=== PATIENT | male | born 1940 | race Caucasian/White ===

== ENCOUNTER → 2019-06-08 14:00 | Outpatient (BNVA) | payer MEDICARE, OTHER, SELFPAY | PROVIDERS: Family Provider Internal Medicine; PCP Internal Medicine; Visit Provider Family Medicine | DX: E78.2 Mixed hyperlipidemia (principal); E11.9 Type 2 diabetes mellitus without complications; Z79.4 Long term (current) use of insulin; N40.0 Benign prostatic hyperplasia without lower urinary tract symptoms; L60.2 Onychogryphosis; I10 Essential (primary) hypertension; D50.9 Iron deficiency anemia, unspecified | CPT/HCPCS: 80053; 80061; 83036; 85025; G0103 ==

== ENCOUNTER → 2019-06-16 14:17 | Outpatient (BNVA) | payer MEDICARE, OTHER, SELFPAY | PROVIDERS: Family Provider Internal Medicine; PCP Internal Medicine; Visit Provider Nurse Practitioner Family | DX: R82.90 Unspecified abnormal findings in urine (principal); E78.2 Mixed hyperlipidemia; N40.0 Benign prostatic hyperplasia without lower urinary tract symptoms | CPT/HCPCS: 81001; 87077; 87086; 87186 ==

== ENCOUNTER → 2019-12-30 10:52 | Outpatient (BNVA) | payer MEDICARE, OTHER, SELFPAY | PROVIDERS: Family Provider Internal Medicine; PCP Family Medicine; Visit Provider Family Medicine | DX: E11.65 Type 2 diabetes mellitus with hyperglycemia (principal); E78.5 Hyperlipidemia, unspecified; I10 Essential (primary) hypertension; Z79.4 Long term (current) use of insulin; I50.9 Heart failure, unspecified; T63.301A Toxic effect of unspecified spider venom, accidental (unintentional), initial encounter | CPT/HCPCS: 80053; 80061; 83036; 84443; 85025 ==

== ENCOUNTER → 2020-05-30 16:38 | Outpatient (BNVA) | payer MEDICARE, OTHER, SELFPAY | PROVIDERS: Family Provider Internal Medicine; PCP Family Medicine; Visit Provider Nurse Practitioner Family | DX: E11.65 Type 2 diabetes mellitus with hyperglycemia (principal); Z79.4 Long term (current) use of insulin; I50.9 Heart failure, unspecified | CPT/HCPCS: 80053; 80061; 83036; 84443; 85025 ==

== ENCOUNTER → 2020-07-06 09:00 | Outpatient (BNVA) | payer MEDICARE, OTHER, SELFPAY | PROVIDERS: Family Provider Internal Medicine; PCP Family Medicine; Visit Provider Nurse Practitioner Family | DX: R35.0 Frequency of micturition (principal); E11.65 Type 2 diabetes mellitus with hyperglycemia; Z79.4 Long term (current) use of insulin | CPT/HCPCS: 81003; 87077; 87086; 87184 ==

== ENCOUNTER → 2020-10-02 14:52 | Outpatient (BNVA) | payer MEDICARE, OTHER, SELFPAY | PROVIDERS: Family Provider Internal Medicine; PCP Family Medicine; Visit Provider Family Medicine | DX: E11.65 Type 2 diabetes mellitus with hyperglycemia (principal); E78.5 Hyperlipidemia, unspecified; I10 Essential (primary) hypertension; M62.81 Muscle weakness (generalized); R26.81 Unsteadiness on feet; R23.8 Other skin changes; Z79.4 Long term (current) use of insulin; R32 Unspecified urinary incontinence | CPT/HCPCS: 80053; 80061; 83036; 84443 ==

== ENCOUNTER 2020-10-03 12:57 | Inpatient (IN) | payer OTHER, MEDICARE, SELFPAY ==
[2020-10-03] VITALS (25 sets, daily range): BP systolic 122–164; BP diastolic 50–74; PULSE 61–98; RESP 13–20; TEMP 36.8–37.2; O2SAT 86–98; BMI 27.5
--- NOTE | 2020-10-03 13:00 | ED_ITS ---
HPI - Abdominal Pain General: Chief Complaint: Nausea/Vomiting/Diarrhea Stated Complaint: N/V, FEVER Time Seen by Provider: 10/03/20 12:58 History of Present Illness: HPI narrative: This patient is a 80-year-old male who presents to the emergency department for nausea vomiting and weakness. Patient also had a fever upon EMS arrival with his home in [facility]. Patient does have a history of blood clots he does take Eliquis for the same. Patient denies any recent illness was that he started vomiting this morning. Patient does have diabetes. Patient's nausea did improve with Zofran via EMS they have not given the patient any IV fluids. Will do medical evaluation treat as needed patient denies any specific abdominal pain. Onset (ago): hour(s) Pain Consistency: now resolved Location: None Associated Symptoms: Reports fever(s), nausea and vomiting; Denies chills and dysuria Review of Systems General: Reports: 10 or more systems reviewed and unremarkable except in HPI and below Const: Reports: fever(s); Denies: chills, body aches or fatigue Eyes: Denies: change in vision or blurry vision ENMT: Denies: throat pain, hoarseness or mouth pain Card: Denies: chest pain, palpitations, irregular heart rhythm, edema, swelling of feet/ankles or lightheadedness Resp: Denies: dyspnea, productive cough, non-productive cough, wheezing or pain on inspiration GI: Reports: nausea and vomiting; Denies: abdominal pain : Denies: flank pain, dysuria, urinary frequency, urinary urgency or urinary hesitancy Musc: Denies: neck pain, back pain, extremity pain, extremity swelling, joint pain, joint swelling, joint redness, joint warmth or limited range of motion Skin/Breast: Denies: rash, pruritus, erythema or skin tenderness Neuro: Reports: weakness in extremities; Denies: headache(s) or numbness in extremities Psych: Denies: anxiety or depression PFSH ED PFSH: Medical History Anemia ASHD (arteriosclerotic heart disease) CHF (congestive heart failure) Chronic osteoarthritis CKD (chronic kidney disease) stage 3, GFR 30-59 ml/min Dementia Diabetes Dyslipidemia Generalized muscle weakness GERD (gastroesophageal reflux disease) Hearing loss History of DVT (deep vein thrombosis) History of fracture of left hip Hypertension Neuropathy RASHAD (obstructive sleep apnea) Surgical History History of laminectomy (~1992) History of orchiectomy Family History Other CAD (coronary artery disease) Diabetes Hypertension Social History Smoking and tobacco status: former smoker Quit status (tobacco): has quit using tobacco Year quit tobacco: 1991 Second hand smoke exposure: Yes Smoking risk assessment/counseling performed?: No Alcohol intake: never Household members: spouse Marital status: service: Yes Current occupational status: retired Current gender identity: Male Physical Exam Const: COMMON NORMALS: no acute distress, average body habitus, patient oriented x3, no limitations, healthy appearing, alert and well nourished GENE RAL APPEARANCE: cooperative NUTRITIONAL APPEARANCE: obese ORIENTATION/CONSCIOUSNESS: Yes awake, Yes oriented to person and Yes oriented to place OTHER: Patient appears to have generalized weakness to the lower extremities. EMS reports the patient does use a wheelchair at home. HENMT: COMMON NORMALS: normocephalic, atraumatic, hearing grossly normal bilaterally, external ears normal, EAC's normal, TM's normal bilaterally, Normal external nose present, Normal nasal mucous membranes and turbinates present, moist oral mucous membranes, oropharynx normal, dentition normal and gingiva normal HEAD & SCALP: normocephalic and atraumatic NOSE: Normal external nose present and Normal nasal mucous membranes and turbinates present EXTERNAL EAR: Yes external ears normal EXTERNAL AUDITORY CANAL: EAC's normal TYMPANIC MEMBRANE: TM's normal bilaterally Neck/C-Spine: COMMON NORMALS: full ROM, no lymphadenopathy, supple, no meningeal signs, no JVD, Thyroid normal and No carotid bruits THYROID: Thyroid normal Chest: COMMONS NORMALS: normal inspection of the chest, normal palpation of entire chest wall, normal inspection of the breasts and normal palpation of the breasts Breast/axilla inspection: Yes normal inspection of the breasts BREAST/AXILLA PALPATION: Yes normal palpation of the breasts Resp: COMMON NORMALS: normal respiratory effort, No retractions, No use of accessory muscles, clear to auscultation bilaterally and percussion normal AUSCULTATION: clear to auscultation bilaterally PERCUSSION: percussion normal Cardio: COMMON NORMALS: no JVD, regular rate, regular rhythm, S1 normal heart sound present, S2 normal heart sound present, No gallops present (Cardio), No clicks present (Cardio), No murmurs present (Cardio), No rub (Cardio) and Peripheral pulses 2+ throughout RATE: regular rate RHYTHM: regular rhythm HEART SOUNDS: S1 normal heart sound present and S2 normal heart sound present PERIPHERAL PULSES: Peripheral pulses 2+ throughout GI: COMMON NORMALS: Normal to inspection, nondistended, normoactive bowel sounds present, Soft to palpation, non-tender, No hepatosplenomegaly present, no masses and no bruits PALPATION: Yes Soft to palpation and Yes No hepatosplenomegaly present : COMMON NORMALS: Yes no CVA tenderness BLADDER/KIDNEY EXAM: Yes no CVA tenderness Back/Pelvis: COMMON NORMALS: no CVA tenderness, thoracic and lumbar spine normal to inspection, no thoracic nor lumbar tenderness, thoraco-lumbar ROM normal and straight leg raise negative bilaterally Extremity: COMMON NORMALS: normal to inspection, full ROM, capillary refill normal, no joint enlargement, no clubbing, cyanosis or edema, no calf tenderness and no pedal edema Neuro: COMMON NORMALS: patient oriented x3 SENSORIUM/ORIENTATION: Yes alert, Yes oriented to person and Yes oriented to place MENINGEAL SIGNS: Yes no meningeal signs Course Reevaluation(s): Reevaluation #1: I did discuss at length with patient and family. Patient does have a long history of risk susceptible to recurrent urinary tract infections. Patient has a white blood cell count of 1.0 and platelets of 86. Lactic acid is 2.6. Patient will be given a dose of Rocephin and another liter bolus of fluid. Concern for possible sepsis or urosepsis. Patient had no complaints of abdominal pain but had nausea and vomiting started this morning. I did discuss at length with patient and family. Patient will be admitted to the hospital for probable sepsis. Still awaiting lab return. Time: 14:05 Consultations: Consultation #1: I did discuss at length with Dr. Salcido. He is accepted this patient for admission to the ICU. He request that we give Zosyn and Vanco and hold Rocephin. Also request a CT scan of the abdomen. He agrees with Ayala cath placement and current treatment thus far. Time: 14:14 Consultation #2: Dr. Peterson has been notified of CT results 1. Moderate LEFT hydroureteronephrosis secondary to a 6 mm calcification at the UV junction. 2. Mild LEFT renal enlargement and perinephric stranding due to the ureteral obstruction. 3. Cholelithiasis without acute cholecystitis. 4. 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 May be related to prior granulomatous disease or hemorrhage. Long-term stability is documented. 5. Moderate cardiomegaly. 6. Moderate hiatal hernia. 7. Sigmoid diverticulosis without acute diverticulitis. He is also aware that we have consulted Dr. Ponce urology. Time: 14:59 Consultation #3: I have discussed with Dr. Ponce urology. He states he will see patient upon arrival to the ICU. He is aware unable to place Ayala catheter in the emergency department. He will place a Ayala cath in the ICU. And evaluate for possible UPJ obstruction due to kidney stone Time: 15:16 Vital Signs: Vital signs: Vital Signs Temperature 98.3 F 10/03/20 13:02 Pulse Rate 98 10/03/20 13:02 Respiratory Rate 16 10/03/20 13:02 Blood Pressure 128/74 10/03/20 13:02 Pulse Oximetry 98 10/03/20 13:02 MDM - Abdominal Pain MDM Narrative: Medical decision making narrative: This patient is a 80-year-old male who presents to the emergency department for nausea vomiting and weakness. Patient also had a fever upon EMS arrival with his home in [facility]. Patient does have a history of blood clots he does take Eliquis for the same. Patient denies any recent illness was that he started vomiting this morning. Patient does have diabetes. Patient's nausea did improve with Zofran via EMS they have not given the patient any IV fluids. Will do medical evaluation treat as needed patient denies any specific abdominal pain. I did discuss at length with patient and family. Patient does have a long history of risk susceptible to recurrent urinary tract infections. Patient has a white blood cell count of 1.0 and platelets of 86. Lactic acid is 2.6. Patient will be given a dose of Rocephin and another liter bolus of fluid. Concern for possible sepsis or urosepsis. Patient had no complaints of abdominal pain but had nausea and vomiting started this morning. I did discuss at length with patient and family. Patient will be admitted to the hospital for probable sepsis. Still awaiting lab return. I did discuss at length with Dr. Salcido. He is accepted this patient for admission to the ICU. He request that we give Zosyn and Vanco and hold Rocephin. Also request a CT scan of the abdomen. He agrees with Ayala cath placement and current treatment thus far. Dr. Peterson has been notified of CT results 1. Moderate LEFT hydroureteronephrosis secondary to a 6 mm calcification at the UV junction. 2. Mild LEFT renal enlargement and perinephric stranding due to the ureteral obstruction. 3. Cholelithiasis without acute cholecystitis. 4. 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 May be related to prior granulomatous disease or hemorrhage. Long-term stability is documented. 5. Moderate cardiomegaly. 6. Moderate hiatal hernia. 7. Sigmoid diverticulosis without acute diverticulitis. He is also aware that we have consulted Dr. Ponce urology. I have discussed with Dr. Ponce urology. He states he will see patient upon arrival to the ICU. He is aware unable to place Ayala catheter in the emergency department. He will place a Ayala cath in the ICU. And evaluate for possible UPJ obstruction due to kidney stone Lab Data: Labs: Lab Results 10/03/20 10/03/20 10/03/20 Range/Units 12:00 12:00 12:00 WBC 1.0 L (4.0-10.0) 10^3/ uL RBC 4.00 L (4.1-5.3) 10^6/u L Hgb 11.7 (11.7-16.6) g/dL Hct 34.8 L (42.0-52.0) % MCV 87.0 (80-94) fL MCH 29.3 (28.0-34.0) pg MCHC 33.6 (30.0-36.0) g/dL RDW 13.8 (12.1-15.1) % Plt Count 86 L (130-400) 10^3/c mm MPV 12.0 H (7.4-10.4) fL Neut % (Auto) 82.5 % Lymph % (Auto) 15.5 % Warren % (Auto) 1.0 % Eos % (Auto) 1.0 % Baso % (Auto) 0.0 % Neut # (Auto) 0.80 L* (1.8-7.7) 10^3/u L Lymph # (Auto) 0.2 L (0.8-4.8) 10^3/u L Warren # (Auto) 0.0 L (0.2-0.9) 10^3/u L Eos # (Auto) 0.0 (0.0-0.8) 10^3/u L Baso # (Auto) 0.0 (0.0-0.1) 10^3/u L Nucleated RBC % (a uto) 0 % Nucleated RBCs # 0.0 /100WBC PT 16.00 H (12.1-14.9) SECO NDS INR 1.24 H (0.8-1.2) APTT 30.2 (23.9-36.7) SECO NDS Sodium 143 (136-145) mmol/L Potassium 3.2 L (3.5-5.1) mmol/L Chloride 107 (98-107) mmol/L Carbon Dioxide 21 L (22-29) mmol/L Anion Gap 18.2 (5-19) BUN 32 H (8-23) mg/dL Creatinine 1.4 H (0.7-1.2) mg/dL GFR Calculation Not Reportable Glucose 142 H (65-115) mg/dL Calculated Osmolal ity 305 H (285-295) mOsm/k g Lactic Acid (0.5-2.2) mmol/L Calcium 8.5 (8.5-10.5) mg/dL Total Bilirubin 1.0 (0.15-1.2) mg/dL AST 30 (0-40) U/L ALT 20 (0-41) U/L Alkaline Phosphata se 59 (40-130) IU/L Troponin T Baselin e (0-15) ng/L Total Protein 6.5 L (6.6-8.7) g/dL Albumin 3.6 (3.5-5.2) g/dL Globulin 2.9 (1.3-4.6) g/dL 10/03/20 10/03/20 Range/Units 12:00 13:15 WBC (4.0-10.0) 10^3/ uL RBC (4.1-5.3) 10^6/u L Hgb (11.7-16.6) g/dL Hct (42.0-52.0) % MCV (80-94) fL MCH (28.0-34.0) pg MCHC (30.0-36.0) g/dL RDW (12.1-15.1) % Plt Count (130-400) 10^3/c mm MPV (7.4-10.4) fL Neut % (Auto) % Lymph % (Auto) % Warren % (Auto) % Eos % (Auto) % Baso % (Auto) % Neut # (Auto) (1.8-7.7) 10^3/u L Lymph # (Auto) (0.8-4.8) 10^3/u L Warren # (Auto) (0.2-0.9) 10^3/u L Eos # (Auto) (0.0-0.8) 10^3/u L Baso # (Auto) (0.0-0.1) 10^3/u L Nucleated RBC % (a uto) % Nucleated RBCs # /100WBC PT (12.1-14.9) SECO NDS INR (0.8-1.2) APTT (23.9-36.7) SECO NDS Sodium (136-145) mmol/L Potassium (3.5-5.1) mmol/L Chloride (98-107) mmol/L Carbon Dioxide (22-29) mmol/L Anion Gap (5-19) BUN (8-23) mg/dL Creatinine (0.7-1.2) mg/dL GFR Calculation Glucose (65-115) mg/dL Calculated Osmolal ity (285-295) mOsm/k g Lactic Acid 2.6 H (0.5-2.2) mmol/L Calcium (8.5-10.5) mg/dL Total Bilirubin (0.15-1.2) mg/dL AST (0-40) U/L ALT (0-41) U/L Alkaline Phosphata se (40-130) IU/L Troponin T Baselin e 68 H (0-15) ng/L Total Protein (6.6-8.7) g/dL Albumin (3.5-5.2) g/dL Globulin (1.3-4.6) g/dL Imaging Data ^: KUB: Attestation: I personally reviewed and interpreted this imaging study as follows: Radiologist's impression: Impression: 1. Cardiomegaly. 2. Moderate generalized ileus. CT Abd/Pel: Attestation: I personally reviewed and interpreted this imaging study as follows: Radiologist's impression: 1. Moderate LEFT hydroureteronephrosis secondary to a 6 mm calcification at the UV junction. 2. Mild LEFT renal enlargement and perinephric stranding due to the ureteral obstruction. 3. Cholelithiasis without acute cholecystitis. 4. 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 May be related to prior granulomatous disease or hemorrhage. Long-term stability is documented. 5. Moderate cardiomegaly. 6. Moderate hiatal hernia. 7. Sigmoid diverticulosis without acute diverticulitis. EKG Data ^: EKG 1: Attestation: I personally reviewed and interpreted this EKG as follows: EKG interpretation date: 10/03/20 EKG interpretation time: 13:29 Prior EKG tracings: not available for review Interpretation: Sinus rhythm with minimal left axis deviation heart rate [address] changes. Discharge Plan Discharge Patient Disposition: Admitted As Inpatient Admit Provider: Cornelius Salcido Clinical Impression: Sepsis, Generalized muscle weakness, Nausea & vomiting, Leukocytopenia, unspe cified, Thrombocytopenia, Kidney stone, Pyelonephritis Condition: Stable Coding Level of Care Code ED Software Systems Architect for Chg Fwd Exam Comprehensive
--- NOTE | 2020-10-03 13:00 | ECG_ITS ---
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 Measurements Intervals [place] Rate: 94 P: 54 NH: 140 QRS: -55 QRSD: 100 T: 51 QT: 355 QTc: 444 Interpretive Statements SINUS RHYTHM MARKED LEFT AXIS DEVIATION [QRS AXIS < -30] MODERATE ST DEPRESSION [0.05+ mV ST DEPRESSION] Compared to ECG 11/29/2018 11:42:55 ST (T wave) deviation now present Electronically Signed On 10-03-2020 16:26:19 CDT by Misty Sousa M.D. [id number]
--- NOTE | 2020-10-03 13:03 | XR_ITS ---
WS: [id number] Acute abdomen series, 10/03/2020 Clinical Data: Abd pain Comparison: None. Findings: In the chest there are no nodules, masses or effusions. The heart is enlarged. The pulmonar y vascularity is not increased. The aortic arch and descending aorta show calcification and tortuosit y. No free air is seen beneath the diaphragms. No abnormal intra-abdominal masses are seen. There is ai r in the small bowel and colon but no evidence of obstruction. There is calcification in the abdomina l aorta but no aneurysm. There is a left hip arthroplasty. XR/XR acute abdomen series [id number] Impression: 1. Cardiomegaly. 2. Moderate generalized ileus.
[2020-10-03 13:19] LABS: Hematocrit 34.8 % (42.0-52.0); Hemoglobin 11.7 g/dL (11.7-16.6); Lymphocytes # 0.2 10^3/uL (0.8-4.8); Lymphocytes % 15.5 %; Mean Corpuscular HGB Conc 33.6 g/dL (30.0-36.0); Mean Corpuscular Hemoglobin 29.3 pg (28.0-34.0); Neutrophils % 82.5 %; Nucleated Red Blood Cells % 0 %; Platelet Count 86 10^3/cmm (130-400); Positive M 1; Red Cell Distribution Width 13.8 % (12.1-15.1)
[2020-10-03 13:31] LABS: Slide Review Slide Review Perform
[2020-10-03 13:39] LABS: Lactic Sepsis W/Reflex 2.6 mmol/L (0.5-2.2)
[2020-10-03 13:39] LABS: INR 1.24 (0.8-1.2)
[2020-10-03 13:40] LABS: Partial Thromboplastin Time 30.2 SECONDS (23.9-36.7)
[2020-10-03 13:44] LABS: Troponin(5th) Baseline 68 ng/L (0-15)
[2020-10-03] MEDS: ondansetron 2 mg/ML SDV 2 mL 4 MG IVP (13:44)
[2020-10-03] MEDS: acetaminophen 325 mg Tablet 650 MG PO (13:44)
[2020-10-03 13:45] LABS: Blood Urea Nitrogen 32 mg/dL (8-23); Carbon Dioxide 21 mmol/L (22-29); Chloride 107 mmol/L (98-107); Sodium 143 mmol/L (136-145)
[2020-10-03 13:46] LABS: Alanine Aminotransferase 20 U/L (0-41); Albumin Level 3.6 g/dL (3.5-5.2); Alkaline Phosphatase 59 IU/L (40-130); Aspartate Amino Transferase 30 U/L (0-40); Calcium 8.5 mg/dL (8.5-10.5); Globulin 2.9 g/dL (1.3-4.6); Glucose 142 mg/dL (65-115); Osmolality Calculated 305 mOsm/kg (285-295); Total Protein 6.5 g/dL (6.6-8.7)
[2020-10-03] MEDS: sodium chloride 0.9% 1,000 ML 999 ML IV ×2 (13:46→14:26)
[2020-10-03 13:47] LABS: Anion Gap 18.2 (5-19); Potassium 3.2 mmol/L (3.5-5.1)
--- NOTE | 2020-10-03 14:12 | CT_ITS ---
WS: [id number] CT ABDOMEN AND PELVIS NONCONTRAST HISTORY: Flank Pain TECHNIQUE: Imaging performed through the abdomen and pelvis. Coronal and sagittal reformats are submi tted. All CT scans at [facility] use at least one of these dose optimization techniques: automated exposure control; mA and/or kV adjustment per patient size (includes targeted exams where d ose is matched to clinical indication); or iterative reconstruction. DLP: 2111.49 mGy.cm COMPARISON: 11/29/2018 Lower thorax: Mild dependent changes emphysema the lung bases. Moderate enlargement the heart. Modera te size hiatal hernia. Liver: Artifact through the liver secondary to arm placement. No definite mass or biliary dilatation. Gallbladder: Normally distended gallbladder with stones. There is a calcification at the gertrude hepati s but I believe this is related to the vascular system and not the common bile duct. No intrahepatic duct dilatation. Pancreas: Moderate atrophy of the pancreas. Spleen: Mildly enlarged spleen at 14.1 cm in length. Adrenal glands: Normal RIGHT adrenal gland. Solid mass with calcifications involving the LEFT adrenal gland. Mass measures 3.4 x 2.5 cm. Partially calcified adrenal mass was also present on 11/29/2018 wit hout interval change. Right kidney: Perinephric stranding with no obstruction. Nonobstructing calcification in the mid kidn ey measures 3 mm. Left kidney: Mildly enlarged LEFT kidney with moderate perinephric stranding. Moderate hydroureterone phrosis secondary to a 6 mm calcification at the UV junction. Exophytic mass from the posterior infer ior LEFT kidney measures 2.7 cm. Most consistent with a cyst. Also noted on the study of 11/29/2018 wit hout significant increase in size. Aorta: Moderate to severe atherosclerosis abdominal aorta. No aneurysm. Atherosclerosis continues int o the common iliac arteries. Small retrocrural and retroperitoneal lymph nodes. Very small, subcentimeter lymph nodes along the il iac chains. GI tract: No GI tract obstruction. The appendix is normal. Numerous diverticula in the sigmoid colon without acute inflammation. There is mild wall thickening in the sigmoid which is probably related to chronic episodes of diverticulitis. No obstructive pattern. Abdominal wall: Fat-containing umbilical hernia. Pelvis: Beam hardening artifact through the pelvis from the LEFT hip arthroplasty. Urinary bladder is well distended. LEFT lateral bladder diverticulum. Prostate gland calcifications. Osseous structures: Osteopenia. No fractures. CT/CT abdomen pelvis wo con [id number] IMPRESSION: 1. Moderate LEFT hydroureteronephrosis secondary to a 6 mm calcification at th e UV junction. 2. Mild LEFT renal enlargement and perinephric stranding due to the ureteral o bstruction. 3. Cholelithiasis without acute cholecystitis. 4. 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 May be r elated to prior granulomatous disease or hemorrhage. Long-term stability is doc umented. 5. Moderate cardiomegaly. 6. Moderate hiatal hernia. 7. Sigmoid diverticulosis without acute diverticulitis.
[2020-10-03] MEDS: cefTRIAXone 1,000 MG in sodium chloride 0.9% (plus) 50 ML 100 MG IV (14:26)
[2020-10-03 15:07] LABS: Reflex Lactate Order REFLEX LACTIC ORDERD
--- NOTE | 2020-10-03 15:19 | PC.NURSE ---
Rocephin not given per
[2020-10-03] MEDS: vancomycin 1,000 MG in sodium chloride 0.9% 250 ML 250 MG IV (15:28)
[2020-10-03 16:43] LABS: Lactic Acid level (Lactate) 3.2 mmol/L (0.5-2.2)
--- NOTE | 2020-10-03 18:35 | PM.HP ---
Providers/Chief Complaint Admitting Physician: Cornelius Salcido Primary Care Provider: Faye Zamora MD Chief Complaint: N/V, FEVER History of Present Illness 80-year-old gentleman wheelchair-bound after hip fracture, with history of dementia, history of DVT on chronic anticoagulation, living at home with his being partial taking care of by her, with history of urinary infections, following with urology, was otherwise in baseline state of health, had his insulin increased by his PCP day earlier, today woke up with nausea, episodes of vomiting, on arrival of EMS noted to have fever. In ER noted to be leukopenic with neutropenia, ANC 800, thrombocytopenia, platelet level 86,000 which appears to be chronic, and his notes he has been followed by his primary provider but not hematology monitoring his blood counts, however, leukopenia appears to be new with WBC count 5.3 just on 10/02. In ER also with noted acute kidney injury, creatinine 1.4. They had difficulty obtaining a urine sample. Due to suspected sepsis, history of UTI he received empiric antibiotic coverage. Blood cultures obtained. Lactic acid initially 2.6, subsequently 3.2 despite 2000 mL fluid boluses. Blood pressure stable, however, with systolic pressures remaining in the 130s-140s. Troponin baseline 68, 2-hour 84.3. EKG with sinus rhythm, possibly ST depression 1, 2, V5, 6. He has not had any chest pain. CT abdomen pelvis obtained with finding of moderate left hydroureteronephrosis secondary to 6 mm calcification at the UV junction. Mild left renal enlargement and perinephric stranding due to ureteral obstruction. Cholelithiasis without acute cholecystitis. 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 Long-term stability documented. Moderate cardiomegaly. Moderate hiatal hernia. Sigmoid diverticulosis without acute diverticulitis. After receiving Zosyn, vancomycin in ER he is admitted to ICU with urology consultation. Review of Systems Const: Reports: fever(s), chills and malaise; Denies: body aches Eyes: Denies: change in vision or eye redness ENMT: Denies: throat pain, oral sores or ear or mastoid pain Card: Denies: chest pain, edema, pre-syncope or dyspnea on exertion Resp: Denies: dyspnea, productive cough, change in phlegm color or hemoptysis GI: Reports: nausea and vomiting; Denies: abdominal pain, diarrhea, constipation, hematochezia or melena : Reports: flank pain; Denies: difficulty urinating, urinary frequency or hematuria Musc: Denies: back pain, joint swelling or joint redness Skin/Breast: Denies: rash, sores or new lesions Neuro: Denies: headache(s), numbness in extremities, weakness in extremities, dizziness, confusion or seizure-like activity Endo: Denies: polyuria or polydipsia Humberto/Lymph: Denies: easy bleeding or purpura All/Imm: Denies: urticaria, throat swelling or tongue swelling Medications/Allergies Home Medications Medication Instructions Recorded Confirmed Last Taken Type insulin aspart U-100 100 unit/mL See Rx Instructions SUBCUT TID #15 11/09/19 10/03/20 Unknown Rx (3 mL) subcutaneous pen ml nitroglycerin 0.4 mg sublingual 0.4 mg SUBLINGUAL Q5M PRN #100 tab 11/09/19 10/03/20 Unknown Rx tablet metoprolol tartrate 25 mg tablet 25 mg PO BID #180 tab 05/10/20 10/03/20 10/03/20 Rx mupirocin 2 % topical ointment 1 applic TOPICAL BID #30 gm 05/10/20 10/03/20 Unknown Rx amlodipine 5 mg tablet 5 mg PO DAILY #30 tab 10/02/20 10/03/20 10/03/20 Rx apixaban 5 mg tablet 5 mg PO BID #180 tab 10/02/20 10/03/20 10/03/20 Rx atorvastatin 40 mg tablet 40 mg PO DAILY #90 tab 10/02/20 10/03/20 10/02/20 Rx finasteride 5 mg tablet 5 mg PO DAILY #90 tab 10/02/20 10/03/20 10/02/20 Rx fluticasone propionate 50 2 spray INTRANASAL DAILY #16 gm 10/02/20 10/03/20 Unknown Rx mcg/actuation nasal spray,suspension insulin glargine 100 unit/mL 25 unit SUBCUT BID #20 ml 10/02/20 10/03/20 10/03/20 Rx subcutaneous solution isosorbide mononitrate 30 mg 30 mg PO DAILY #90 tab 10/02/20 10/03/20 10/03/20 Rx tablet,extended release 24 hr ergocalciferol (vitamin D2) See Rx Instructions .ROUTE .COMPLEX 10/03/20 10/03/20 Unknown History gabapentin 300 mg PO BEDTIME 10/03/20 10/03/20 10/02/20 History pantoprazole 40 mg PO DAILY 10/03/20 10/03/20 10/03/20 History sertraline 100 mg PO BEDTIME 10/03/20 10/03/20 10/02/20 History Allergies Allergy/AdvReac Type Severity Reaction Status Date / Time solifenacin [From Vesicare] AdvReac Severe weakness Verified 10/03/20 13:07 metoclopramide [From Reglan] AdvReac Intermediate anxiety Verified 10/03/20 13:07 PFSH Acute PFSH: Medical History Anemia ASHD (arteriosclerotic heart disease) CHF (congestive heart failure) Chronic osteoarthritis CKD (chronic kidney disease) stage 3, GFR 30-59 ml/min Dementia Diabetes Dyslipidemia Generalized muscle weakness GERD (gastroesophageal reflux disease) Hearing loss History of DVT (deep vein thrombosis) History of fracture of left hip Hypertension Neuropathy RASHAD (obstructive sleep apnea) Surgical History History of laminectomy (~1992) History of orchiectomy Family History Other CAD (coronary artery disease) Diabetes Hypertension Social History Smoking and tobacco status: former smoker Quit status (tobacco): has quit using tobacco Year quit tobacco: 1991 Second hand smoke exposure: Yes Smoking risk assessment/counseling performed?: No Alcohol intake: never Household members: spouse Marital status: service: Yes Current occupational status: retired Current gender identity: Male Vitals/I&O/Wt Last Vital Signs Temp 98.7 F 10/03/20 18:00 Pulse 79 10/03/20 18:00 Resp 19 H 10/03/20 18:00 BP 145/61 10/03/20 18:00 Pulse Ox 92 10/03/20 18:00 10/03/20 10/03/20 10/03/20 06:59 14:59 22:59 Intake Total 2300 / 2300 Output Total 200 / 200 Balance 2100 / 2100 Weight last 48 hrs Weight 99.79 kg Physical Exam Narrative: EXAM NARRATIVE: Spoke also with daughter at bedside, although she has difficulty communicating with hearing impairment, as well as his in the waiting room. Const: COMMON NORMALS: no acute distress and alert; negative for patient oriented x3 (Baseline dementia, but perhaps worse currently) ORIENTATION/CONSCIOUSNESS: Yes awake OTHER: Pleasant, conversant, hard of hearing. Not a good historian. HENMT: COMMON NORMALS: oropharynx normal Neck/C-Spine: COMMON NORMALS: no JVD Resp: COMMON NORMALS: normal respiratory effort and clear to auscultation bilaterally AUSCULTATION: clear to auscultation bilaterally Cardio: COMMON NORMALS: no JVD, regular rhythm, S1 normal heart sound present, S2 normal heart sound present and No murmurs present (Cardio) RHYTHM: regular rhythm HEART SOUNDS: S1 normal heart sound present and S2 normal heart sound present GI: COMMON NORMALS: Normal to inspection, nondistended, normoactive bowel sounds present, Soft to palpation and non-tender PALPATION: Yes Soft to palpation : BLADDER/KIDNEY EXAM: Yes CVA tenderness on the left Extremity: COMMON NORMALS: no joint enlargement GENERAL: Yes edema (Trace) Neuro: COMMON NORMALS: patient oriented x3 and moves all extremities Skin: OTHER: Chronic venous stasis hemosiderosis/dermatitis bilaterally. Urinary Catheter Management^: Ayala: Cath Placed During This Visit: yes Urinary Catheter Date of Insertion: 10/03/20 Urinary Catheter Time of Insertion: 18:06 Data : 10/03/20 12:00 10/03/20 12:00 Micro: Microbiology 10/03/20 15:07 Blood Culture - Preliminary Blood SPECIMEN COLLECTED 10/03/20 15:03 Blood Culture - Preliminary Blood SPECIMEN COLLECTED A&P Assessment and plan (1) Sepsis: With fever on EMS arrival, although here no longer febrile, with new leukopenia, neutropenia, WBC count at 1000, ANC 800. Severe sepsis with lactic acidosis rise up to 3.2. Acute kidney injury. Elevation of troponin. Nausea, vomiting, flank pain. UA just obtained and pending. Ayala catheter placed. Seems perhaps some difficulty due to phimosis in ER. Continue Zosyn, previously Proteus, E. coli UTI sensitive to Zosyn. Follow-up blood cultures. Lactic acid with increased to 3.2. Received 2 L IV hydration. Continue IV fluid. Requested check NICOM. Recheck lactic acid. Due to sepsis with worsening lactic acidosis, neutropenia, pyelonephritis with obstructive uropathy, at this time admitted to ICU. High risk for deterioration. Status: Acute (2) Leukocytopenia, unspecified: WBC 1000, ANC 800. This appears to be new since just yesterday, despite chronic thrombocytopenia. states that his blood counts have been followed by primary provider. Suspect this is secondary to sepsis, however, with history of other cytopenias would benefit from consideration of follow-up with hematology. Reverse isolation due to neutropenia. Monitor blood counts. Antibiotics as above. Check B12, folic acid. Status: Acute (3) Nausea & vomiting: Secondary to pyelonephritis, left hydroureteronephrosis, UVJ stone/calcification. Status: Acute (4) Pyelonephritis: Acute complicated urinary tract infection with pyelonephritis with obstructive uropathy, left UVJ stone. Status: Acute (5) Obstructive uropathy: As above. Pending urology evaluation. We will keep n.p.o. in case requires a procedure. In case requires decompression would proceed as is due to severe sepsis, subsequently may benefit from additional work-up for possible progression of CAD with elevation troponin, risk factors. Status: Acute (6) Neutropenia: Treat sepsis, reassess counts. Reverse isolation. Follow-up levels. Consider follow-up with hematology. Status: Acute (7) Thrombocytopenia: Appears chronic. Monitor counts. Status: Acute (8) Elevated troponin: Troponin baseline 68, 2-hour 84.3. EKG with sinus rhythm, possibly ST depression 1, 2, V5, 6. He has not had any chest pain. Complete troponin, EKG series. Assess TTE. Suspect may be having demand ischemia secondary to sepsis. Not on aspirin, will have to confirm with urology whether going forward could initiate ends up with decompression procedure with regards to bleeding risk in the setting of thrombocytopenia, anticoagulation. Anticoagulation transition to heparin drip. Continue beta-mary, statin. Status: Acute (9) DENNYS (acute kidney injury): Creatinine 1.4. Baseline appears to be 1.1-1.2. Not a clear reason for creatinine elevation. Suspect secondary to sepsis. For now we will dose Zosyn renally with possibility of unstable renal function. Check urine studies. Does appear to have obstructive uropathy on the left pending additional evaluation, although not sure that should be affecting renal function by itself. Received fluid challenge. Recheck renal function. Monitor I&O. Status: Acute Additional A&P Information Hx DVT: Eliquis switched to heparin drip to allow discontinuation in case requires procedure, and in the setting of potentially unstable renal function with acute kidney injury, and with thrombocytopenia. Dementia Diabetes: Continue insulin GERD: PPI HLD, statin HTN: Monitor blood pressures, continue low-dose metoprolol for now CKD Among additional other medical problems Attestations Medical Necessity Statement*: Admission of over 2 midnights is going to be needed for assessment management of sepsis, complicated urinary tract infection, acute kidney injury, troponin elevation. Critical Care Time: In addition to noncritical issues 35 minutes critical care time spent on assessment of severe sepsis hemodynamic status, possible stability with worsening lactic acid, complicated urinary tract infection, pyelonephritis, with obstructive uropathy, sepsis, acute kidney injury, troponin elevation. Discussed with nursing staff, family. Coding Level of Care Code Acute Electrical Manufacturing Engineer for g Fwd Exam Comprehensive Diagnoses Sepsis A41.9 Leukocytopenia, unspecified D72.819 Nausea & vomiting R11.2 Pyelonephritis N12 Obstructive uropathy N13.9 Neutropenia D70.9 Thrombocytopenia D69.6 Elevated troponin R77.8 DENNYS (acute kidney injury) N17.9
[2020-10-03 18:54] LABS: Add Urine Microscopic? YES; Bilirubin Urine Neg (Negative); Blood Urine 3+ (Negative); Glucose Urine UA Norm (Normal); Ketones Urine Negative (Negative); Leukocyte Esterase Urine 2+ (Negative); Nitrate Urine Negative (Negative); Protein Urine 2+ (Negative); Sulfosalicylic Acid Urine Positive (Negative); Urine Appearance SL Hazy (CLEAR); Urine Color Yellow (Yellow); Urobilinogen Urine Norm (Negative); pH Urine 8 (5-7)
[2020-10-03 19:11] LABS: RBC Urine 25-40 /hpf (0-2)
[2020-10-03 19:12] LABS: WBC Urine 25-40 /hpf (0-5)
[2020-10-03 19:13] LABS: Add Urine Culture? Yes; Bacteria Urine 3+ /hpf
[2020-10-03] MEDS: heparin drip 25,000 UNIT/500 ML PREMIX 28 UNIT IV (19:17)
[2020-10-03] MEDS: heparin 5,000 unit/mL INJ 1 mL IV (19:17)
[2020-10-03] MEDS: pantoprazole DR 40 mg Tablet PO (19:18)
[2020-10-03] MEDS: lactated ringers 1,000 ML 100 ML IV (19:18)
--- NOTE | 2020-10-03 19:49 | PM.CONSULT ---
Providers/Reason For Consult Consulting Physician/Specialty*: Urology/Ponce Reason for Consult*: Left distal ureteral stone/UTI Attending Physician: Cornelius Salcido Primary Care Provider: Faye Zamora MD History of Present Illness History of Present Illness Yoav Kyle is a 80 year old male who was admitted through the emergency department today. He presented with complaints of nausea vomiting left lower quadrant pain. There was report of a temperature of 103 via the ambulance service but his reports that he was afebrile at home shortly before that. Temperatures recorded since his admission through the emergency department have been normal. Work-up in the ER: White count was 1.0, creatinine 1.4, lactic acid was 2.[address] scan showed a 6 mm left UVJ stone with hydronephrosis. UA: Initially was unobtainable and attempts at passing a catheter were unsuccessful in the emergency department. In fact I was consulted to put a catheter in but by the time I saw him in the ICU the nursing staff were able to get a catheter in without any difficulty. Urinalysis showed bacteriuria, nitrite negative, 25-40 red cells 25-40 white cells. Since admission to the ICU his vital signs have been stable. Is requiring no pressure support. His oxygenation is good. He has had no significant nausea or vomiting or pain per his report. I spoke to his who confirmed the above. She did say I saw him many years ago for incontinence. She could not really remember any other details about that. He has had no history of kidney stones. He is chronically on finasteride. Antibiotics have been started. Plan: 1. Observe overnight with likely stenting and if stable for stone retrieval tomorrow. 2. If clinically deteriorates tonight can proceed with intervention. 3. Clinically and hemodynamically stable now. Benefit of antibiotics versus emergent intervention weighed. Review of Systems Const: Reports: fever(s) Eyes: Denies: change in vision ENMT: Denies: odynophagia Card: Denies: chest pain or palpitations Resp: Denies: dyspnea, productive cough or wheezing GI: Reports: abdominal pain (Left lower quadrant abdominal pain earlier today) and nausea : Denies: difficulty urinating or dysuria Musc: Denies: joint swelling or joint redness Skin/Breast: Denies: rash or changing lesions Neuro: Reports: Slurred speech present (Chronic); Denies: headache(s) Psych: Denies: anxiety Endo: Denies: flushing Humberto/Lymph: Denies: easy bruising or easy bleeding All/Imm: Denies: urticaria or acute wheezing Meds/Allergies Home Medications and Allergies Home Medications Medication Instructions Recorded Confirmed Last Taken Type insulin aspart U-100 100 unit/mL See Rx Instructions SUBCUT TID #15 11/09/19 10/03/20 Unknown Rx (3 mL) subcutaneous pen ml nitroglycerin 0.4 mg sublingual 0.4 mg SUBLINGUAL Q5M PRN #100 tab 11/09/19 10/03/20 Unknown Rx tablet metoprolol tartrate 25 mg tablet 25 mg PO BID #180 tab 05/10/20 10/03/20 10/03/20 Rx mupirocin 2 % topical ointment 1 applic TOPICAL BID #30 gm 05/10/20 10/03/20 Unknown Rx amlodipine 5 mg tablet 5 mg PO DAILY #30 tab 10/02/20 10/03/20 10/03/20 Rx apixaban 5 mg tablet 5 mg PO BID #180 tab 10/02/20 10/03/20 10/03/20 Rx atorvastatin 40 mg tablet 40 mg PO DAILY #90 tab 10/02/20 10/03/20 10/02/20 Rx finasteride 5 mg tablet 5 mg PO DAILY #90 tab 10/02/20 10/03/20 10/02/20 Rx fluticasone propionate 50 2 spray INTRANASAL DAILY #16 gm 10/02/20 10/03/20 Unknown Rx mcg/actuation nasal spray,suspension insulin glargine 100 unit/mL 25 unit SUBCUT BID #20 ml 10/02/20 10/03/20 10/03/20 Rx subcutaneous solution isosorbide mononitrate 30 mg 30 mg PO DAILY #90 tab 10/02/20 10/03/20 10/03/20 Rx tablet,extended release 24 hr ergocalciferol (vitamin D2) See Rx Instructions .ROUTE .COMPLEX 10/03/20 10/03/20 Unknown History gabapentin 300 mg PO BEDTIME 10/03/20 10/03/20 10/02/20 History pantoprazole 40 mg PO DAILY 10/03/20 10/03/20 10/03/20 History sertraline 100 mg PO BEDTIME 10/03/20 10/03/20 10/02/20 History Allergies Allergy/AdvReac Type Severity Reaction Status Date / Time solifenacin [From Vesicare] AdvReac Severe weakness Verified 10/03/20 13:07 metoclopramide [From Reglan] AdvReac Intermediate anxiety Verified 10/03/20 13:07 Current Medications Current Medications Generic Name Dose Route Start Last Admin Trade Name Freq PRN Reason Stop Dose Admin Heparin Sodium (Beef Lung) 0 unit 10/03/20 18:21 10/03/20 19:17 Heparin 5,000 Unit/Ml Inj 1 Ml IV 5,000 unit PRN PRN Administration Heparin weight-base protocol Protocol Heparin Sodium/Sodium Chloride 25,000 unit in 500 mls @ 0 mls/hr 10/03/20 18:30 10/03/20 19:17 Heparin Drip IV 14.03 unit/kg/hr .Q0M MARTHA 28 mls/hr Administration Protocol Per Protocol Lactated Ringer's 1,000 mls @ 100 mls/hr 10/03/20 18:30 10/03/20 19:18 Lactated Ringers IV 100 mls/hr .Q10H MARTHA Administration Pantoprazole Sodium 40 mg 10/03/20 18:25 10/03/20 19:[address] 40 Mg Tablet PO 40 mg DAILY MARTHA Administration PFSH Acute PFSH: Medical History (Updated 10/03/20 @ 20:12 by Ian Ponce MD) Anemia ASHD (arteriosclerotic heart disease) CHF (congestive heart failure) Chronic osteoarthritis CKD (chronic kidney disease) stage 3, GFR 30-59 ml/min Dementia Diabetes Dyslipidemia Generalized muscle weakness GERD (gastroesophageal reflux disease) Hearing loss History of DVT (deep vein thrombosis) History of fracture of left hip Hypertension Left ureteral calculus Neuropathy RASHAD (obstructive sleep apnea) Surgical History History of laminectomy (~1992) History of orchiectomy Family History Other CAD (coronary artery disease) Diabetes Hypertension Social History Smoking and tobacco status: former smoker Quit status (tobacco): has quit using tobacco Year quit tobacco: 1991 Second hand smoke exposure: Yes Smoking risk assessment/counseling performed?: No Alcohol intake: never Household members: spouse Marital status: service: Yes Current occupational status: retired Current gender identity: Male Vitals/I&O/Wt Last Vital Signs Temp 98.7 F 10/03/20 18:00 Pulse 79 10/03/20 18:00 Resp 19 H 10/03/20 18:00 BP 145/61 10/03/20 18:00 Pulse Ox 92 10/03/20 18:00 10/03/20 10/03/20 10/03/20 06:59 14:59 22:59 Intake Total 2300 / 2300 Output Total 200 / 200 Balance 2100 / 2100 Weight last 48 hrs Weight 220 lb Physical Exam Const: COMMON NORMALS: no acute distress, alert and well nourished GENERAL APPEARANCE: well kempt and well developed ORIENTATION/CONSCIOUSNESS: not confused HENMT: COMMON NORMALS: normocephalic and atraumatic HEAD & SCALP: normocephalic and atraumatic Eye: COMMON NORMALS: conjunctivae normal and no scleral icterus CONJUNCTIVA: Yes conjunctivae normal Neck/C-Spine: COMMON NORMALS: full ROM Resp: COMMON NORMALS: normal respiratory effort EFFORT & INSPECTION: No labored and No Actively coughing GI: COMMON NORMALS: Soft to palpation PALPATION: Yes Soft to palpation and No Tenderness to palpation present (GI) RECTAL EXAM: Yes visual inspection normal, Yes normal sphincter tone, Yes prostate normal and No mass : BLADDER/KIDNEY EXAM: Yes catheter in place and Yes bladder normal to palpation MALE GROIN/PERINEUM EXAM: No ecchymosis PENIS: normal penis MEATUS: meatus normal, no meatla discharge and No Blood at meatus present SCROTUM: No edematous, No scrotal swelling and Yes other TESTES: Yes absent testicle Testes absent laterality: right, No testicular tenderness, No testicular mass, Yes epididymides normal and No epididymal tenderness Back/Pelvis: OTHER: He denied any tenderness on the left CVA area but apparently he did have some earlier. Extremity: COMMON NORMALS: no clubbing, cyanosis or edema Neuro: COMMON NORMALS: no focal motor deficits SENSORIUM/ORIENTATION: Yes alert Psych: COMMON NORMALS: mental status grossly normal APPEARANCE: Yes grossly normal and Yes well kempt ATTITUDE: Yes calm and Yes engaged Skin: COMMON NORMALS: no rashes or lesions noted and no jaundice GENERAL SKIN EXAM: no rashes or lesions noted Urinary Catheter Management^: Ayala: Cath Placed During This Visit: yes Urinary Catheter Date of Insertion: 10/03/20 Urinary Catheter Time of Insertion: 18:06 Data Micro: Micro: Microbiology 10/03/20 15:07 Blood Culture - Pr eliminary Blood SPECIMEN YUKI PETERS 10/03/20 15:03 Blood Culture - Pr eliminary Blood SPECIMEN [facility] A&P Assessment and plan (1) Left ureteral calculus: Complicated by UTI. Clinically stable currently. Reevaluate in morning unless he deteriorates tonight for possible stenting stone extraction. Reviewed with nursing staff. Also reviewed with his . Status: Acute (2) Sepsis: Status: Acute Consult Attestations Medical Necessity Statement: See attending Coding Level of Care Code Acute Volunteer Patient Representative [facility] Ex[facility] Comprehensive Diagnoses Left ureteral calculus N20.1 Sepsis A41.9
[2020-10-03] MEDS: gabapentin 300 mg Capsule PO (20:08)
[2020-10-03] MEDS: sertraline 100 mg Tablet 50 MG PO (20:08)
[2020-10-03 20:15] LABS: Vitamin B12 388 pg/mL (232-1245)
[2020-10-03 20:59] LABS: Urine Creatinine 83 mg/dL (39-259); Urine Random Sodium 56 mmol/L
[2020-10-03 23:12] LABS: Folate Level 15.5 ng/mL (4.5-32.2)
[2020-10-04] VITALS (13 sets, daily range): BP systolic 118–159; BP diastolic 58–70; PULSE 59–97; RESP 12–24; TEMP 36.9–38.5; O2SAT 91–97
--- NOTE | 2020-10-04 | SCC_ITS ---
Procedure Done: 1. Cystoscopy removal of stone 2. Left ureteroscopy, ureteral stent placement. 3. LEFT retrograde ureteropyelogram 38.0 seconds of fluoroscopic guidance, for a cumulative dose of 12.31 mGy, was provided to Dr. Ponce by the radiology department. C-arm images of the abdomen were saved for the patient's permanent record. [facility]
[2020-10-04 02:02] LABS: Hematocrit 29.2 % (42.0-52.0); Hemoglobin 9.4 g/dL (11.7-16.6); Mean Corpuscular HGB Conc 32.2 g/dL (30.0-36.0); Mean Corpuscular Hemoglobin 28.8 pg (28.0-34.0); Mean Corpuscular Volume 89.6 fL (80-94); Mean Platelet Volume 11.1 fL (7.4-10.4); Platelet Count 66 10^3/cmm (130-400); Red Blood Count 3.26 10^6/uL (4.1-5.3); Red Cell Distribution Width 14.1 % (12.1-15.1); White Blood Count 4.9 10^3/uL (4.0-10.0)
[2020-10-04 02:19] LABS: Anion Gap 13.1 (5-19); Blood Urea Nitrogen 32 mg/dL (8-23); Calcium 7.5 mg/dL (8.5-10.5); Carbon Dioxide 23 mmol/L (22-29); Chloride 111 mmol/L (98-107); Glucose 136 mg/dL (65-115); Osmolality Calculated 307 mOsm/kg (285-295); Potassium 3.1 mmol/L (3.5-5.1); Sodium 144 mmol/L (136-145)
[2020-10-04 02:20] LABS: Lactate (Lactic Acid level) 1.1 mmol/L (0.5-2.2)
[2020-10-04 02:29] LABS: Absolute Segmented Neutrophil 2.8 10/cmm (1.6-7.1); Band Neutrophils Absolute 1.3 10^3/cmm (0.0-1.2); Eosinophils 0 %; Lymphocytes 8 %; Lymphocytes Absolute 0.4 10^3/cmm (1.2-3.4); Monocytes Absolute 0.3 10^3/cmm (0.1-0.6); Segmented Neutrophils 58 %; Slide Review Slide Review Perform; Total Cells Counted 100 (0-100)
[2020-10-04 02:30] LABS: Absolute Neutrophil 4.2 10^3/cmm (1.4-6.5); Platelet Estimate Decreased (Normal)
[2020-10-04 02:53] LABS: Partial Thromboplastin Time > 250.0 SECONDS (23.9-36.7)
[2020-10-04] MEDS: piperacillin-tazobactam 3.375 GM in sodium chloride 0.9% (plus) 50 ML IV ×3 (03:09→17:53)
--- NOTE | 2020-10-04 03:41 | PC.NURSE ---
NICOM Assessment Baseline readings established SVI 33 CI 2.3 TPRI 2651 Assessment after PLR Change in SVI of 28.9% CI 3.2 CO 6.8 SVI 46
[2020-10-04 03:54] LABS: Partial Thromboplastin Time > 250.0 SECONDS (23.9-36.7)
[2020-10-04] MEDS: lactated ringers 1,000 ML 100 ML IV (04:58)
--- NOTE | 2020-10-04 06:00 | USCV_ITS ---
Yoav Kyle Age: 80 Gender: M : 1940 Exam Date: 10/04/2020 06:36 Ordering Phys: Cornelius Salcido MD Technologist: Nora Caldwell [place] [facility] [place]: Elevated troponin BP: 141 / 63 HR: 69 Rhythm: Sinus Technical Quality: Suboptimal MEASUREMENTS (Male / Female) Normal Values 2D ECHO LV Diastolic Diameter PLAX 4.4 cm 4.2 - 5.9 / 3.9 - 5.3 cm LV Systolic Diameter PLAX 3.4 cm LV Chamber Size 4.0 cm IVS Diastolic Thickness 1.5 cm 0.6 - 1.0 / 0.6 - 0.9 cm IVS Systolic Thickness 1.6 cm LVPW Diastolic Thickness 1.3 cm 0.6 - 1.0 / 0.6 - 0.9 cm LVPW Systolic Thickness 1.5 cm RV Chamber Size 3.5 cm LVOT Diameter 2.1 cm LV Ejection Fraction 2D Teich 46.6 % LV Ejection Fraction MOD 2C 54.2 % LV Ejection Fraction 2C AL 54.5 % LA Diameter 4.8 cm LA Width 4.1 cm LA Height 6.0 cm RA Width 3.6 cm RA Height 4.8 cm Aorta at Sinotubular Diameter 2.6 cm M-MODE LV Diastolic Diameter MM 6.4 cm 4.2 - 5.9 / 3.9 - 5.3 cm LV Systolic Diameter MM 4.2 cm LV Ejection Fraction MM Teich 62.4 % IVS Diastolic Thickness MM 1.6 cm 0.6 - 1.0 / 0.6 - 0.9 cm IVS Systolic Thickness MM 1.6 cm LVPW Diastolic Thickness MM 1.5 cm 0.6 - 1.0 / 0.6 - 0.9 cm LVPW Systolic Thickness MM 2.1 cm RV Diastolic Diameter MM 2.3 cm Aortic Annulus Diameter 3.4 cm LA Ao Ratio MM 1.5 MV E Point Septal Separation 0.7 cm DOPPLER AV Peak Velocity 170.0 cm/s LVOT Peak Velocity 119.0 cm/s AV Area Cont Eq vti 2.5 cm squared AV Area Cont Eq pk 2.4 cm squared MV Area PHT 3.0 cm squared Mitral E to A Ratio 0.9 MV E' Velocity 42.0 cm/s Mitral E to MV E' Ratio 9.7 Mitral E to LV E' Lateral Ratio 7.3 Mitral E to LV E' Septal Ratio 14.7 TR Peak Velocity 249.0 cm/s TR Peak Gradient 24.8 mmHg TV Peak E Velocity 52.0 cm/s Right Atrial Pressure 3.0 mmHg Pulmonary Artery Systolic Pressu 27.8 mmHg FINDINGS Left Ventricle Normal left ventricular size and systolic function, EF 57 %. No regional wall motion abnormalities. Grade I/IV diastolic dysfunction (abnormal relaxation filling pattern), normal to mildly elevated filling pressures. Right Ventricle The right ventricle is normal in size and function. Right Atrium The right atrium is normal in size. Left Atrium Mildly increased left atrial size. Mitral Valve Trace mitral valve regurgitation. Aortic Valve Thickened aortic valve. Trace aortic valve regurgitation. Tricuspid Valve No gross abnormalities noted. Pulmonic Valve No gross abnormalities noted Pericardium Normal pericardium without effusion. Aorta Normal ascending aorta dimension. CONCLUSIONS Normal left ventricular size and systolic function, EF 57 %. No regional wall motion abnormalities. Grade I/IV diastolic dysfunction (abnormal relaxation filling pattern), normal to mildly elevated filling pressures. Mildly increased left atrial size. Thickened aortic valve. Trace aortic valve regurgitation. Trace mitral valve regurgitation. There is no pericardial effusion. There are no intracardiac masses. No previous study is available for comparison. Dr Mine Douglas MD [facility] (Electronically Signed) Final Date: 04 October 2020 08:40 S
--- NOTE | 2020-10-04 07:00 | PM.PN ---
Subjective Subjective: Interval history: Urology follow-up: Stable overnight hemodynamically. No temperature spikes. Denies significant pain. We will plan for endoscopic treatment today either with stenting alone or if hemodynamically stable during the procedure ureteroscopy stone extraction possible laser/stent etc. Will review again with the this morning for consent purposes. I discussed the procedure in detail with the . Informed consent was obtained. She expressed good understanding regarding been urgency of the situation. Nursing staff witnessed her consent signing. Vitals/I&O/Wt Last Vital Signs Temp 98.4 F 10/04/20 04:00 Pulse 74 10/04/20 06:00 Resp 15 10/04/20 04:00 BP 141/63 10/04/20 04:00 Pulse Ox 95 10/04/20 04:00 10/03/20 10/04/20 10/04/20 22:59 06:59 14:59 Intake Total 2300 / 2300 1214.467 / 3514.467 Output Total 380 / 380 400 / 780 Balance 1920 / 1920 814.467 / 2734.467 Weight last 48 hrs Weight 219 lb Weight 220 lb Physical Exam Const: COMMON NORMALS: no acute distress and alert; negative for patient oriented x3 Neck/C-Spine: COMMON NORMALS: supple Resp: EFFORT & INSPECTION: Yes able to speak in complete sentences, Yes symmetric chest movement, No tachypneic and No respiratory distress Cardio: COMMON NORMALS: regular rate RATE: regular rate : OTHER: Urine clear Neuro: COMMON NORMALS: negative for patient oriented x3 SENSORIUM/ORIENTATION: Yes alert Urinary Catheter Management^: Ayala: Cath Placed During This Visit: yes Reason for Continuing Indwelling Catheter: Acute Urinary Retention or Obstruction Urinary Catheter Date of Insertion: 10/03/20 Urinary Catheter Time of Insertion: 18:06 Data : 10/04/20 01:57 10/04/20 01:57 Micro: Microbiology 10/03/20 15:07 Blood Culture - Preliminary Blood SPECIMEN COLLECTED 10/03/20 15:03 Blood Culture - Preliminary Blood SPECIMEN COLLECTED A&P Assessment and plan (1) Left ureteral calculus: Complicated by UTI. Clinically stable currently and overnight We will plan for endoscopic intervention today early afternoon. Will review again with his . Last night she was comfortable with proceeding. Status: Acute (2) Sepsis: Status: Acute (3) DENNYS (acute kidney injury): Creatinine bumped up today slightly. 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
--- NOTE | 2020-10-04 08:26 | PC.CHAP ---
Pastoral Care Encounter/Spiritual Assessment Type of Contact [] Declined hematology nurse visit [] Patient/Family/Request visit [] Outpatient visit [] Follow-up visit [] Physician referral [] Code/Alert [x] Routine visit [] Staff referral [] Actively dying [] Patient sleeping [] Family support [] [] Out of room [] Palliative care [] [] Receiving care in room [] Pre-surgical visit [] Trauma [] Long length of stay [x] ICU visit [x] Other: ventilator Relational/Emotional Strength [] Patient feels connected with others/family/visitors/staff [] Distress [] Loneliness/isolation [] Abandonment Spirituality of Patient [] Person of Julia [] Attends Tenriism of their Julia [] Believes in Prayer [] Reads Bible or Church materials [] There are Spiritual issues 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 [x] Prayer [] Active listening [] Non-anxious presence [] Spiritual/emotional support [] Crisis/trauma care [] Spiritual counseling [] Bereavement support [] Provided bereavement packet [] Provided Bible/devotional materials [] Provided toy/stuffed animal, coloring book to patient or family member [] Provided Communion [] Anointing/[place] [] Salvation [x] Completed spiritual assessment [] Other: Impact on Illness or Injury [] Angry [] Fearful [] Anxious [] Often cries [] Exhaustion [] Unable to work [] Unable to attend taoist [] Unable to walk/stand [] Unable to read [] Unable to drive [] Unable to eat/drink [] Unable to sleep [] Unable to be with family [] Patient intubated [] Other: Summary Time spent with patient
[2020-10-04] MEDS: pantoprazole DR 40 mg Tablet PO (08:29)
[2020-10-04] MEDS: finasteride 5 mg Tablet PO (08:29)
[2020-10-04] MEDS: atorvastatin 40 mg Tablet PO (08:29)
[2020-10-04] MEDS: metoprolol tartrate 25 mg Tablet 12.5 MG PO ×2 (08:32→17:53)
[2020-10-04] MEDS: insulin glargine 100 units/1 mL 25 UNIT SUBCUT ×2 (08:33→17:53)
[2020-10-04] MEDS: fluticasone nasal spray 16gm Btl 2 SPRAY INTRANASAL (08:57)
--- NOTE | 2020-10-04 10:59 | ANES.PREANE2 ---
Pre-Anesthetic Assessment Pre-Anesthetic Assessment: Height/Weight: Height 1.91 m Weight 99.337 kg Temp Pulse Resp BP Pulse Ox 99.0 F 68 16 145/63 94 10/04/20 08:00 10/04/20 08:00 10/04/20 08:00 10/04/20 08:00 10/04/20 08:00 Preop Diagnosis: Urinary Obstruction Proposed Procedure: Operation Date: 10/04/20 13:05 Proposed Procedures p Cystoscopy(Not Applicable) - Ian Ponce MD s Retrograde Pyelogram(Left) - Ian Ponce MD s Ureteroscopy(Left) - Ian Ponce MD s Laser Lithotripsy(Left) - Ian Ponce MD s Ureteral Stent Placement(Left) - Ian Ponce MD Familial anesthetic complications: slow to wak eup Was Beta Mariano taken within 24 hours: Yes Was Clonidine taken within 24 hours: N/A Last intake: > 8 hrs Social: Social History: No alcohol and No tobacco Exam: Pre-Anes Outpt Exam: alert, oriented x 3, clear to auscultation bilaterally and regular rate & rhythm Airway: Cervical ROM: WNL MP: 3 Dentition: Other (no teeth) Pulmonary: Pulmonary: Sleep apnea CV/HEM: CV/HEM: Anemia, CHF, DVT and HTN Comments: pancytopenia : : Chronic renal Insufficiency GI: GI: GERD Metabolic: Metabolic: DM and Hyperlipidemia Neuropsych: Neuropsych: Dementia and Neuropathy Anesthetic Plan: ASA status: 4 Anesthesia: General Risk of > 500 ml blood loss (7ml/kg in children): No Meds/Allergies Current Medications: Current Medications Generic Name Dose Route Start Last Admin Trade Name Daveq PRN Reason Stop Dose Admin Atorvastatin Calci um 40 mg 10/04/20 09:00 10/04/20 08:29 Atorvastatin 40 Mg Tablet PO 40 mg DAILY MARTHA Administration Finasteride 5 mg 10/04/20 09:00 10/04/20 08:29 Finasteride 5 Mg Tablet PO 5 mg DAILY MARTHA Administration Fluticasone Propio amparo 2 spray 10/04/20 09:00 10/04/20 08:57 Fluticasone Nasa l Pansey 16gm Btl INTRANASAL 2 spray DAILY MARTHA Administration Gabapentin 300 mg 10/03/20 21:00 10/03/20 20:08 Gabapentin 300 M g Capsule PO 300 mg BEDTIME MARTHA Administration Heparin Sodium (Be ef Lung) 0 unit 10/03/20 18:21 10/03/20 19:17 Heparin 5,000 Un it/Ml Inj 1 Ml IV 5,000 unit PRN PRN Administration Heparin weight-ba se protocol Protocol Heparin Sodium/Sod ium Chloride 25,000 unit in 50 0 mls @ 0 mls/hr 10/03/20 18:30 10/04/20 04:08 Heparin Drip IV 0 unit/kg/hr .Q0M MARTHA 0 mls/hr Titration Protocol Per Protocol Lactated Ringer's 1,000 mls @ 100 m ls/hr 10/03/20 18:30 10/04/20 04:58 Lactated Ringers IV 100 mls/hr .Q10H MARTHA Administration Piperacillin Sod/T azobactam 50 mls @ 12.5 mls /hr 10/04/20 10:00 10/04/20 09:00 Sod 3.375 gm/ So dium Chloride IV 12.5 mls/hr Q8H MARTHA Administration Protocol Insulin Glargine 25 unit 10/04/20 09:00 10/04/20 08:33 Insulin Glargine 100 Units/1 Ml SUBCUT 25 unit BID MARTHA Administration Metoprolol Tartrat e 12.5 mg 10/04/20 09:00 10/04/20 08:32 Metoprolol Tartr ate 25 Mg Tablet PO 12.5 mg BID MARTHA Administration Pantoprazole Sodiu m 40 mg 10/03/20 18:25 10/04/20 08:[address] 40 Mg Tablet PO 40 mg DAILY MARTHA Administration Sertraline HCl 50 mg 10/03/20 21:00 10/03/20 20:08 Sertraline 100 M g Tablet PO 50 mg BEDTIME MARTHA Administration PFSH Anesthesia PFSH: Medical History (Updated 10/03/20 @ 20:12 by Ian Ponce MD) Anemia ASHD (arteriosclerotic heart disease) CHF (congestive heart failure) Chronic osteoarthritis CKD (chronic kidney disease) stage 3, GFR 30-59 ml/min Dementia Diabetes Dyslipidemia Generalized muscle weakness GERD (gastroesophageal reflux disease) Hearing loss History of DVT (deep vein thrombosis) History of fracture of left hip Hypertension Left ureteral calculus Neuropathy RASHAD (obstructive sleep apnea) Surgical History History of laminectomy (~1992) History of orchiectomy Family History Other CAD (coronary artery disease) Diabetes Hypertension Social History Smoking and tobacco status: former smoker Quit status (tobacco): has quit using tobacco Year quit tobacco: 1991 Second hand smoke exposure: Yes Smoking risk assessment/counseling performed?: No Alcohol intake: never Household members: spouse Marital status: service: Yes Current occupational status: retired Current gender identity: Male Data Anesthesia CBC & Chem 7: 10/04/20 01:57 10/04/20 01:57 Other Labs: Laboratory Results - last 48 hr 10/03/20 10/03/20 10/03/20 12:00 12:00 12:00 WBC 1.0 L RBC 4.00 L Hgb 11.7 Hct 34.8 L MCV 87.0 MCH 29.3 MCHC 33.6 RDW 13.8 Plt Count 86 L MPV 12.0 H Neut % (Auto) 82.5 Lymph % (Auto) 15.5 Bailey % (Auto) 1.0 Eos % (Auto) 1.0 Baso % (Auto) 0.0 Neut # (Auto) 0.80 L* Lymph # (Auto) 0.2 L Bailey # (Auto) 0.0 L Eos # (Auto) 0.0 Baso # (Auto) 0.0 Nucleated RBC % (auto) 0 Total Counted Atypical Lymphs % Absolute Neutrophils Segmented Neutrophils Abs Segm Neuts (Man) Band Neutrophils Abs Band Neuts (Man) Absolute Lymphocytes Lymphocytes (Manual) Monocytes (Manual) Absolute Monocytes Eosinophils (Manual) Absolute Eosinophils Basophils (Manual) Absolute Basophils Metamyelocytes Nucleated RBCs # 0.0 Platelet Estimate PT 16.00 H INR 1.24 H APTT 30.2 Sodium 143 Potassium 3.2 L Chloride 107 Carbon Dioxide 21 L Anion Gap 18.2 BUN 32 H Creatinine 1.4 H GFR Calculation Not Reportable Glucose 142 H Calculated Osmolality 305 H Lactic Acid Lactic Acid (Sepsis) Lactate Calcium 8.5 Total Bilirubin 1.0 AST 30 ALT 20 Alkaline Phosphatase 59 Troponin T Baseline Troponin T 120 Minute Delta Troponin T Total Protein 6.5 L Albumin 3.6 Globulin 2.9 Vitamin B12 Folate Urine Color Urine Appearance Urine pH Ur Specific [place] Urine Protein Urine Glucose (UA) Urine Ketones Urine Blood Urine Nitrate Urine Bilirubin Prot Sulfosalicylic Acd Urine Urobilinogen Ur Leukocyte Esterase Urine RBC Urine WBC Ur Squamous Epith Cells Amorphous Sediment Urine Bacteria Ur Random Sodium Urine Creatinine 10/03/20 10/03/20 10/03/20 12:00 13:15 15:03 WBC RBC Hgb Hct MCV MCH MCHC RDW Plt Count MPV Neut % (Auto) Lymph % (Auto) Bailey % (Auto) Eos % (Auto) Baso % (Auto) Neut # (Auto) Lymph # (Auto) Bailey # (Auto) Eos # (Auto) Baso # (Auto) Nucleated RBC % (auto) Total Counted Atypical Lymphs % Absolute Neutrophils Segmented Neutrophils Abs Segm Neuts (Man) Band Neutrophils Abs Band Neuts (Man) Absolute Lymphocytes Lymphocytes (Manual) Monocytes (Manual) Absolute Monocytes Eosinophils (Manual) Absolute Eosinophils Basophils (Manual) Absolute Basophils Metamyelocytes Nucleated RBCs # Platelet Estimate PT INR APTT Sodium Potassium Chloride Carbon Dioxide Anion Gap BUN Creatinine GFR Calculation Glucose Calculated Osmolality Lactic Acid 2.6 H Lactic Acid (Sepsis) Lactate Calcium Total Bilirubin AST ALT Alkaline Phosphatase Troponin T Baseline 68 H Troponin T 120 Minute 84.30 H Delta Troponin T 16.30 H* Total Protein Albumin Globulin Vitamin B12 Folate Urine Color Urine Appearance Urine pH Ur Specific [place] Urine Protein Urine Glucose (UA) Urine Ketones Urine Blood Urine Nitrate Urine Bilirubin Prot Sulfosalicylic Acd Urine Urobilinogen Ur Leukocyte Esterase Urine RBC Urine WBC Ur Squamous Epith Cells Amorphous Sediment Urine Bacteria Ur Random Sodium Urine Creatinine 10/03/20 10/03/20 10/03/20 15:03 16:15 17:35 WBC RBC Hgb Hct MCV MCH MCHC RDW Plt Count MPV Neut % (Auto) Lymph % (Auto) Bailey % (Auto) Eos % (Auto) Baso % (Auto) Neut # (Auto) Lymph # (Auto) Bailey # (Auto) Eos # (Auto) Baso # (Auto) Nucleated RBC % (auto) Total Counted Atypical Lymphs % Absolute Neutrophils Segmented Neutrophils Abs Segm Neuts (Man) Band Neutrophils Abs Band Neuts (Man) Absolute Lymphocytes Lymphocytes (Manual) Monocytes (Manual) Absolute Monocytes Eosinophils (Manual) Absolute Eosinophils Basophils (Manual) Absolute Basophils Metamyelocytes Nucleated RBCs # Platelet Estimate PT INR APTT Sodium Potassium Chloride Carbon Dioxide Anion Gap BUN Creatinine GFR Calculation Glucose Calculated Osmolality Lactic Acid Lactic Acid (Sepsis) 3.2 H Lactate Calcium Total Bilirubin AST ALT Alkaline Phosphatase Troponin T Baseline Troponin T 120 Minute Delta Troponin T Total Protein Albumin Globulin Vitamin B12 388 Folate Urine Color Yellow Urine Appearance Sl hazy Urine pH 8 H Ur Specific [place] 1.010 Urine Protein 2+ H Urine Glucose (UA) Norm Urine Ketones Negative Urine Blood 3+ H Urine Nitrate Negative Urine Bilirubin Neg Prot Sulfosalicylic Acd Positive Urine Urobilinogen Norm Ur Leukocyte Esterase 2+ H Urine RBC 25-40 H Urine WBC 25-40 H Ur Squamous Epith Cells 5-10 H Amorphous Sediment Not Reportable Urine Bacteria 3+ H Ur Random Sodium Urine Creatinine 10/03/20 10/03/20 10/04/20 17:35 20:07 01:57 WBC RBC Hgb Hct MCV MCH MCHC RDW Plt Count MPV Neut % (Auto) Lymph % (Auto) Bailey % (Auto) Eos % (Auto) Baso % (Auto) Neut # (Auto) Lymph # (Auto) Bailey # (Auto) Eos # (Auto) Baso # (Auto) Nucleated RBC % (auto) Total Counted Atypical Lymphs % Absolute Neutrophils Segmented Neutrophils Abs Segm Neuts (Man) Band Neutrophils Abs Band Neuts (Man) Absolute Lymphocytes Lymphocytes (Manual) Monocytes (Manual) Absolute Monocytes Eosinophils (Manual) Absolute Eosinophils Basophils (Manual) Absolute Basophils Metamyelocytes Nucleated RBCs # Platelet Estimate PT INR APTT Sodium Potassium Chloride Carbon Dioxide Anion Gap BUN Creatinine GFR Calculation Glucose Calculated Osmolality Lactic Acid Lactic Acid (Sepsis) Lactate 1.1 Calcium Total Bilirubin AST ALT Alkaline Phosphatase Troponin T Baseline Troponin T 120 Minute Delta Troponin T Total Protein Albumin Globulin Vitamin B12 Folate 15.5 Urine Color Urine Appearance Urine pH Ur Specific [place] Urine Protein Urine Glucose (UA) Urine Ketones Urine Blood Urine Nitrate Urine Bilirubin Prot Sulfosalicylic Acd Urine Urobilinogen Ur Leukocyte Esterase Urine RBC Urine WBC Ur Squamous Epith Cells Amorphous Sediment Urine Bacteria Ur Random Sodium 56 Urine Creatinine 83 10/04/20 10/04/20 10/04/20 01:57 01:57 01:57 WBC 4.9 RBC 3.26 L Hgb 9.4 L Hct 29.2 L MCV 89.6 MCH 28.8 MCHC 32.2 RDW 14.1 Plt Count 66 L MPV 11.1 H Neut % (Auto) Lymph % (Auto) Not Reportable Bailey % (Auto) Not Reportable Eos % (Auto) Baso % (Auto) Neut # (Auto) Lymph # (Auto) Not Reportable Bailey # (Auto) Not Reportable Eos # (Auto) Baso # (Auto) Nucleated RBC % (auto) Total Counted 100 Atypical Lymphs % 0.0 Absolute Neutrophils 4.2 Segmented Neutrophils 58 Abs Segm Neuts (Man) 2.8 Band Neutrophils 27.0 Abs Band Neuts (Man) 1.3 H Absolute Lymphocytes 0.4 L Lymphocytes (Manual) 8 Monocytes (Manual) 6.0 Absolute Monocytes 0.3 Eosinophils (Manual) 0 Absolute Eosinophils 0.0 Basophils (Manual) 0.0 Absolute Basophils 0.0 Metamyelocytes 1.0 Nucleated RBCs # Platelet Estimate Decreased PT INR APTT > 250.0 H* D Sodium 144 Potassium 3.1 L Chloride 111 H Carbon Dioxide 23 Anion Gap 13.1 BUN 32 H Creatinine 1.6 H GFR Calculation Not Reportable Glucose 136 H Calculated Osmolality 307 H Lactic Acid Lactic Acid (Sepsis) Lactate Calcium 7.5 L Total Bilirubin AST ALT Alkaline Phosphatase Troponin T Baseline Troponin T 120 Minute Delta Troponin T Total Protein Albumin Globulin Vitamin B12 Folate Urine Color Urine Appearance Urine pH Ur Specific [place] Urine Protein Urine Glucose (UA) Urine Ketones Urine Blood Urine Nitrate Urine Bilirubin Prot Sulfosalicylic Acd Urine Urobilinogen Ur Leukocyte Esterase Urine RBC Urine WBC Ur Squamous Epith Cells Amorphous Sediment Urine Bacteria Ur Random Sodium Urine Creatinine 10/04/20 03:21 WBC RBC Hgb Hct MCV MCH MCHC RDW Plt Count MPV Neut % (Auto) Lymph % (Auto) Bailey % (Auto) Eos % (Auto) Baso % (Auto) Neut # (Auto) Lymph # (Auto) Bailey # (Auto) Eos # (Auto) Baso # (Auto) Nucleated RBC % (auto) Total Counted Atypical Lymphs % Absolute Neutrophils Segmented Neutrophils Abs Segm Neuts (Man) Band Neutrophils Abs Band Neuts (Man) Absolute Lymphocytes Lymphocytes (Manual) Monocytes (Manual) Absolute Monocytes Eosinophils (Manual) Absolute Eosinophils Basophils (Manual) Absolute Basophils Metamyelocytes Nucleated RBCs # Platelet Estimate PT INR APTT > 250.0 H* Sodium Potassium Chloride Carbon Dioxide Anion Gap BUN Creatinine GFR Calculation Glucose Calculated Osmolality Lactic Acid Lactic Acid (Sepsis) Lactate Calcium Total Bilirubin AST ALT Alkaline Phosphatase Troponin T Baseline Troponin T 120 Minute Delta Troponin T Total Protein Albumin Globulin Vitamin B12 Folate Urine Color Urine Appearance Urine pH Ur Specific [place] Urine Protein Urine Glucose (UA) Urine Ketones Urine Blood Urine Nitrate Urine Bilirubin Prot Sulfosalicylic Acd Urine Urobilinogen Ur Leukocyte Esterase Urine RBC Urine WBC Ur Squamous Epith Cells Amorphous Sediment Urine Bacteria Ur Random Sodium Urine Creatinine Micro: Microbiology 10/03/20 15:07 Blood Culture - Preliminary Blood SPECIMEN COLLECTED 10/03/20 15:03 Blood Culture - Preliminary Blood SPECIMEN COLLECTED Cardiac Studies: No Data to Display
[2020-10-04 13:15] LABS: Partial Thromboplastin Time 48.4 SECONDS (23.9-36.7)
--- NOTE | 2020-10-04 14:33 | PM.PN ---
Subjective Subjective: Interval history: Today he reports he is feeling better. Denies any nausea vomiting. No chills. No pain currently. Mouth feels dry. Denies chest pain or pressure. Denies trouble breathing. Discussed with him worsening acute kidney injury. Vitals/I&O/Wt Last Vital Signs Temp 98.7 F 10/04/20 12:00 Pulse 67 10/04/20 12:00 Resp 16 10/04/20 12:00 BP 147/60 10/04/20 12:00 Pulse Ox 95 10/04/20 12:00 10/03/20 10/04/20 10/04/20 22:59 06:59 14:59 Intake Total 2300 / 2300 1214.467 / 3514.467 100 / 100 Output Total 380 / 380 400 / 780 350 / 350 Balance 1920 / 1920 814.467 / 2734.467 -250 / -250 Weight last 48 hrs Weight 99.337 kg Weight 99.79 kg Physical Exam Const: COMMON NORMALS: no acute distress, patient oriented x3 and alert GENERAL APPEARANCE: cooperative and comfortable ORIENTATION/CONSCIOUSNESS: Yes awake OTHER: Pleasant, conversant, hard of hearing. Not a good historian. HENMT: COMMON NORMALS: oropharynx normal Neck/C-Spine: COMMON NORMALS: no JVD Resp: COMMON NORMALS: normal respiratory effort and clear to auscultation bilaterally AUSCULTATION: clear to auscultation bilaterally Cardio: COMMON NORMALS: no JVD, regular rhythm, S1 normal heart sound present, S2 normal heart sound present and No murmurs present (Cardio) RHYTHM: regular rhythm HEART SOUNDS: S1 normal heart sound present and S2 normal heart sound present GI: COMMON NORMALS: Normal to inspection, nondistended, normoactive bowel sounds present, Soft to palpation and non-tender PALPATION: Yes Soft to palpation : BLADDER/KIDNEY EXAM: Yes CVA tenderness on the left Back/Pelvis: GENERAL BACK: Yes CVA tenderness Extremity: COMMON NORMALS: no joint enlargement GENERAL: Yes edema (Trace) Neuro: COMMON NORMALS: patient oriented x3 and moves all extremities SENSORIUM/ORIENTATION: Yes alert Skin: COMMON NORMALS: no rashes or lesions noted GENERAL SKIN EXAM: no rashes or lesions noted OTHER: Chronic venous stasis hemosiderosis/dermatitis bilaterally. Urinary Catheter Management^: Ayala: Cath Placed During This Visit: yes Reason for Continuing Indwelling Catheter: Acute Urinary Retention or Obstruction Urinary Catheter Date of Insertion: 10/03/20 Urinary Catheter Time of Insertion: 18:06 Data : 10/04/20 01:57 10/04/20 01:57 Micro: Microbiology 10/03/20 15:07 Blood Culture - Preliminary Blood SPECIMEN COLLECTED 10/03/20 15:03 Blood Culture - Preliminary Blood SPECIMEN COLLECTED A&P Assessment and plan (1) Sepsis: Improved with resolution of fever, leukopenia. Complicated UTI, obstructive pyelonephritis. Cystoscopy, ureteroscopy today with stent placement, stone retrieval. Heparin drip held early this morning. Continue Zosyn, previously Proteus, E. coli UTI sensitive to Zosyn. Follow-up cultures. Lactic acidosis resolved. Stopped IV fluid as is in positive balance. Status: Acute (2) Thrombocytopenia: Worsened. Suspect sepsis related acute on chronic thrombocytopenia. Hold additional anticoagulation for now due to decreasing platelets. Recheck platelet level. Status: Acute (3) Leukocytopenia, unspecified: Improved. Acute leukopenia, neutropenia appears so far to have resolved. Thrombocytopenia worsened. states that his blood counts have been followed by primary provider. Suspect this is secondary to sepsis, however, with history of other cytopenias would benefit from consideration of follow-up with hematology. DC neutropenic precautions. Normal B12, folic acid. Status: Acute (4) Nausea & vomiting: Resolved. Secondary to pyelonephritis, left hydroureteronephrosis, UVJ stone/calcification. Status: Acute (5) Pyelonephritis: Acute complicated urinary tract infection with pyelonephritis with obstructive uropathy, left UVJ stone. Status post cystoscopy, ureteroscopy, stent placement, stone retrieval. Status: Acute (6) Obstructive uropathy: Status post cystoscopy, ureteroscopy, stent placement, stone retrieval. As above. Stent retrieval on follow-up with urology in office. Status: Acute (7) Neutropenia: Resolved. Status: Acute (8) Elevated troponin: Denies chest pain. If no bleeding and no further decline of platelets due to risk factors of coronary disease we will add aspirin, and may benefit from additional risk stratification by stress testing. Continue beta-mary, statin. Status: Acute (9) DENNYS (acute kidney injury): Worsening acute kidney injury, creatinine up to 1.6. Baseline appears to be 1.1-1.2. Appears possibly prerenal. Received fluid challenge. In positive balance with infusions. Monitor I&O. Suspect secondary to sepsis. For now we will dose Zosyn renally with possibility of unstable renal function. Status: Acute Additional A&P Information Hx DVT: Eliquis switched to heparin drip to allow discontinuation in case requires procedure, and in the setting of potentially unstable renal function with acute kidney injury, and with thrombocytopenia. Dementia Diabetes: Continue insulin GERD: PPI HLD, statin HTN: Monitor blood pressures, continue low-dose metoprolol for now CKD Among additional other medical problems Attestations Medical Necessity Statement*: Continue admission for assessment management of improving sepsis, complicated UTI, obstructive uropathy, worsening thrombocytopenia, on anticoagulation previously, with risk of bleeding, worsening acute kidney injury. Coding Level of Care Code Acute Sprinkler Fitter Apprentice for Chg Fwd Exam Comprehensive Diagnoses Sepsis A41.9 Thrombocytopenia D69.6 Leukocytopenia, unspecified D72.819 Nausea & vomiting R11.2 Pyelonephritis N12 Obstructive uropathy N13.9 Neutropenia D70.9 Elevated troponin R77.8 DENNYS (acute kidney injury) N17.9
--- NOTE | 2020-10-04 14:37 | SC_ITS ---
WS: [id number] C-arm fluoroscopy for left ureteral stent placement, 10/04/2020 Clinical Data: SURGERY Comparison: Acute abdomen series, 10/03/2020. Findings: Left ureteral stent in left renal pelvis. SC/C-arm FL for Urology Impression: Left ureteral stent placement.
[2020-10-04] MEDS: iohexol 300 mg/mL 50 mL Btl (OR ONLY) XX (14:51)
--- NOTE | 2020-10-04 15:08 | P.OP_ITS ---
Operative Report Date of procedure: October 04, 2020 Pre-op Diagnosis: Left obstructive pyelonephritis, left distal ureteral stone Post-op diagnosis: same Post-op Findings: Stone had passed into the bladder. Removed without difficulty Required ureteroscopy to pass stent. Procedure Done: 1. Cystoscopy removal of stone 2. Left ureteroscopy, ureteral stent placement. 3. LEFT retrograde ureteropyelogram Pathology: Stone Surgeon: Kris Anesthesia: General Estimated blood loss: Minimal Urine output: Not measured Complications: None; did well throughout the procedure. Findings: There is a small calcification in the bladder at time of cystoscopy. It appeared to be about the same size of the stone seen on CT scan. A left retrograde ureteropyelogram showed a significant narrowing approximately 1 to 1.5 cm inside the left ureteral orifice. The ureter proximal to that point was dilated. It was decided to leave a stent but the guidewire would not easily go. He required a ureteroscopy with direct visualization of the lumen in order to pass a wire. There was some tortuosity of the distal ureter accounting for this difficulty. No other abnormality was identified. No residual stones were seen. Left ureteral stent left indwelling (7 [place] by 30 cm double-pigtail without string) Condition: stable Disposition: PACU Brief History: Mr. Kyle is an 80-year-old white male who I consulted on yesterday for inability to pass the catheter. He was also identified to have a left distal ureteral stone on CT scan and concern was for infection. By the time I did consult on him though the nursing staff in the ICU had achieved catheterization without difficulty. CT scans showed a left distal ureteral stone with obstructive changes. The urine that was obtained via Ayala catheter placement looked infected. There was evidence of sepsis but he was clinically and hemodynamically stable. It was decided at that point to provide a few more doses of antibiotics given his clinical status of stability rather than rushing him emergently to the operating room. This morning he actually looks better and it was decided to proceed with surgical intervention with cystoscopy, retrograde, ureteroscopy, possible laser and stent. Procedure: After urgent evaluation examination and obtaining of informed consent he was taken to the operating suite on 10/04/2020 where general anesthesia was administered without difficulty after appropriate timeout was performed, SCDs confirmed to be functioning, preoperative antibiotics administered, beta-mary protocol confirmed. Prepped and draped in usual sterile fashion in dorsolithotomy position paying careful attention to avoiding pressure points. 21 [place] cystoscope with 30 degree lens was introduced into the urethra meatus and advanced into the bladder under videoscopy. The bladder was systematically examined. He was found to have a small pale stone in the bladder that was consistent with a stone seen on CT scan. The orifice did not appear to be significantly edematous. An 8 [place] cone-tip catheter was intubated to the left ureteral orifice for a left retrograde ureteropyelogram which showed some dilation of the very distal ureter for about 1.5 cm at which point the ureter was distinctly narrowed and this extended for about 0.5 cm and then the ureter proximal to that was dilated. Because of that picture it was decided to perform ureteroscopy. A flexible tip guidewire was advanced through the cystoscope but could not be easily advanced up the ureter. It seemed to be curling in the area of pain. A zip wire was then utilized but it was also unsuccessful. It was an angled tip and with angled trying different projections wire still would not pass. A mini 6 ureteroscope was then passed into the ureter and the true lumen was identified in an odd angle. A wire then was easily advanced through the scope up the ureter with its position confirmed via fluoroscopy. The ureteroscope was then advanced over the guidewire. There was no additional stones seen. There was indeed a narrowed area but it look like it was more related to where the stone had been as opposed to a distinct pathologic finding. The scope was passed to about mid ureter and then removed. The cystoscope was then backloaded over the guidewire and a 7 [place] by 30 cm double-pigtail stent was advanced over the guidewire through the cystoscope into appropriate position as confirmed via fluoroscopy and cystoscopy. The bladder was drained with a 16 [place] Ayala catheter. He was awakened in the operating room and returned back to the ICU in stable condition. PLANS: 1. Maintain ureteral stent for least a couple weeks and remove on outpatient basis in my office 2. Remainder of care per hospitalist service
[2020-10-04 16:27] LABS: Platelet Count 59 10^3/cmm (130-400)
[2020-10-04] MEDS: gabapentin 300 mg Capsule PO (21:35)
[2020-10-04] MEDS: sertraline 100 mg Tablet 50 MG PO (21:36)
[2020-10-05] VITALS (9 sets, daily range): BP systolic 147–168; BP diastolic 65–81; PULSE 54–63; RESP 18–22; TEMP 36.5–37.2; O2SAT 93–97
[2020-10-05] MEDS: piperacillin-tazobactam 3.375 GM in sodium chloride 0.9% (plus) 50 ML IV ×3 (01:25→17:23)
[2020-10-05 02:20] LABS: Basophils % 0.5 %; Hematocrit 30.4 % (42.0-52.0); Hemoglobin 9.7 g/dL (11.7-16.6); Lymphocytes # 0.4 10^3/uL (0.8-4.8); Lymphocytes % 9.9 %; Mean Corpuscular HGB Conc 31.9 g/dL (30.0-36.0); Mean Corpuscular Volume 90.7 fL (80-94); Mean Platelet Volume 10.9 fL (7.4-10.4); Monocytes # 0.3 10^3/uL (0.2-0.9); Monocytes % 7.3 %; Neutrophils # 3.13 10^3/uL (1.8-7.7); Neutrophils % 81.8 %; Nucleated Red Blood Cells % 0 %; Platelet Count 67 10^3/cmm (130-400); Red Blood Count 3.35 10^6/uL (4.1-5.3); Red Cell Distribution Width 14.2 % (12.1-15.1); White Blood Count 3.8 10^3/uL (4.0-10.0)
[2020-10-05 02:45] LABS: Anion Gap 10.3 (5-19); Blood Urea Nitrogen 34 mg/dL (8-23); Calcium 7.7 mg/dL (8.5-10.5); Carbon Dioxide 24 mmol/L (22-29); Chloride 113 mmol/L (98-107); Glucose 137 mg/dL (65-115); Osmolality Calculated 308 mOsm/kg (285-295); Potassium 3.3 mmol/L (3.5-5.1); Sodium 144 mmol/L (136-145)
[2020-10-05 03:01] LABS: Slide Review Slide Review Perform
[2020-10-05] MEDS: atorvastatin 40 mg Tablet PO (08:36)
[2020-10-05] MEDS: metoprolol tartrate 25 mg Tablet 12.5 MG PO ×2 (08:36→17:22)
[2020-10-05] MEDS: isosorbide mononitrate ER 30 mg Tablet PO (08:36)
[2020-10-05] MEDS: finasteride 5 mg Tablet PO (08:36)
[2020-10-05] MEDS: pantoprazole DR 40 mg Tablet PO (08:36)
[2020-10-05] MEDS: fluticasone nasal spray 16gm Btl 2 SPRAY INTRANASAL (08:37)
[2020-10-05] MEDS: insulin glargine 100 units/1 mL 25 UNIT SUBCUT ×2 (08:37→17:22)
--- NOTE | 2020-10-05 13:10 | PM.PN ---
Subjective Subjective: Interval history: He reports he is doing okay. Denies any complaints. Denies any pain. Vitals/I&O/Wt Last Vital Signs Temp 97.8 F 10/05/20 11:24 Pulse 55 L 10/05/20 11:24 Resp 18 10/05/20 11:24 BP 148/65 10/05/20 11:24 Pulse Ox 97 10/05/20 11:24 10/04/20 10/05/20 10/05/20 22:59 06:59 14:59 Intake Total 1050 / 1150 50 / 1200 60 / 60 Output Total 750 / 1100 Balance 1050 / 800 -700 / 100 60 / 60 Weight last 48 hrs Weight 100.011 kg Weight 99.337 kg Physical Exam Narrative: EXAM NARRATIVE: and daughter are at bedside. Const: COMMON NORMALS: no acute distress, patient oriented x3 and alert GENERAL APPEARANCE: cooperative and comfortable ORIENTATION/CONSCIOUSNESS: Yes awake OTHER: Pleasant, conversant, hard of hearing. Not a good historian. HENMT: COMMON NORMALS: oropharynx normal Neck/C-Spine: COMMON NORMALS: no JVD Resp: COMMON NORMALS: normal respiratory effort and clear to auscultation bilaterally AUSCULTATION: clear to auscultation bilaterally Cardio: COMMON NORMALS: no JVD, regular rhythm, S1 normal heart sound present, S2 normal heart sound present and No murmurs present (Cardio) RHYTHM: regular rhythm HEART SOUNDS: S1 normal heart sound present and S2 normal heart sound present GI: COMMON NORMALS: Normal to inspection, nondistended, normoactive bowel sounds present, Soft to palpation and non-tender PALPATION: Yes Soft to palpation : OTHER: Tea colored/mildly pinkish urine in the bag. Extremity: COMMON NORMALS: no joint enlargement GENERAL: Yes edema (Trace) Neuro: COMMON NORMALS: patient oriented x3 and moves all extremities SENSORIUM/ORIENTATION: Yes alert Skin: COMMON NORMALS: no rashes or lesions noted GENERAL SKIN EXAM: no rashes or lesions noted OTHER: Chronic venous stasis hemosiderosis/dermatitis bilaterally. Urinary Catheter Management^: Ayala: Cath Placed During This Visit: yes, but has since been removed by the nurse Reason for Continuing Indwelling Catheter: Acute Urinary Retention or Obstruction Urinary Catheter Date of Insertion: 10/04/20 Urinary Catheter Time of Insertion: 15:01 Date Urinary Catheter Removed: 10/04/20 Time Urinary Catheter Discontinued: 14:45 Data : 10/05/20 02:12 10/05/20 02:12 Micro: Microbiology 10/03/20 17:35 Urine Culture - Preliminary Urine,Clean Catch 10/03/20 15:07 Blood Culture - Preliminary Blood NEGATIVE TO DATE 10/03/20 15:03 Blood Culture - Preliminary Blood NEGATIVE TO DATE A&P Assessment and plan (1) DENNYS (acute kidney injury): Worsening acute kidney injury, creatinine up to Appears to be prerenal, but sepsis so far has resolved, he is not hypotensive. Appears to be euvolemic to me. Appears to have tea colored urine. Will give IVF for now. We will go ahead and check UA, LFT, CK. Will discuss with urology. With thrombocytopenia, acuteon chronic, and anemia will request peripheral smear. Check bili fraction. Check LDH, haptoglobin. Appreciate nephrology consultation with regards to worsening kidney injury. Baseline appears to be 1.1-1.2. Appears possibly prerenal. Received fluid challenge. For now we will dose Zosyn renally dosed. Status: Acute (2) Sepsis: Resolved with resolution of fever, leukopenia. Complicated UTI, obstructive pyelonephritis. Cystoscopy, ureteroscopy today with stent placement, stone retrieval. Urine culture with less than 5000 colonies per mL of gram-negative rods. Will request that the culture and be continued. Continue Zosyn, previously Proteus, E. coli UTI sensitive to Zosyn. Status: Acute (3) Thrombocytopenia: Improved today. Suspect sepsis related acute on chronic thrombocytopenia. Check peripheral smear. Given improvement, but still low platelet level, discussed with family for now we will hold full dose anticoagulation, but may give trial of prophylactic dose subcutaneous heparin. They are in agreement. Status: Acute (4) Leukocytopenia, unspecified: Improved. Although today WBC count is still on the low side, 3.8. He is not neutropenic. Acute leukopenia, neutropenia appears so far to have resolved. Thrombocytopenia worsened. states that his blood counts have been followed by primary provider. Suspect this is secondary to sepsis, however, with history of other cytopenias would benefit from consideration of follow-up with hematology. Normal B12, folic acid. Status: Acute (5) Nausea & vomiting: Resolved. Secondary to pyelonephritis, left hydroureteronephrosis, UVJ stone/calcification. Status: Acute (6) Pyelonephritis: Acute complicated urinary tract infection with pyelonephritis with obstructive uropathy, left UVJ stone. Status post cystoscopy, ureteroscopy, stent placement, stone retrieval. Status: Acute (7) Obstructive uropathy: Status post cystoscopy, ureteroscopy, stent placement, stone retrieval. As above. Stent retrieval on follow-up with urology in office. Status: Acute (8) Neutropenia: Resolved. Status: Acute (9) Elevated troponin: Has not had any chest pain throughout the hospitalization. If hematuria resolves, blood counts, platelets remained stable, trial of low-dose aspirin. Discussed additionally risk stratification with stress testing, currently not available in hospital, however, if continues to do well, may have it done as outpatient. Continue beta-mary, statin. Status: Acute Additional A&P Information Hx DVT: Anticoagulation for now on hold due to hematuria, thrombocytopenia. SCD. Dementia Diabetes: Continue insulin GERD: PPI HLD, statin HTN: Monitor blood pressures, continue low-dose metoprolol for now CKD Among additional other medical problems Attestations Medical Necessity Statement*: Continue admission for assessment management of worsening acute kidney injury, following sepsis, complicated urinary tract infection, hydroureteronephrosis status post stone retrieval, ureteral stenting. Coding Level of Care Code Acute Supervisor Telephone Information for Chg Fwd Exam Comprehensive Diagnoses DENNYS (acute kidney injury) N17.9 Sepsis A41.9 Thrombocytopenia D69.6 Leukocytopenia, unspecified D72.819 Nausea & vomiting R11.2 Pyelonephritis N12 Obstructive uropathy N13.9 Neutropenia D70.9 Elevated troponin R77.8
[2020-10-05 13:32] LABS: LAB Peripheral Smear Sent for Review
[2020-10-05 13:41] LABS: Alanine Aminotransferase 25 U/L (0-41); Albumin Level 2.6 g/dL (3.5-5.2); Alkaline Phosphatase 38 IU/L (40-130); Aspartate Amino Transferase 39 U/L (0-40); Creatine Phosphokinase 291 U/L (39-308); Globulin 2.9 g/dL (1.3-4.6); Total Bilirubin 0.4 mg/dL (0.15-1.2); Total Protein 5.5 g/dL (6.6-8.7)
[2020-10-05 13:54] LABS: Lactate Dehydrogenase 202 U/L (135-225)
--- NOTE | 2020-10-05 14:40 | P.CONIM_ITS ---
Providers/Reason For Consult Consulting Physician/Specialty*: Nephrology Reason for Consult*: DENNYS Attending Physician: Cornelius Salcido Primary Care Provider: Faye Zamora MD History of Present Illness History of Present Illness Thank you for consultation, today had the pleasure of reviewing this 80-year-old gentleman. He does have some dementia, somewhat perseverating about needing his teeth and a sandwich, but obviously in no acute distress. He presented to our facility on 10/03 with nausea, vomiting, found to have neutropenia, thrombocytopenia, left lower quadrant pain. Initial CT scan showed a 6 mm left UVJ stone with hydronephrosis. He was subsequently taken to the OR yesterday, where the stone had traversed into the bladder, a left retrograde ureteropyelogram showed narrowing approximately 1 to 1.5 cm inside the left ureteral orifice, and subsequently required ureteroscopy and left ureteral stent placement. Today seen postop day 1. His urine is tea colored, the Ayala catheter is flushing well. He is currently n.p.o., asking for food. No known history of acute or chronic kidney disease, baseline serum creatinine appears to be roughly 1.1 mg/dL is seen in May of this year. On admission serum creatinine 1.4 increasing to 1.9 today. Urine sodium level noted to be 56 on admission. No extremity edema, shortness of breath or other hypervolemic symptoms. No uremic symptoms. Hemodynamics appear to be stable following hospitalization. No exposure to potentially nephrotoxic substances. Review of Systems Narrative: 12 point review of systems completed per HPI and subjective assessment, this includes....Constitutional: No weakness, fatigue. Respiratory: No SOB on exertion, comfortable at rest. CardioVasc: No chest pain, palpitations. Gastrointestinal: No nausea, no vomiting. Neurological: No seizures, no AMS. Derm: No new rashes, lesions or wounds. Immunological: No seasonal and no food allergies Meds/Allergies Home Medications and Allergies Home Medications Medication Instructions Recorded Confirmed Last Taken Type insulin aspart U-100 100 unit/mL See Rx Instructions SUBCUT TID #15 11/09/19 10/03/20 Unknown Rx (3 mL) subcutaneous pen ml nitroglycerin 0.4 mg sublingual 0.4 mg SUBLINGUAL Q5M PRN #100 tab 11/09/19 10/03/20 Unknown Rx tablet metoprolol tartrate 25 mg tablet 25 mg PO BID #180 tab 05/10/20 10/03/20 10/03/20 Rx mupirocin 2 % topical ointment 1 applic TOPICAL BID #30 gm 05/10/20 10/03/20 Unknown Rx amlodipine 5 mg tablet 5 mg PO DAILY #30 tab 10/02/20 10/03/20 10/03/20 Rx apixaban 5 mg tablet 5 mg PO BID #180 tab 10/02/20 10/03/20 10/03/20 Rx atorvastatin 40 mg tablet 40 mg PO DAILY #90 tab 10/02/20 10/03/20 10/02/20 Rx finasteride 5 mg tablet 5 mg PO DAILY #90 tab 10/02/20 10/03/20 10/02/20 Rx fluticasone propionate 50 2 spray INTRANASAL DAILY #16 gm 10/02/20 10/03/20 Unknown Rx mcg/actuation nasal spray,suspension insulin glargine 100 unit/mL 25 unit SUBCUT BID #20 ml 10/02/20 10/03/20 10/03/20 Rx subcutaneous solution isosorbide mononitrate 30 mg 30 mg PO DAILY #90 tab 10/02/20 10/03/20 10/03/20 Rx tablet,extended release 24 hr ergocalciferol (vitamin D2) See Rx Instructions .ROUTE .COMPLEX 10/03/20 10/03/20 Unknown History gabapentin 300 mg PO BEDTIME 10/03/20 10/03/20 10/02/20 History pantoprazole 40 mg PO DAILY 10/03/20 10/03/20 10/03/20 History sertraline 100 mg PO BEDTIME 10/03/20 10/03/20 10/02/20 History Allergies Allergy/AdvReac Type Severity Reaction Status Date / Time solifenacin [From Vesicare] AdvReac Severe weakness Verified 10/03/20 13:07 metoclopramide [From Reglan] AdvReac Intermediate anxiety Verified 10/03/20 13:07 Current Medications Current Medications Generic Name Dose Route Start Last Admin Trade Name Freq PRN Reason Stop Dose Admin Atorvastatin Calcium 40 mg 10/04/20 09:00 10/05/20 08:36 Atorvastatin 40 Mg Tablet PO 40 mg DAILY MARTHA Administration Finasteride 5 mg 10/04/20 09:00 10/05/20 08:36 Finasteride 5 Mg Tablet PO 5 mg DAILY MARTHA Administration Fluticasone Propionate 2 spray 10/04/20 09:00 10/05/20 08:37 Fluticasone Nasal [place] 16gm Btl INTRANASAL 2 spray DAILY MARTHA Administration Gabapentin 300 mg 10/03/20 21:00 10/04/20 21:35 Gabapentin 300 Mg Capsule PO 300 mg BEDTIME MARTHA Administration Piperacillin Sod/Tazobactam 50 mls @ 12.5 mls/hr 10/04/20 10:00 10/05/20 13:26 Sod 3.375 gm/ Sodium Chloride IV Infused Q8H MARTHA Infusion Protocol Insulin Glargine 25 unit 10/04/20 09:00 10/05/20 08:37 Insulin Glargine 100 Units/1 Ml SUBCUT 25 unit BID MARTHA Administration Isosorbide Mononitrate 30 mg 10/05/20 09:00 10/05/20 08:36 Isosorbide Mononitrate Er 30 Mg Tablet PO 30 mg DAILY MARTHA Administration Metoprolol Tartrate 12.5 mg 10/04/20 09:00 10/05/20 08:36 Metoprolol Tartrate 25 Mg Tablet PO 12.5 mg BID MARTHA Administration Pantoprazole Sodium 40 mg 10/03/20 18:25 10/05/20 08:[address] 40 Mg Tablet PO 40 mg DAILY MARTHA Administration Sertraline HCl 50 mg 10/03/20 21:00 10/04/20 21:36 Sertraline 100 Mg Tablet PO 50 mg BEDTIME MARTHA Administration PFSH Acute PFSH: Medical History (Updated 10/03/20 @ 20:12 by Ian Ponce MD) Anemia ASHD (arteriosclerotic heart disease) CHF (congestive heart failure) Chronic osteoarthritis CKD (chronic kidney disease) stage 3, GFR 30-59 ml/min Dementia Diabetes Dyslipidemia Generalized muscle weakness GERD (gastroesophageal reflux disease) Hearing loss History of DVT (deep vein thrombosis) History of fracture of left hip Hypertension Left ureteral calculus Neuropathy RASHAD (obstructive sleep apnea) Surgical History History of laminectomy (~1992) History of orchiectomy Family History Other CAD (coronary artery disease) Diabetes Hypertension Social History Smoking and tobacco status: former smoker Quit status (tobacco): has quit using tobacco Year quit tobacco: 1991 Second hand smoke exposure: Yes Smoking risk assessment/counseling performed?: No Alcohol intake: never Household members: spouse Marital status: service: Yes Current occupational status: retired Current gender identity: Male Vitals/I&O/Wt Last Vital Signs Temp 97.8 F 10/05/20 11:24 Pulse 55 L 10/05/20 11:24 Resp 18 10/05/20 11:24 BP 148/65 10/05/20 11:24 Pulse Ox 97 10/05/20 11:24 10/04/20 10/05/20 10/05/20 22:59 06:59 14:59 Intake Total 1050 / 1150 50 / 1200 110 / 110 Output Total 750 / 1100 Balance 1050 / 800 -700 / 100 110 / 110 Weight last 48 hrs Weight 100.011 kg Weight 99.337 kg Physical Exam Narrative: EXAM NARRATIVE: Constitutional: Awake, comfortable HEENT: Wet mucosa, no jvp, non icteric Lungs: Bilaterally clear without discernible wheeze, rales in all lung zones CVS: S1 S2, no murmurs Abdo: Soft, BS ok Ext 4: Minimal edema, peripheral perfusion with no cyanosis Neurological: Grossly non-focal Urinary Catheter Management^: Ayala: Cath Placed During This Visit: yes, but has since been removed by the nurse Reason for Continuing Indwelling Catheter: Acute Urinary Retention or Obstruction Urinary Catheter Date of Insertion: 10/04/20 Urinary Catheter Time of Insertion: 15:01 Date Urinary Catheter Removed: 10/04/20 Time Urinary Catheter Discontinued: 14:45 Data Micro: Micro: Microbiology 10/03/20 17:35 Urine Culture - Pr eliminary Urine,Clean Catch Gram Negative R ods 10/03/20 15:07 Blood Culture - Pr eliminary Blood NEGATIVE TO DEBO E 10/03/20 15:03 Blood Culture - Pr eliminary Blood NEGATIVE TO DEBO E A&P Additional A&P Information 1. Acute kidney injury Differential diagnosis here includes prerenal azotemia from being kept n.p.o., nausea and vomiting seen prior to hospitalization, possibly secondary to ongoing obstruction of the left drainage system, possibly secondary to urosepsis. Currently on empirical antibiotics, will bolus 500 mL of IV fluid and continue l actated Ringer's at 75 mL/h. If renal function does not recover, would consider repeat imaging. We will send off uric acid. Fractional secretion of sodium. Strict ins and outs Avoid usual nephrotoxic agents Dose medications for GFR less than 30. 2. Nephrolithiasis Status post left ureteric stent placed by Dr. Ponce. Empirical antibiotic coverage with Zosyn. Will check parathyroid hormone levels. 3. Chemistry noncritical aberration, slightly low potassium will need to be replaced, corrected calcium at goal. Guanako Wells MD Nephrology [phone] Patient seen and examined via telemedicine, with the assistance of the bedside RN > 25 min spent in evaluation and mgmt of patient Consult Attestations Medical Necessity Statement: Eval for DENNYS Coding Level of Care Code Acute Information Security Engineer for Marylou Mercado
[2020-10-05] MEDS: lactated ringers 1,000 ML 75 ML IV ×2 (14:52→22:24)
[2020-10-05 16:01] LABS: INR 1.15 (0.8-1.2)
[2020-10-05 16:50] LABS: Glucose Point of Care 165 mg/dL (70-110)
[2020-10-05] MEDS: lactated ringers 500 ML 999 ML IV (17:28)
[2020-10-05 19:34] LABS: Add Urine Microscopic? YES; Bilirubin Urine Neg (Negative); Blood Urine 3+ (Negative); Glucose Urine UA Norm (Normal); Ketones Urine Negative (Negative); Leukocyte Esterase Urine 2+ (Negative); Nitrate Urine Negative (Negative); Protein Urine 3+ (Negative); Specific Gravity, Urine 1.015 (1.005-1.030); Urine Color Amber (Yellow); Urobilinogen Urine 1 mg/dL (Negative); pH Urine 5 (5-7)
[2020-10-05 19:35] LABS: Add Urine Culture? Yes; Bacteria Urine 4+ /hpf; Mucus Urine 2+ /hpf; RBC Urine TOO NUMEROUS TO CNT /hpf (0-2); Squamous Epithelial Cell Urine 0-4 /hpf (0-5); WBC Urine >100 /hpf (0-5)
[2020-10-05 19:38] LABS: Urine Creatinine 139 mg/dL (39-259)
[2020-10-05 19:58] LABS: Urine Random Sodium 27 mmol/L
[2020-10-05] MEDS: gabapentin 300 mg Capsule PO (21:26)
[2020-10-05] MEDS: sertraline 100 mg Tablet 50 MG PO (21:26)
[2020-10-05 22:12] LABS: Glucose Point of Care 182 mg/dL (70-110)
[2020-10-06] VITALS (7 sets, daily range): BP systolic 154–161; BP diastolic 66–78; PULSE 60–90; RESP 15–18; TEMP 36.6–37.6; O2SAT 91–93
[2020-10-06] MEDS: piperacillin-tazobactam 3.375 GM in sodium chloride 0.9% (plus) 50 ML IV ×2 (02:23→10:42)
--- NOTE | 2020-10-06 06:31 | PM.PN ---
Subjective Subjective: Interval history: Urology follow-up postop day #2 He feels that he is doing well. No significant complaints related to the stent. Urine is clearing fine. No evidence of progressive infectious concerns. Creatinine 1.9, white count is 3.8 We will plan on leaving the stent in place for least a week Catheter can come out at any point that the hospitalist service is comfortable with. Continue treatment for BPH Reviewed the above with the patient. Vitals/I&O/Wt Last Vital Signs Temp 98.9 F 10/06/20 04:00 Pulse 60 10/06/20 04:00 Resp 18 10/06/20 04:00 BP 160/74 10/06/20 04:00 Pulse Ox 93 10/06/20 04:00 10/05/20 10/05/20 10/06/20 14:59 22:59 06:59 Intake Total 110 / 110 1518.750 / 1628.750 Output Total 550 / 550 600 / 1150 Balance 110 / 110 968.750 / 1078.750 -600 / 478.750 Weight last 48 hrs Weight 223 lb Weight 220 lb 7.774 oz Physical Exam Const: COMMON NORMALS: no acute distress, alert and well nourished GENERAL APPEARANCE: well kempt and well developed HENMT: COMMON NORMALS: normocephalic and atraumatic HEAD & SCALP: normocephalic and atraumatic Eye: COMMON NORMALS: conjunctivae normal and no scleral icterus CONJUNCTIVA: Yes conjunctivae normal Neck/C-Spine: COMMON NORMALS: full ROM Resp: COMMON NORMALS: normal respiratory effort EFFORT & INSPECTION: No labored and No Actively coughing GI: COMMON NORMALS: Soft to palpation, non-tender and no masses PALPATION: Yes Soft to palpation : COMMON NORMALS: Yes no CVA tenderness BLADDER/KIDNEY EXAM: Yes no CVA tenderness PENIS: normal penis OTHER: Urine clear Back/Pelvis: COMMON NORMALS: no CVA tenderness Extremity: COMMON NORMALS: no clubbing, cyanosis or edema Neuro: SENSORIUM/ORIENTATION: Yes alert Psych: APPEARANCE: Yes grossly normal and Yes well kempt ATTITUDE: Yes calm and Yes engaged Skin: COMMON NORMALS: no rashes or lesions noted and no jaundice GENERAL SKIN EXAM: no rashes or lesions noted Urinary Catheter Management^: Ayala: Cath Placed During This Visit: yes, but has since been removed by the nurse Reason for Continuing Indwelling Catheter: Acute Urinary Retention or Obstruction Urinary Catheter Date of Insertion: 10/04/20 Urinary Catheter Time of Insertion: 15:01 Date Urinary Catheter Removed: 10/04/20 Time Urinary Catheter Discontinued: 14:45 Data : 10/05/20 02:12 10/05/20 02:12 Micro: Microbiology 10/03/20 17:35 Urine Culture - Preliminary Urine,Clean Catch Gram Negative Rods A&P Assessment and plan (1) Left ureteral calculus: Stone extracted. Stent placed to ensure adequate postop drainage We will plan on removing the stent sometime in the next week Status: Acute (2) Sepsis: Status: Acute (3) DENNYS (acute kidney injury): Creatinine bumped up today slightly. Status: Acute Attestations Medical Necessity Statement*: See attending Coding Level of Care Code Acute Lead Blender for g Fwd Diagnoses Left ureteral calculus N20.1 Sepsis A41.9 DENNYS (acute kidney injury) N17.9
[2020-10-06 06:57] LABS: Glucose Point of Care 93 mg/dL (70-110)
[2020-10-06 07:24] LABS: Basophils % 0.5 %; Eosinophils # 0.1 10^3/uL (0.0-0.8); Eosinophils % 2.2 %; Hematocrit 29.5 % (42.0-52.0); Hemoglobin 9.6 g/dL (11.7-16.6); Lymphocytes # 0.7 10^3/uL (0.8-4.8); Mean Corpuscular HGB Conc 32.5 g/dL (30.0-36.0); Mean Corpuscular Hemoglobin 29.2 pg (28.0-34.0); Mean Corpuscular Volume 89.7 fL (80-94); Mean Platelet Volume 11.9 fL (7.4-10.4); Monocytes # 0.3 10^3/uL (0.2-0.9); Monocytes % 8.4 %; Neutrophils # 2.56 10^3/uL (1.8-7.7); Neutrophils % 69.6 %; Nucleated Red Blood Cells % 0 %; Platelet Count 80 10^3/cmm (130-400); Red Blood Count 3.29 10^6/uL (4.1-5.3); Red Cell Distribution Width 13.9 % (12.1-15.1); White Blood Count 3.7 10^3/uL (4.0-10.0)
[2020-10-06 07:53] LABS: Anion Gap 10.9 (5-19); Blood Urea Nitrogen 35 mg/dL (8-23); Calcium 7.5 mg/dL (8.5-10.5); Carbon Dioxide 26 mmol/L (22-29); Chloride 109 mmol/L (98-107); Glucose 86 mg/dL (65-115); Osmolality Calculated 303 mOsm/kg (285-295); Slide Review Slide Review Perform; Sodium 143 mmol/L (136-145)
[2020-10-06 08:04] LABS: Potassium 2.9 mmol/L (3.5-5.1)
[2020-10-06 09:11] LABS: Magnesium 1.9 mg/dL (1.7-2.3)
--- NOTE | 2020-10-06 09:35 | DCPLANNER ---
Pg 2 of IM updated and reviewed with pt., no questions. Copy provided.
--- NOTE | 2020-10-06 09:46 | P.PN_ITS ---
Subjective Subjective: Interval history: He feels essentially well. His urine is now clearing up. He has received intravenous fluid overnight with no extremity edema, shortness of breath or other hypervolemic symptoms. He denies any abdominal pain this morning. Eating and drinking normally. Vitals/I&O/Wt Last Vital Signs Temp 98.3 F 10/06/20 07:41 Pulse 63 10/06/20 07:41 Resp 18 10/06/20 07:41 BP 156/75 10/06/20 07:41 Pulse Ox 91 10/06/20 07:41 10/05/20 10/06/20 10/06/20 22:59 06:59 14:59 Intake Total 1518.750 / 1628.750 50 / 1678.750 240 / 240 Output Total 550 / 550 600 / 1150 Balance 968.750 / 1078.750 -550 / 528.750 240 / 240 Weight last 48 hrs Weight 101.151 kg Weight 100.011 kg Physical Exam Narrative: EXAM NARRATIVE: Constitutional: Awake, comfortable HEENT: Wet mucosa, no jvp, non icteric Lungs: Bilaterally clear without discernible wheeze, rales in all lung zones CVS: S1 S2, no murmurs Abdo: Soft, BS ok Ext 4: Minimal edema, peripheral perfusion with no cyanosis Neurological: Grossly non-focal Urinary Catheter Management^: Ayala: Cath Placed During This Visit: yes, but has since been removed by the nurse Reason for Continuing Indwelling Catheter: Acute Urinary Retention or Obstruction Urinary Catheter Date of Insertion: 10/04/20 Urinary Catheter Time of Insertion: 15:01 Date Urinary Catheter Removed: 10/04/20 Time Urinary Catheter Discontinued: 14:45 Data : 10/06/20 06:59 10/06/20 06:59 Micro: Microbiology 10/03/20 17:35 Urine Culture - Final Urine,Clean Catch Proteus mirabilis A&P Additional A&P Information 1. Acute kidney injury Renal function now improving with IV hydration overnight consistent with prerenal picture (low urinary sodium) Continue IV hydration for the time being. Strict ins and outs Avoid usual nephrotoxic agents Dose medications for GFR less than 30. 2. Nephrolithiasis Status post left ureteric stent placed by Dr. Ponce. Empirical antibiotic coverage with Zosyn Ok for Ayala out from Urology and my perspective 3. Chemistry Potassium replacement requested OK for DC from my perspective Guanako Wells MD Nephrology [phone] Patient seen and examined via telemedicine, with the assistance of the bedside RN > 25 min spent in evaluation and mgmt of patient Attestations Medical Necessity Statement*: Eval for DENNYS Coding Level of Care Code Acute Tufting Machine Operator Single Needle for Marylou Mercado
[2020-10-06] MEDS: finasteride 5 mg Tablet PO (10:20)
[2020-10-06] MEDS: pantoprazole DR 40 mg Tablet PO (10:21)
[2020-10-06] MEDS: isosorbide mononitrate ER 30 mg Tablet PO (10:21)
[2020-10-06] MEDS: metoprolol tartrate 25 mg Tablet 12.5 MG PO (10:21)
[2020-10-06] MEDS: fluticasone nasal spray 16gm Btl 2 SPRAY INTRANASAL (10:22)
[2020-10-06] MEDS: atorvastatin 40 mg Tablet PO (10:24)
[2020-10-06] MEDS: potassium chloride ER 20 mEq Tablet 40 MEQ PO (10:42)
[2020-10-06] MEDS: insulin glargine 100 units/1 mL 25 UNIT SUBCUT (10:42)
[2020-10-06 11:30] LABS: Glucose Point of Care 394 mg/dL (70-110)
[2020-10-06] MEDS: lactated ringers 1,000 ML 75 ML IV (12:08)
--- NOTE | 2020-10-06 14:51 | P.DS_ITS ---
Discharge Providers Date of Admission: 10/03/20 14:16 Date of Discharge: October 06, 2020 Attending Provider at Admission: Cornelius Salcido Attending Provider at Discharge: Cornelius Salcido Primary Care Provider: Faye Zamora MD Diagnoses at Discharge Discharge Diagnosis (1) Left ureteral calculus: Status: Acute (2) Sepsis: Status: Acute (3) DENNYS (acute kidney injury): Status: Acute Reason for Visit Reason for Visit: N/V, FEVER Hospital Course Hospital Course Pleasant 80-year-old gentleman with mild dementia, wheelchair-bound after an fracture, history of DVT on chronic anticoagulation, living at home with his by home he is partially taken care of, with history of urinary tract infections was admitted for assessment management due to sepsis, complicated uri nary tract infection with obstructive uropathy, left side hydroureteronephrosis, after presenting with nausea vomiting starting the morning of admission. With noted severe sepsis, with acute kidney injury, troponin elevation on presentation. Also noted neutropenia initially which is new. He does have chronic number cytopenia for which he follows with primary care provider. He was treated with IV antibiotics with Zosyn, with urine cultures eventually growing Proteus mirabilis resistant to Cipro, nitrofurantoin and tetracycline. He was assessed and treated by urology with cystoscopy, stone retrieval noted in the urinary bladder, analysis pending, as well as left ureteral stent placement. Anticoagulation was held during the hospitalization. After stent mild hematuria, and brown-colored urine was noted related to the stent. His sepsis resolved. Neutropenia resolved, although mild leukopenia remains, WBC count 3.8. Thrombocytopenia transiently worse, suspected also due to sepsis, improved. No hemolysis noted. Vitamin B12, folic acid were checked and were normal. He did have acute kidney injury with progressive worsening creatinine up to 1.9 yesterday, he was assessed by nephrology, suspected prerenal kidney injury, possibly initiated by sepsis, after IV hydration is showing improvement, creatinine down to 1.7. He has been feeling much better, eager to return home. He has not had any symptoms of chest pain. Due to troponin elevation noted at presentation, with noted ST depression, he is continued on cardiac medications with addition of low-dose aspirin, referred for stress testing due to risk factors of coronary artery disease for additional risk stratification. Please follow-up results, and depending on the findings, condition and recovery of acute kidney injury referred to cardiology as may be appropriate. Due to fluctuating renal status recently, for now Eliquis dose is decreased to 2.5 mg daily. Please reassess renal function, consider resuming her regular dose once it is stable. He is asked to follow-up with urology next week for consideration of timing of stent retrieval. Ayala is removed with voiding trial prior to discharge. Discussed w his over the phone. Physical Exam Const: COMMON NORMALS: no acute distress, patient oriented x3 and alert GENERAL APPEARANCE: cooperative and comfortable ORIENTATION/CONSCIOUSNESS: Yes awake OTHER: Pleasant, conversant, hard of hearing. Not a good historian. HENMT: COMMON NORMALS: oropharynx normal Neck/C-Spine: COMMON NORMALS: no JVD Resp: COMMON NORMALS: normal respiratory effort and clear to auscultation bilaterally AUSCULTATION: clear to auscultation bilaterally Cardio: COMMON NORMALS: no JVD, regular rhythm, S1 normal heart sound present, S2 normal heart sound present and No murmurs present (Cardio) RHYTHM: regular rhythm HEART SOUNDS: S1 normal heart sound present and S2 normal heart sound present GI: COMMON NORMALS: Normal to inspection, nondistended, normoactive bowel sounds present, Soft to palpation and non-tender PALPATION: Yes Soft to palpation : BLADDER/KIDNEY EXAM: Yes CVA tenderness on the left OTHER: Dark yellow urine in bag. Back/Pelvis: GENERAL BACK: Yes CVA tenderness Extremity: COMMON NORMALS: no joint enlargement GENERAL: Yes edema (Trace) Neuro: COMMON NORMALS: patient oriented x3 and moves all extremities SENSORIUM/ORIENTATION: Yes alert Skin: COMMON NORMALS: no rashes or lesions noted GENERAL SKIN EXAM: no rashes or lesions noted OTHER: Chronic venous stasis hemosiderosis/dermatitis bilaterally. Urinary Catheter Management^: Ayala: Cath Placed During This Visit: yes, but has since been removed by the nurse Reason for Continuing Indwelling Catheter: Decision to DC Catheter Urinary Catheter Date of Insertion: 10/04/20 Urinary Catheter Time of Insertion: 15:01 Date Urinary Catheter Removed: 10/06/20 Time Urinary Catheter Discontinued: 14:32 Discharge Data Data Completed and Pending: Completed Studies During Hospitalization Category Date Time Status CT abdomen pelvis wo con [id number] Stat Cat Scan 10/03/20 14:12 Completed XR acute abdomen series [id number] Stat Exams 10/03/20 13:03 Completed CV echo complete* [id number] Routine Ultrasound 10/04/20 06:00 Completed Pending at discharge Category Date Time Status Blood Culture Sta t Lab 10/03/20 15:07 Results PTH Related Pepti de (Protein) Routi ne Lab 10/05/20 15:14 Received Platelet Count Q2 D Lab 10/07/20 04:00 Ordered Stone Analysis Ro utine Lab 10/04/20 15:00 Received Urine Culture Rou alexsandra Lab 10/05/20 18:40 Received Pathology: Surgic al [PTH] Routine Pth 10/04/20 15:24 Received Labs from last 24 hours 10/06/20 10/06/20 10/06/20 11:07 06:59 06:59 WBC RBC Hgb Hct MCV MCH MCHC RDW Plt Count MPV Neut % (Auto) Lymph % (Auto) Kendall % (Auto) Eos % (Auto) Baso % (Auto) Neut # (Auto) Lymph # (Auto) Kendall # (Auto) Eos # (Auto) Baso # (Auto) Nucleated RBC % (a uto) Nucleated RBCs # PT INR Sodium 143 Potassium 2.9 L Chloride 109 H Carbon Dioxide 26 Anion Gap 10.9 BUN 35 H Creatinine 1.7 H GFR Calculation Not Reportable Glucose 86 POC Glucose 394 H Calculated Osmolal ity 303 H Calcium 7.5 L Magnesium 1.9 PTH Related Protei n Urine Color Urine Appearance Urine pH Ur Specific Gravit y Urine Protein Urine Glucose (UA) Urine Ketones Urine Blood Urine Nitrate Urine Bilirubin Urine Urobilinogen Ur Leukocyte Soila ase Urine RBC Urine WBC Ur Squamous Epith Cells Amorphous Sediment Urine Bacteria Urine Mucus Ur Random Sodium Urine Creatinine 10/06/20 10/06/20 10/05/20 06:59 06:41 21:59 WBC 3.7 L RBC 3.29 L Hgb 9.6 L Hct 29.5 L MCV 89.7 MCH 29.2 MCHC 32.5 RDW 13.9 Plt Count 80 L MPV 11.9 H Neut % (Auto) 69.6 Lymph % (Auto) 19.0 Kendall % (Auto) 8.4 Eos % (Auto) 2.2 Baso % (Auto) 0.5 Neut # (Auto) 2.56 Lymph # (Auto) 0.7 L Kendall # (Auto) 0.3 Eos # (Auto) 0.1 Baso # (Auto) 0.0 Nucleated RBC % (a uto) 0 Nucleated RBCs # 0.0 PT INR Sodium Potassium Chloride Carbon Dioxide Anion Gap BUN Creatinine GFR Calculation Glucose POC Glucose 93 182 H Calculated Osmolal ity Calcium Magnesium PTH Related Protei n Urine Color Urine Appearance Urine pH Ur Specific Gravit y Urine Protein Urine Glucose (UA) Urine Ketones Urine Blood Urine Nitrate Urine Bilirubin Urine Urobilinogen Ur Leukocyte Soila ase Urine RBC Urine WBC Ur Squamous Epith Cells Amorphous Sediment Urine Bacteria Urine Mucus Ur Random Sodium Urine Creatinine 10/05/20 10/05/20 10/05/20 18:40 18:40 16:41 WBC RBC Hgb Hct MCV MCH MCHC RDW Plt Count MPV Neut % (Auto) Lymph % (Auto) Kendall % (Auto) Eos % (Auto) Baso % (Auto) Neut # (Auto) Lymph # (Auto) Kendall # (Auto) Eos # (Auto) Baso # (Auto) Nucleated RBC % (a uto) Nucleated RBCs # PT INR Sodium Potassium Chloride Carbon Dioxide Anion Gap BUN Creatinine GFR Calculation Glucose POC Glucose 165 H Calculated Osmolal ity Calcium Magnesium PTH Related Protei n Urine Color Jessika Urine Appearance Sl cloudy A Urine pH 5 Ur Specific Gravit y 1.015 Urine Protein 3+ H Urine Glucose (UA) Norm Urine Ketones Negative Urine Blood 3+ H Urine Nitrate Negative Urine Bilirubin Neg Urine Urobilinogen 1 H Ur Leukocyte Soila ase 2+ H Urine RBC Too numerous to c nt H Urine WBC >100 H Ur Squamous Epith Cells 0-4 H Amorphous Sediment Not Reportable Urine Bacteria 4+ H Urine Mucus 2+ Ur Random Sodium 27 Urine Creatinine 139 10/05/20 10/05/20 15:14 14:59 WBC RBC Hgb Hct MCV MCH MCHC RDW Plt Count MPV Neut % (Auto) Lymph % (Auto) Kendall % (Auto) Eos % (Auto) Baso % (Auto) Neut # (Auto) Lymph # (Auto) Kendall # (Auto) Eos # (Auto) Baso # (Auto) Nucleated RBC % (a uto) Nucleated RBCs # PT 15.10 H INR 1.15 Sodium Potassium Chloride Carbon Dioxide Anion Gap BUN Creatinine GFR Calculation Glucose POC Glucose Calculated Osmolal ity Calcium Magnesium PTH Related Protei n Pending Urine Color Urine Appearance Urine pH Ur Specific Gravit y Urine Protein Urine Glucose (UA) Urine Ketones Urine Blood Urine Nitrate Urine Bilirubin Urine Urobilinogen Ur Leukocyte Soila ase Urine RBC Urine WBC Ur Squamous Epith Cells Amorphous Sediment Urine Bacteria Urine Mucus Ur Random Sodium Urine Creatinine Vitals: Last Vital Signs Temp 98.9 F 10/06/20 11:51 Pulse 90 10/06/20 11:51 Resp 18 10/06/20 11:51 BP 157/78 10/06/20 11:51 Pulse Ox 92 10/06/20 11:51 Discharge Plan Discharge Patient Disposition: Home Health Service Condition: Stable Prescriptions: New cefdinir 300 mg capsule 300 mg PO BID 2 Days Qty: 4 RF: 0 aspirin 81 mg tablet,delayed release (DR/EC) 81 mg PO DAILY Qty: 30 RF: 0 Continued mupirocin 2 % ointment 1 applic TOPICAL BID Qty: 30 RF: 0 Lantus U-100 Insulin 100 unit/mL solution 25 unit SUBCUT BID Qty: 20 RF: 4 amlodipine 5 mg tablet 5 mg PO DAILY Qty: 30 RF: 3 atorvastatin 40 mg tablet 40 mg PO DAILY Qty: 90 RF: 1 finasteride 5 mg tablet 5 mg PO DAILY Qty: 90 RF: 1 fluticasone propionate [Flonase Allergy Relief] 50 mcg/actuation spray,suspension 2 spray INTRANASAL DAILY Qty: 16 RF: 3 isosorbide mononitrate 30 mg tablet extended release 24 hr 30 mg PO DAILY Qty: 90 RF: 1 insulin aspart U-100 [Novolog Flexpen U-100 Insulin] 100 unit/mL (3 mL) insulin pen See Rx Instructions SUBCUT TID Qty: 15 RF: 1 nitroglycerin 0.4 mg tablet, sublingual 0.4 mg SUBLINGUAL Q5M PRN (Reason: chest pain) Qty: 100 RF: 0 pantoprazole 40 mg tablet,delayed release (DR/EC) 40 mg PO DAILY RF: 0 gabapentin 300 mg capsule 300 mg PO BEDTIME RF: 0 ergocalciferol (vitamin D2) 1,250 mcg (50,000 unit) capsule See Rx Instructions .ROUTE .COMPLEX RF: 0 Changed sertraline 100 mg tablet 50 mg PO BEDTIME Qty: 0 RF: 0 metoprolol tartrate 25 mg tablet 12.5 mg PO BID Qty: 180 RF: 1 apixaban 5 mg tablet 2.5 mg PO BID Qty: 180 RF: 1 Discharge Orders: Discharge Order (Routine); Ordered 10/06/20 Ordered By: Cornelius Salcido Other Ambulatory Orders: Sestamibi Stress Test Request (Routine) Timeframe: 4 Days Facility: [facility] - Location: Cardiac Diagnostic Laboratory Ordered By: Cornelius Salcido Referrals: [facility] [Other] ([facility] [place]. They will call you at home to do a phone consult. This will have to be done every 2years. They can help setup services. ) Ian Ponce MD [Physician] - 4-7 days (Please call Dr. Ponce's office Thursday to schedule a follow-up appointment. ) Faye Zamora MD [Primary Care Provider] - 4-7 days (Please contact your primary care provider Thursday to schedule a follow-up appointment. ) Discharge Diet: Diabetic and Soft Mechanical Discharge Activity: Increase activity as tolerated Patient Instructions: Cefdinir (By mouth), Acute Pyelonephritis (GEN) Activity Restrictions/Additional Instructions: Please follow-up with your primary care provider and urologist next week. Please have your primary provider recheck your kidney function, blood count level and platelet levels. Please note due to acute kidney injury for now your Eliquis dose was decreased to 2.5 mg twice daily. Please follow-up with your primary doctor and when kidney function improves and if results back to normal, previous dose of 5 mg twice a day could be resumed. Please seek medical attention in case you notice any bleeding in your urine, any difficulties with urination, any high fever, abdominal or back pain, any confusion or any other complaints. Please complete the stress test and follow-up with your primary care doctor regarding results. Stress test is obtained due to noted abnormality of troponin when you had just came to the hospital, although this may be due to sepsis, but he also have risk factors of coronary artery disease and this would benefit from being investigated. Please follow-up with your urologist next week for consideration of removal of left ureter stent. Please complete antibiotic course for urinary tract infection, discussed with your primary doctor. Please discuss with your primary doctor low white blood cell and platelet counts, and discussed consideration for referral to lactation specialist. Discharge Attestations Time Spent in Discharge Care*: greater than 30 min Quality Metrics Clinical Quality Measures During this hospital stay, did patient experience: None Coding Level of Care Code Acute Chg FW DC note Diagnoses Left ureteral calculus N20.1 Sepsis A41.9 DENNYS (acute kidney injury) N17.9
[2020-10-10 22:32] LABS: Stone Source LEFT URETER
[2020-10-12 19:20] LABS: PTH Related Peptide (Protein) 10 pg/mL (14-27)
== END 2020-10-06 16:55 | disposition home health service (06) | DRG 854 ==
LOC: ER 14:17 → ICU 15:00 → MEDSURG 10-04 18:18
PROVIDERS: Hospitalist; Internal Medicine Nephrology; Urology; Admitting Provider Internal Medicine; Emergency Provider Emergency Medicine; PCP Family Medicine; Visit Provider Internal Medicine
PROC: 0TJB8ZZ Inspection of Bladder, Via Natural or Artificial Opening Endoscopic (ICD-10-PCS; CPT 52000; principal; 2020-10-04 13:05)
PROC: 0TC78ZZ Extirpation of Matter from Left Ureter, Via Natural or Artificial Opening Endoscopic (ICD-10-PCS; CPT 74420; 2020-10-04 13:05)
PROC: 0TJ98ZZ Inspection of Ureter, Via Natural or Artificial Opening Endoscopic (ICD-10-PCS; CPT 52351; 2020-10-04 13:05)
PROC: 0TC78ZZ Extirpation of Matter from Left Ureter, Via Natural or Artificial Opening Endoscopic (ICD-10-PCS; CPT 50605; 2020-10-04 13:05)
DX: A41.9 Sepsis, unspecified organism (principal); N17.9 Acute kidney failure, unspecified; N13.2 Hydronephrosis with renal and ureteral calculous obstruction; I13.0 Hypertensive heart and chronic kidney disease with heart failure and stage 1 through stage 4 chronic kidney disease, or unspecified chronic kidney disease; Z16.29 Resistance to other single specified antibiotic; Z16.23 Resistance to quinolones and fluoroquinolones; N39.0 Urinary tract infection, site not specified; N10 Acute pyelonephritis; E87.2 Acidosis; R65.20 Severe sepsis without septic shock; Z99.3 Dependence on wheelchair; F03.90 Unspecified dementia, unspecified severity, without behavioral disturbance, psychotic disturbance, mood disturbance, and anxiety; Z86.718 Personal history of other venous thrombosis and embolism; Z79.01 Long term (current) use of anticoagulants; Z87.440 Personal history of urinary (tract) infections; D70.9 Neutropenia, unspecified; D69.6 Thrombocytopenia, unspecified; K80.20 Calculus of gallbladder without cholecystitis without obstruction; E27.9 Disorder of adrenal gland, unspecified; K44.9 Diaphragmatic hernia without obstruction or gangrene; K57.30 Diverticulosis of large intestine without perforation or abscess without bleeding; D64.9 Anemia, unspecified; I25.10 Atherosclerotic heart disease of native coronary artery without angina pectoris; I50.9 Heart failure, unspecified; N18.30 Chronic kidney disease, stage 3 unspecified; E11.22 Type 2 diabetes mellitus with diabetic chronic kidney disease; B96.4 Proteus (mirabilis) (morganii) as the cause of diseases classified elsewhere; Z79.4 Long term (current) use of insulin; N47.1 Phimosis; Z87.891 Personal history of nicotine dependence; S72.002S Fracture of unspecified part of neck of left femur, sequela; X58.XXXS Exposure to other specified factors, sequela; G47.33 Obstructive sleep apnea (adult) (pediatric); K21.9 Gastro-esophageal reflux disease without esophagitis; E78.5 Hyperlipidemia, unspecified; E11.42 Type 2 diabetes mellitus with diabetic polyneuropathy; N40.0 Benign prostatic hyperplasia without lower urinary tract symptoms
CPT/HCPCS: 36415; 36416; 74022; 74176; 76000; 80048; 80053; 80076; 80500; 81001; 82365; 82542; 82550; 82570; 82607; 82746; 82962; 83010; 83605; 83615; 83735; 84300; 84484; 85007; 85025; 85049; 85610; 85730; 87040; 87077; 87086; 87186; 88300; 93005; 93306; 94660; 96365; 96367; 96372; 96375; 99285; C2625; J0696; J1100; J1644; J1815; J2370; J2405; J2543; J2704; J2710; J3010; J3370; J3475; J3490; J7030; J7050; Q3014

== ENCOUNTER → 2020-10-09 15:10 | Outpatient (BNVA) | payer OTHER, MEDICARE, SELFPAY | PROVIDERS: PCP Family Medicine; Visit Provider Family Medicine | DX: N17.9 Acute kidney failure, unspecified (principal); Z09 Encounter for follow-up examination after completed treatment for conditions other than malignant neoplasm | CPT/HCPCS: 80053; 85025 ==

== ENCOUNTER 2020-10-10 14:03 | Emergency (ER) | payer OTHER, MEDICARE, SELFPAY ==
[2020-10-10] VITALS (8 sets, daily range): BP systolic 123–182; BP diastolic 63–93; PULSE 52–78; RESP 16–30; TEMP 36.6–36.7; O2SAT 93–96; BMI 24.7
--- NOTE | 2020-10-10 16:39 | CTR_ITS ---
PROCEDURE INFORMATION: Exam: CT Abdomen And Pelvis Without Contrast Exam date and time: 10/10/2020 4:39 PM Age: 80 years old Clinical indication: Abdominal pain; Flank; Prior surgery; Surgery type: Lithotripsy on Thursday. Gb, left hip; Additional info: Left flank pain TECHNIQUE: Imaging protocol: Computed tomography of the abdomen and pelvis without contrast. Radiation optimization: All CT scans at this facility use at least one of these dose optimization techniques: automated exposure control; mA and/or kV adjustment per patient size (includes targeted exams where dose is matched to clinical indication); or iterative reconstruction. COMPARISON: 1. CT abdomen pelvis wo con [id number] 10/03/2020 2:[address] abdomen pelvis w con* [id number] 11/29/2018 6:21:12 AM RADIATION DOSE METRICS: Total DLP (mGy-cm): 1730.42 FINDINGS: Pleural spaces: Trace bilateral pleural effusions. Heart: Small volume pericardial effusion. Mild severity multi chamber cardiac dilation changes. Mediastinal space: Large hiatal hernia. Liver: Normal. No mass. Gallbladder and bile ducts: Cholelithiasis. Negative for inflammatory gallbladder wall thickening. Nonobstructed biliary system. Pancreas: Normal. No ductal dilation. Spleen: Normal. No splenomegaly. Adrenal glands: Normal right adrenal gland. 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 Mass measures about 3.8 cm x 2.7 cm. No significant changes from comparison. Kidneys and ureters: Small nonobstructing right renal upper pole stone. Negative for hydronephrosis. Left internal ureteral stent with unremarkable position. No calcified stones in the left collecting system along the course of the stent identified. Stomach and bowel: Duodenal diverticulum without acute inflammatory change. No change in size from prior. No inflammatory bowel wall thickening. Negative for bowel obstruction or perforation. Appendix: Normal appendix. Intraperitoneal space: Unremarkable. No free air. No significant fluid collection. Vasculature: Scattered atherosclerosis of the abdominal aorta. Small saccular bulge in the mid abdominal aortic segment measuring 2.8 cm transverse diameter stable from comparison. Lymph nodes: Unremarkable. No enlarged lymph nodes. Urinary bladder: Unremarkable as visualized. Reproductive: Unremarkable as visualized. Bones/joints: Left hip arthroplasty with alignment. No acute fractures. No suspicious bone lesion. Soft tissues: Unremarkable. CT/CT kidney stone [id number] IMPRESSION: 1. Negative for obstructive uropathy. Satisfactory position left internal ureteral stent without left-sided collecting system stones. 2. Punctate nonobstructing right kidney stone. 3. No changes in the left adrenal gland mass. 4. Large hiatal hernia. 5. Small volume bilateral pleural effusions. Radiation Dose CTDIVOL = (mGy): DLP = 1730.42 (mGy-cm)
--- NOTE | 2020-10-10 16:48 | PC.NURSE ---
Pt states left abdominal pain upon inhalation or to touch.
[2020-10-10 17:19] LABS: Basophils % 0.7 %; Eosinophils # 0.1 10^3/uL (0.0-0.8); Eosinophils % 2.2 %; Hematocrit 29.7 % (42.0-52.0); Hemoglobin 9.7 g/dL (11.7-16.6); Lymphocytes % 22.2 %; Mean Corpuscular HGB Conc 32.7 g/dL (30.0-36.0); Mean Corpuscular Hemoglobin 28.9 pg (28.0-34.0); Mean Corpuscular Volume 88.4 fL (80-94); Mean Platelet Volume 11.9 fL (7.4-10.4); Monocytes # 0.4 10^3/uL (0.2-0.9); Monocytes % 9.3 %; Neutrophils # 2.95 10^3/uL (1.8-7.7); Neutrophils % 64.9 %; Nucleated Red Blood Cells % 0 %; Platelet Count 115 10^3/cmm (130-400); Red Blood Count 3.36 10^6/uL (4.1-5.3); Red Cell Distribution Width 13.4 % (12.1-15.1); White Blood Count 4.5 10^3/uL (4.0-10.0)
[2020-10-10 18:00] LABS: Alanine Aminotransferase 29 U/L (0-41); Albumin Level 3.2 g/dL (3.5-5.2); Alkaline Phosphatase 59 IU/L (40-130); Anion Gap 12.1 (5-19); Aspartate Amino Transferase 27 U/L (0-40); Blood Urea Nitrogen 24 mg/dL (8-23); Carbon Dioxide 28 mmol/L (22-29); Chloride 106 mmol/L (98-107); Glucose 142 mg/dL (65-115); Osmolality Calculated 302 mOsm/kg (285-295); Potassium 3.1 mmol/L (3.5-5.1); Sodium 143 mmol/L (136-145); Total Bilirubin 0.7 mg/dL (0.15-1.2); Total Protein 6.2 g/dL (6.6-8.7)
--- NOTE | 2020-10-10 18:18 | ED_ITS ---
HPI - Abdominal Pain General: Chief Complaint: Abdominal Pain Stated Complaint: L UPPER ABD PAIN Time Seen by Provider: 10/10/20 16:03 Source: patient and family Mode of arrival: EMS Limitations: no limitations History of Present Illness: HPI narrative: Patient is an 81-year-old male with a history of left urolithiasis status post lithotripsy and stent placement, heart failure, hypertension, diabetes. Who presents to the emergency department with left flank/left upper quadrant pain. Pain is said to be severe and nonradiating. MD elicited complaint: flank pain Pertinent past history: kidney stones Onset (ago): day(s) (1) Pain Consistency: constant Location: L flank Severity: severe Quality: cramping Radiation: LUQ Exacerbating factors: nothing Relieving factors: nothing Associated Symptoms: Denies anorexia, belching, bloating, change in bowel habits, change in stool character, chills, coffee ground emesis, constipation, GI cramping, diarrhea, dyspepsia, dysuria, excessive flatus, fever(s), heartburn, hematochezia, hematuria, hematemesis, fecal incontinence, loose stools, melena, nausea, poor appetite, syncope and vomiting Review of Systems General: Reports: 10 or more systems reviewed and unremarkable except in HPI and below Const: Denies: fever(s) or chills Card: Denies: syncope GI: Denies: nausea, vomiting, hematemesis, coffee ground emesis, heartburn, diarrhea, constipation, bloating, GI cramping, belching, excessive flatus, fecal incontinence, change in bowel habits, change in stool character, hematochezia or melena : Denies: dysuria or hematuria PFS ED PFSH: Medical History Anemia ASHD (arteriosclerotic heart disease) CHF (congestive heart failure) Chronic osteoarthritis CKD (chronic kidney disease) stage 3, GFR 30-59 ml/min Dementia Diabetes Dyslipidemia Elevated troponin Generalized muscle weakness GERD (gastroesophageal reflux disease) Hearing loss History of DVT (deep vein thrombosis) History of fracture of left hip Hypertension Kidney stone Left ureteral calculus Neuropathy Neutropenia Obstructive uropathy RASHAD (obstructive sleep apnea) Pyelonephritis Sepsis Thrombocytopenia Surgical History History of laminectomy (~1992) History of orchiectomy Family History Other CAD (coronary artery disease) Diabetes Hypertension Social History Smoking and tobacco status: former smoker Quit status (tobacco): has quit using tobacco Year quit tobacco: 1991 Second hand smoke exposure: Yes Smoking risk assessment/counseling performed?: No Alcohol intake: never Household members: spouse Marital status: service: Yes Current occupational status: retired Current gender identity: Male Physical Exam Const: COMMON NORMALS: no acute distress, average body habitus, patient oriented x3, no limitations, healthy appearing, alert and well nourished HENMT: COMMON NORMALS: normocephalic, atraumatic and moist oral mucous membranes HEAD & SCALP: normocephalic and atraumatic Neck/C-Spine: COMMON NORMALS: no meningeal signs and no JVD Resp: COMMON NORMALS: normal respiratory effort, No retractions, No use of accessory muscles, clear to auscultation bilaterally and percussion normal AUSCULTATION: clear to auscultation bilaterally PERCUSSION: percussion normal Cardio: COMMON NORMALS: no JVD, regular rate, regular rhythm, S1 normal heart sound present, S2 normal heart sound present, No gallops present (Cardio), No clicks present (Cardio), No murmurs present (Cardio), No rub (Cardio) and Peripheral pulses 2+ throughout RATE: regular rate RHYTHM: regular rhythm HEART SOUNDS: S1 normal heart sound present and S2 normal heart sound present PERIPHERAL PULSES: Peripheral pulses 2+ throughout GI: COMMON NORMALS: Normal to inspection, nondistended, normoactive bowel sounds present, Soft to palpation, non-tender, No hepatosplenomegaly present, no masses and no bruits PALPATION: Yes Soft to palpation and Yes No hepatosplenomegaly present : BLADDER/KIDNEY EXAM: Yes CVA tenderness on the left Back/Pelvis: GENERAL BACK: Yes CVA tenderness Neuro: COMMON NORMALS: patient oriented x3 SENSORIUM/ORIENTATION: Yes alert MENINGEAL SIGNS: Yes no meningeal signs Course Reevaluation(s): Reevaluation #1: Discussed his lab and imaging findings with him. Negative for acute findings. Discussed that he has no new episodes of urolithiasis and the stent appears to be working well. Discussed that he has a left adrenal mass. Patient states that his pain has resolved spontaneously and he is ready to be discharged home. He wants to be discharged. We will discharge him and he will follow-up with his primary care provider. Time: 18:19 Vital Signs: Vital signs: Vital Signs Temperature 97.9 F 10/10/20 17:00 Pulse Rate 68 10/10/20 18:30 Respiratory Rate 20 H 10/10/20 18:30 Blood Pressure 168/72 10/10/20 18:30 Pulse Oximetry 93 10/10/20 18:30 MDM - Abdominal Pain MDM Narrative: Medical decision making narrative: 80-year-old male with a history of urolithiasis and recent stent placement and lithotripsy presents to the emergency department with left flank pain. Evaluation in the emergency department including CT kidney stone protocol was negative for acute findings. Pain spontaneously resolved and patient requested to be discharged home. He is discharged home with no new orders. Medical Records: Attestation: I reviewed the patient's medical records. Lab Data: Attestation: I reviewed the patient's lab results. Labs: Lab Results 10/10/20 10/10/20 Range/Units 16:59 16:59 WBC 4.5 (4.0-10.0) 10^3/ uL RBC 3.36 L (4.1-5.3) 10^6/u L Hgb 9.7 L (11.7-16.6) g/dL Hct 29.7 L (42.0-52.0) % MCV 88.4 (80-94) fL MCH 28.9 (28.0-34.0) pg MCHC 32.7 (30.0-36.0) g/dL RDW 13.4 (12.1-15.1) % Plt Count 115 L (130-400) 10^3/c mm MPV 11.9 H (7.4-10.4) fL Neut % (Auto) 64.9 % Lymph % (Auto) 22.2 % Morrow % (Auto) 9.3 % Eos % (Auto) 2.2 % Baso % (Auto) 0.7 % Neut # (Auto) 2.95 (1.8-7.7) 10^3/u L Lymph # (Auto) 1.0 (0.8-4.8) 10^3/u L Morrow # (Auto) 0.4 (0.2-0.9) 10^3/u L Eos # (Auto) 0.1 (0.0-0.8) 10^3/u L Baso # (Auto) 0.0 (0.0-0.1) 10^3/u L Nucleated RBC % (a uto) 0 % Nucleated RBCs # 0.0 /100WBC Sodium 143 (136-145) mmol/L Potassium 3.1 L (3.5-5.1) mmol/L Chloride 106 (98-107) mmol/L Carbon Dioxide 28 (22-29) mmol/L Anion Gap 12.1 (5-19) BUN 24 H (8-23) mg/dL Creatinine 1.2 (0.7-1.2) mg/dL GFR Calculation Not Reportable Glucose 142 H (65-115) mg/dL Calculated Osmolal ity 302 H (285-295) mOsm/k g Calcium 8.0 L (8.5-10.5) mg/dL Total Bilirubin 0.7 (0.15-1.2) mg/dL AST 27 (0-40) U/L ALT 29 (0-41) U/L Alkaline Phosphata se 59 (40-130) IU/L Total Protein 6.2 L (6.6-8.7) g/dL Albumin 3.2 L (3.5-5.2) g/dL Globulin 3.0 (1.3-4.6) g/dL Imaging Data ^: CT Abd/Pel: Attestation: I personally reviewed and interpreted this imaging study as follows: Radiologist's impression: [address] [id number] Scan ReportSigned Patient: Yoav Kyle #: [id number]: 8Acct#:[id number]/Sex: 80 / MADM Date: 10/10/20Loc: ERRoom/Bed:Attending Dr: Ordering Provider/Ordering MD: Chloe Kaur MD, [facility] [place] Date of Service: 10/10/20 Procedure(s): CT kidney stone [id number] Accession Number(s): [id number] Report Number: [id number] PROCEDURE INFORMATION: Exam: CT Abdomen And Pelvis Without Contrast Exam date and time: 10/10/2020 4:39 PM Age: 80 years old Clinical indication: Abdominal pain; Flank; Prior surgery; Surgery type: Lithotripsy on Thursday. Gb, left hip; Additional info: Left flank pain TECHNIQUE: Imaging protocol: Computed tomography of the abdomen and pelvis without contrast. Radiation optimization: All CT scans at this facility use at least one of these dose optimization techniques: automated exposure control; mA and/or kV adjustment per patient size (includes targeted exams where dose is matched to clinical indication); or iterative reconstruction. COMPARISON: 1. CT abdomen pelvis wo con [id number] 10/03/2020 2:[address] abdomen pelvis w con* [id number] 11/29/2018 6:21:12 AM RADIATION DOSE METRICS: Total DLP (mGy-cm): 1730.42 FINDINGS: Pleural spaces: Trace bilateral pleural effusions. Heart: Small volume pericardial effusion. Mild severity multi chamber cardiac dilation changes. Mediastinal space: Large hiatal hernia. Liver: Normal. No mass. Gallbladder and bile ducts: Cholelithiasis. Negative for inflammatory gallbladder wall thickening. Nonobstructed biliary system. Pancreas: Normal. No ductal dilation. Spleen: Normal. No splenomegaly. Adrenal glands: Normal right adrenal gland. 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 Mass measures about 3.8 cm x 2.7 cm. No significant changes from comparison. Kidneys and ureters: Small nonobstructing right renal upper pole stone. Negative for hydronephrosis. Left internal ureteral stent with unremarkable position. No calcified stones in the left collecting system along the course of the stent identified. Stomach and bowel: Duodenal diverticulum without acute inflammatory change. No change in size from prior. No inflammatory bowel wall thickening. Negative for bowel obstruction or perforation. Appendix: Normal appendix. Intraperitoneal space: Unremarkable. No free air. No significant fluid collection. Vasculature: Scattered atherosclerosis of the abdominal aorta. Small saccular bulge in the mid abdominal aortic segment measuring 2.8 cm transverse diameter stable from comparison. Lymph nodes: Unremarkable. No enlarged lymph nodes. Urinary bladder: Unremarkable as visualized. Reproductive: Unremarkable as visualized. Bones/joints: Left hip arthroplasty with alignment. No acute fractures. No suspicious bone lesion. Soft tissues: Unremarkable. CT/CT kidney stone [id number] IMPRESSION: 1. Negative for obstructive uropathy. Satisfactory position left internal ureteral stent without left-sided collecting system stones. 2. Punctate nonobstructing right kidney stone. 3. No changes in the left adrenal gland mass. 4. Large hiatal hernia. 5. Small volume bilateral pleural effusions. 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 Condition: Stable Prescriptions: Continued mupirocin 2 % ointment 1 applic TOPICAL BID Qty: 30 RF: 0 Lantus U-100 Insulin 100 unit/mL solution 25 unit SUBCUT BID Qty: 20 RF: 4 atorvastatin 40 mg tablet 40 mg PO DAILY Qty: 90 RF: 1 finasteride 5 mg tablet 5 mg PO DAILY Qty: 90 RF: 1 fluticasone propionate [Flonase Allergy Relief] 50 mcg/actuation spray,suspension 2 spray INTRANASAL DAILY Qty: 16 RF: 3 isosorbide mononitrate 30 mg tablet extended release 24 hr 30 mg PO DAILY Qty: 90 RF: 1 amlodipine 5 mg tablet 5 mg PO DAILY Qty: 30 RF: 3 insulin aspart U-100 [Novolog Flexpen U-100 Insulin] 100 unit/mL (3 mL) insulin pen See Rx Instructions SUBCUT TID Qty: 15 RF: 1 nitroglycerin 0.4 mg tablet, sublingual 0.4 mg SUBLINGUAL Q5M PRN (Reason: chest pain) Qty: 100 RF: 0 (DME) lancets 30 gauge misc See Rx Instructions .Route Qty: 100 RF: 5 pantoprazole 40 mg tablet,delayed release (DR/EC) 40 mg PO DAILY RF: 0 gabapentin 300 mg capsule 300 mg PO BEDTIME RF: 0 ergocalciferol (vitamin D2) 1,250 mcg (50,000 unit) capsule See Rx Instructions .ROUTE .COMPLEX RF: 0 sertraline 100 mg tablet 50 mg PO BEDTIME Qty: 0 RF: 0 metoprolol tartrate 25 mg tablet 12.5 mg PO BID Qty: 180 RF: 1 apixaban 5 mg tablet 2.5 mg PO BID Qty: 180 RF: 1 aspirin 81 mg tablet,delayed release (DR/EC) 81 mg PO DAILY Qty: 30 RF: 0 Discharge Orders: Discharge ED (Routine); Ordered 10/10/20 Ordered By: Chloe Kaur Referrals: Faye Zamora MD [Primary Care Provider] - 1-3 days Discharge Diet: Usual diet Discharge Activity: Increase activity as tolerated Patient Instructions: Abdominal Pain (ED) Activity Restrictions/Additional Instructions: Return for any new or worsening symptoms. Follow-up with your primary care provider within 3 days. Continue home medications. Coding Level of Care Code ED Field Advisor for Marylou Mercado
--- NOTE | 2020-10-10 18:27 | PC.NURSE ---
Doctor in room discussing discharge.
== END 2020-10-10 18:52 | disposition home or self-care (01) ==
PROVIDERS: Emergency Provider Family Medicine; PCP Family Medicine
DX: R10.9 Unspecified abdominal pain (principal); E27.9 Disorder of adrenal gland, unspecified; Z79.4 Long term (current) use of insulin; Z79.82 Long term (current) use of aspirin; I13.0 Hypertensive heart and chronic kidney disease with heart failure and stage 1 through stage 4 chronic kidney disease, or unspecified chronic kidney disease; E11.22 Type 2 diabetes mellitus with diabetic chronic kidney disease; N18.30 Chronic kidney disease, stage 3 unspecified; I50.9 Heart failure, unspecified; F03.90 Unspecified dementia, unspecified severity, without behavioral disturbance, psychotic disturbance, mood disturbance, and anxiety; E78.5 Hyperlipidemia, unspecified; Z87.442 Personal history of urinary calculi; E11.40 Type 2 diabetes mellitus with diabetic neuropathy, unspecified; Z87.891 Personal history of nicotine dependence
CPT/HCPCS: 74176; 80053; 85025; 99283

== ENCOUNTER → 2020-10-12 08:08 | Outpatient (BNVA) | payer OTHER, SELFPAY | PROVIDERS: PCP Family Medicine; Visit Provider Urology | DX: N17.9 Acute kidney failure, unspecified (principal); E27.8 Other specified disorders of adrenal gland; Z96.0 Presence of urogenital implants | CPT/HCPCS: 81003 ==

== ENCOUNTER 2020-11-29 06:00 | Outpatient (RCR) | payer OTHER, MEDICARE, SELFPAY | END 2020-12-25 23:59 | disposition home or self-care (01) | LOC: TPT 06:00 | PROVIDERS: PCP Family Medicine; Referring Provider Family Medicine; Visit Provider Family Medicine | DX: R53.1 Weakness (principal) | CPT/HCPCS: 97110; 97116; 97162 ==

== ENCOUNTER 2020-12-26 06:00 | Outpatient (RCR) | payer OTHER, MEDICARE, SELFPAY | END 2021-01-24 23:59 | disposition home or self-care (01) | LOC: TPT 06:00 | PROVIDERS: PCP Family Medicine; Referring Provider Family Medicine; Visit Provider Family Medicine | DX: R54 Age-related physical debility (principal) | CPT/HCPCS: 97110 ==

== ENCOUNTER 2021-01-16 11:08 | Outpatient (CLI) | payer OTHER, MEDICARE, SELFPAY ==
--- NOTE | 2021-01-16 11:00 | CT_ITS ---
WS: [id number] CT ABDOMEN TECHNIQUE: Noncontrast CT of the abdomen with coronal and sagittal reformatted images. CLINICAL INFORMATION: DISORDERS OF ADRENAL GLAND COMPARISON: CT October 10, 2020 DLP: 1181.[address] scans at [facility] use at least one of these dose optimization techniques: automated e xposure control; mA and/or kV adjustment per patient size (includes targeted exams where dose is matc hed to clinical indication); or iterative reconstruction. FINDINGS: Previously described calcified left adrenal lesion is unchanged over multiple prior studies. This is likely due to prior granulomatous disease or previous hemorrhage. Adrenal nodule measures 3.2 x 2.4 C M. This is stable since 2019. Cardiomegaly. Small pericardial effusion. Tiny left pleural effusion. Noncontrast liver is normal. Ch olelithiasis. Mild splenomegaly measuring 13.2 cm. Moderate esophageal hiatal hernia. Tiny fat-contai cleopatra umbilical hernia partially visualized. Right adrenal gland is normal. Fatty atrophy of the pancr eas. Aortic calcification. 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 No hydronephrosis in either kidney. Bilateral renal cortical scarring. Stable left renal cyst me asuring 2.[address]/CT abdomen wo con [id number] IMPRESSION: 1. Stable calcified left adrenal nodule measuring 3.2 x 2.4 cm unchanged since 2019. 2. Moderate esophageal hiatal hernia unchanged. 3. Tiny left pleural effusion. 4. Cardiomegaly with small pericardial effusion. 5. Cholelithiasis. 6. Mild splenomegaly.
== END 2021-01-16 11:09 | disposition home or self-care (01) ==
PROVIDERS: PCP Family Medicine; Visit Provider Urology
DX: E27.8 Other specified disorders of adrenal gland (principal); K44.9 Diaphragmatic hernia without obstruction or gangrene; J90 Pleural effusion, not elsewhere classified; I31.3 Pericardial effusion (noninflammatory); I51.7 Cardiomegaly; K80.20 Calculus of gallbladder without cholecystitis without obstruction; R16.1 Splenomegaly, not elsewhere classified; R32 Unspecified urinary incontinence
CPT/HCPCS: 74150; 81003; 87077; 87086; 87184

== ENCOUNTER 2021-01-25 06:00 | Outpatient (RCR) | payer OTHER, SELFPAY | END 2021-02-24 23:59 | disposition home or self-care (01) | LOC: TPT 06:00 | PROVIDERS: PCP Family Medicine; Referring Provider Family Medicine; Visit Provider Family Medicine | DX: R54 Age-related physical debility (principal) | CPT/HCPCS: 97110; 97116; 97164 ==

== ENCOUNTER → 2021-01-28 11:54 | Outpatient (BNVA) | payer OTHER, MEDICARE, SELFPAY | PROVIDERS: PCP Family Medicine; Visit Provider Nurse Practitioner Family | DX: M25.511 Pain in right shoulder (principal) | CPT/HCPCS: 73030 ==

== ENCOUNTER 2021-02-25 06:00 | Outpatient (RCR) | payer OTHER, SELFPAY | END 2021-03-26 23:59 | disposition home or self-care (01) | LOC: TPT 06:00 | PROVIDERS: PCP Family Medicine; Visit Provider Family Medicine | DX: R54 Age-related physical debility (principal) | CPT/HCPCS: 97110; 97116 ==

== ENCOUNTER → 2021-03-19 13:31 | Outpatient (BNVA) | payer OTHER, SELFPAY | PROVIDERS: PCP Family Medicine; Visit Provider Nurse Practitioner Family | DX: E78.5 Hyperlipidemia, unspecified (principal); E11.65 Type 2 diabetes mellitus with hyperglycemia; Z79.4 Long term (current) use of insulin; I10 Essential (primary) hypertension | CPT/HCPCS: 80053; 80061; 83036 ==

== ENCOUNTER → 2021-04-09 11:25 | Outpatient (BNVA) | payer OTHER, SELFPAY | PROVIDERS: PCP Family Medicine; Visit Provider Urology | DX: R82.71 Bacteriuria (principal); N20.0 Calculus of kidney; E27.8 Other specified disorders of adrenal gland | CPT/HCPCS: 81003; 87077; 87086; 87184 ==

== ENCOUNTER 2021-04-23 02:39 | Outpatient (RCR) | payer MEDICARE, OTHER, SELFPAY | END 2021-04-26 23:59 | disposition home or self-care (01) | LOC: TPT 02:39 | PROVIDERS: PCP Family Medicine; Visit Provider Family Medicine | DX: R26.81 Unsteadiness on feet (principal); Z91.81 History of falling; Z87.81 Personal history of (healed) traumatic fracture | CPT/HCPCS: 97110; 97163 ==

== ENCOUNTER 2021-04-27 06:00 | Outpatient (RCR) | payer MEDICARE, OTHER, SELFPAY | END 2021-05-27 23:59 | disposition home or self-care (01) | LOC: TPT 06:00 | PROVIDERS: PCP Family Medicine; Visit Provider Family Medicine | DX: R26.81 Unsteadiness on feet (principal); Z91.81 History of falling; Z87.81 Personal history of (healed) traumatic fracture | CPT/HCPCS: 97110; 97116 ==

== ENCOUNTER 2021-05-28 06:00 | Outpatient (RCR) | payer MEDICARE, OTHER, SELFPAY | END 2021-06-24 23:59 | disposition home or self-care (01) | LOC: TPT 06:00 | PROVIDERS: PCP Family Medicine; Visit Provider Family Medicine | DX: R26.81 Unsteadiness on feet (principal); Z91.81 History of falling; Z87.81 Personal history of (healed) traumatic fracture | CPT/HCPCS: 97110; 97116; 97530 ==

== ENCOUNTER 2021-06-25 06:00 | Outpatient (RCR) | payer MEDICARE, OTHER, SELFPAY | END 2021-07-25 23:59 | disposition home or self-care (01) | LOC: TPT 06:00 | PROVIDERS: PCP Family Medicine; Visit Provider Family Medicine | DX: R26.81 Unsteadiness on feet (principal); Z91.81 History of falling; Z87.81 Personal history of (healed) traumatic fracture | CPT/HCPCS: 97110; 97116 ==

== ENCOUNTER 2021-07-26 06:00 | Outpatient (RCR) | payer MEDICARE, OTHER, SELFPAY | END 2021-08-21 17:48 | disposition home or self-care (01) | LOC: TPT 06:00 | PROVIDERS: PCP Family Medicine; Visit Provider Family Medicine | DX: R26.81 Unsteadiness on feet (principal); Z91.81 History of falling; Z87.81 Personal history of (healed) traumatic fracture | CPT/HCPCS: 97110; 97116 ==

== ENCOUNTER → 2021-08-19 14:07 | Outpatient (BNVA) | payer MEDICARE, OTHER, SELFPAY | PROVIDERS: PCP Family Medicine; Visit Provider Nurse Practitioner Family | DX: M79.672 Pain in left foot (principal) | CPT/HCPCS: 73630 ==

== ENCOUNTER 2021-08-28 06:00 | Outpatient (RCR) | payer OTHER, SELFPAY | END 2021-09-24 23:59 | disposition home or self-care (01) | LOC: TPT 06:00 | PROVIDERS: PCP Family Medicine; Referring Provider Nurse Practitioner Family; Visit Provider Nurse Practitioner Family | DX: R53.1 Weakness (principal) | CPT/HCPCS: 97110; 97116; 97163 ==

== ENCOUNTER 2021-09-25 06:00 | Outpatient (RCR) | payer OTHER, SELFPAY | END 2021-10-24 23:59 | disposition home or self-care (01) | LOC: TPT 06:00 | PROVIDERS: PCP Family Medicine; Referring Provider Nurse Practitioner Family; Visit Provider Nurse Practitioner Family | DX: R53.1 Weakness (principal) | CPT/HCPCS: 97110; 97116 ==

== ENCOUNTER → 2021-10-03 10:24 | Outpatient (BNVA) | payer OTHER, SELFPAY | PROVIDERS: PCP Family Medicine; Visit Provider Nurse Practitioner Family | DX: I10 Essential (primary) hypertension (principal); G62.9 Polyneuropathy, unspecified; D64.9 Anemia, unspecified; E11.9 Type 2 diabetes mellitus without complications; E78.5 Hyperlipidemia, unspecified; E55.9 Vitamin D deficiency, unspecified; N39.0 Urinary tract infection, site not specified; Z12.5 Encounter for screening for malignant neoplasm of prostate; R53.1 Weakness; R53.83 Other fatigue; I95.9 Hypotension, unspecified | CPT/HCPCS: 80053; 82306; 83036; G0103 ==

== ENCOUNTER → 2021-10-07 13:30 | Outpatient (BNVA) | payer OTHER, SELFPAY | PROVIDERS: PCP Family Medicine; Visit Provider Nurse Practitioner Family | DX: N39.0 Urinary tract infection, site not specified (principal); R53.1 Weakness; R53.83 Other fatigue; T14.8XXA Other injury of unspecified body region, initial encounter | CPT/HCPCS: 87077; 87086; 87184 ==

== ENCOUNTER 2021-10-25 06:00 | Outpatient (RCR) | payer OTHER, SELFPAY | END 2021-11-24 23:59 | disposition home or self-care (01) | LOC: TPT 06:00 | PROVIDERS: PCP Family Medicine; Referring Provider Nurse Practitioner Family; Visit Provider Nurse Practitioner Family | DX: R53.1 Weakness (principal) | CPT/HCPCS: 97110; 97116 ==

== ENCOUNTER → 2021-11-14 14:53 | Outpatient (BNVA) | payer OTHER, SELFPAY | PROVIDERS: PCP Family Medicine; Visit Provider Internal Medicine Cardiovascular Disease | DX: I13.0 Hypertensive heart and chronic kidney disease with heart failure and stage 1 through stage 4 chronic kidney disease, or unspecified chronic kidney disease (principal); E11.22 Type 2 diabetes mellitus with diabetic chronic kidney disease; N18.30 Chronic kidney disease, stage 3 unspecified; I50.9 Heart failure, unspecified; Z87.891 Personal history of nicotine dependence; Z79.4 Long term (current) use of insulin; I25.10 Atherosclerotic heart disease of native coronary artery without angina pectoris; E78.5 Hyperlipidemia, unspecified; G47.33 Obstructive sleep apnea (adult) (pediatric); R60.0 Localized edema | CPT/HCPCS: 80048; 83880; 99214 ==

== ENCOUNTER → 2021-11-20 13:16 | Outpatient (BNVA) | payer OTHER, SELFPAY | PROVIDERS: PCP Family Medicine; Visit Provider Internal Medicine Cardiovascular Disease | DX: K92.2 Gastrointestinal hemorrhage, unspecified (principal) | CPT/HCPCS: 85025 ==

== ENCOUNTER 2021-11-25 06:00 | Outpatient (RCR) | payer OTHER, SELFPAY | END 2021-12-25 23:59 | disposition home or self-care (01) | LOC: TPT 06:00 | PROVIDERS: PCP Family Medicine; Visit Provider Nurse Practitioner Family | DX: R53.1 Weakness (principal) | CPT/HCPCS: 97110; 97116 ==

== ENCOUNTER 2022-01-16 21:54 | Inpatient (IN) | payer OTHER, SELFPAY ==
[2022-01-16 21:56] VITALS: BP 155/61; PULSE 80; RESP 18; TEMP 37.6; O2SAT 98; BMI 30.9
--- NOTE | 2022-01-16 22:23 | XRR_ITS ---
PROCEDURE INFORMATION: Exam: XR Chest Exam date and time: 01/16/2022 10:35 PM Age: 82 years old Clinical indication: Cough and fever; Prior surgery; Surgery type: Coronary stent; Patient HX: Cough with fever; Additional info: Cough, fever TECHNIQUE: Imaging protocol: Radiologic exam of the chest. Views: 1 view. COMPARISON: CR XR chest 1V [id number] 11/29/2018 5:10 AM FINDINGS: Lungs: See Heart/Mediastinum finding. Pleural spaces: Unremarkable. No pleural effusion. No pneumothorax. Heart/Mediastinum: Cardiomegaly, negative for infiltrate. Bones/joints: Unremarkable. XR/XR chest 1V portable [id number] IMPRESSION: Cardiomegaly, negative for infiltrate.
[2022-01-16 22:41] LABS: Basophils % 0.3 %; Eosinophils # 0.1 10^3/uL (0.0-0.8); Eosinophils % 0.9 %; Hematocrit 34.1 % (42.0-52.0); Hemoglobin 11.1 g/dL (11.7-16.6); Lymphocytes % 15.9 %; Mean Corpuscular HGB Conc 32.6 g/dL (30.0-36.0); Mean Corpuscular Hemoglobin 28.8 pg (28.0-34.0); Mean Corpuscular Volume 88.3 fl (80-94); Mean Platelet Volume 11.6 fL (7.4-10.4); Monocytes # 0.6 10^3/uL (0.2-0.9); Monocytes % 9.2 %; Neutrophils % 73.4 %; Nucleated Red Blood Cells % 0 %; Platelet Count 124 10^3/cmm (130-400); Red Blood Count 3.86 10^6/uL (4.1-5.3); Red Cell Distribution Width 13.4 % (12.1-15.1); White Blood Count 6.5 10^3/uL (4.0-10.0)
[2022-01-16 23:01] LABS: Lactate (Lactic Acid level) 2.1 mmol/L (0.5-2.2)
[2022-01-16 23:02] LABS: Alanine Aminotransferase 19 U/L (0-41); Albumin Level 3.2 g/dL (3.5-5.2); Alkaline Phosphatase 70 U/L (40-130); Anion Gap 18.6 (5-19); Aspartate Amino Transferase 17 U/L (0-40); Blood Urea Nitrogen 31 mg/dL (8-23); Calcium 8.8 mg/dL (8.5-10.5); Carbon Dioxide 20 mmol/L (22-29); Chloride 106 mmol/L (98-107); Globulin 3.4 g/dL (1.3-4.6); Glucose 213 mg/dL (65-115); Osmolality Calculated 305 mOsm/kg (285-295); Potassium 3.6 mmol/L (3.5-5.1); Sodium 141 mmol/L (136-145); Total Bilirubin 0.4 mg/dL (0.15-1.2); Total Protein 6.6 g/dL (6.6-8.7)
--- NOTE | 2022-01-16 23:06 | W.ED.WEAKNES ---
HPI - Weakness General: Chief complaint: Weakness Stated complaint: FEVER/WEAKNESS Time Seen by Provider: 01/16/22 22:15 History of Present Illness: 82-year-old male presenting today with weakness. Patient noted to have worsening weakness over the last 24 hours. Patient is usually able to transfer without difficulty. But was weaker today. Patient denies any significant complaints. However family members notes he is unable to move very well. He also has a fever. He denies a complete review of systems. However family notes he had a fever today. And appears to be more shaky. Does have a history of significant dementia. Review of Systems General: Reports: 10 or more systems reviewed and unremarkable except in HPI and below PFSH ED PFSH: Medical History Anemia ASHD (arteriosclerotic heart disease) CHF (congestive heart failure) Chronic osteoarthritis CKD (chronic kidney disease) stage 3, GFR 30-59 ml/min Dementia Diabetes Dyslipidemia Dysthymic disorder Elevated troponin Generalized muscle weakness GERD (gastroesophageal reflux disease) Hearing loss History of DVT (deep vein thrombosis) History of fracture of left hip Hypertension Kidney stone Left ureteral calculus Myocardial infarction Neuropathy Neutropenia Obstructive uropathy RASHAD (obstructive sleep apnea) PTSD (post-traumatic stress disorder) Pyelonephritis Renal stones Sepsis Thrombocytopenia Surgical History History of laminectomy (~1992) History of orchiectomy History of PTCA Family History Mother , at age 59 Cancer Diabetes Father , at age 87 Tuberculosis Other Hypertension Denies family history of CAD (coronary artery disease) Clotting disorder Dementia Chronic kidney disease (CKD) Suicide Anesthesia complication Bleeding disorder Lung disease Stroke Social History Smoking and tobacco status: former smoker Second hand smoke exposure: Yes Smoking risk assessment/counseling performed?: No Alcohol intake: never Marital status: service: Yes Current occupational status: retired History of recent travel: No Physical Exam Const: COMMON NORMALS: no acute distress, patient oriented x3 and alert GENERAL APPEARANCE: cooperative ORIENTATION/CONSCIOUSNESS: Yes awake, Yes oriented to person, Yes oriented to place and Yes oriented to time HENMT: COMMON NORMALS: normocephalic, atraumatic, external ears normal, Normal external nose present and moist oral mucous membranes HEAD & SCALP: normal to inspection, normocephalic and atraumatic NOSE: Normal external nose present GENERAL EAR: hearing grossly impaired EXTERNAL EAR: Yes external ears normal Eye: COMMON NORMALS: Equal, round and reactive pupils present, EOMs intact bilaterally, conjunctivae normal and no scleral icterus GENERAL EYE: appearance normal, both eyes and all related structures EYELID: eyelids normal CONJUNCTIVA: Yes conjunctivae normal SCLERA: sclerae normal PUPIL: Yes Equal, round and reactive pupils present Neck/C-Spine: COMMON NORMALS: full ROM, supple and no JVD GENERAL: Yes normal visual inspection Lymph: LYMPHATIC: no lymphadenopathy noted and no lymphedema noted Chest: COMMONS NORMALS: normal inspection of the chest Resp: COMMON NORMALS: normal respiratory effort, No retractions and No use of accessory muscles Cardio: COMMON NORMALS: no JVD, regular rate and regular rhythm RATE: regular rate RHYTHM: regular rhythm GI: COMMON NORMALS: Normal to inspection, nondistended, normoactive bowel sounds present : COMMON NORMALS: Yes no CVA tenderness BLADDER/KIDNEY EXAM: Yes no CVA tenderness Back/Pelvis: COMMON NORMALS: no CVA tenderness and thoracic and lumbar spine normal to inspection Extremity: COMMON NORMALS: normal to inspection, full ROM and capillary refill normal GENERAL: Yes normal exam except as noted Neuro: COMMON NORMALS: patient oriented x3, CN's II-XII intact bilaterally, moves all extremities, no focal motor deficits, no sensory deficits noted and gait normal SENSORIUM/ORIENTATION: Yes alert, Yes oriented to person, Yes oriented to place and Yes oriented to time Psych: COMMON NORMALS: mental status grossly normal, Normal thought process present, cooperative and normal affect THOUGHT PROCESS: Normal thought process present Skin: COMMON NORMALS: no rashes or lesions noted and no wounds GENERAL SKIN EXAM: no rashes or lesions noted Course Vital Signs: Vital signs: Vital Signs Temperature 99.6 F 01/16/22 21:56 Pulse Rate 74 01/16/22 23:58 Respiratory Rate 18 01/16/22 23:58 Blood Pressure 138/66 01/16/22 23:58 Pulse Oximetry 98 01/16/22 23:58 Oxygen Delivery Sd thod 01/16/22 21:56 MDM - Weakness Medical Decision Making 82-year-old male presenting today with increasing weakness. Urinalysis suggestive of significant UTI. Patient given a bolus of fluid as well as started on ceftriaxone. Patient with significant inability to walk. Secondary to weakness. Also with increased altered mental status. Will admit to the hospital for IV antibiotics and further evaluation management. Patient admitted in stable condition Lab Data : 01/16/22 22:08 01/16/22 22:08 Radiology Impressions Chest X-Ray 01/16/22 22:23 IMPRESSION: Cardiomegaly, negative for infiltrate. Laboratory Results WBC 6.5 10^3/uL (4.0-10.0) 01/16/22 22:08 RBC 3.86 10^6/uL (4.1-5.3) L 01/16/22 22:08 Hgb 11.1 g/dL (11.7-16.6) L 01/16/22 22:08 Hct 34.1 % (42.0-52.0) L 01/16/22 22:08 MCV 88.3 fl (80-94) 01/16/22 22:08 MCH 28.8 pg (28.0-34.0) 01/16/22 22:08 MCHC 32.6 g/dL (30.0-36.0) 01/16/22 22:08 RDW 13.4 % (12.1-15.1) 01/16/22 22:08 Plt Count 124 10^3/cmm (130-400) L 01/16/22 22:08 MPV 11.6 fL (7.4-10.4) H 01/16/22 22:08 Neut % (Auto) 73.4 % 01/16/22 22:08 Lymph % (Auto) 15.9 % 01/16/22 22:08 [place] % (Auto) 9.2 % 01/16/22 22:08 Eos % (Auto) 0.9 % 01/16/22 22:08 Baso % (Auto) 0.3 % 01/16/22 22:08 Neut # (Auto) 4.80 10^3/uL (1.8-7.7) 01/16/22 22:08 Lymph # (Auto) 1.0 10^3/uL (0.8-4.8) 01/16/22 22:08 [place] # (Auto) 0.6 10^3/uL (0.2-0.9) 01/16/22 22:08 Eos # (Auto) 0.1 10^3/uL (0.0-0.8) 01/16/22 22:08 Baso # (Auto) 0.0 10^3/uL (0.0-0.1) 01/16/22 22:08 Nucleated RBC % (auto) 0 % 01/16/22 22:08 Nucleated RBCs # 0.0 /100WBC 01/16/22 22:08 Sodium 141 mmol/L (136-145) 01/16/22 22:08 Potassium 3.6 mmol/L (3.5-5.1) 01/16/22 22:08 Chloride 106 mmol/L (98-107) 01/16/22 22:08 Carbon Dioxide 20 mmol/L (22-29) L 01/16/22 22:08 Anion Gap 18.6 (5-19) 01/16/22 22:08 BUN 31 mg/dL (8-23) H 01/16/22 22:08 Creatinine 1.7 mg/dL (0.7-1.2) H 01/16/22 22:08 GFR Calculation Not Reportable 01/16/22 22:08 Glucose 213 mg/dL (65-115) H 01/16/22 22:08 Calculated Osmolality 305 mOsm/kg (285-295) H 01/16/22 22:08 Lactate 2.1 mmol/L (0.5-2.2) 01/16/22 22:08 Calcium 8.8 mg/dL (8.5-10.5) 01/16/22 22:08 Total Bilirubin 0.4 mg/dL (0.15-1.2) 01/16/22 22:08 AST 17 U/L (0-40) 01/16/22 22:08 ALT 19 U/L (0-41) 01/16/22 22:08 Alkaline Phosphatase 70 U/L (40-130) 01/16/22 22:08 Total Protein 6.6 g/dL (6.6-8.7) 01/16/22 22:08 Albumin 3.2 g/dL (3.5-5.2) L 01/16/22 22:08 Globulin 3.4 g/dL (1.3-4.6) 01/16/22 22:08 Urine Color Yellow (Yellow) 01/16/22 23:55 Urine Appearance Sl hazy (CLEAR) 01/16/22 23:55 Urine pH 6 (5-7) 01/16/22 23:55 Ur Specific [place] 1.015 (1.005-1.030) 01/16/22 23:55 Urine Protein 3+ (Negative) H 01/16/22 23:55 Urine Glucose (UA) Norm (Normal) 01/16/22 23:55 Urine Ketones Negative (Negative) 01/16/22 23:55 Urine Blood 3+ (Negative) H 01/16/22 23:55 Urine Nitrate Positive (Negative) H 01/16/22 23:55 Urine Bilirubin Neg (Negative) 01/16/22 23:55 Urine Urobilinogen Norm mg/dL (Negative) 01/16/22 23:55 Ur Leukocyte Esterase 2+ (Negative) H 01/16/22 23:55 Urine RBC Too numerous to cnt /hpf (0-2) H 01/16/22 23:55 Urine WBC Too numerous to cnt /hpf (0-5) H 01/16/22 23:55 Ur Squamous Epith Cells 0-4 /hpf (0-5) H 01/16/22 23:55 Amorphous Sediment Not Reportable 01/16/22 23:55 Urine Bacteria 4+ /hpf (NONE) H 01/16/22 23:55 Discharge Plan Discharge Patient Disposition: Admitted As Inpatient Clinical Impression: Acute UTI, Weakness Condition: Stable Prescriptions: No Action ascorbate calcium (vitamin C) 500 mg tablet 500 mg PO DAILY ferrous sulfate 142 mg (45 mg iron) tablet extended release 142 mg PO DAILY metoprolol tartrate 25 mg tablet 25 mg PO BID sertraline 100 mg tablet 100 mg PO BEDTIME apixaban 5 mg tablet 2.5 mg PO BID triamcinolone acetonide 0.1 % cream 1 applic topical BID 14 Days Qty: 80 0RF mupirocin 2 % ointment 1 applic TOPICAL BID Qty: 30 0RF atorvastatin 40 mg tablet 40 mg PO DAILY Qty: 90 1RF finasteride 5 mg tablet 5 mg PO DAILY Qty: 90 1RF fluticasone propionate [Flonase Allergy Relief] 50 mcg/actuation spray,suspension 2 spray INTRANASAL DAILY Qty: 16 3RF Rx Instructions: administer into each nostril isosorbide mononitrate 30 mg tablet extended release 24 hr 30 mg PO DAILY Qty: 90 1RF methenamine hippurate 1 gram tablet 1 g PO BID Rx Instructions: Take 1000 mg of vitamin C with each dose of methenamine Lantus U-100 Insulin 100 unit/mL solution 14 unit SUBCUT BID Rx Instructions: 90 DAY SUPPLY amlodipine 10 mg tablet 10 mg PO DAILY Qty: 90 0RF furosemide [Lasix] 40 mg tablet 40 mg PO DAILY PRN (Reason: edema) 30 Days Qty: 30 3RF potassium chloride 20 mEq tablet extended release 20 meq PO DAILY PRN (Reason: LASIX) 30 Days Qty: 30 5RF insulin aspart U-100 [Novolog Flexpen U-100 Insulin] 100 unit/mL (3 mL) insulin pen See Rx Instructions SUBCUT TID Qty: 15 1RF Rx Instructions: DIRECTED PER SLIDING SCALE SUBCUT three times daily; nitroglycerin 0.4 mg tablet, sublingual 0.4 mg SUBLINGUAL Q5M PRN (Reason: chest pain) Qty: 100 0RF (DME) lancets 30 gauge misc See Rx Instructions .Route Qty: 100 5RF Rx Instructions: use tid losartan 25 mg tablet 25 mg PO DAILY Qty: 90 3RF methenamine hippurate 1 gram tablet 1 g PO BID Qty: 28 0RF (DME) True Metrix Glucose Test Strip Strip See Rx Instructions .Route Qty: 100 6RF Rx Instructions: USE THREE TIMES DAILY TO CHECK BLOOD SUGAR doxycycline hyclate 100 mg capsule 100 mg PO BID 10 Days Qty: 20 0RF doxycycline hyclate 100 mg capsule 100 mg PO DAILY Qty: 90 0RF pantoprazole 40 mg tablet,delayed release (DR/EC) 40 mg PO DAILY gabapentin 300 mg capsule 300 mg PO BEDTIME ergocalciferol (vitamin D2) 1,250 mcg (50,000 unit) capsule See Rx Instructions .ROUTE .COMPLEX Rx Instructions: 1,250 mcg orally every 2 weeks Referrals: Faye Zamora MD [Primary Care Provider] - Coding Level of Care Code ED Clinical Athletic Instructor for Chg Fwd Exam Comprehensive
[2022-01-16 23:58] VITALS: BP 138/66; PULSE 74; RESP 18; O2SAT 98
[2022-01-17] VITALS (13 sets, daily range): BP systolic 113–149; BP diastolic 52–77; PULSE 64–79; RESP 16–20; TEMP 36.7–37.8; O2SAT 93–96
[2022-01-17 00:16] LABS: Glucose Urine UA Norm (Normal); Ketones Urine Negative (Negative); Protein Urine 3+ (Negative); Specific Gravity, Urine 1.015 (1.005-1.030); Urine Appearance SL Hazy (CLEAR); Urine Color Yellow (Yellow); pH Urine 6 (5-7)
[2022-01-17 00:17] LABS: Add Urine Microscopic? YES; Bilirubin Urine Neg (Negative); Blood Urine 3+ (Negative); Leukocyte Esterase Urine 2+ (Negative); Nitrate Urine Positive (Negative); Urobilinogen Urine Norm (Negative)
[2022-01-17 00:18] LABS: Add Urine Culture? Yes; Bacteria Urine 4+ /hpf; RBC Urine TOO NUMEROUS TO CNT /hpf (0-2); Squamous Epithelial Cell Urine 0-4 /hpf (0-5); WBC Urine TOO NUMEROUS TO CNT /hpf (0-5)
[2022-01-17] MEDS: cefTRIAXone 2,000 MG in sodium chloride 0.9% (plus) 50 ML 100 MG IV (01:04)
--- NOTE | 2022-01-17 01:25 | CTR_ITS ---
PROCEDURE INFORMATION: Exam: CT Abdomen And Pelvis Without Contrast Exam date and time: 01/17/2022 1:36 AM Age: 82 years old Clinical indication: Prior surgery; Surgery type: Laminectomy. Orchiectomy. Coronary stent; Patient HX: Bacteruria. History of nephrolithiasis; Additional info: Abdominal pain, eval for stone TECHNIQUE: Imaging protocol: Computed tomography of the abdomen and pelvis without contrast. Radiation optimization: All CT scans at this facility use at least one of these dose optimization techniques: automated exposure control; mA and/or kV adjustment per patient size (includes targeted exams where dose is matched to clinical indication); or iterative reconstruction. COMPARISON: CT abdomen wo con [id number] 01/16/2021 11:45 AM RADIATION DOSE METRICS: Total DLP (mGy-cm): 913.13 FINDINGS: Lungs: No significant acute finding in the lower lungs. Minimal pleural thickening versus pleural fluid, unchanged. Heart: Moderate cardiomegaly. Small amount of pericardial fluid, maximum thickness 4-5 mm anteriorly. Diaphragm: Hiatal hernia, 5-6 cm in diameter, similar to prior exam. Liver: Unremarkable. Gallbladder and bile ducts: Several calcified gallstones visible within the gallbladder, similar to prior exam. No other definite gallbladder abnormality by CT. No biliary tree dilation. Pancreas: Unremarkable. Spleen: The spleen appears borderline/mildly enlarged, with a length of about 13 cm, similar to the prior exam. No definite/significant focal splenic abnormality or perisplenic fluid. Adrenal glands: There is a partially calcified left adrenal mass, measuring about 33 x 24 x 27 mm. This has not significantly changed since 01/16/2021, or from an older available exam from 11/29/2018. The appearance is nonspecific, but lack of significant growth in a greater than 3 year interval would argue for a benign etiology. The right adrenal gland appears unremarkable. Kidneys and ureters: Small 4-5 mm left intrarenal calculus. 18 x 5 mm right upper pole intrarenal calculus. No hydronephrosis of either kidney. No visible ureteral calculus. Mild perinephric stranding bilaterally, similar to the prior exam. This is a nonspecific appearance and could be chronic. Possibility of pyelonephritis should still be considered. Please correlate with clinical and laboratory evaluation. 32 mm simple appearing cyst extends posteriorly from the mid to lower left kidney, similar to the prior exam. Stomach and bowel: No significant bowel distention. 35 mm duodenal diverticulum, similar to the prior exam. There are no CT findings to strongly suggest diverticulitis. Appendix: The appendix is visualized and appears normal. Intraperitoneal space: No free intraperitoneal air, or ascites. Vasculature: Prominent aortic and other vascular calcifications. No evidence for significant abdominal aortic aneurysm. Lymph nodes: No retroperitoneal adenopathy. Urinary bladder: Possibly some mild diffuse urinary bladder wall thickening. While nonspecific, this could indicate evidence for cystitis. Please correlate clinically. Two left-sided urinary bladder diverticula, measuring up to about 20-25 mm in diameter. No visible calculus in the bladder. Reproductive: Essentially unremarkable for age. Bones/joints: Moderate degenerative/arthritic changes mid and lower lumbar spine, similar to the prior exam. Left hip prosthesis causes some artifact in the pelvis. Soft tissues: Very small umbilical hernia, containing only fat. CT/CT abdomen pelvis wo con [id number] IMPRESSION: 1. Bilateral intrarenal calculi. 2. No hydronephrosis of either kidney. No visible ureteral calculus. 3. Mild perinephric stranding bilaterally, see above discussion. 4. Possible mild urinary bladder wall thickening, see above. Two left-sided urinary bladder diverticula. 5. Cholelithiasis, see additional details above. 6. No free air or bowel distention. 7. Essentially stable left adrenal mass, see above discussion. 8. Normal appendix, no evidence to strongly suggest diverticulitis. 9. Hiatal hernia, details above. 10. Moderate cardiomegaly. Small pericardial effusion. 11. Other findings discussed above. COMMENTS: Consistent with the [employer]'s Incidental Findings Committee white paper (J Am Brayden Radiol 2017): For any incidental adrenal lesion greater than or equal to 1 cm but less than or equal to 4 cm classified in this report as benign, likely benign, or containing fat (including classification as an adenoma or myelolipoma), no follow-up imaging is recommended per consensus recommendations based on imaging criteria. Further lab evaluation could be pursued if warranted based on clinical findings.
--- NOTE | 2022-01-17 02:54 | ED_ITS ---
HPI - Weakness General: Chief complaint: Weakness Stated complaint: FEVER/WEAKNESS Time Seen by Provider: 01/16/22 22:15 History of Present Illness: Note in error PFSH ED PFSH: Medical History Anemia ASHD (arteriosclerotic heart disease) CHF (congestive heart failure) Chronic osteoarthritis CKD (chronic kidney disease) stage 3, GFR 30-59 ml/min Dementia Diabetes Dyslipidemia Dysthymic disorder Elevated troponin Generalized muscle weakness GERD (gastroesophageal reflux disease) Hearing loss History of DVT (deep vein thrombosis) History of fracture of left hip Hypertension Kidney stone Left ureteral calculus Myocardial infarction Neuropathy Neutropenia Obstructive uropathy RASHAD (obstructive sleep apnea) PTSD (post-traumatic stress disorder) Pyelonephritis Renal stones Sepsis Thrombocytopenia Surgical History History of laminectomy (~1992) History of orchiectomy History of PTCA Family History Mother , at age 59 Cancer Diabetes Father , at age 87 Tuberculosis Other Hypertension Denies family history of CAD (coronary artery disease) Clotting disorder Dementia Chronic kidney disease (CKD) Suicide Anesthesia complication Bleeding disorder Lung disease Stroke Social History Smoking and tobacco status: former smoker Quit status (tobacco): has quit using tobacco Year quit tobacco: 1989 Former quit date comment: smoked cigars about 5 yrs Second hand smoke exposure: Yes Smoking risk assessment/counseling performed?: No Alcohol intake: never Caregiver/support person: Yes (spouse and daughter) Lives independently: Yes Marital status: service: Yes Current occupational status: retired History of recent travel: No Current gender identity: Male Special eitan needs: No Agree to transfusion: Yes Course Vital Signs: Vital signs: Vital Signs Temperature 98.1 F 01/20/22 15:33 Pulse Rate 83 01/20/22 15:33 Respiratory Rate 15 01/20/22 15:33 Blood Pressure 142/75 01/20/22 15:33 Pulse Oximetry 91 01/20/22 11:39 Oxygen Delivery Me thod 01/20/22 11:39 MDM - Weakness Medical Decision Making Note in error, see note dated same day. Lab Data : 01/20/22 04:29 01/20/22 04:29 Radiology Impressions Chest X-Ray 01/16/22 22:23 IMPRESSION: Cardiomegaly, negative for infiltrate. Abdomen/Pelvis CT 01/17/22 01:25 IMPRESSION: 1. Bilateral intrarenal calculi. 2. No hydronephrosis of either kidney. No visible ureteral calculus. 3. Mild perinephric stranding bilaterally, see above discussion. 4. Possible mild urinary bladder wall thickening, see above. Two left-sided urinary bladder diverticula. 5. Cholelithiasis, see additional details above. 6. No free air or bowel distention. 7. Essentially stable left adrenal mass, see above discussion. 8. Normal appendix, no evidence to strongly suggest diverticulitis. 9. Hiatal hernia, details above. 10. Moderate cardiomegaly. Small pericardial effusion. 11. Other findings discussed above. COMMENTS: Consistent with the [employer]'s Incidental Findings Committee white paper (J Am Brayden Radiol 2017): For any incidental adrenal lesion greater than or equal to 1 cm but less than or equal to 4 cm classified in this report as benign, likely benign, or containing fat (including classification as an adenoma or myelolipoma), no follow-up imaging is recommended per consensus recommendations based on imaging criteria. Further lab evaluation could be pursued if warranted based on clinical findings. Laboratory Results WBC 6.5 10^3/uL (4.0-10.0) 01/16/22 22:08 RBC 3.86 10^6/uL (4.1-5.3) L 01/16/22 22:08 Hgb 11.1 g/dL (11.7-16.6) L 01/16/22 22:08 Hct 34.1 % (42.0-52.0) L 01/16/22 22:08 MCV 88.3 fl (80-94) 01/16/22 22:08 MCH 28.8 pg (28.0-34.0) 01/16/22 22:08 MCHC 32.6 g/dL (30.0-36.0) 01/16/22 22:08 RDW 13.4 % (12.1-15.1) 01/16/22 22:08 Plt Count 124 10^3/cmm (130-400) L 01/16/22 22:08 MPV 11.6 fL (7.4-10.4) H 01/16/22 22:08 Neut % (Auto) 73.4 % 01/16/22 22:08 Lymph % (Auto) 15.9 % 01/16/22 22:08 [place] % (Auto) 9.2 % 01/16/22 22:08 Eos % (Auto) 0.9 % 01/16/22 22:08 Baso % (Auto) 0.3 % 01/16/22 22:08 Neut # (Auto) 4.80 10^3/uL (1.8-7.7) 01/16/22 22:08 Lymph # (Auto) 1.0 10^3/uL (0.8-4.8) 01/16/22 22:08 [place] # (Auto) 0.6 10^3/uL (0.2-0.9) 01/16/22 22:08 Eos # (Auto) 0.1 10^3/uL (0.0-0.8) 01/16/22 22:08 Baso # (Auto) 0.0 10^3/uL (0.0-0.1) 01/16/22 22:08 Nucleated RBC % (auto) 0 % 01/16/22 22:08 Nucleated RBCs # 0.0 /100WBC 01/16/22 22:08 Sodium 141 mmol/L (136-145) 01/16/22 22:08 Potassium 3.6 mmol/L (3.5-5.1) 01/16/22 22:08 Chloride 106 mmol/L (98-107) 01/16/22 22:08 Carbon Dioxide 20 mmol/L (22-29) L 01/16/22 22:08 Anion Gap 18.6 (5-19) 01/16/22 22:08 BUN 31 mg/dL (8-23) H 01/16/22 22:08 Creatinine 1.7 mg/dL (0.7-1.2) H 01/16/22 22:08 GFR Calculation Not Reportable 01/16/22 22:08 Glucose 213 mg/dL (65-115) H 01/16/22 22:08 Calculated Osmolality 305 mOsm/kg (285-295) H 01/16/22 22:08 Lactate 2.1 mmol/L (0.5-2.2) 01/16/22 22:08 Calcium 8.8 mg/dL (8.5-10.5) 01/16/22 22:08 Total Bilirubin 0.4 mg/dL (0.15-1.2) 01/16/22 22:08 AST 17 U/L (0-40) 01/16/22 22:08 ALT 19 U/L (0-41) 01/16/22 22:08 Alkaline Phosphatase 70 U/L (40-130) 01/16/22 22:08 NT-Pro-B Natriuret Pep 4567 pg/mL (0-450) H 01/16/22 22:08 Total Protein 6.6 g/dL (6.6-8.7) 01/16/22 22:08 Albumin 3.2 g/dL (3.5-5.2) L 01/16/22 22:08 Globulin 3.4 g/dL (1.3-4.6) 01/16/22 22:08 Procalcitonin 0.08 ng/mL (0-0.5) 01/16/22 22:08 TSH 2.97 uIU/mL (0.27-4.20) 01/16/22 22:08 Urine Color Yellow (Yellow) 01/16/22 23:55 Urine Appearance Sl hazy (CLEAR) 01/16/22 23:55 Urine pH 6 (5-7) 01/16/22 23:55 Ur Specific [place] 1.015 (1.005-1.030) 01/16/22 23:55 Urine Protein 3+ (Negative) H 01/16/22 23:55 Urine Glucose (UA) Norm (Normal) 01/16/22 23:55 Urine Ketones Negative (Negative) 01/16/22 23:55 Urine Blood 3+ (Negative) H 01/16/22 23:55 Urine Nitrate Positive (Negative) H 01/16/22 23:55 Urine Bilirubin Neg (Negative) 01/16/22 23:55 Urine Urobilinogen Norm mg/dL (Negative) 01/16/22 23:55 Ur Leukocyte Esterase 2+ (Negative) H 01/16/22 23:55 Urine RBC Too numerous to cnt /hpf (0-2) H 01/16/22 23:55 Urine WBC Too numerous to cnt /hpf (0-5) H 01/16/22 23:55 Ur Squamous Epith Cells 0-4 /hpf (0-5) H 01/16/22 23:55 Amorphous Sediment Not Reportable 01/16/22 23:55 Urine Bacteria 4+ /hpf (NONE) H 01/16/22 23:55 Coronavirus 229E (PCR) Not detected (NOT DETECT) 01/16/22 22:33 SARS-CoV-2 (PCR) Not detected (NOT DETECT) 01/16/22 22:33 Discharge Plan Discharge Patient Disposition: Admitted As Inpatient Admit Provider: Lyndon Lane Clinical Impression: Acute UTI, Weakness Condition: Stable Discharge Diet: Cardiac Discharge Activity: Increase activity as tolerated and As per PT/OT instructions Coding Level of Care Code ED [employer] for Marylou Mercado
--- NOTE | 2022-01-17 03:27 | P.HP_ITS ---
Providers/Chief Complaint Admitting Physician: Lyndon Lane MD Primary Care Provider: Faye Zamora MD Chief Complaint: FEVER/WEAKNESS History of Present Illness Yoav Kyle is a 82 year old male with a past medical history of CAD, dyslipidemia, hypertension, CHF, RASHAD, insulin-dependent type 2 diabetes mellitus, history of recurrent UTIs, history of DVT on chronic anticoagulation, who presents to [facility] due to increased weakness, confusion, poor appetite. Patient's tells me that she knows when her gets UTIs, he becomes more confused. She tells baseline, he is not able to ambulate, but today he has been more weak, he is also had a fever, of 101, increasingly confused, in the emergency room he was found to have a UTI, normotensive, afe brile, temp 99, 94% room air, follows all commands, alert oriented x3, family at bedside. I requested a CT scan abdomen pelvis to evaluate for obstructive uropathy as he has a history of recurrent nephrolithiasis requiring intervention, followed up with Dr. Ponce Review of Systems Const: Reports: fever(s), fatigue and malaise Card: Denies: chest pain : Denies: flank pain Medications/Allergies Home Medications Medication Instructions Recorded Confirmed Last Taken Type insulin aspart U-100 100 unit/mL See Rx Instructions SUBCUT TID #15 11/09/19 11/14/21 Unknown Rx (3 mL) subcutaneous pen (Novolog mL Flexpen U-100 Insulin aspart) nitroglycerin 0.4 mg sublingual 0.4 mg sublingual Q5M PRN chest 11/09/19 11/14/21 Unknown Rx tablet pain #100 tabs mupirocin 2 % topical ointment 1 applic topical BID #30 grams 05/10/20 11/14/21 Unknown Rx atorvastatin 40 mg tablet 40 mg PO DAILY #90 tabs 10/02/20 11/14/21 10/02/20 Rx finasteride 5 mg tablet 5 mg PO DAILY #90 tabs 10/02/20 11/14/21 10/02/20 Rx fluticasone propionate 50 2 spray intranasal DAILY #16 grams 10/02/20 11/14/21 Unknown Rx mcg/actuation nasal spray,suspension (Flonase Allergy Relief) isosorbide mononitrate 30 mg 30 mg PO DAILY #90 tabs 10/02/20 11/14/21 10/03/20 Rx tablet,extended release 24 hr ergocalciferol (vitamin D2) 1,250 See Rx Instructions .Route .COMPLEX 10/03/20 11/14/21 Unknown History mcg (50,000 unit) capsule gabapentin 300 mg capsule 300 mg PO BEDTIME 10/03/20 11/14/21 10/02/20 History pantoprazole 40 mg tablet,delayed 40 mg PO DAILY 10/03/20 11/14/21 10/03/20 History release lancets 30 gauge #100 ea 10/10/20 11/14/21 Unknown Rx ascorbate calcium (vitamin C) 500 500 mg PO DAILY 10/12/20 11/14/21 Unknown History mg tablet ferrous sulfate 142 mg (45 mg 142 mg PO DAILY 10/12/20 11/14/21 Unknown History iron) tablet,extended release metoprolol tartrate 25 mg tablet 25 mg PO BID 11/06/20 11/14/21 Unknown History sertraline 100 mg tablet 100 mg PO BEDTIME 11/06/20 11/14/21 Unknown History apixaban 5 mg tablet 2.5 mg PO BID 03/12/21 11/14/21 Unknown History methenamine hippurate 1 gram tablet 1 g PO BID 03/12/21 11/14/21 Unknown History amlodipine 10 mg tablet 10 mg PO DAILY #90 tabs 04/02/21 11/14/21 Unknown Rx losartan 25 mg tablet 25 mg PO DAILY #90 tabs 04/09/21 11/14/21 Unknown Rx methenamine hippurate 1 gram tablet 1 g PO BID #28 tabs 04/11/21 11/14/21 Unknown Rx blood sugar diagnostic (True #100 ea 05/24/21 11/14/21 Unknown Rx Metrix Glucose Test Strip) triamcinolone acetonide 0.1 % 1 applic topical BID 14 days #80 06/12/21 11/14/21 Unknown Rx topical cream grams furosemide 40 mg tablet (Lasix) 40 mg PO DAILY PRN edema 30 days 11/14/21 11/14/21 Unknown Rx #30 tabs insulin glargine 100 unit/mL 14 unit SUBCUT BID 11/14/21 11/14/21 Unknown History subcutaneous solution (Lantus U-100 Insulin) potassium chloride 20 mEq 20 meq PO DAILY PRN LASIX 30 days 11/14/21 11/14/21 Unknown Rx tablet,extended release #30 tabs doxycycline hyclate 100 mg capsule 100 mg PO BID 10 days #20 caps 12/10/21 Unknown Rx doxycycline hyclate 100 mg capsule 100 mg PO DAILY #90 caps 12/10/21 Unknown Rx Allergies Allergy/AdvReac Type Severity Reaction Status Date / Time Iodinated Contrast Media Allergy unknown Verified 11/14/21 09:24 solifenacin [From Vesicare] AdvReac Severe weakness Verified 11/14/21 09:24 metoclopramide [From Reglan] AdvReac Intermediate anxiety Verified 11/14/21 09:24 PFSH Acute PFSH: Medical History Anemia ASHD (arteriosclerotic heart disease) CHF (congestive heart failure) Chronic osteoarthritis CKD (chronic kidney disease) stage 3, GFR 30-59 ml/min Dementia Diabetes Dyslipidemia Dysthymic disorder Elevated troponin Generalized muscle weakness GERD (gastroesophageal reflux disease) Hearing loss History of DVT (deep vein thrombosis) History of fracture of left hip Hypertension Kidney stone Left ureteral calculus Myocardial infarction Neuropathy Neutropenia Obstructive uropathy RASHAD (obstructive sleep apnea) PTSD (post-traumatic stress disorder) Pyelonephritis Renal stones Sepsis Thrombocytopenia Surgical History History of laminectomy (~1992) History of orchiectomy History of PTCA Family History Mother , at age 59 Cancer Diabetes Father , at age 87 Tuberculosis Other Hypertension Denies family history of CAD (coronary artery disease) Clotting disorder Dementia Chronic kidney disease (CKD) Suicide Anesthesia complication Bleeding disorder Lung disease Stroke Social History Smoking and tobacco status: former smoker Second hand smoke exposure: Yes Smoking risk assessment/counseling performed?: No Alcohol intake: never Marital status: service: Yes Current occupational status: retired History of recent travel: No Vitals/I&O/Wt Last Vital Signs Temp 99.0 F 01/17/22 02:20 Pulse 79 01/17/22 03:07 Resp 16 01/17/22 03:07 BP 142/58 01/17/22 03:07 Pulse Ox 94 01/17/22 03:07 O2 Del Method 01/16/22 21:56 01/16/22 01/16/22 01/17/22 14:59 22:59 06:59 Intake Total 50 / 50 Balance 50 / 50 Weight last 48 hrs Weight 112.491 kg Physical Exam Const: COMMON NORMALS: no acute distress and patient oriented x3 HENMT: COMMON NORMALS: normocephalic HEAD & SCALP: normocephalic Eye: COMMON NORMALS: Equal, round and reactive pupils present and EOMs intact bilaterally Neck/C-Spine: COMMON NORMALS: no JVD Resp: COMMON NORMALS: normal respiratory effort, No retractions, No use of accessory muscles and clear to auscultation bilaterally AUSCULTATION: clear to auscultation bilaterally Cardio: COMMON NORMALS: no JVD, regular rate, regular rhythm, S1 normal heart sound present and S2 normal heart sound present RATE: regular rate RHYTHM: regular rhythm HEART SOUNDS: S1 normal heart sound present and S2 normal heart sound present GI: COMMON NORMALS: Normal to inspection, nondistended, normoactive bowel sounds present, Soft to palpation, non-tender, No hepatosplenomegaly present, no masses and no bruits PALPATION: Yes Soft to palpation and Yes No hepatosplenomegaly present Extremity: NARRATIVE EXTREMITY EXAM: 1+ pitting edema bilateral lower extremity Neuro: COMMON NORMALS: patient oriented x3 Psych: COMMON NORMALS: mental status grossly normal Data : 01/16/22 22:08 01/16/22 22:08 A&P Assessment and plan (1) Acute encephalopathy: Status: Acute (2) Acute UTI: Status: Acute (3) Weakness: Status: Acute Plan Yoav Kyle is a 82 year old male with a past medical history of CAD, dyslipidemia, hypertension, CHF, RASHAD, insulin-dependent type 2 diabetes mellitus, history of recurrent UTIs, history of DVT on chronic anticoagulation, who presents to [facility] due to increased weakness, confusion, poor appetite. Acute encephalopathy -Secondary to UTI -History of obstructive uropathy, nephrolithiasis, ESBL E. coli, Proteus -Start Zosyn -Monitor mentation, treat fevers, monitor blood pressure -CT scan abdomen pelvis pending Bilateral extremity edema -We will hold off on Lasix as creatinine is 1.7 Generalized weakness, likely secondary UTI, monitor, will consider PT OT History of DVT continue Eliquis Type 2 diabetes mellitus, Lantus 7 units twice daily Low-dose sliding scale Hypertension continue home medications CAD status post stenting, continue Eliquis, statin Monitor urine output, continue finasteride DENNYS on CKD, will avoid fluid as he is has lower extremity edema Attestations Medical Necessity Statement*: Patient requires hospitalization, inpatient, greater than 2 minutes, for acute encephalopathy secondary UTI, generalized weakness, lower extreme edema Coding Level of Care Code Acute File Machine Operator for g Fwd Diagnoses Acute encephalopathy G93.40 Acute UTI N39.0 Weakness R53.1
[2022-01-17 04:13] LABS: Adenovirus Not Detected (NOT DETECT); Chlamydia Pneumoniae Not Detected (NOT DETECT); Coronavirus 229E,HKU1,NL63,OC4 Not Detected (NOT DETECT); Human Metapneumovirus Not Detected (NOT DETECT); Human Rhinovirus/Enterovirus Not Detected (NOT DETECT); Influenza A Not Detected (NOT DETECT); Influenza A H1 Not Detected (NOT DETECT); Influenza A H1-2009 Not Detected (NOT DETECT); Influenza A H3 Not Detected (NOT DETECT); Influenza B Not Detected (NOT DETECT); Mycoplasma Pneumoniae Not Detected (NOT DETECT); Parainfluenza Virus Type 1 Not Detected (NOT DETECT); Parainfluenza Virus Type 2 Not Detected (NOT DETECT); Parainfluenza Virus Type 3 Not Detected (NOT DETECT); Parainfluenza Virus Type 4 Not Detected (NOT DETECT); Respiratory Syncytial Virus A Not Detected (NOT DETECT); Respiratory Syncytial Virus B Not Detected (NOT DETECT); SARS-COV-2 Not Detected (NOT DETECT)
[2022-01-17] MEDS: piperacillin-tazobactam 3.375 GM in sodium chloride 0.9% (plus) 50 ML IV ×3 (04:49→20:28)
[2022-01-17 05:55] LABS: NT Pro B Type Natriuretic Pept 4567 pg/mL (0-450); Procalcitonin 0.08 ng/mL (0-0.5); Thyroid Stimulating Hormone 2.97 uIU/mL (0.27-4.20)
[2022-01-17 06:55] LABS: Glucose Point of Care 174 mg/dL (70-110)
[2022-01-17] MEDS: atorvastatin 40 mg Tablet PO (08:18)
[2022-01-17] MEDS: isosorbide mononitrate ER 30 mg Tablet PO (08:18)
[2022-01-17] MEDS: apixaban 5 mg Tablet 2.5 MG PO ×2 (08:18→18:05)
[2022-01-17] MEDS: amlodipine 10 mg Tablet PO (08:18)
[2022-01-17] MEDS: pantoprazole DR 40 mg Tablet PO (08:18)
[2022-01-17] MEDS: metoprolol tartrate 25 mg Tablet PO ×2 (08:19→18:30)
[2022-01-17] MEDS: ascorbic acid 500 mg Tablet PO (08:19)
[2022-01-17] MEDS: finasteride 5 mg Tablet PO (08:19)
[2022-01-17] MEDS: insulin lispro 100 unit/1 mL SUBCUT ×3 (08:20→18:04)
[2022-01-17] MEDS: insulin glargine 100 units/1 mL 7 UNIT SUBCUT ×2 (08:28→18:04)
--- NOTE | 2022-01-17 10:44 | PC.CHAP ---
Pastoral Care Encounter/Spiritual Assessment Type of Contact [] Declined per diem physical therapist assistant visit [] Patient/Family/Request visit [] Outpatient visit [] Follow-up visit [] Physician referral [] Code/Alert [x] Routine visit [] Staff referral [] Actively dying [] Patient sleeping [] Family support [] [] Out of room [] Palliative care [] [] Receiving care in room [] Pre-surgical visit [] Trauma [] Long length of stay [] ICU visit [] Other: Relational/Emotional Strength [] Patient feels connected with others/family/visitors/staff [] Distress [] Loneliness/isolation [] Abandonment Spirituality of Patient [] Person of Julia [] Attends Jewish of their Julia [] Believes in Prayer [] Reads Bible or Voodoo materials [] There are Spiritual issues to be addressed Stitch Bonding Machine Drawer In Interventions [x] Prayer [] Active listening [] Non-anxious presence [] Spiritual/emotional support [] Crisis/trauma care [] Spiritual counseling [] Bereavement support [] Provided bereavement packet [] Provided Bible/devotional materials [] Provided toy/stuffed animal, coloring book to patient or family member [] Provided Communion [] Anointing/[place] [] Salvation [x] Completed spiritual assessment [] Other: Impact on Illness or Injury [] Angry [] Fearful [] Anxious [] Often cries [] Exhaustion [] Unable to work [] Unable to attend judaism [] Unable to walk/stand [] Unable to read [] Unable to drive [] Unable to eat/drink [] Unable to sleep [] Unable to be with family [] Patient intubated [] Other: Summary not very alert Time spent with patient 10 min
[2022-01-17 11:36] LABS: Glucose Point of Care 223 mg/dL (70-110)
--- NOTE | 2022-01-17 14:24 | PM.MISC ---
Miscellaneous Note Note: Overnight labs and H&P reviewed. No acute interim events. Pending urine culture. Continue piperacillin tazobactam. 2+ pitting lower extremity edema. Per review of outpatient cardiology notes, patient has longstanding leg edema for which he is on as needed furosemide. 20 mg IV Lasix today.
[2022-01-17] MEDS: FUROsemide 10 mg/mL SDV 2mL 20 MG IVP (15:03)
[2022-01-17] MEDS: acetaminophen 325 mg Tablet 650 MG PO (16:37)
[2022-01-17 17:10] LABS: Glucose Point of Care 207 mg/dL (70-110)
[2022-01-17] MEDS: gabapentin 300 mg Capsule PO (20:28)
[2022-01-17] MEDS: sertraline 100 mg Tablet PO (20:28)
[2022-01-17 21:50] LABS: Glucose Point of Care 248 mg/dL (70-110)
[2022-01-18] VITALS (9 sets, daily range): BP systolic 114–160; BP diastolic 57–77; PULSE 63–86; RESP 16–18; TEMP 36.6–37.4; O2SAT 92–95
[2022-01-18 04:02] LABS: Basophils % 0.5 %; Eosinophils # 0.1 10^3/uL (0.0-0.8); Eosinophils % 2.2 %; Hematocrit 32.6 % (42.0-52.0); Hemoglobin 10.3 g/dL (11.7-16.6); Lymphocytes # 0.8 10^3/uL (0.8-4.8); Lymphocytes % 19.9 %; Mean Corpuscular HGB Conc 31.6 g/dL (30.0-36.0); Mean Corpuscular Hemoglobin 28.1 pg (28.0-34.0); Mean Corpuscular Volume 88.8 fl (80-94); Mean Platelet Volume 11.9 fL (7.4-10.4); Monocytes # 0.5 10^3/uL (0.2-0.9); Neutrophils # 2.75 10^3/uL (1.8-7.7); Neutrophils % 65.9 %; Nucleated Red Blood Cells % 0 %; Platelet Count 97 10^3/cmm (130-400); Red Blood Count 3.67 10^6/uL (4.1-5.3); Red Cell Distribution Width 13.3 % (12.1-15.1); White Blood Count 4.2 10^3/uL (4.0-10.0)
[2022-01-18 04:31] LABS: Alanine Aminotransferase 14 U/L (0-41); Albumin Level 2.8 g/dL (3.5-5.2); Alkaline Phosphatase 52 U/L (40-130); Anion Gap 12.1 (5-19); Aspartate Amino Transferase 12 U/L (0-40); Blood Urea Nitrogen 31 mg/dL (8-23); Calcium 8.3 mg/dL (8.5-10.5); Carbon Dioxide 24 mmol/L (22-29); Chloride 108 mmol/L (98-107); Globulin 3.2 g/dL (1.3-4.6); Glucose 146 mg/dL (65-115); Osmolality Calculated 301 mOsm/kg (285-295); Potassium 3.1 mmol/L (3.5-5.1); Sodium 141 mmol/L (136-145); Total Bilirubin 0.5 mg/dL (0.15-1.2)
[2022-01-18 06:51] LABS: Glucose Point of Care 163 mg/dL (70-110)
[2022-01-18] MEDS: finasteride 5 mg Tablet PO (08:56)
[2022-01-18] MEDS: pantoprazole DR 40 mg Tablet PO (08:56)
[2022-01-18] MEDS: metoprolol tartrate 25 mg Tablet PO (08:56)
[2022-01-18] MEDS: atorvastatin 40 mg Tablet PO (08:56)
[2022-01-18] MEDS: isosorbide mononitrate ER 30 mg Tablet PO (08:57)
[2022-01-18] MEDS: ascorbic acid 500 mg Tablet PO (08:57)
[2022-01-18] MEDS: apixaban 5 mg Tablet 2.5 MG PO ×2 (08:57→18:08)
[2022-01-18] MEDS: amlodipine 10 mg Tablet PO (08:57)
[2022-01-18] MEDS: insulin lispro 100 unit/1 mL SUBCUT ×3 (08:57→18:07)
[2022-01-18] MEDS: insulin glargine 100 units/1 mL 7 UNIT SUBCUT ×2 (08:58→18:07)
[2022-01-18] MEDS: potassium chloride ER 20 mEq Tablet 40 MEQ PO (08:59)
[2022-01-18 12:25] LABS: Glucose Point of Care 183 mg/dL (70-110)
--- NOTE | 2022-01-18 13:45 | PM.PN ---
Subjective Subjective: Patient is much more alert and awake today. He is able to answer all my questions appropriately. Sitting up in bed eating his breakfast. Denies any new complaints. He was febrile last night with T-max of 100.1 Fahrenheit at which point antibiotics were changed from Zosyn to Primaxin given that patient has a history of ESBL E. coli. Lower extremity edema is appearing slightly better today. Kidney function is stable. Medications: Reviewed: Yes Vitals/I&O/Wt Last Vital Signs Temp 98.3 F 01/18/22 12:00 Pulse 82 01/18/22 12:00 Resp 16 01/18/22 12:00 BP 132/57 01/18/22 12:00 Pulse Ox 94 01/18/22 12:00 O2 Del Method 01/18/22 12:00 01/17/22 01/18/22 01/18/22 22:59 06:59 14:59 Intake Total 290 / 940 480 / 480 Balance 290 / 940 480 / 480 Weight last 48 hrs Weight 112.491 kg Physical Exam Narrative: General: No acute distress, AO x3 HEENT: PERRLA, pupils bilaterally equal and reactive, pallors not present Chest: Normal vesicular breath sounds, no added sounds, equal good air entry bilaterally CVS: S1-S2 regular, no murmurs, no tachycardia, no gallops, no rubs Abdomen: Soft, nontender, no organomegaly, bowel sounds present Neuro: Known bilateral lower extremity weakness. Unable to move lower extremities against gravity. Per patient this is his baseline. Data : 01/18/22 03:38 01/18/22 03:38 Micro: Microbiology 01/16/22 23:55 Urine Culture - Preliminary Urine,Clean Catch Gram Negative Rods 01/17/22 05:20 Blood Culture - Preliminary Blood NEGATIVE TO DATE 01/17/22 05:17 Blood Culture - Preliminary Blood NEGATIVE TO DATE A&P Assessment and plan (1) Acute encephalopathy: (2) Acute UTI: (3) Weakness: Plan Yoav Kyle is a 82 year old male with a past medical history of CAD, dyslipidemia, hypertension, CHF, RASHAD, insulin-dependent type 2 diabetes mellitus, history of recurrent UTIs, history of DVT on chronic anticoagulation, who presents to [facility] due to increased weakness, confusion, poor appetite. Acute encephalopathy -Secondary to UTI -Urine culture today shows gram-negative rods, pending further identification. His mental status is much improving today. -History of obstructive uropathy, nephrolithiasis, ESBL E. coli, Proteus, however no obstruction noted on most recent abdominal imaging. -Start Zosyn, changed to Primaxin overnight due to persisting fever and history of ESBL. Bilateral extremity edema -Trial of Lasix 20 mg IV today. His edema is improving today after receiving 1 dose of 20 mg IV. Additionally added compression stockings. Generalized weakness, likely secondary UTI, patient states he has not walked in the past several months. Noted generalized atony of bilateral lower extremities. He is wheelchair-bound at baseline. History of DVT continue Eliquis Type 2 diabetes mellitus, Lantus 7 units twice daily Low-dose sliding scale Hypertension continue home medications CAD status post stenting, continue Eliquis, statin Monitor urine output, continue finasteride Attestations Medical Necessity Statement*: Needs ongoing admission for fever, IV Primaxin. Coding Level of Care Code Acute Continuing Education Dean for [facility] Jess Diagnoses Acute encephalopathy G93.40 Acute UTI N39.0 Weakness R53.1
--- NOTE | 2022-01-18 14:43 | ECG_ITS ---
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 Measurements Intervals [place] Rate: 61 P: NC: QRS: -41 QRSD: 101 T: 15 QT: 434 QTc: 438 Interpretive Statements ATRIAL FIBRILLATION with aberrantly conducted beats LEFT AXIS DEVIATION [QRS AXIS < -30] MINIMAL VOLTAGE CRITERIA FOR LVH, CONSIDER NORMAL VARIANT [MEETS CRITERIA IN ONE OF: R(aVL), S(V1), R(V5), R(V5/V6)+S(V1)] Compared to ECG 10/03/2020 13:29:56 Sinus rhythm no longer present ST (T wave) deviation no longer present Electronically Signed On 01-18-2022 18:19:43 CDT by Mine Douglas M.D. [email or web address].[email or web address]/[id number]
[2022-01-18] MEDS: FUROsemide 10 mg/mL SDV 2mL 20 MG IVP (14:51)
--- NOTE | 2022-01-18 15:36 | PC.NURSE ---
Notified Dr. Grajeda of a 1.6 sec pause on tele. EKG was completed with patient in AFIB with HR at 70. Dr. Grajeda stated to hold Metoprolol
[2022-01-18 17:17] LABS: Glucose Point of Care 245 mg/dL (70-110)
[2022-01-18] MEDS: sertraline 100 mg Tablet PO (21:27)
[2022-01-18] MEDS: gabapentin 300 mg Capsule PO (21:27)
[2022-01-18 21:30] LABS: Glucose Point of Care 223 mg/dL (70-110)
[2022-01-19] VITALS (9 sets, daily range): BP systolic 122–152; BP diastolic 62–77; PULSE 69–91; RESP 16–18; TEMP 36.6–37.4; O2SAT 90–98
[2022-01-19 04:53] LABS: Basophils % 0.2 %; Eosinophils # 0.2 10^3/uL (0.0-0.8); Eosinophils % 3.7 %; Hematocrit 33.9 % (42.0-52.0); Hemoglobin 10.8 g/dL (11.7-16.6); Lymphocytes # 1.2 10^3/uL (0.8-4.8); Lymphocytes % 27.9 %; Mean Corpuscular HGB Conc 31.9 g/dL (30.0-36.0); Mean Corpuscular Hemoglobin 28.3 pg (28.0-34.0); Mean Corpuscular Volume 88.7 fl (80-94); Mean Platelet Volume 11.5 fL (7.4-10.4); Monocytes # 0.6 10^3/uL (0.2-0.9); Monocytes % 13.3 %; Neutrophils # 2.35 10^3/uL (1.8-7.7); Neutrophils % 54.7 %; Nucleated Red Blood Cells % 0 %; Platelet Count 103 10^3/cmm (130-400); Red Blood Count 3.82 10^6/uL (4.1-5.3); Red Cell Distribution Width 13.5 % (12.1-15.1); White Blood Count 4.3 10^3/uL (4.0-10.0)
[2022-01-19 05:09] LABS: Alanine Aminotransferase 14 U/L (0-41); Albumin Level 2.9 g/dL (3.5-5.2); Alkaline Phosphatase 53 U/L (40-130); Anion Gap 13.3 (5-19); Aspartate Amino Transferase 14 U/L (0-40); Blood Urea Nitrogen 32 mg/dL (8-23); Calcium 8.5 mg/dL (8.5-10.5); Carbon Dioxide 25 mmol/L (22-29); Chloride 112 mmol/L (98-107); Glucose 156 mg/dL (65-115); Osmolality Calculated 314 mOsm/kg (285-295); Potassium 3.3 mmol/L (3.5-5.1); Sodium 147 mmol/L (136-145); Total Bilirubin 0.4 mg/dL (0.15-1.2); Total Protein 5.9 g/dL (6.6-8.7)
[2022-01-19 06:39] LABS: Glucose Point of Care 159 mg/dL (70-110)
[2022-01-19] MEDS: finasteride 5 mg Tablet PO (08:37)
[2022-01-19] MEDS: apixaban 5 mg Tablet 2.5 MG PO ×2 (08:37→17:21)
[2022-01-19] MEDS: insulin lispro 100 unit/1 mL SUBCUT ×3 (08:38→17:22)
[2022-01-19] MEDS: pantoprazole DR 40 mg Tablet PO (08:38)
[2022-01-19] MEDS: isosorbide mononitrate ER 30 mg Tablet PO (08:38)
[2022-01-19] MEDS: amlodipine 10 mg Tablet PO (08:38)
[2022-01-19] MEDS: atorvastatin 40 mg Tablet PO (08:38)
[2022-01-19] MEDS: insulin glargine 100 units/1 mL 7 UNIT SUBCUT ×2 (08:39→17:22)
[2022-01-19 11:08] LABS: Glucose Point of Care 214 mg/dL (70-110)
--- NOTE | 2022-01-19 11:49 | PM.PN ---
Subjective Subjective: Afebrile over the last 24 hours. Hemodynamically stable. Patient is alert awake oriented x3. He has some short-term memory gaps, however correctly tells me his name, date of , 's name, his own address and his daughters address. Correctly tells me that he has home health nurse coming in and that he was previously at [facility]. We are still pending identification of gram-negative rods in his urine. Per nursing report patient had a 1 second pause yesterday, however I am unable to find any telemetry correlate for the same. Patient is noted to have multiple VPCs and intermittent bigeminy. He is asymptomatic with these. Blood pressure is maintained. Medications: Reviewed: Yes Vitals/I&O/Wt Last Vital Signs Temp 98.2 F 01/19/22 11:32 Pulse 70 01/19/22 11:32 Resp 18 01/19/22 11:32 BP 123/74 01/19/22 11:32 Pulse Ox 97 01/19/22 11:32 O2 Del Method 01/19/22 11:32 01/18/22 01/19/22 01/19/22 22:59 06:59 14:59 Intake Total 540 / 1020 100 / 1120 Output Total Balance 540 / 1020 99 / 1119 Physical Exam Narrative: General: No acute distress, AO x3, elderly frail male lying in bed. HEENT: PERRLA, pupils bilaterally equal and reactive, pallors not present Chest: Normal vesicular breath sounds, no added sounds, equal good air entry bilaterally CVS: S1-S2 regular, no murmurs, no tachycardia, no gallops, no rubs Abdomen: Soft, nontender, no organomegaly, bowel sounds present Neuro: Known bilateral lower extremity weakness. Unable to move lower extremities against gravity. Significant improvement in bilateral lower extremity pitting edema. Data : 01/19/22 04:38 01/19/22 04:38 Micro: Microbiology 01/16/22 23:55 Urine Culture - Preliminary Urine,Clean Catch Gram Negative Rods A&P Assessment and plan (1) Acute encephalopathy: (2) Acute UTI: (3) Weakness: Plan Yoav Kyle is a 82 year old male with a past medical history of CAD, dyslipidemia, hypertension, CHF, RASHAD, insulin-dependent type 2 diabetes mellitus, history of recurrent UTIs, history of DVT on chronic anticoagulation, who presents to [facility] due to increased weakness, confusion, poor appetite. Overall evaluation is consistent with metabolic encephalopathy as a result of urinary tract infection. Acute encephalopathy -Secondary to UTI -Urine culture today shows gram-negative rods, pending further identification. His mental status is back at baseline now. -History of obstructive uropathy, nephrolithiasis, ESBL E. coli, Proteus, however no obstruction noted on most recent abdominal imaging. -Continue Primaxin empirically while awaiting identification of gram-negative rods. Renal function is stable. Bilateral extremity edema -T has been previously evaluated by cardiology. Thought to be dependent edema. Significantly improved after Lasix 20 mg IV given over 2 days. Also on compression socks now. Generalized weakness, likely secondary UTI, patient states he has not walked in the past several months. He is wheelchair-bound at least over the last 5 to 6 months. Noted generalized atony of bilateral lower extremities. Declined SNF. Wishes to return home with home health. History of DVT continue Eliquis Type 2 diabetes mellitus, Lantus 7 units twice daily Low-dose sliding scale. Blood sugars are currently well controlled Hypertension continue home medications CAD status post stenting, continue Eliquis, statin Monitor urine output, continue finasteride Attestations Medical Necessity Statement*: Pending identification of gram-negative rods in urine to decide outpatient treatment course. Coding Level of Care Code Acute News Library Director for g Fwd Diagnoses Acute encephalopathy G93.40 Acute UTI N39.0 Weakness R53.1
[2022-01-19] MEDS: FUROsemide 10 mg/mL SDV 2mL 20 MG IVP (15:21)
[2022-01-19] MEDS: potassium chloride ER 20 mEq Tablet 40 MEQ PO (15:22)
[2022-01-19 16:57] LABS: Glucose Point of Care 207 mg/dL (70-110)
[2022-01-19] MEDS: sertraline 100 mg Tablet PO (20:23)
[2022-01-19] MEDS: gabapentin 300 mg Capsule PO (20:23)
[2022-01-19 21:33] LABS: Glucose Point of Care 215 mg/dL (70-110)
[2022-01-20] VITALS (7 sets, daily range): BP systolic 142–158; BP diastolic 65–75; PULSE 71–83; RESP 15–16; TEMP 36.6–36.8; O2SAT 91–95
[2022-01-20 04:56] LABS: Basophils % 0.6 %; Eosinophils # 0.1 10^3/uL (0.0-0.8); Eosinophils % 3.7 %; Hematocrit 34.8 % (42.0-52.0); Hemoglobin 10.7 g/dL (11.7-16.6); Lymphocytes % 30.4 %; Mean Corpuscular HGB Conc 30.7 g/dL (30.0-36.0); Mean Corpuscular Hemoglobin 27.5 pg (28.0-34.0); Mean Corpuscular Volume 89.5 fl (80-94); Mean Platelet Volume 11.7 fL (7.4-10.4); Monocytes # 0.4 10^3/uL (0.2-0.9); Monocytes % 13.5 %; Neutrophils # 1.69 10^3/uL (1.8-7.7); Neutrophils % 51.8 %; Nucleated Red Blood Cells % 0 %; Platelet Count 113 10^3/cmm (130-400); Red Blood Count 3.89 10^6/uL (4.1-5.3); Red Cell Distribution Width 13.3 % (12.1-15.1); White Blood Count 3.3 10^3/uL (4.0-10.0)
[2022-01-20 05:27] LABS: Alanine Aminotransferase 13 U/L (0-41); Albumin Level 2.9 g/dL (3.5-5.2); Alkaline Phosphatase 57 U/L (40-130); Anion Gap 12.8 (5-19); Aspartate Amino Transferase 15 U/L (0-40); Blood Urea Nitrogen 31 mg/dL (8-23); Calcium 8.9 mg/dL (8.5-10.5); Carbon Dioxide 27 mmol/L (22-29); Chloride 111 mmol/L (98-107); Glucose 148 mg/dL (65-115); Osmolality Calculated 313 mOsm/kg (285-295); Potassium 3.8 mmol/L (3.5-5.1); Sodium 147 mmol/L (136-145); Total Bilirubin 0.4 mg/dL (0.15-1.2); Total Protein 5.9 g/dL (6.6-8.7)
[2022-01-20 06:49] LABS: Glucose Point of Care 178 mg/dL (70-110)
[2022-01-20] MEDS: insulin lispro 100 unit/1 mL SUBCUT ×2 (08:54→13:33)
[2022-01-20] MEDS: amlodipine 10 mg Tablet PO (08:55)
[2022-01-20] MEDS: apixaban 5 mg Tablet 2.5 MG PO (08:55)
[2022-01-20] MEDS: atorvastatin 40 mg Tablet PO (08:55)
[2022-01-20] MEDS: isosorbide mononitrate ER 30 mg Tablet PO (10:25)
[2022-01-20] MEDS: finasteride 5 mg Tablet PO (10:25)
[2022-01-20] MEDS: pantoprazole DR 40 mg Tablet PO (10:26)
[2022-01-20] MEDS: insulin glargine 100 units/1 mL 7 UNIT SUBCUT (10:26)
[2022-01-20 11:07] LABS: Glucose Point of Care 259 mg/dL (70-110)
[2022-01-20] MEDS: FUROsemide 10 mg/mL SDV 2mL 20 MG IVP (13:33)
--- NOTE | 2022-01-20 13:38 | P.DS_ITS ---
Discharge Providers Date of Admission: 01/17/22 02:55 Date of Discharge: January 20, 2022 Attending Provider at Admission: Lyndon Lane MD Attending Provider at Discharge: Cornelius Salcido Primary Care Provider: Faye Zamora MD Diagnoses at Discharge Discharge Diagnosis (1) Acute encephalopathy: Status: Acute (2) Acute UTI: Status: Acute (3) Weakness: Status: Acute Reason for Visit Reason for Visit: FEVER/WEAKNESS Hospital Course Hospital Course Pleasant 82-year-old gentleman with history of recurrent urinary tract infections, nephrolithiasis, was admitted due to alteration of mental status, acute encephalopathy secondary to urinary tract infection, with history of ESBL infection was treated with Primaxin in the hospital. With urine culture growing ESBL E. coli he will complete course with ertapenem at discharge. It appears possibly for chronic suppression he was started on doxycycline, this is discontinued due to lack of susceptibility. He is asked to revisit again with urology regarding recurrent urinary tract infections and nephrolithiasis. During hospitalization he also received Lasix due to lower extremity edema, edema significant improved with lower extremity elevation, diuretics, compression stockings, currently resolved. His mental status is improved. He still generally weak, deconditioned, however, declined SNF. There was some report of possible 1 second pause during hospitalization which was not located on telemetry, possibly spurious, no further pauses identified while on metoprolol with noted VPCs. Physical Exam Narrative: Family accompanying him bedside. Const: COMMON NORMALS: patient oriented x3 and alert GENERAL APPEARANCE: cooperative ORIENTATION/CONSCIOUSNESS: Yes awake OTHER: He is awake, alert, pleasant, interactive, denies any complaints. States he is ready to go home. HENMT: COMMON NORMALS: oropharynx normal Neck/C-Spine: COMMON NORMALS: no JVD Resp: COMMON NORMALS: normal respiratory effort and clear to auscultation bilaterally AUSCULTATION: clear to auscultation bilaterally Cardio: COMMON NORMALS: no JVD, regular rhythm, S1 normal heart sound present, S2 normal heart sound present and No murmurs present (Cardio) RHYTHM: regular rhythm HEART SOUNDS: S1 normal heart sound present and S2 normal heart sound present GI: COMMON NORMALS: Normal to inspection, nondistended, normoactive bowel s ounds present, Soft to palpation and non-tender PALPATION: Yes Soft to palpation Extremity: COMMON NORMALS: no joint enlargement and no pedal edema Neuro: COMMON NORMALS: patient oriented x3 and moves all extremities SENSORIUM/ORIENTATION: Yes alert Skin: COMMON NORMALS: no rashes or lesions noted GENERAL SKIN EXAM: no rashes or lesions noted Discharge Data Studies Completed and Pending Completed Studies During Hospitalization Category Date Time Status CT abdomen pelvis wo con [id number] Stat Cat Scan 01/17/22 01:25 Completed XR chest 1V portable [id number] Stat Exams 01/16/22 22:23 Completed Pending at discharge Category Date Time Status Blood Culture Routine Lab 01/17/22 05:20 Results Radiology Impressions Chest X-Ray 01/16/22 22:23 IMPRESSION: Cardiomegaly, negative for infiltrate. Abdomen/Pelvis CT 01/17/22 01:25 IMPRESSION: 1. Bilateral intrarenal calculi. 2. No hydronephrosis of either kidney. No visible ureteral calculus. 3. Mild perinephric stranding bilaterally, see above discussion. 4. Possible mild urinary bladder wall thickening, see above. Two left-sided urinary bladder diverticula. 5. Cholelithiasis, see additional details above. 6. No free air or bowel distention. 7. Essentially stable left adrenal mass, see above discussion. 8. Normal appendix, no evidence to strongly suggest diverticulitis. 9. Hiatal hernia, details above. 10. Moderate cardiomegaly. Small pericardial effusion. 11. Other findings discussed above. COMMENTS: Consistent with the [employer]'s Incidental Findings Committee white paper (J Am Brayden Radiol 2017): For any incidental adrenal lesion greater than or equal to 1 cm but less than or equal to 4 cm classified in this report as benign, likely benign, or containing fat (including classification as an adenoma or myelolipoma), no follow-up imaging is recommended per consensus recommendations based on imaging criteria. Further lab evaluation could be pursued if warranted based on clinical findings. Laboratory Results WBC 3.3 10^3/uL (4.0-10.0) L 01/20/22 04:29 RBC 3.89 10^6/uL (4.1-5.3) L 01/20/22 04:29 Hgb 10.7 g/dL (11.7-16.6) L 01/20/22 04:29 Hct 34.8 % (42.0-52.0) L 01/20/22 04:29 MCV 89.5 fl (80-94) 01/20/22 04:29 MCH 27.5 pg (28.0-34.0) L 01/20/22 04: MCHC 30.7 g/dL (30.0-36.0) 01/20/22 04:29 RDW 13.3 % (12.1-15.1) 01/20/22 04:29 Plt Count 113 10^3/cmm (130-400) L 01/20/22 04:29 MPV 11.7 fL (7.4-10.4) H 01/20/22 04:29 Neut % (Auto) 51.8 % 01/20/22 04: Lymph % (Auto) 30.4 % 01/20/22 04: [place] % (Auto) 13.5 % 01/20/22 04:29 Eos % (Auto) 3.7 % 01/20/22 04:29 Baso % (Auto) 0.6 % 01/20/22 04: Neut # (Auto) 1.69 10^3/uL (1.8-7.7) L 01/20/22 04:29 Lymph # (Auto) 1.0 10^3/uL (0.8-4.8) 01/20/22 04:29 [place] # (Auto) 0.4 10^3/uL (0.2-0.9) 01/20/22 04:29 Eos # (Auto) 0.1 10^3/uL (0.0-0.8) 01/20/22 04: Baso # (Auto) 0.0 10^3/uL (0.0-0.1) 01/20/22 04:29 Nucleated RBC % (auto) 0 % 01/20/22 04: Nucleated RBCs # 0.0 /100WBC 01/20/22 04:29 Sodium 147 mmol/L (136-145) H 01/20/22 04:29 Potassium 3.8 mmol/L (3.5-5.1) 01/20/22 04:29 Chloride 111 mmol/L (98-107) H 01/20/22 04:29 Carbon Dioxide 27 mmol/L (22-29) 01/20/22 04:29 Anion Gap 12.8 (5-19) 01/20/22 04:29 BUN 31 mg/dL (8-23) H 01/20/22 04:29 Creatinine 1.6 mg/dL (0.7-1.2) H 01/20/22 04:29 GFR Calculation Not Reportable 01/20/22 04:29 Glucose 148 mg/dL (65-115) H 01/20/22 04:29 POC Glucose 259 mg/dL (70-110) H 01/20/22 11:02 Calculated Osmolality 313 mOsm/kg (285-295) H 01/20/22 04:29 Lactate 2.1 mmol/L (0.5-2.2) 01/16/22 22:08 Calcium 8.9 mg/dL (8.5-10.5) 01/20/22 04:29 Total Bilirubin 0.4 mg/dL (0.15-1.2) 01/20/22 04:29 AST 15 U/L (0-40) 01/20/22 04:29 ALT 13 U/L (0-41) 01/20/22 04:29 Alkaline Phosphatase 57 U/L (40-130) 01/20/22 04:29 NT-Pro-B Natriuret Pep 4567 pg/mL (0-450) H 01/16/22 22:08 Total Protein 5.9 g/dL (6.6-8.7) L 01/20/22 04:29 Albumin 2.9 g/dL (3.5-5.2) L 01/20/22 04:29 Globulin 3.0 g/dL (1.3-4.6) 01/20/22 04:29 Procalcitonin 0.08 ng/mL (0-0.5) 01/16/22 22:08 TSH 2.97 uIU/mL (0.27-4.20) 01/16/22 22:08 Urine Color Yellow (Yellow) 01/16/22 23:55 Urine Appearance Sl hazy (CLEAR) 01/16/22 23:55 Urine pH 6 (5-7) 01/16/22 23:55 Ur Specific [place] 1.015 (1.005-1.030) 01/16/22 23:55 Urine Protein 3+ (Negative) H 01/16/22 23:55 Urine Glucose (UA) Norm (Normal) 01/16/22 23:55 Urine Ketones Negative (Negative) 01/16/22 23:55 Urine Blood 3+ (Negative) H 01/16/22 23:55 Urine Nitrate Positive (Negative) H 01/16/22 23:55 Urine Bilirubin Neg (Negative) 01/16/22 23:55 Urine Urobilinogen Norm mg/dL (Negative) 01/16/22 23:55 Ur Leukocyte Esterase 2+ (Negative) H 01/16/22 23:55 Urine RBC Too numerous to cnt /hpf (0-2) H 01/16/22 23:55 Urine WBC Too numerous to cnt /hpf (0-5) H 01/16/22 23:55 Ur Squamous Epith Cells 0-4 /hpf (0-5) H 01/16/22 23:55 Amorphous Sediment Not Reportable 01/16/22 23:55 Urine Bacteria 4+ /hpf (NONE) H 01/16/22 23:55 Coronavirus 229E (PCR) Not detected (NOT DETECT) 01/16/22 22:33 SARS-CoV-2 (PCR) Not detected (NOT DETECT) 01/16/22 22:33 Vitals Last Vital Signs Temp 98.1 F 01/20/22 11:39 Pulse 83 01/20/22 11:39 Resp 15 01/20/22 11:39 BP 142/75 01/20/22 11:39 Pulse Ox 91 01/20/22 11:39 O2 Del Method 01/20/22 11:39 Discharge Plan Discharge Patient Disposition: Home Health Service Condition: Stable Prescriptions: New ertapenem 1 gram recon soln 1 g IM DAILY 8 Days Qty: 8 0RF Continued ascorbate calcium (vitamin C) 500 mg tablet 500 mg PO DAILY ferrous sulfate 142 mg (45 mg iron) tablet extended release 142 mg PO DAILY metoprolol tartrate 25 mg tablet 25 mg PO BID sertraline 100 mg tablet 100 mg PO BEDTIME apixaban 5 mg tablet 2.5 mg PO BID triamcinolone acetonide 0.1 % cream 1 applic topical BID 14 Days Qty: 80 0RF mupirocin 2 % ointment 1 applic TOPICAL BID Qty: 30 0RF finasteride 5 mg tablet 5 mg PO DAILY Qty: 90 1RF fluticasone propionate [Flonase Allergy Relief] 50 mcg/actuation spray,suspension 2 spray INTRANASAL DAILY Qty: 16 3RF Rx Instructions: administer into each nostril isosorbide mononitrate 30 mg tablet extended release 24 hr 30 mg PO DAILY Qty: 90 1RF Lantus U-100 Insulin 100 unit/mL solution 14 unit SUBCUT BID Rx Instructions: 90 DAY SUPPLY amlodipine 10 mg tablet 10 mg PO DAILY Qty: 90 0RF furosemide [Lasix] 40 mg tablet 40 mg PO DAILY PRN (Reason: edema) 30 Days Qty: 30 3RF potassium chloride 20 mEq tablet extended release 20 meq PO DAILY PRN (Reason: LASIX) 30 Days Qty: 30 5RF insulin aspart U-100 [Novolog Flexpen U-100 Insulin] 100 unit/mL (3 mL) insulin pen See Rx Instructions SUBCUT TID Qty: 15 1RF Rx Instructions: DIRECTED PER SLIDING SCALE SUBCUT three times daily; nitroglycerin 0.4 mg tablet, sublingual 0.4 mg SUBLINGUAL Q5M PRN (Reason: chest pain) Qty: 100 0RF (DME) lancets 30 gauge misc See Rx Instructions .Route Qty: 100 5RF Rx Instructions: use tid losartan 25 mg tablet 25 mg PO DAILY Qty: 90 3RF methenamine hippurate 1 gram tablet 1 g PO BID Qty: 28 0RF (DME) True Metrix Glucose Test Strip Strip See Rx Instructions .Route Qty: 100 6RF Rx Instructions: USE THREE TIMES DAILY TO CHECK BLOOD SUGAR pantoprazole 40 mg tablet,delayed release (DR/EC) 40 mg PO DAILY gabapentin 300 mg capsule 300 mg PO BEDTIME ergocalciferol (vitamin D2) 1,250 mcg (50,000 unit) capsule See Rx Instructions .ROUTE .COMPLEX Rx Instructions: 1,250 mcg orally every 2 weeks atorvastatin 80 mg Tablet 40 mg PO BEDTIME PreserVision AREDS-2 250-90-40-1 mg Capsule 1 tab PO DAILY Diclo Gel 1 % Kit 2 g TOPICAL QID Rx Instructions: apply to single elbow, wrist or hand; for hand includes palm/fingers/back of hand Discontinued doxycycline hyclate 100 mg capsule 100 mg PO BID 10 Days Qty: 20 0RF Discharge Orders: Discharge Order (Routine); Ordered 01/20/22 Ordered By: Cornelius Salcido Referrals: Ian Ponce MD [Physician] - 7-10 days (Recurrent UTI, poss chronic cystitis, nephrolithiasis - infected stone? DR PONCE OFFICE WILL CALL WITH APPOINTMENT) Faye Zamora MD [Primary Care Provider] - 01/29/22 2:00 pm Discharge Diet: Cardiac Discharge Activity: Increase activity as tolerated and As per PT/OT instructions Patient Instructions: Ertapenem (By injection), Kidney Stones (GEN), How to Give an Intramuscular Injection (GEN), Extended Spectrum Beta-Lactamase (GEN), Fall Prevention (GEN), Urinary Tract Infection in Older Adults (GEN), Opioid Safety Activity Restrictions/Additional Instructions: Complete antibiotic course for UTI. Resume methenamine after completing antibiotic course. Continue to elevate lower extremities. Lasix as needed in case of return of significant edema. Continue compression stockings. Follow-up for reassessment with your primary doctor. Please follow up with neurology for reassessment of recurrent urinary tract infections, also in the presence of kidney stones. Question of possible chronic cystitis. Please have your primary doctor follow up your kidney function as well as blood counts with pancytopenia. Discharge Attestations Time Spent in Discharge Care*: greater than 30 min Quality Metrics Clinical Quality Measures [ No reported AMI, CVA or VTE this stay] Coding Level of Care Code Acute Chg FW DC note Diagnoses Acute encephalopathy G93.40 Acute UTI N39.0 Weakness R53.1
--- NOTE | 2022-01-20 14:00 | PC.SOCIAL ---
IMM Update pg 2 of IMM updated and reviewed w/ patient. Copy provided and Copy dated and initialed and placed in chart.
[2022-01-20] MEDS: ertapenem 1,000 mg SDV 1000 MG IM (15:11)
[2022-01-20] MEDS: lidocaine 1% INJ 20 mL MDV (mL) 3.2 ML IM (15:11)
== END 2022-01-20 15:34 | disposition home health service (06) | DRG 689 ==
LOC: ER 01-17 01:35 → MEDSURG 01-17 02:59
PROVIDERS: Student in an Organized Health Care Education/Training Program; Admitting Provider Family Medicine; Emergency Provider Emergency Medicine; PCP Family Medicine; Visit Provider Internal Medicine
DX: N39.0 Urinary tract infection, site not specified (principal); G93.41 Metabolic encephalopathy; I13.0 Hypertensive heart and chronic kidney disease with heart failure and stage 1 through stage 4 chronic kidney disease, or unspecified chronic kidney disease; N17.9 Acute kidney failure, unspecified; I25.10 Atherosclerotic heart disease of native coronary artery without angina pectoris; E78.5 Hyperlipidemia, unspecified; E11.22 Type 2 diabetes mellitus with diabetic chronic kidney disease; N18.30 Chronic kidney disease, stage 3 unspecified; I50.9 Heart failure, unspecified; G47.33 Obstructive sleep apnea (adult) (pediatric); E11.42 Type 2 diabetes mellitus with diabetic polyneuropathy; Z87.440 Personal history of urinary (tract) infections; Z86.718 Personal history of other venous thrombosis and embolism; Z87.442 Personal history of urinary calculi; F03.90 Unspecified dementia, unspecified severity, without behavioral disturbance, psychotic disturbance, mood disturbance, and anxiety; K21.9 Gastro-esophageal reflux disease without esophagitis; I25.2 Old myocardial infarction; F43.10 Post-traumatic stress disorder, unspecified; Z90.79 Acquired absence of other genital organ(s); Z87.891 Personal history of nicotine dependence; Z79.4 Long term (current) use of insulin; B96.20 Unspecified Escherichia coli [E. coli] as the cause of diseases classified elsewhere
CPT/HCPCS: 36415; 36416; 71045; 74176; 80053; 81001; 82962; 83605; 83880; 84145; 84443; 85025; 87040; 87077; 87086; 87186; 87635; 93005; 94664; 96365; 96372; 97110; 97161; 97530; 99285; J0696; J0743; J1335; J1815; J1940; J2543

== ENCOUNTER → 2022-01-30 12:05 | Outpatient (BNVA) | payer MEDICARE, SELFPAY | PROVIDERS: PCP Family Medicine; Visit Provider Family Medicine | DX: N39.0 Urinary tract infection, site not specified (principal) | CPT/HCPCS: 81000 ==

== ENCOUNTER 2022-02-05 09:55 | Outpatient (CLI) | payer OTHER, MEDICARE, SELFPAY ==
--- NOTE | 2022-02-05 10:06 | XR_ITS ---
WS: [id number] KUB, AP view, 02/05/2022 Clinical Data: STONES Comparison: Acute abdomen series, 10/02/2020 Findings: No abnormal intraabdominal masses are seen. There is no dilatated small bowel or evidence of obstruct ion. There are gallstones in the right upper quadrant. There is a calcification over the midportion of the right kidney which could be in the right kidney. There are are aortic calcifications but no aneurysm is seen. There is a left femoral head prosthesis. There is a levoscoliosis. There is a moderate amou nt of fecal material throughout the colon. XR/XR KUB [id number] Impression: 1. Questionable right renal calcification. 2. Gallstones. 3. Atherosclerotic aorta.
== END 2022-02-05 09:56 | disposition home or self-care (01) ==
LOC: RAD 10:02
PROVIDERS: PCP Family Medicine; Visit Provider Nurse Practitioner Family
DX: N20.0 Calculus of kidney (principal); R32 Unspecified urinary incontinence; K80.80 Other cholelithiasis without obstruction; I70.0 Atherosclerosis of aorta
CPT/HCPCS: 74018; 81003; 87077; 87086; 87186; 99213

== ENCOUNTER → 2022-03-07 10:46 | Outpatient (BNVA) | payer OTHER, SELFPAY | PROVIDERS: PCP Family Medicine; Visit Provider Urology | DX: N39.0 Urinary tract infection, site not specified (principal); R32 Unspecified urinary incontinence | CPT/HCPCS: 81003; 99213 ==

== ENCOUNTER → 2022-03-26 13:42 | Outpatient (BNVA) | payer OTHER, SELFPAY | PROVIDERS: PCP Family Medicine; Visit Provider Urology | DX: R32 Unspecified urinary incontinence (principal) | CPT/HCPCS: 87077; 87086; 87184 ==

== ENCOUNTER → 2022-06-09 13:30 | Outpatient (BNVA) | payer MEDICARE, OTHER, SELFPAY | PROVIDERS: PCP Family Medicine; Visit Provider Nurse Practitioner Family | DX: I25.10 Atherosclerotic heart disease of native coronary artery without angina pectoris (principal); I49.8 Other specified cardiac arrhythmias; Z87.891 Personal history of nicotine dependence; I13.0 Hypertensive heart and chronic kidney disease with heart failure and stage 1 through stage 4 chronic kidney disease, or unspecified chronic kidney disease; E11.22 Type 2 diabetes mellitus with diabetic chronic kidney disease; N18.30 Chronic kidney disease, stage 3 unspecified; I50.9 Heart failure, unspecified; Z79.4 Long term (current) use of insulin | CPT/HCPCS: 93005; 99214 ==

== ENCOUNTER → 2022-08-21 16:17 | Outpatient (BNVA) | payer MEDICARE, OTHER, SELFPAY | PROVIDERS: Visit Provider Family Medicine | DX: N39.0 Urinary tract infection, site not specified (principal) | CPT/HCPCS: 81003; 87077; 87086; 87184 ==

== ENCOUNTER 2022-08-25 06:00 | Outpatient (RCR) | payer MEDICARE, OTHER, SELFPAY | END 2022-09-24 23:59 | disposition home or self-care (01) | LOC: TPT 06:00 | PROVIDERS: Visit Provider Nurse Practitioner Family | DX: M25.559 Pain in unspecified hip (principal) | CPT/HCPCS: 97110; 97140; 97163 ==

== ENCOUNTER → 2022-09-04 10:41 | Outpatient (BNVA) | payer MEDICARE, OTHER, SELFPAY | PROVIDERS: Visit Provider Urology | DX: N39.0 Urinary tract infection, site not specified (principal); R82.71 Bacteriuria | CPT/HCPCS: 81003; 99213 ==

== ENCOUNTER 2022-09-25 06:00 | Outpatient (RCR) | payer MEDICARE, OTHER, SELFPAY | END 2022-10-24 23:59 | disposition home or self-care (01) | LOC: TPT 06:00 | PROVIDERS: Visit Provider Nurse Practitioner Family | DX: M25.559 Pain in unspecified hip (principal) | CPT/HCPCS: 97110; 97116; 97140 ==

== ENCOUNTER 2022-10-25 06:00 | Outpatient (RCR) | payer MEDICARE, OTHER, SELFPAY | END 2022-11-24 23:59 | disposition home or self-care (01) | LOC: TPT 06:00 | PROVIDERS: Visit Provider Nurse Practitioner Family | DX: M25.559 Pain in unspecified hip (principal) | CPT/HCPCS: 97110; 97116 ==

== ENCOUNTER 2022-11-25 06:00 | Outpatient (RCR) | payer MEDICARE, OTHER, SELFPAY | END 2022-12-10 23:59 | disposition home or self-care (01) | LOC: TPT 06:00 | PROVIDERS: Visit Provider Nurse Practitioner Family | DX: M25.552 Pain in left hip (principal) | CPT/HCPCS: 97110; 97140 ==

== ENCOUNTER 2023-01-13 10:58 | Emergency (ER) | payer OTHER, SELFPAY ==
[2023-01-13 10:59] VITALS: BP 127/80; PULSE 72; RESP 20; TEMP 36.5; O2SAT 98
--- NOTE | 2023-01-13 10:59 | XR_ITS ---
WS: [id number] PORTABLE CHEST HISTORY: fever COMPARISON: 01/16/2022 Lungs are clear and well expanded. No pleural effusion or pneumothorax. Cardiac size: Normal. Mediastinum/Aorta: Mild atherosclerosis aorta. No osseous abnormality seen. IMPRESSION: No acute cardiopulmonary disease.
--- NOTE | 2023-01-13 11:00 | ECG_ITS ---
[facility] Test Date: 2023-01-13 Pat Name: Yoav Kyle Department: Room: Gender: Male Sample Finisher: : 1940 Requested By: Garrett Diaz Order Number: [id number] Alberto MD: Shravan Knowles M.D. Measurements Intervals [place] Rate: 78 P: 38 MS: 170 QRS: -36 QRSD: 101 T: 28 QT: 406 QTc: 464 Interpretive Statements SINUS RHYTHM WITH OCCASIONAL SUPRAVENTRICULAR PREMATURE COMPLEXES LEFT AXIS DEVIATION [QRS AXIS < -30] PATTERN CONSISTENT WITH PULMONARY DISEASE MINIMAL ST DEPRESSION [0.025+ mV ST DEPRESSION] Compared to ECG 01/18/2022 15:25:25 ST (T wave) deviation now present Atrial fibrillation no longer present Electronically Signed On 01-13-2023 16:35:39 CDT by Shravan Knowles M.D. [id number]
--- NOTE | 2023-01-13 11:14 | CT_ITS ---
WS: [id number] CT HEAD TECHNIQUE: Noncontrast CT of the head obtained from the skullbase to the vertex. CLINICAL INFORMATION: weakness COMPARISON: 2019 DLP: 1119.[address] scans at [facility] use at least one of these dose optimization techniques: automated e xposure control; mA and/or kV adjustment per patient size (includes targeted exams where dose is matc hed to clinical indication); or iterative reconstruction. FINDINGS: No evidence of intracranial hemorrhage or mass effect. Ventricular system and basal cisterns are ramirez nt. Mild small vessel changes with moderate parenchymal volume loss. Vascular calcification. No extra -axial fluid collections. No evidence of mass or mass effect. Normal posterior nasopharynx. Paranasal sinuses and mastoid air cells are well aerated. .Normal visualized soft tissues. IMPRESSION: 1. No evidence of intracranial hemorrhage or mass effect. 2. Mild small vessel changes. Moderate parenchymal volume loss. 3. Intracranial vascular calcification. 4. No acute intracranial findings.
[2023-01-13 11:25] LABS: Basophils % 0.6 %; Eosinophils # 0.1 10^3/uL (0.0-0.8); Eosinophils % 2.4 %; Hematocrit 35.6 % (37-53); Lymphocytes # 1.6 10^3/uL (0.8-4.8); Lymphocytes % 29.9 %; Mean Corpuscular HGB Conc 31.7 g/dL (30-55); Mean Corpuscular Hemoglobin 28.7 pg (27-33); Mean Corpuscular Volume 90.4 fl (82-101); Mean Platelet Volume 11.5 fL (7.4-10.4); Monocytes # 0.6 10^3/uL (0.2-0.9); Monocytes % 10.3 %; Neutrophils # 3.03 10^3/uL (1.8-7.7); Neutrophils % 56.6 %; Nucleated Red Blood Cells % 0 %; Platelet Count 149 10^3/cmm (157-399); Red Blood Count 3.94 10^6/uL (3.85-5.65); White Blood Count 5.35 10^3/uL (3.29-11.43)
--- NOTE | 2023-01-13 11:29 | ED_ITS ---
HPI - Weakness General: Chief complaint: Weakness Stated complaint: Weakness Time Seen by Provider: 01/13/23 10:58 Source: patient, family and EMS Mode of arrival: EMS Limitations: no limitations History of Present Illness: 83-year-old male daughter states that she had some increasing weakness over the last 2 days states she is try to get him to wound care appointment today and was not able to ambulate and was very weak he has had low-grade fevers patient also Review of Systems General: Reports: ROS unobtainable due to mental status PFSH ED PFSH: Medical History Anemia ASHD (arteriosclerotic heart disease) CHF (congestive heart failure) Chronic osteoarthritis CKD (chronic kidney disease) stage 3, GFR 30-59 ml/min Dementia Diabetes Dyslipidemia Dysthymic disorder Elevated troponin Generalized muscle weakness GERD (gastroesophageal reflux disease) Hearing loss History of DVT (deep vein thrombosis) History of fracture of left hip Hypertension Kidney stone Left ureteral calculus Myocardial infarction Neuropathy Neutropenia Obstructive uropathy RASHAD (obstructive sleep apnea) PTSD (post-traumatic stress disorder) Pyelonephritis Recurrent UTI Renal stones Sepsis Thrombocytopenia Surgical History History of laminectomy (~1992) History of orchiectomy History of PTCA Family History Mother , at age 59 Cancer Diabetes Father , at age 87 Tuberculosis Other Hypertension Denies family history of CAD (coronary artery disease) Clotting disorder Dementia Chronic kidney disease (CKD) Suicide Anesthesia complication Bleeding disorder Lung disease Stroke Social History Smoking and tobacco status: former smoker Quit status (tobacco): has quit using tobacco Year quit tobacco: 1989 Former quit date comment: smoked cigars about 5 yrs Second hand smoke exposure: Yes Smoking risk assessment/counseling performed?: No Alcohol intake: never Substance/Drug Use: never Caregiver/support person: Yes (spouse and daughter) Lives independently: Yes Marital status: / service: Yes Current occupational status: retired Current gender identity: Male Special eitan needs: No Agree to transfusion: Yes Course Vital Signs: Vital signs: Vital Signs Temperature 97.7 F 01/13/23 10:59 Pulse Rate 70 01/13/23 15:12 Respiratory Rate 18 01/13/23 15:12 Blood Pressure 127/80 01/13/23 10:59 Pulse Oximetry 95 01/13/23 15:12 Oxygen Delivery Me thod Room Air 01/13/23 11:30 Oxygen Flow Rate 2 01/13/23 10:59 MDM - Weakness Medical Decision Making Patient presents here with weakness likely from a UTI he does have a UTI here. No signs of sepsis I did offer admission for IV antibiotics but family wants to take him home and try oral antibiotics first he is return if worsening. Medical Records I reviewed the patient's medical records. Lab Data I reviewed the patient's lab results. 01/13/23 11:00 01/13/23 11:00 Laboratory Results WBC 5.35 10^3/uL (3.29-11.43) 01/13/23 11:00 RBC 3.94 10^6/uL (3.85-5.65) 01/13/23 11:00 Hgb 11.30 g/dL (11.27-16.99) 01/13/23 11:00 Hct 35.6 % (37-53) L 01/13/23 11:00 MCV 90.4 fl (82-101) 01/13/23 11:00 MCH 28.7 pg (27-33) 01/13/23 11:00 MCHC 31.7 g/dL (30-55) 01/13/23 11:00 RDW 13.0 % (12.1-15.1) 01/13/23 11:00 Plt Count 149 10^3/cmm (157-399) L 01/13/23 11:00 MPV 11.5 fL (7.4-10.4) H 01/13/23 11:00 Neut % (Auto) 56.6 % 01/13/23 11:00 Lymph % (Auto) 29.9 % 01/13/23 11:00 [place] % (Auto) 10.3 % 01/13/23 11:00 Eos % (Auto) 2.4 % 01/13/23 11:00 Baso % (Auto) 0.6 % 01/13/23 11:00 Neut # (Auto) 3.03 10^3/uL (1.8-7.7) 01/13/23 11:00 Lymph # (Auto) 1.6 10^3/uL (0.8-4.8) 01/13/23 11:00 [place] # (Auto) 0.6 10^3/uL (0.2-0.9) 01/13/23 11:00 Eos # (Auto) 0.1 10^3/uL (0.0-0.8) 01/13/23 11:00 Baso # (Auto) 0.0 10^3/uL (0.0-0.1) 01/13/23 11:00 Nucleated RBC % (auto) 0 % 01/13/23 11:00 Nucleated RBCs # 0.0 /100WBC 01/13/23 11:00 Sodium 140 mmol/L (136-145) 01/13/23 11:00 Potassium 3.8 mmol/L (3.5-5.1) 01/13/23 11:00 Chloride 103 mmol/L (98-107) 01/13/23 11:00 Carbon Dioxide 22 mmol/L (22-29) 01/13/23 11:00 Anion Gap 18.8 (5-19) 01/13/23 11:00 BUN 53 mg/dL (8-23) H 01/13/23 11:00 Creatinine 1.9 mg/dL (0.7-1.2) H 01/13/23 11:00 GFR Calculation Not Reportable 01/13/23 11:00 Glucose 165 mg/dL (65-115) H 01/13/23 11:00 POC Glucose 128 mg/dL (70-110) H 01/13/23 11:35 Calculated Osmolality 308 mOsm/kg (285-295) H 01/13/23 11:00 Lactic Acid 1.9 mmol/L (0.5-2.2) 01/13/23 11:22 Calcium 9.1 mg/dL (8.5-10.5) 01/13/23 11:00 Magnesium 1.9 mg/dL (1.7-2.3) 01/13/23 11:00 Total Bilirubin 0.5 mg/dL (0.15-1.2) 01/13/23 11:00 AST 19 U/L (0-40) 01/13/23 11:00 ALT 23 U/L (0-41) 01/13/23 11:00 Alkaline Phosphatase 75 U/L (40-130) 01/13/23 11:00 Troponin T Baseline 57 ng/L (0-15) H 01/13/23 11:00 Troponin T 120 Minute 52.24 ng/L (0-15) H 01/13/23 13:15 Delta Troponin T -4.76 ABS# (0-10) L 01/13/23 13:15 Total Protein 7.5 g/dL (6.6-8.7) 01/13/23 11:00 Albumin 3.8 g/dL (3.5-5.2) 01/13/23 11:00 Globulin 3.7 g/dL (1.3-4.6) 01/13/23 11:00 Urine Color Yellow (Yellow) 01/13/23 13:45 Urine Appearance Hazy (CLEAR) A 01/13/23 13:45 Urine pH 5 (5-7) 01/13/23 13:45 Ur Specific [place] 1.015 (1.005-1.030) 01/13/23 13:45 Urine Protein 1+ (Negative) H 01/13/23 13:45 Urine Glucose (UA) Norm (Normal) 01/13/23 13:45 Urine Ketones 1+ (Negative) H 01/13/23 13:45 Urine Blood 3+ (Negative) H 01/13/23 13:45 Urine Nitrate Positive (Negative) H 01/13/23 13:45 Urine Bilirubin Neg (Negative) 01/13/23 13:45 Urine Urobilinogen Norm mg/dL (Negative) 01/13/23 13:45 Ur Leukocyte Esterase 2+ (Negative) H 01/13/23 13:45 Urine RBC 5-10 /hpf (0-2) H 01/13/23 13:45 Urine WBC Too numerous to cnt /hpf (0-5) H 01/13/23 13:45 Ur Squamous Epith Cells 0-4 /hpf (0-5) H 01/13/23 13:45 Amorphous Sediment Not Reportable 01/13/23 13:45 Urine Bacteria 2+ /hpf (NONE) H 01/13/23 13:45 SARS-CoV-2 Ag (Rapid) negative (Negative) 01/13/23 12:08 All radiology interpretation(s) finalized by discharge Discharge Plan Discharge Patient Disposition: Home Clinical Impression: Acute cystitis Condition: Stable Prescriptions: New cephalexin 500 mg capsule 500 mg PO TID 7 Days Qty: 21 0RF No Action ascorbate calcium (vitamin C) 500 mg tablet 500 mg PO DAILY ferrous sulfate 142 mg (45 mg iron) tablet extended release 142 mg PO DAILY metoprolol tartrate 25 mg tablet 25 mg PO BID sertraline 100 mg tablet 100 mg PO BEDTIME apixaban 5 mg tablet 2.5 mg PO BID triamcinolone acetonide 0.1 % cream 1 applic topical BID 14 Days Qty: 80 0RF mupirocin 2 % ointment 1 applic TOPICAL BID Qty: 30 0RF fluticasone propionate [Flonase Allergy Relief] 50 mcg/actuation spray,suspension 2 spray INTRANASAL DAILY Qty: 16 3RF Rx Instructions: administer into each nostril isosorbide mononitrate 30 mg tablet extended release 24 hr 30 mg PO DAILY Qty: 90 1RF Lantus U-100 Insulin 100 unit/mL solution 10 unit SUBCUT BID Rx Instructions: 90 DAY SUPPLY amlodipine 10 mg tablet 10 mg PO DAILY Qty: 90 0RF furosemide [Lasix] 40 mg tablet 40 mg PO DAILY potassium chloride 20 mEq tablet extended release 20 meq PO DAILY methenamine hippurate 1 gram tablet 1 g PO BID Qty: 60 12RF nystatin 100,000 unit/gram cream 1 applic topical BID Qty: 30 1RF insulin aspart U-100 [Novolog FlexPen U-100 Insulin] 100 unit/mL (3 mL) insulin pen See Rx Instructions SUBCUT TID Qty: 15 1RF Rx Instructions: DIRECTED PER SLIDING SCALE SUBCUT three times daily; nitroglycerin 0.4 mg tablet, sublingual 0.4 mg SUBLINGUAL Q5M PRN (Reason: chest pain) Qty: 100 0RF (DME) lancets 30 gauge misc See Rx Instructions .Route Qty: 100 5RF Rx Instructions: use tid losartan 25 mg tablet 25 mg PO DAILY Qty: 90 3RF (DME) True Metrix Glucose Test Strip Strip See Rx Instructions .Route Qty: 100 6RF Rx Instructions: USE THREE TIMES DAILY TO CHECK BLOOD SUGAR pantoprazole 40 mg tablet,delayed release (DR/EC) 40 mg PO DAILY gabapentin 300 mg capsule 300 mg PO BEDTIME ergocalciferol (vitamin D2) 1,250 mcg (50,000 unit) capsule See Rx Instructions .ROUTE .COMPLEX Rx Instructions: 1,250 mcg orally every 2 weeks atorvastatin 80 mg Tablet 40 mg PO BEDTIME PreserVision AREDS-2 250-90-40-1 mg Capsule 1 tab PO DAILY diclofenac sodium 1 % Kit 2 g TOPICAL QID Rx Instructions: apply to single elbow, wrist or hand; for hand includes palm/fingers/back of hand Discharge Orders: Discharge ED (Routine); Ordered 01/13/23 Ordered By: Garrett Diaz Discharge Diet: Advance as tolerated Discharge Activity: Resume usual activity Patient Instructions: Urinary Tract Infection in Men (ED) Coding Level of Care Code ED Director [employer] for Marylou Mercado
[2023-01-13 11:30] VITALS: PULSE 77; O2SAT 100
[2023-01-13 11:37] LABS: Alanine Aminotransferase 23 U/L (0-41); Albumin Level 3.8 g/dL (3.5-5.2); Alkaline Phosphatase 75 U/L (40-130); Anion Gap 18.8 (5-19); Aspartate Amino Transferase 19 U/L (0-40); Blood Urea Nitrogen 53 mg/dL (8-23); Calcium 9.1 mg/dL (8.5-10.5); Carbon Dioxide 22 mmol/L (22-29); Chloride 103 mmol/L (98-107); Globulin 3.7 g/dL (1.3-4.6); Glucose 165 mg/dL (65-115); Magnesium 1.9 mg/dL (1.7-2.3); Osmolality Calculated 308 mOsm/kg (285-295); Potassium 3.8 mmol/L (3.5-5.1); Sodium 140 mmol/L (136-145); Total Bilirubin 0.5 mg/dL (0.15-1.2); Total Protein 7.5 g/dL (6.6-8.7)
[2023-01-13 11:39] LABS: Glucose Point of Care 128 mg/dL (70-110)
[2023-01-13 11:47] LABS: Lactic Sepsis W/Reflex 1.9 mmol/L (0.5-2.2)
[2023-01-13 11:53] LABS: Troponin(5th) Baseline 57 ng/L (0-15)
[2023-01-13 12:37] LABS: SARS Covid-2 Antigen negative (Negative)
--- NOTE | 2023-01-13 12:57 | ECG_ITS ---
[facility] Test Date: 2023-01-13 Pat Name: Yoav Kyle Department: Room: Gender: Male Tamale Machine Feeder: : 1940 Requested By: Garrett Diaz Order Number: [id number] Alberto MD: Shravan Knowles M.D. Measurements Intervals [place] Rate: 73 P: 20 AL: 177 QRS: -31 QRSD: 102 T: 30 QT: 403 QTc: 446 Interpretive Statements SINUS RHYTHM LEFT AXIS DEVIATION [QRS AXIS < -30] MINIMAL VOLTAGE CRITERIA FOR LVH, CONSIDER NORMAL VARIANT [MEETS CRITERIA IN ONE OF: R(aVL), S(V1), R(V5), R(V5/V6)+S(V1)] Compared to ECG 01/13/2023 11:23:12 ST (T wave) deviation no longer present Electronically Signed On 01-13-2023 16:43:59 CDT by Shravan Knowles M.D. [id number]
[2023-01-13 13:48] LABS: Troponin 5 2HR 52.24 ng/L (0-15)
[2023-01-13 13:50] LABS: Troponin 5 2HR Delta -4.76 ABS# (0-10)
[2023-01-13 14:15] LABS: Add Urine Microscopic? YES; Bilirubin Urine Neg (Negative); Blood Urine 3+ (Negative); Glucose Urine UA Norm (Normal); Ketones Urine 1+ (Negative); Leukocyte Esterase Urine 2+ (Negative); Nitrate Urine Positive (Negative); Protein Urine 1+ (Negative); Specific Gravity, Urine 1.015 (1.005-1.030); Urine Appearance Hazy (CLEAR); Urine Color Yellow (Yellow); Urobilinogen Urine Norm (Negative); pH Urine 5 (5-7)
[2023-01-13 14:16] LABS: Add Urine Culture? Yes; Bacteria Urine 2+ /hpf; Squamous Epithelial Cell Urine 0-4 /hpf (0-5); WBC Urine TOO NUMEROUS TO CNT /hpf (0-5)
[2023-01-13] MEDS: cefTRIAXone 1,000 MG in sodium chloride 0.9% (plus) 50 ML 100 MG IV (14:34)
[2023-01-13 15:12] VITALS: PULSE 70; RESP 18; O2SAT 95
== END 2023-01-13 15:14 | disposition home or self-care (01) ==
PROVIDERS: Emergency Provider Emergency Medicine
DX: N30.00 Acute cystitis without hematuria (principal); Z79.4 Long term (current) use of insulin; Z20.822 Contact with and (suspected) exposure to COVID-19; Z87.891 Personal history of nicotine dependence; I13.0 Hypertensive heart and chronic kidney disease with heart failure and stage 1 through stage 4 chronic kidney disease, or unspecified chronic kidney disease; E11.22 Type 2 diabetes mellitus with diabetic chronic kidney disease; N18.30 Chronic kidney disease, stage 3 unspecified; I50.9 Heart failure, unspecified; F03.90 Unspecified dementia, unspecified severity, without behavioral disturbance, psychotic disturbance, mood disturbance, and anxiety; E78.5 Hyperlipidemia, unspecified; I25.2 Old myocardial infarction; Z87.440 Personal history of urinary (tract) infections
CPT/HCPCS: 36415; 36416; 70450; 71045; 80053; 81001; 82962; 83605; 83735; 84484; 85025; 87040; 87077; 87086; 87186; 87426; 93005; 96365; 99285; J0696

== ENCOUNTER 2023-02-14 00:21 | Inpatient (IN) | payer OTHER, SELFPAY ==
[2023-02-14] VITALS (12 sets, daily range): BP systolic 111–140; BP diastolic 50–74; PULSE 63–109; RESP 13–28; TEMP 36.4–37.1; O2SAT 92–100; BMI 17.4
--- NOTE | 2023-02-14 00:54 | XRR_ITS ---
PROCEDURE INFORMATION: Exam: XR Chest Exam date and time: 02/14/2023 12:59 AM Age: 83 years old Clinical indication: Patient HX: General weakness. History of chf. TECHNIQUE: Imaging protocol: Radiologic exam of the chest. Views: 1 view. COMPARISON: CR XR chest 1V portable [id number] 01/13/2023 11:27 AM FINDINGS: Tubes, catheters and devices: Right PICC in place. Lungs: Unremarkable. No consolidation. Pleural spaces: Unremarkable. No pleural effusion. No pneumothorax. Heart/Mediastinum: The heart is large. No overt CHF. Vasculature: Advanced diffuse vascular calcification noted. Bones/joints: Unremarkable. XR/XR chest 1V portable [id number] IMPRESSION: Right PICC in place, no pneumothorax or other change.
[2023-02-14 01:21] LABS: Basophils % 0.3 %; Eosinophils # 0.2 10^3/uL (0.0-0.8); Eosinophils % 2.8 %; Hematocrit 30.1 % (37-53); Lymphocytes # 1.3 10^3/uL (0.8-4.8); Mean Corpuscular HGB Conc 31.6 g/dL (30-55); Mean Corpuscular Hemoglobin 28.3 pg (27-33); Mean Corpuscular Volume 89.6 fl (82-101); Mean Platelet Volume 10.3 fL (7.4-10.4); Monocytes # 0.5 10^3/uL (0.2-0.9); Monocytes % 7.5 %; Neutrophils # 4.19 10^3/uL (1.8-7.7); Neutrophils % 68.1 %; Nucleated Red Blood Cells % 0 %; Platelet Count 81 10^3/cmm (157-399); Red Blood Count 3.36 10^6/uL (3.85-5.65); Red Cell Distribution Width 13.2 % (12.1-15.1); White Blood Count 6.15 10^3/uL (3.29-11.43)
[2023-02-14] MEDS: sodium chloride 0.9% 1,000 ML 999 ML IV (01:24)
--- NOTE | 2023-02-14 01:25 | PC.NURSE ---
okayed use of pt PICC line for use.
[2023-02-14 01:40] LABS: Alanine Aminotransferase 30 U/L (0-41); Albumin Level 3.2 g/dL (3.5-5.2); Alkaline Phosphatase 61 U/L (40-130); Anion Gap 19.5 (5-19); Aspartate Amino Transferase 24 U/L (0-40); Blood Urea Nitrogen 67 mg/dL (8-23); Calcium 9.1 mg/dL (8.5-10.5); Carbon Dioxide 19 mmol/L (22-29); Chloride 102 mmol/L (98-107); Creatine Phosphokinase 207 U/L (39-308); Globulin 3.7 g/dL (1.3-4.6); Glucose 137 mg/dL (65-115); Osmolality Calculated 304 mOsm/kg (285-295); Potassium 4.5 mmol/L (3.5-5.1); Sodium 136 mmol/L (136-145); Total Bilirubin 0.4 mg/dL (0.15-1.2); Total Protein 6.9 g/dL (6.6-8.7)
[2023-02-14 01:42] LABS: Lactic Sepsis W/Reflex 4.1 mmol/L (0.5-2.2)
[2023-02-14 01:47] LABS: Procalcitonin 0.21 ng/mL (0-0.5)
--- NOTE | 2023-02-14 02:16 | ECG_ITS ---
[facility] Test Date: 2023-02-14 Pat Name: Yoav Kyle Department: Room: Gender: Male Caser In: : 1940 Requested By: Lopez Mujica Order Number: [id number] Alberto MD: Misty Sousa M.D. Measurements Intervals [place] Rate: 74 P: 139 RI: 189 QRS: 219 QRSD: 94 T: 177 QT: 394 QTc: 438 Interpretive Statements SINUS RHYTHM WITH FREQUENT VENTRICULAR PREMATURE COMPLEXES ARM LEADS REVERSED [INVERTED P AND QRS IN I] ABNORMAL RHYTHM ECG Compared to ECG 01/13/2023 12:57:31 Ventricular premature complex(es) now present Left-axis deviation no longer present Electronically Signed On 02-16-2023 10:34:25 CDT by Misty Sousa M.D. [id number]
--- NOTE | 2023-02-14 02:29 | XRR_ITS ---
PROCEDURE INFORMATION: Exam: XR Left Foot Exam date and time: 02/14/2023 2:35 AM Age: 83 years old Clinical indication: Patient HX: Patient discharged from outside facility yesterday with osteomyelitis to left foot. ; Additional info: HX of osteomyelitis TECHNIQUE: Imaging protocol: Radiologic exam of the left foot. Views: 3 or more views. COMPARISON: No relevant prior studies available. FINDINGS: Bones/joints: No fracture or focal bone destruction noted. Based on history, MRI may be helpful. There is diffuse osteopenia. Mild diffuse age-appropriate DJD. Soft tissues: Advanced diffuse vascular calcification noted. XR/XR foot LT min 3V* [id number] IMPRESSION: No fracture or focal bone destruction noted. Based on history, MRI may be helpful
[2023-02-14 02:53] LABS: Protein Urine Trace (Negative); Urine Appearance Hazy (CLEAR); Urine Color Yellow (Yellow); pH Urine 5 (5-7)
[2023-02-14 02:54] LABS: Add Urine Culture? Yes; Add Urine Microscopic? YES; Bacteria Urine TRACE /hpf; Bilirubin Urine Neg (Negative); Blood Urine 3+ (Negative); Glucose Urine UA Norm (Normal); Ketones Urine Negative (Negative); Leukocyte Esterase Urine 2+ (Negative); Nitrate Urine Negative (Negative); Squamous Epithelial Cell Urine 0-4 /hpf (0-5); Urobilinogen Urine Neg (Negative); WBC Urine >100 /hpf (0-5)
--- NOTE | 2023-02-14 03:01 | W.ED.FALL ---
HPI - Fall General: Chief Complaint: Fall Stated Complaint: FALL Time Seen by Provider: 02/14/23 00:25 History of Present Illness: 83-year-old gentleman presenting with a fall at home. He had a recent hospitalization, and was in fact just discharged from an outside facility earlier today. He presents with generalized weakness. He was undergoing treatment there for osteomyelitis of the left foot. PICC line was placed, and the patient had been getting IV Zosyn. He presents here with generalized weakness, confusion, and not doing well at home. Evidently instead of bringing the patient back to the facility he was just discharged from, paramedics brought him to this facility instead for some reason. They are concerned, because he is the only person at home other than his mentally handicapped daughter, who cannot take care of him. Associated symptoms-after fall: Denies abdominal pain or chest pain Review of Systems General: Reports: ROS unobtainable due to mental status Const: Denies: fever(s) Card: Denies: chest pain Resp: Reports: dyspnea and non-productive cough GI: Denies: abdominal pain, vomiting or diarrhea PFSH ED PFSH: Medical History Anemia ASHD (arteriosclerotic heart disease) CHF (congestive heart failure) Chronic osteoarthritis CKD (chronic kidney disease) stage 3, GFR 30-59 ml/min Dementia Diabetes Dyslipidemia Dysthymic disorder Elevated troponin Generalized muscle weakness GERD (gastroesophageal reflux disease) Hearing loss History of DVT (deep vein thrombosis) History of fracture of left hip Hypertension Kidney stone Left ureteral calculus Myocardial infarction Neuropathy Neutropenia Obstructive uropathy RASHAD (obstructive sleep apnea) PTSD (post-traumatic stress disorder) Pyelonephritis Recurrent UTI Renal stones Sepsis Thrombocytopenia Surgical History History of laminectomy (~1992) History of orchiectomy History of PTCA Family History Mother , at age 59 Cancer Diabetes Father , at age 87 Tuberculosis Other Hypertension Denies family history of CAD (coronary artery disease) Clotting disorder Dementia Chronic kidney disease (CKD) Suicide Anesthesia complication Bleeding disorder Lung disease Stroke Social History Smoking and tobacco/nicotine status: former use of tobacco/nicotine Quit status (tobacco/nicotine): has quit using Year quit tobacco: 1989 Former quit date comment: smoked cigars about 5 yrs Second hand smoke exposure: Yes Alcohol intake: never Substance/Drug Use: never Caregiver/support person: Yes (spouse and daughter) Lives independently: Yes Marital status: / service: Yes Current occupational status: retired Current gender identity: Male Special eitan needs: No Agree to transfusion: Yes Physical Exam Const: GENERAL APPEARANCE: cooperative, ill appearing and frail appearing HENMT: COMMON NORMALS: normocephalic, atraumatic and Normal external nose present HEAD & SCALP: normocephalic and atraumatic; no Acrocyanosis present FACE & SINUS: normal facial exam and face symmetric; no Acrocyanosis present NOSE: Normal external nose present Eye: COMMON NORMALS: Equal, round and reactive pupils present and EOMs intact bilaterally PUPIL: Yes Equal, round and reactive pupils present Neck/C-Spine: GENERAL: Yes trachea midline Chest: CHEST: Yes Symmetrical chest wall rise Resp: COMMON NORMALS: normal respiratory effort, No use of accessory muscles and clear to auscultation bilaterally AUSCULTATION: clear to auscultation bilaterally Cardio: COMMON NORMALS: regular rhythm RHYTHM: regular rhythm GI: COMMON NORMALS: Normal to inspection, nondistended, normoactive bowel sounds present Extremity: NARRATIVE EXTREMITY EXAM: Exam reveals a left lateral foot skin ulcer, that appears clean with granulating tissue present. No significant surrounding cellulitis. Plantar pressure ulcer on the right, near the first MTP. It is not open. Neuro: FRANCESCO COMA SCALE: document GCS findings Francesco coma scale eye opening: Spontaneous [place] coma scale verbal response: Confused Francesco coma scale motor response: Obey commands Francesco coma scale total score: 14 Course Vital Signs: Vital signs: Vital Signs Temperature 97.8 F 02/14/23 15:34 Pulse Rate 72 02/14/23 15:34 Respiratory Rate 16 02/14/23 15:34 Blood Pressure 112/50 02/14/23 15:34 Pulse Oximetry 94 02/14/23 15:34 Oxygen Delivery Me thod Room Air 02/14/23 15:34 Oxygen Flow Rate 2 02/14/23 08:52 MDM - Fall Medical Decision Making This patient has a normal white blood cell count. Hemoglobin is stable at 9.5. His creatinine is 2 which is near his baseline. Bicarbonate level is low. Lactic acid is elevated at 4.1. The patient is given some fluid. Head CT shows no acute changes. Chest x-ray was negative, save for PICC line being in place. Patient has a significant urinary tract infection with greater than 100 whites and 2+ leukocyte Estrace. This could be from prior catheterization at outside facility. Records are not available at the time of admission. He will require admission due to generalized weakness, urinary tract infection with mental status changes, and ongoing treatment for likely osteomyelitis. Hospitalist will see the patient. Lab Data 02/14/23 01:15 02/14/23 01:15 Radiology Impressions Chest X-Ray 02/14/23 00:54 IMPRESSION: Right PICC in place, no pneumothorax or other change. Foot X-Ray 02/14/23 02:29 IMPRESSION: No fracture or focal bone destruction noted. Based on history, MRI may be helpful Head CT 02/14/23 03:03 IMPRESSION: 1. No acute intracranial hemorrhage. 2. Moderate age-related changes. A few scattered old lacunes are likely. 3. If there is concern for acute CVA, MRI may be helpful. Venous Duplex 02/14/23 12:16 IMPRESSION: No evidence of deep vein thrombosis. Laboratory Results WBC 6.15 10^3/uL (3.29-11.43) 02/14/23 01:15 RBC 3.36 10^6/uL (3.85-5.65) L 02/14/23 01:15 Hgb 9.50 g/dL (11.27-16.99) L 02/14/23 01:15 Hct 30.1 % (37-53) L 02/14/23 01:15 MCV 89.6 fl (82-101) 02/14/23 01:15 MCH 28.3 pg (27-33) 02/14/23 01:15 MCHC 31.6 g/dL (30-55) 02/14/23 01:15 RDW 13.2 % (12.1-15.1) 02/14/23 01:15 Plt Count 81 10^3/cmm (157-399) L 02/14/23 01:15 MPV 10.3 fL (7.4-10.4) 02/14/23 01:15 Neut % (Auto) 68.1 % 02/14/23 01:15 Lymph % (Auto) 21.0 % 02/14/23 01:15 [place] % (Auto) 7.5 % 02/14/23 01:15 Eos % (Auto) 2.8 % 02/14/23 01:15 Baso % (Auto) 0.3 % 02/14/23 01:15 Neut # (Auto) 4.19 10^3/uL (1.8-7.7) 02/14/23 01:15 Lymph # (Auto) 1.3 10^3/uL (0.8-4.8) 02/14/23 01:15 [place] # (Auto) 0.5 10^3/uL (0.2-0.9) 02/14/23 01:15 Eos # (Auto) 0.2 10^3/uL (0.0-0.8) 02/14/23 01:15 Baso # (Auto) 0.0 10^3/uL (0.0-0.1) 02/14/23 01:15 Nucleated RBC % (auto) 0 % 02/14/23 01:15 Nucleated RBCs # 0.0 /100WBC 02/14/23 01:15 Specimen Type Arterial 02/14/23 03:23 Sample Site Brachial, left 02/14/23 03:23 ABG pH 7.33 (7.35-7.45) L 02/14/23 03:23 ABG pCO2 35.7 mmHg (35-45) 02/14/23 03:23 ABG pO2 141.0 mmHg (80.0-100.0) H 02/14/23 03:23 ABG HCO3 18.6 mmol/L (22-26) L 02/14/23 03:23 ABG Base Excess -6.7 mmol/L (-2.0-2.0) L 02/14/23 03:23 Thierry Test N/a 02/14/23 03: Hematocrit 29.1 % (42-52) L 02/14/23 03:23 O2 Delivery Device Nc 02/14/23 03:23 O2 Liters/Min 4.0 % 02/14/23 03:23 Clothes Separator ID [email or web address] 02/14/23 03:23 Sodium 136 mmol/L (136-145) 02/14/23 01:15 Potassium 4.5 mmol/L (3.5-5.1) 02/14/23 01:15 Chloride 102 mmol/L (98-107) 02/14/23 01:15 Carbon Dioxide 19 mmol/L (22-29) L 02/14/23 01:15 Anion Gap 19.5 (5-19) H 02/14/23 01:15 BUN 67 mg/dL (8-23) H 02/14/23 01:15 Creatinine 2.0 mg/dL (0.7-1.2) H 02/14/23 01:15 GFR Calculation Not Reportable 02/14/23 01:15 Glucose 137 mg/dL (65-115) H 02/14/23 01:15 Calculated Osmolality 304 mOsm/kg (285-295) H 02/14/23 01:15 Lactic Acid 4.1 mmol/L (0.5-2.2) H* 02/14/23 01:15 Calcium 9.1 mg/dL (8.5-10.5) 02/14/23 01:15 Total Bilirubin 0.4 mg/dL (0.15-1.2) 02/14/23 01:15 AST 24 U/L (0-40) 02/14/23 01:15 ALT 30 U/L (0-41) 02/14/23 01:15 Alkaline Phosphatase 61 U/L (40-130) 02/14/23 01:15 Creatine Kinase 207 U/L (39-308) 02/14/23 01:15 C-Reactive Protein 9.0 mg/L (0.0-4.9) H 02/14/23 01:15 Total Protein 6.9 g/dL (6.6-8.7) 02/14/23 01:15 Albumin 3.2 g/dL (3.5-5.2) L 02/14/23 01:15 Globulin 3.7 g/dL (1.3-4.6) 02/14/23 01:15 Procalcitonin 0.21 ng/mL (0-0.5) 02/14/23 01:15 Urine Color Yellow (Yellow) 02/14/23 02:38 Urine Appearance Hazy (CLEAR) A 02/14/23 02:38 Urine pH 5 (5-7) 02/14/23 02:38 Ur Specific Jarratt 1.010 (1.005-1.030) 02/14/23 02:38 Urine Protein Trace (Negative) 02/14/23 02:38 Urine Glucose (UA) Norm (Normal) 02/14/23 02:38 Urine Ketones Negative (Negative) 02/14/23 02:38 Urine Blood 3+ (Negative) H 02/14/23 02:38 Urine Nitrate Negative (Negative) 02/14/23 02:38 Urine Bilirubin Neg (Negative) 02/14/23 02:38 Urine Urobilinogen Neg mg/dL (Negative) 02/14/23 02:38 Ur Leukocyte Esterase 2+ (Negative) H 02/14/23 02:38 Urine RBC 5-10 /hpf (0-2) H 02/14/23 02:38 Urine WBC >100 /hpf (0-5) H 02/14/23 02:38 Ur Squamous Epith Cells 0-4 /hpf (0-5) H 02/14/23 02:38 Amorphous Sediment Not Reportable 02/14/23 02:38 Urine Bacteria Trace /hpf (NONE) 02/14/23 02:38 Urine Opiates Screen Negative ng/mL (Negative) 02/14/23 02:38 Ur Barbiturates Screen Negative ng/mL (Negative) 02/14/23 02:38 Ur Phencyclidine Scrn Negative ng/mL (Negative) 02/14/23 02:38 Ur Amphetamines Screen Negative ng/mL (Negative) 02/14/23 02:38 U Benzodiazepines Scrn Negative ng/mL (Negative) 02/14/23 02:38 Urine Cocaine Screen Negative ng/mL (Negative) 02/14/23 02:38 U Marijuana (THC) Screen Negative ng/mL (Negative) 02/14/23 02:38 Ethyl Alcohol < 10 mg/dL (0-10) 02/14/23 01:15 All radiology interpretation(s) finalized by discharge Discharge Plan Discharge Patient Disposition: Placed in Observation Admit Provider: Kirti Mendosa Clinical Impression: Acute UTI, Generalized weakness Coding Level of Care Code ED Assisted Living Executive Director for Marylou Mercado
--- NOTE | 2023-02-14 03:03 | CTR_ITS ---
PROCEDURE INFORMATION: Exam: CT Head Without Contrast Exam date and time: 02/14/2023 3:17 AM Age: 83 years old Clinical indication: Altered mental status/memory loss; Patient HX: Confusion. ; Additional info: AMS TECHNIQUE: Imaging protocol: Computed tomography of the head without contrast. Radiation optimization: All CT scans at this facility use at least one of these dose optimization techniques: automated exposure control; mA and/or kV adjustment per patient size (includes targeted exams where dose is matched to clinical indication); or iterative reconstruction. REPORTING DATA: Count of CT and Cardiac NM exams in prior 12 months: This patient has received [address] and 0 known cardiac nuclear medicine studies in the 12 months prior to the current study. COMPARISON: CT head wo con* [id number] 01/13/2023 11:42 AM RADIATION DOSE METRICS: Total DLP (mGy-cm): 1115.44 FINDINGS: Brain: No focal hemorrhage or midline shift is identified. The ventricles and parenchyma show moderate atrophy and chronic bicerebral white matter ischemic change. A few scattered old lacunes are likely, possibly in the maddie. No new findings from 1 month ago. Cerebral ventricles: No ventriculomegaly or evidence of hydrocephalus. Paranasal sinuses: No evidence of acute sinusitis. Mastoid air cells: Visualized mastoid air cells are well aerated. Bones/joints: No displaced skull fracture is noted. Soft tissues: Unremarkable. Vasculature: Diffuse vascular calcifications are present. CT/CT head wo con* [id number] IMPRESSION: 1. No acute intracranial hemorrhage. 2. Moderate age-related changes. A few scattered old lacunes are likely. 3. If there is concern for acute CVA, MRI may be helpful.
[2023-02-14 03:06] LABS: Reflex Lactate Order REFLEX LACTIC ORDERD
[2023-02-14] MEDS: meropenem 1,000 MG in sodium chloride 0.9% (plus) 50 ML 100 MG IV ×2 (03:31→14:38)
[2023-02-14 03:34] LABS: ABG PCO2 35.7 mmHg (35-45); ABG PH Result 7.33 (7.35-7.45); Arterial Blood Gas Hematocrit 29.1 % (42-52); Base Excess ABG -6.7 mmol/L (-2.0-2.0); Blood Gas Sample Site Brachial, left; Blood Gas Sample Type Arterial; HCO3 ABG 18.6 mmol/L (22-26); Oxygen Device NC
[2023-02-14 03:36] LABS: Alcohol Level < 10 mg/dL (0-10)
[2023-02-14 03:37] LABS: Amphetamines Screen Urine Negative (Negative); Barbiturates Screen Urine Negative (Negative); Benzodiazepines Screen Urine Negative (Negative); Cocaine Screen Urine Negative (Negative); Opiate Screen Urine Negative (Negative); PCP Screen Urine Negative (Negative); THC Screen Urine Negative (Negative)
[2023-02-14] MEDS: piperacillin-tazobactam 3.375 GM in sodium chloride 0.9% (plus) 50 ML IV (04:21)
--- NOTE | 2023-02-14 04:37 | P.HP_ITS ---
Providers/Chief Complaint Admitting Physician: Kirti Mendosa MD Primary Care Provider: Faye Zamora MD Chief Complaint: FALL History of Present Illness Yoav Kyle is a 83 year old male with history of dementia congestive heart failure hypertension dyslipidemia obstructive sleep apnea atherosclerotic heart disease CKD stage III GERD DVT on Eliquis PTSD recurrent nephrolithiasis recurrent UTI was brought in by EMS with confusion and unable to take care of himself. EMS was called and by the daughter who apparently is with mild mental retardation. As per the EMS patient was found to be covered in his own feces and was hypoxic requiring supplemental oxygen. He has been admitted with similar complaints in the past. He was discharged on 02/13 from [facility] after being treated for left foot osteomyelitis immobility and generalized weakness. He was discharged home with a PICC line and was scheduled to get IV Zosyn twice a day for 6 weeks. Review of Systems Narrative: Unable to assess due to mental status Medications/Allergies Home Medications Medication Instructions Recorded Confirmed Last Taken Type insulin aspart U-100 100 unit/mL See Rx Instructions SUBCUT TID #15 11/09/19 01/13/23 01/12/23 Rx (3 mL) subcutaneous pen (Novolog mL FlexPen U-100 Insulin aspart) nitroglycerin 0.4 mg sublingual 0.4 mg sublingual Q5M PRN chest 11/09/19 01/13/23 Unknown Rx tablet pain #100 tabs mupirocin 2 % topical ointment 1 applic topical BID #30 grams 05/10/20 01/13/23 01/12/23 Rx fluticasone propionate 50 2 spray intranasal DAILY #16 grams 10/02/20 01/13/23 0 01/12/23 Rx mcg/actuation nasal spray,suspension (Flonase Allergy Relief) isosorbide mononitrate 30 mg 30 mg PO DAILY #90 tabs 10/02/20 01/13/23 01/12/23 Rx tablet,extended release 24 hr ergocalciferol (vitamin D2) 1,250 See Rx Instructions .Route .COMPLEX 10/03/20 01/13/23 01/12/23 History mcg (50,000 unit) capsule gabapentin 300 mg capsule 300 mg PO BEDTIME 10/03/20 01/13/23 01/12/23 History pantoprazole 40 mg tablet,delayed 40 mg PO DAILY 06/01/1501/13/23 01/12/23 History release lancets 30 gauge #100 ea 10/10/20 01/13/23 Unknown Rx ascorbate calcium (vitamin C) 500 500 mg PO DAILY 10/12/20 01/13/23 01/12/23 History mg tablet ferrous sulfate 142 mg (45 mg 142 mg PO DAILY 10/12/20 01/13/23 01/12/23 History iron) tablet,extended release metoprolol tartrate 25 mg tablet 25 mg PO BID 11/06/20 01/13/23 01/12/23 History sertraline 100 mg tablet 100 mg PO BEDTIME 11/06/20 01/13/23 01/12/23 History apixaban 5 mg tablet 2.5 mg PO BID 03/12/21 01/13/23 01/12/23 History amlodipine 10 mg tablet 10 mg PO DAILY #90 tabs 04/02/21 01/13/23 01/12/23 Rx losartan 25 mg tablet 25 mg PO DAILY #90 tabs 04/09/21 01/13/23 01/12/23 Rx blood sugar diagnostic (True #100 ea 05/24/21 01/13/23 Unknown Rx Metrix Glucose Test Strip) triamcinolone acetonide 0.1 % 1 applic topical BID 14 days #80 06/12/21 01/13/23 01/12/23 Rx topical cream grams insulin glargine 100 unit/mL 10 unit SUBCUT BID 11/14/21 01/13/23 01/12/23 History subcutaneous solution (Lantus U-100 Insulin) atorvastatin 80 mg tablet 40 mg PO BEDTIME 01/17/22 01/13/23 01/12/23 History diclofenac sodium 1 % gel topical 2 g topical QID 01/17/22 01/13/23 01/12/23 History kit vit C 250 mg-vit E 90 mg-zinc 40 1 tab PO DAILY 01/17/22 01/13/23 01/12/23 History mg-copper 1 [id number] capsule (PreserVision AREDS-2) nystatin 100,000 unit/gram topical 1 applic topical BID #30 grams 03/31/22 01/13/23 01/12/23 Rx cream furosemide 40 mg tablet (Lasix) 40 mg PO DAILY edema 06/09/22 01/13/23 01/12/23 History potassium chloride 20 mEq 20 meq PO DAILY LASIX 06/09/22 01/13/23 01/12/23 History tablet,extended release methenamine hippurate 1 gram tablet 1 g PO BID #60 tabs 09/04/22 01/13/23 01/12/23 Rx nitrofurantoin 100 mg PO BID #20 caps 01/16/23 Unknown Rx monohydrate/macrocrystals 100 mg capsule (Macrobid) Allergies Allergy/AdvReac Type Severity Reaction Status Date / Time Iodinated Contrast Media Allergy unknown Verified 01/13/23 11:10 tramadol Allergy ADR-Agitate Verified 01/13/23 11:10 d solifenacin [From Vesicare] AdvReac Severe weakness Verified 01/13/23 11:10 metoclopramide [From Reglan] AdvReac Intermediate anxiety Verified 01/13/23 11:10 PFSH Acute PFSH: Medical History Anemia ASHD (arteriosclerotic heart disease) CHF (congestive heart failure) Chronic osteoarthritis CKD (chronic kidney disease) stage 3, GFR 30-59 ml/min Dementia Diabetes Dyslipidemia Dysthymic disorder Elevated troponin Generalized muscle weakness GERD (gastroesophageal reflux disease) Hearing loss History of DVT (deep vein thrombosis) History of fracture of left hip Hypertension Kidney stone Left ureteral calculus Myocardial infarction Neuropathy Neutropenia Obstructive uropathy RASHAD (obstructive sleep apnea) PTSD (post-traumatic stress disorder) Pyelonephritis Recurrent UTI Renal stones Sepsis Thrombocytopenia Surgical History History of laminectomy (~1992) History of orchiectomy History of PTCA Family History Mother , at age 59 Cancer Diabetes Father , at age 87 Tuberculosis Other Hypertension Denies family history of CAD (coronary artery disease) Clotting disorder Dementia Chronic kidney disease (CKD) Suicide Anesthesia complication Bleeding disorder Lung disease Stroke Social History Smoking and tobacco/nicotine status: former use of tobacco/nicotine Quit status (tobacco/nicotine): has quit using Year quit tobacco: 1989 Former quit date comment: smoked cigars about 5 yrs Second hand smoke exposure: Yes Alcohol intake: never Substance/Drug Use: never Caregiver/support person: Yes (spouse and daughter) Lives independently: Yes Marital status: / service: Yes Current occupational status: retired Current gender identity: Male Special eitan needs: No Agree to transfusion: Yes Vitals/I&O/Wt Last Vital Signs Temp 98.7 F 02/14/23 00:23 Pulse 73 02/14/23 03:00 Resp 13 02/14/23 03:00 BP 125/74 02/14/23 03:00 Pulse Ox 100 02/14/23 03:00 O2 Del Method Nasal Cannula 02/14/23 01:30 O2 Flow Rate 4 02/14/23 00:23 02/13/23 02/13/23 02/14/23 14:59 22:59 06:59 Intake Total 1050 / 1050 Balance 1050 / 1050 Weight last 48 hrs Weight 63.503 kg Physical Exam Narrative: He is alert awake oriented to self only confused, poor historian Chest clear to auscultation bilaterally, nasal cannula in place Cardiovascular normal heart sounds no murmurs Abdomen soft nontender nondistended normal bowel sounds Extremities no edema noted bilateral lower extremities, left lateral foot 5 x 4 cm ulcer present, clean healing edges, granulation tissue at the base seen,, no active signs of infection no discharge. Ayala catheter and neuro bag contains turbid urine with whitish sediment but no blood Urinary Catheter Management: Ayala: Cath Placed During This Visit: yes Urinary Catheter Date of Insertion: 02/14/23 Urinary Catheter Time of Insertion: 02:41 Data 02/14/23 01:15 02/14/23 01:15 Micro: Microbiology 02/14/23 01:09 Blood Culture - Preliminary Blood SPECIMEN COLLECTED 02/14/23 01:15 Blood Culture - Preliminary Blood SPECIMEN COLLECTED CT Head: Radiologist's impression: IMPRESSION: 1. ? No acute intracranial hemorrhage. 2. ? Moderate age-related changes. A few scattered old lacunes are likely. 3. ? If there is concern for acute CVA, MRI may be helpful. ? CXR: Radiologist's impression: IMPRESSION: Right PICC in place, no pneumothorax or other change. ? EKG 1: My Interpretation: Sinus rhythm, with frequent PVCs No acute ST-T changes A&P Assessment and plan (1) UTI (urinary tract infection): (2) Generalized weakness: (3) Complete immobility due to severe physical disability or frailty: Plan 83 year old male with history of dementia congestive heart failure hypertension dyslipidemia obstructive sleep apnea atherosclerotic heart disease CKD stage III GERD DVT on Eliquis PTSD recurrent nephrolithiasis recurrent UTI was brought in by EMS with confusion and unable to take care of himself. EMS was called and by the daughter who apparently is with mild mental retardation. As per the EMS patient was found to be covered in his own feces and was hypoxic requiring supplemental oxygen. In the ER he was found to have anemia with hemoglobin of 9.5 and lactic acid 4.0 and UA positive with WBC more than 100. For UTI He received 1 dose of IV meropenem 1 g in the ER Will give IV fluids normal saline at 75 mL/h will continue IV zosyn for now as per the home schedule Reconcile and Resume home medications Regular diet social work consult in a.m. for halfway placement IV Pepcid 20 mg twice a day for stress ulcer prophylaxis He is on Eliquis for DVT he is on Eliquis for DVT no further need for DVT prophylaxis He is full code for now, since there is no family member available with mental capacity to make decision about advanced directives. Attestations Medical Necessity Statement*: He needs less than 2 days of hospitalization. He is here for UTI, but he is already on IV Zosyn through PICC line for left foot osteomyelitis. Needs social work consult for halfway placement because of generalized weakness and mobility and no family member to take care of him. He has a daughter with specialized needs. Time Spent in Patient Care: 30 minutes Coding Level of Care Code Acute Code for [facility] Fwd Diagnoses UTI (urinary tract infection) N39.0 Generalized weakness R53.1 Complete immobility due to severe physical disability or frailty R53.2 Time Spent (min) 30
[2023-02-14 05:21] LABS: Lactic Acid level (Lactate) 2.5 mmol/L (0.5-2.2)
--- NOTE | 2023-02-14 06:29 | PC.NURSE ---
Patient AMS and unable to give information for admission assessment. Called daughter to get list of home medications and allergies. Daughter states I just laid down, I've been up all night. I'll be in later today. Discharge paperwork from [facility] has only two home medications listed and daughter states that he takes a bunch. Allergies listed on [facility] discharge paper work do not match what is listed as allergies in our chart. Patient unable to sign release paper to get information faxed from home health company for [facility].
--- NOTE | 2023-02-14 08:14 | PC.PHAR ---
PT IS [facility]. FAXED REQUEST FOR MED LIST, BUT WILL NOT HEAR BACK UNTIL THURSDAY. WILL VERIFY THE MEDS FILLED AT [facility] AT 9AM WHEN THEY OPEN. 02/14/23
--- NOTE | 2023-02-14 09:00 | PC.PHAR ---
Addendum entered by Stacie Kamara 02/16/23 15:12: VERIFIED MEDICATION LIST FROM [facility]. NOTHING CHANGED EXCEPT ADDED TWO CREAMS/OINTMENTS TO THE LIST. 02/16/23 Addendum entered by Stacie Kamara 02/14/23 09:02: WESTON CÁRDENAS Original Note: PTS' DAUGHTER CALLED AND WENT OVER ALL MEDICATIONS USING HIS CURRENT LIST. ANY QUESTIONS, WE CAN CALL HER ANYTIME
[2023-02-14] MEDS: sodium chloride 0.9% 1,000 ML 75 ML IV (09:02)
[2023-02-14] MEDS: ascorbic acid 500 mg Tablet PO (09:03)
[2023-02-14] MEDS: apixaban 5 mg Tablet 2.5 MG PO ×2 (09:03→18:22)
--- NOTE | 2023-02-14 12:16 | USR_ITS ---
PROCEDURE INFORMATION: Exam: US Duplex Right Upper Extremity Veins, Limited Exam date and time: 02/14/2023 12:40 PM Age: 83 years old Clinical indication: Condition or disease; Other: Patient has picc in right upper extremity; Additional info: Assess for dvt near picc TECHNIQUE: Imaging protocol: Real-time duplex ultrasound of the right Upper Extremity with 2-D springer scale, color Doppler flow and spectral waveform analysis with image documentation. Limited exam focused on the right upper extremity veins. COMPARISON: CR XR shoulder RT min 2V* [id number] 01/28/2021 12:15 PM FINDINGS: Right deep veins: Unremarkable. Axillary and brachial veins are patent throughout without thrombus. Normal Doppler waveforms. Normal compressibility and/or augmentation response. Visualized internal jugular and subclavian veins are patent. Superficial veins: Unremarkable. Visualized cephalic and basilic veins are patent without thrombus. Soft tissues: Unremarkable. US/[place] [id number] IMPRESSION: No evidence of deep vein thrombosis.
[2023-02-14 12:44] LABS: Glucose Point of Care 183 mg/dL (70-110)
[2023-02-14] MEDS: insulin lispro 100 unit/1 mL SUBCUT (13:04)
--- NOTE | 2023-02-14 13:24 | PC.NURSE ---
per Kassie, search manager, PICC is not flushing or drawing. This nurse attempted peripheral IV twice with no success. Informed charge nurse so she can attempt. Dr. Grajeda aware of PICC issue.
[2023-02-14] MEDS: famotidine 20 mg/2 mL INJ IVP (14:38)
--- NOTE | 2023-02-14 16:09 | P.MISC_ITS ---
Miscellaneous Note Purpose of Documentation: Overnight labs and H&P reviewed. Patient is confused, disoriented, only able to state his name but nothing else. PICC line was noted to be nonfunctioning. It has been discontinued after obtaining upper extremity Doppler to rule out DVT. Urine culture pending from current admission, however per review of prior cultures he has multiple ESBL organisms in the past including ESBL E. coli, Proteus mirabilis ESBL. Start meropenem renally dosed at 1 g IV every 12 hours, previsously on Ziysn, Obtain records from recent admission at [facility] with regards to osteomyelitis Change to inpatient admission, will need iv abx for UTI, recent osteomyelitis, appropriate disposition planning and therapy assessments wound over left foot currently clean dry and intact
[2023-02-14 17:01] LABS: Glucose Point of Care 123 mg/dL (70-110)
[2023-02-14 21:13] LABS: Glucose Point of Care 102 mg/dL (70-110)
[2023-02-14] MEDS: gabapentin 300 mg Capsule PO (21:46)
[2023-02-15] VITALS (7 sets, daily range): BP systolic 105–138; BP diastolic 53–79; PULSE 71–100; RESP 16–18; TEMP 36.5–37.3; O2SAT 95–98
[2023-02-15] MEDS: sodium chloride 0.9% 1,000 ML 75 ML IV (03:30)
[2023-02-15] MEDS: meropenem 1,000 MG in sodium chloride 0.9% (plus) 50 ML 100 MG IV ×2 (03:30→15:47)
[2023-02-15] MEDS: famotidine 20 mg/2 mL INJ IVP ×2 (03:32→17:33)
[2023-02-15 04:53] LABS: Basophils % 0.6 %; Eosinophils # 0.2 10^3/uL (0.0-0.8); Eosinophils % 4.6 %; Lymphocytes # 1.1 10^3/uL (0.8-4.8); Lymphocytes % 33.2 %; Mean Corpuscular HGB Conc 31.9 g/dL (30-55); Mean Corpuscular Hemoglobin 28.5 pg (27-33); Mean Corpuscular Volume 89.4 fl (82-101); Mean Platelet Volume 11.5 fL (7.4-10.4); Monocytes # 0.3 10^3/uL (0.2-0.9); Monocytes % 8.5 %; Neutrophils # 1.73 10^3/uL (1.8-7.7); Neutrophils % 52.8 %; Nucleated Red Blood Cells % 0 %; Platelet Count 68 10^3/cmm (157-399); Red Blood Count 3.02 10^6/uL (3.85-5.65); Red Cell Distribution Width 13.2 % (12.1-15.1); White Blood Count 3.28 10^3/uL (3.29-11.43)
[2023-02-15 05:08] LABS: Alanine Aminotransferase 25 U/L (0-41); Albumin Level 2.5 g/dL (3.5-5.2); Alkaline Phosphatase 52 U/L (40-130); Aspartate Amino Transferase 22 U/L (0-40); Blood Urea Nitrogen 59 mg/dL (8-23); Calcium 8.2 mg/dL (8.5-10.5); Carbon Dioxide 19 mmol/L (22-29); Chloride 111 mmol/L (98-107); Globulin 3.4 g/dL (1.3-4.6); Glucose 93 mg/dL (65-115); Magnesium 2.1 mg/dL (1.7-2.3); Osmolality Calculated 304 mOsm/kg (285-295); Sodium 139 mmol/L (136-145); Total Bilirubin 0.3 mg/dL (0.15-1.2); Total Protein 5.9 g/dL (6.6-8.7)
[2023-02-15 05:09] LABS: Anion Gap 13.4 (5-19); Potassium 4.4 mmol/L (3.5-5.1)
[2023-02-15 05:10] LABS: Lactate (Lactic Acid level) 1.5 mmol/L (0.5-2.2)
[2023-02-15 06:48] LABS: Glucose Point of Care 96 mg/dL (70-110)
[2023-02-15] MEDS: ascorbic acid 500 mg Tablet PO (09:22)
[2023-02-15] MEDS: apixaban 5 mg Tablet 2.5 MG PO ×2 (09:22→18:17)
[2023-02-15 12:17] LABS: Glucose Point of Care > 600 mg/dL (70-110)
[2023-02-15 12:17] LABS: Glucose Point of Care 236 mg/dL (70-110)
[2023-02-15] MEDS: insulin lispro 100 unit/1 mL SUBCUT ×3 (13:22→21:33)
[2023-02-15 17:08] LABS: Glucose Point of Care 145 mg/dL (70-110)
--- NOTE | 2023-02-15 17:36 | CTR_ITS ---
PROCEDURE INFORMATION: Exam: CT Abdomen And Pelvis Without Contrast Exam date and time: 02/15/2023 5:56 PM Age: 83 years old Clinical indication: Abdominal tenderness; Additional info: Evaluate for obstructive hydronephrosis TECHNIQUE: Imaging protocol: Computed tomography of the abdomen and pelvis without contrast. Radiation optimization: All CT scans at this facility use at least one of these dose optimization techniques: automated exposure control; mA and/or kV adjustment per patient size (includes targeted exams where dose is matched to clinical indication); or iterative reconstruction. REPORTING DATA: Count of CT and Cardiac NM exams in prior 12 months: This patient has received 2 known CTs and 0 known cardiac nuclear medicine studies in the 12 months prior to the current study. COMPARISON: CT abdomen pelvis wo con [id number] 01/17/2022 1:36 AM RADIATION DOSE METRICS: Total DLP (mGy-cm): 758.14 FINDINGS: Pleural spaces: Trace bilateral pleural effusions. Heart: Cardiomegaly. Coronary arteries: Coronary artery atherosclerotic calcifications. Diaphragm: Moderate hiatal hernia. Liver: Normal. No mass. Gallbladder and bile ducts: Cholelithiasis. Pancreas: Normal. No ductal dilation. Spleen: Normal. No splenomegaly. Adrenal glands: Left adrenal 3.4 cm partially calcified nodule similar to prior exams, likely reflects a benign lesion given stability in appearance. Kidneys and ureters: Right kidney nonobstructing calculus. Left kidney cyst, negative for follow-up advised. Stomach and bowel: Moderate constipation. Diverticulosis without diverticulitis. Appendix: No evidence of appendicitis. Intraperitoneal space: Unremarkable. No free air. No significant fluid collection. Vasculature: 2.6 cm saccular infrarenal abdominal aortic aneurysm, similar to prior exam. Lymph nodes: Unremarkable. No enlarged lymph nodes. Urinary bladder: Ayala catheter in the urinary bladder with wall thickening and surrounding edema, please correlate for cystitis, nondistention is also consideration for the appearance. Reproductive: Unremarkable as visualized. Bones/joints: Left hip arthroplasty changes. Soft tissues: Unremarkable. CT/CT kidney stone [id number] IMPRESSION: 1. Ayala catheter in the urinary bladder with wall thickening and surrounding edema, please correlate for cystitis, nondistention is also consideration for the appearance. 2. 2.6 cm saccular infrarenal abdominal aortic aneurysm, similar to prior exam. 3. Cardiomegaly. 4. Coronary artery atherosclerotic calcifications. 5. Trace bilateral pleural effusions. 6. Moderate hiatal hernia. 7. Cholelithiasis. 8. Left adrenal 3.4 cm partially calcified nodule similar to prior exams, likely reflects a benign lesion given stability in appearance. 9. Right kidney nonobstructing calculus. 10. Left kidney cyst, negative for follow-up advised. 11. Moderate constipation. 12. Diverticulosis without diverticulitis. 13. Left hip arthroplasty changes.
--- NOTE | 2023-02-15 17:52 | PM.PN ---
Subjective Subjective: Patient continues to be confused and disoriented. He tells me his correct name, correct me his correct date of however then becomes tangential in conversation. I asked him about his family members and currently unable to tell me his daughter's name. He is complaining of some abdominal pain today. Medications: Reviewed: Yes Vitals/I&O/Wt Last Vital Signs Temp 98.7 F 02/15/23 15:33 Pulse 73 02/15/23 11:34 Resp 18 02/15/23 15:33 BP 129/73 02/15/23 15:33 Pulse Ox 97 02/15/23 11:34 O2 Del Method Room Air 02/15/23 11:34 O2 Flow Rate 2 02/14/23 08:52 02/15/23 02/15/23 02/15/23 06:59 14:59 22:59 Intake Total 50 / 1460 840 / 840 50 / 890 Output Total 1050 / 2350 1050 / 1050 Balance -1000 / -890 840 / 840 -1000 / -160 Weight last 48 hrs Weight 63.503 kg Physical Exam Narrative: General: No acute distress, AO x2 HEENT: PERRLA, pupils bilaterally equal and reactive, pallors not present Chest: Normal vesicular breath sounds, no added sounds, equal good air entry bilaterally CVS: S1-S2 regular, no murmurs, no tachycardia, no gallops, no rubs Abdomen: Soft, nontender, no organomegaly, bowel sounds present Neuro: No focal deficits, no facial deformity, AO x2, power 5/5 in all limbs Urinary Catheter Management: Ayala: Cath Placed During This Visit: yes Urinary Catheter Date of Insertion: 02/14/23 Urinary Catheter Time of Insertion: 02:41 Data 02/15/23 04:32 02/15/23 04:32 Micro: Microbiology 02/14/23 02:38 Urine Culture - Preliminary Urine,Clean Catch Gram Negative Rods Gram Negative Rods#2 02/14/23 01:09 Blood Culture - Preliminary Blood NEGATIVE TO DATE 02/14/23 01:15 Blood Culture - Preliminary Blood NEGATIVE TO DATE A&P Assessment and plan (1) UTI (urinary tract infection): Patient has a past medical history of recurrent urinary tract infections, On methenamine suppression as outpatient. Has a history of nephrolithiasis and obstructive pyelonephritis in the past. Currently presenting with a UTI. Past medical history of multiple ESBL organisms for which meropenem is currently being used as the empiric choice. Urine and blood culture pending Thus far urine culture with 2 species of gram-negative rods pending further identification. Complaining of abdominal pain today, will obtain CT KUB to evaluate for kidney stones given significant past history and potentially evaluate for any obstructive urological process. (2) Encephalopathy: Unknown recent baseline. Per review of outpatient records it appears patient had been attending his providers visits. He was last admitted here in December 2021 with encephalopathy related to UTI and was alert and awake at the time of discharge. He did however improve enough to the point to be able to go home with home health. In reviewing past documentation it appears his had been We had communicated with to relay all pertinent medical information and continued discharge planning. The patient's has since earlier this year. Attempted to reach patient's daughter and listed contact Yuli Kelly but unable to reach both of them at this time. (3) Generalized weakness: Reviewing past records from December 2021 it appears patient at that time had poor mobility, loss of tone in bilateral lower extremities. He was using wheelchair to ambulate. (4) Complete immobility due to severe physical disability or frailty: (5) Dementia: (6) Osteomyelitis: Osteomyelitis of the foot. Records requested from [facility]. Unfortunately we do not have any discharge summary yet. On discharge instructions it appears the discharge antibiotic was IV Zyvox and not Zosyn. Uncertain why IV was chosen over oral. At this point would not replace PICC line until duration is determined. Patient has a pressure injury over foot , currently getting wet to dry dressing will likely need wound care at discharge Plan Dispo: complicated. Per EMS report, patient was found in home in a very poor condition. Apparently patient lives with his daughter who has MRN unable to care for the patient effectively. Tried calling the daughter listed in the chart multiple times however did not get an answer. Additionally also called next of kin listed Yuli Kelly, no answer obtained to discuss patient's care. In his current state patient may not be safe to return home as he is disoriented, does not understand why he is in the hospital at this time. DVT prophylaxis: Currently on Eliquis 2.5 mg twice daily which we will continue. PUD ppx: protonix 40mg daily Attestations Medical Necessity Statement*: coninued need for iv abx, abdominal imaging today , appropriate diposition planning Coding Level of Care Code Acute Code for Chg Fwd Diagnoses UTI (urinary tract infection) N39.0 Encephalopathy G93.40 Generalized weakness R53.1 Complete immobility due to severe physical disability or frailty R53.2 Dementia F03.90 Osteomyelitis M86.9
[2023-02-15] MEDS: sodium chloride 0.9% 1,000 ML 50 ML IV (18:18)
[2023-02-15 20:57] LABS: Glucose Point of Care 148 mg/dL (70-110)
[2023-02-15] MEDS: atorvastatin 40 mg Tablet PO (21:31)
[2023-02-15] MEDS: gabapentin 300 mg Capsule PO (21:33)
[2023-02-16] VITALS: BP 131/61; PULSE 91; RESP 16; TEMP 37; O2SAT 96
[2023-02-16] MEDS: meropenem 1,000 MG in sodium chloride 0.9% (plus) 50 ML 100 MG IV ×2 (02:53→16:00)
[2023-02-16 04:00] VITALS: BP 136/80; PULSE 94; RESP 17; TEMP 37; O2SAT 96
[2023-02-16 05:05] LABS: Basophils % 0.9 %; Eosinophils # 0.1 10^3/uL (0.0-0.8); Eosinophils % 3.6 %; Hematocrit 28.4 % (37-53); Lymphocytes # 1.1 10^3/uL (0.8-4.8); Lymphocytes % 32.6 %; Mean Corpuscular HGB Conc 30.6 g/dL (30-55); Mean Corpuscular Volume 91.3 fl (82-101); Mean Platelet Volume 11.3 fL (7.4-10.4); Monocytes # 0.4 10^3/uL (0.2-0.9); Monocytes % 13.2 %; Neutrophils # 1.65 10^3/uL (1.8-7.7); Neutrophils % 49.4 %; Nucleated Red Blood Cells % 0 %; Platelet Count 60 10^3/cmm (157-399); Red Blood Count 3.11 10^6/uL (3.85-5.65); Red Cell Distribution Width 13.3 % (12.1-15.1); White Blood Count 3.34 10^3/uL (3.29-11.43)
[2023-02-16 05:22] LABS: Alanine Aminotransferase 27 U/L (0-41); Albumin Level 2.7 g/dL (3.5-5.2); Alkaline Phosphatase 53 U/L (40-130); Anion Gap 11.9 (5-19); Aspartate Amino Transferase 22 U/L (0-40); Blood Urea Nitrogen 47 mg/dL (8-23); Calcium 8.3 mg/dL (8.5-10.5); Carbon Dioxide 22 mmol/L (22-29); Chloride 115 mmol/L (98-107); Globulin 2.9 g/dL (1.3-4.6); Glucose 99 mg/dL (65-115); Osmolality Calculated 312 mOsm/kg (285-295); Potassium 3.9 mmol/L (3.5-5.1); Sodium 145 mmol/L (136-145); Total Bilirubin 0.4 mg/dL (0.15-1.2); Total Protein 5.6 g/dL (6.6-8.7)
[2023-02-16] MEDS: finasteride 5 mg Tablet PO (05:27)
[2023-02-16] MEDS: isosorbide mononitrate ER 30 mg Tablet PO (05:27)
[2023-02-16 07:01] LABS: Glucose Point of Care 118 mg/dL (70-110)
[2023-02-16 08:00] VITALS: BP 115/64; PULSE 63; PULSE 81; RESP 16; TEMP 36.6; O2SAT 90; O2SAT 98
[2023-02-16] MEDS: pantoprazole DR 40 mg Tablet PO (09:31)
[2023-02-16] MEDS: apixaban 5 mg Tablet 2.5 MG PO ×2 (09:31→17:51)
[2023-02-16 11:12] LABS: Glucose Point of Care 199 mg/dL (70-110)
[2023-02-16] MEDS: insulin lispro 100 unit/1 mL SUBCUT ×2 (11:31→17:50)
[2023-02-16] MEDS: sodium chloride 0.9% 1,000 ML 50 ML IV (11:31)
[2023-02-16 11:38] VITALS: BP 107/63; PULSE 87; RESP 16; TEMP 36.4; O2SAT 98
--- NOTE | 2023-02-16 14:04 | XR_ITS ---
WS: [id number] Exam: XR chest 1V portable [id number] Date/Time of Exam: 02/16/2023 2:04 PM Reason For Exam: yachypnea Comparison 02/14/2023. The lungs are clear and fully expanded. Normal cardiomediastinal silhouette. Right-sided PICC line march s been removed. No pleural effusions. Bony structures are intact. IMPRESSION: 1. No acute cardiopulmonary finding. 2. Right-sided PICC line has been removed since prior study.
--- NOTE | 2023-02-16 14:08 | ECG_ITS ---
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 Measurements Intervals [place] Rate: 105 P: 0 SD: 0 QRS: -47 QRSD: 95 T: 11 QT: 377 QTc: 500 Interpretive Statements ATRIAL FIBRILLATION WITH RAPID VENTRICULAR RESPONSE WITH ABERRANT CONDUCTION OR VENTRICULAR PREMATURE COMPLEXES LOW QRS VOLTAGE IN PRECORDIAL LEADS LEFT ANTERIOR FASCICULAR BLOCK [QRS AXIS <= -45, QR IN I, RS IN II] VOLTAGE CRITERIA FOR LVH Compared to ECG 02/14/2023 02:16:55 Aberrant conduction of supraventricular beat(s) now present Low QRS voltage now present Left anterior fascicular block now present Left ventricular hypertrophy now present Sinus rhythm no longer present Electronically Signed On 02-16-2023 21:17:59 CDT by Misty Sousa M.D. [id number]
[2023-02-16 14:30] LABS: ABG PH Result 7.56 (7.35-7.45); Arterial Blood Gas Hematocrit 28.7 % (42-52); Base Excess ABG -4.5 mmol/L (-2.0-2.0); Blood Gas Allen Test Pos; Blood Gas Sample Site Radial, right; Blood Gas Sample Type Arterial; HCO3 ABG 16.3 mmol/L (22-26); Oxygen Device ROOM AIR
[2023-02-16 14:48] LABS: Troponin(5th) Baseline 63 ng/L (0-15)
[2023-02-16 14:55] LABS: NT Pro B Type Natriuretic Pept 8327 pg/mL (0-450)
[2023-02-16 15:00] LABS: D Dimer 1.31 ug/mLFEU (0-0.59)
--- NOTE | 2023-02-16 15:00 | P.PN_ITS ---
Subjective Subjective: Patient was seen this morning, he is alert to person, not to place, not to time, he can follow commands, he is he is confused, his has , but he tells me that his is still alive, he can tell me his daughter's name, he lives with his daughter, but cannot provide me any further details, no focal neurologic deficits, I asked him details about his foot, but he is not able to provide me any details, in the afternoon I was alerted by nursing staff as patient looked tachypneic, looked uncomfortable, EKG ordered shows A-fib, with rapid ventricular response, heart rates in the 100s, does have crackles on both lung wyman, chest x-ray ordered, shows mild pulmonary edema, no lower extremity edema on examination, he does not appear to be short of breath, but does look tachypneic, he is able to speak a few sentences, without appearing short of breath, he does not have any shortness of breath complaints, no chest pain complaints, ABG shows hyperventilation, normal pH, normal PO2, will give 40 mg IV push Lasix,, hold IV fluids, follow EKGs, telemetry monitoring Vitals/I&O/Wt Last Vital Signs Temp 97.6 F 02/16/23 11:38 Pulse 87 02/16/23 11:38 Resp 16 02/16/23 11:38 BP 107/63 02/16/23 11:38 Pulse Ox 98 02/16/23 11:38 O2 Del Method Room Air 02/16/23 11:38 O2 Flow Rate 2 02/14/23 08:52 02/16/23 02/16/23 02/16/23 06:59 14:59 22:59 Intake Total 170 / 2180 1340.833 / 1340.833 Output Total 1000 / 0 200 / 200 Balance -830 / 130 1140.833 / 1140.833 Physical Exam Const: COMMON NORMALS: no acute distress ORIENTATION/CONSCIOUSNESS: Yes awake, Yes oriented to person and Yes confused; not oriented to place and not oriented to time Resp: COMMON NORMALS: normal respiratory effort, No retractions, No use of accessory muscles and clear to auscultation bilaterally AUSCULTATION: clear to auscultation bilaterally Cardio: COMMON NORMALS: regular rate, regular rhythm, S1 normal heart sound present and S2 normal heart sound present RATE: regular rate RHYTHM: regular rhythm HEART SOUNDS: S1 normal heart sound present and S2 normal heart sound present GI: COMMON NORMALS: Normal to inspection, nondistended, normoactive bowel sounds present and non-tender Extremity: COMMON NORMALS: no pedal edema Neuro: SENSORIUM/ORIENTATION: Yes oriented to person, No oriented to place and No oriented to time Urinary Catheter Management: Ayala: Cath Placed During This Visit: yes Urinary Catheter Date of Insertion: 02/14/23 Urinary Catheter Time of Insertion: 02:41 Data 02/16/23 04:35 02/16/23 04:35 Micro: Microbiology 02/14/23 02:38 Urine Culture - Final Urine,Clean Catch Escherichia coli esbl Klebsiella pneumoniae A&P Assessment and plan (1) UTI (urinary tract infection): Patient has a past medical history of recurrent urinary tract infections, On methenamine suppression as outpatient. Has a history of nephrolithiasis and obstructive pyelonephritis in the past. Currently presenting with a UTI. Past medical history of multiple ESBL organisms for which meropenem is currently being used as the empiric choice. Urine and blood culture pending (2) Encephalopathy: Possibly secondary to ESBL UTI Neurochecks, aspiration precautions Unknown recent baseline. Per review of outpatient records it appears patient had been attending his providers visits. He was last admitted here in December 2021 with encephalopathy related to UTI and was alert and awake at the time of discharge. He did however improve enough to the point to be able to go home wit [facility]. In reviewing past documentation it appears his had been We had communicated with to relay all pertinent medical information and continued discharge planning. The patient's has since earlier this year. Attempted to reach patient's daughter and listed contact Yuli Robin but unable to reach both of them at this time. (3) Generalized weakness: Reviewing past records from December 2021 it appears patient at that time had poor mobility, loss of tone in bilateral lower extremities. He was using wheelchair to ambulate. (4) Complete immobility due to severe physical disability or frailty: (5) Dementia: (6) Osteomyelitis: Osteomyelitis of the foot. Records requested from [employer]. Unfortunately we do not have any discharge summary yet. On discharge instructions it appears the discharge antibiotic was IV Zyvox and not Zosyn. Uncertain why IV was chosen over oral. Removed, as nonfunctional Patient has a pressure injury over foot , currently getting wet to dry dressing, Dago Campbell will likely need wound care at discharge (7) Tachypnea: Likely secondary to pulm edema and atrial fibrillation with rapid ventricular response, Lasix, monitor respiratory status closely, serial EKGs, troponins, stop IV fluids (8) RASHAD (obstructive sleep apnea): (9) Dyslipidemia: (10) Atrial fibrillation with RVR: A-fib with RVR, serial EKGs, serial troponins, telemetry monitoring, Metroprolol 25 mg twice daily, continue Eliquis 2.5 mg twice daily monitor closely on telemetry Plan Dispo: complicated. Per EMS report, patient was found in home in a very poor condition. Apparently patient lives with his daughter who has MRN unable to care for the patient effectively. Tried calling the daughter listed in the chart multiple times however did not get an answer. Additionally also called next of kin listed Yuli Kelly, no answer obtained to discuss patient's care. In his current state patient may not be safe to return home as he is disoriented, does not understand why he is in the hospital at this time. DVT prophylaxis: Currently on Eliquis 2.5 mg twice daily which we will continue. PUD ppx: protonix 40mg daily Attestations Medical Necessity Statement*: Patient requires hospitalization due to acute encephalopathy, ESBL uti, A-fib with RVR, pulm edema, tachypnea Diagnoses UTI (urinary tract infection) N39.0 Encephalopathy G93.40 Generalized weakness R53.1 Complete immobility due to severe physical disability or frailty R53.2 Dementia F03.90 Osteomyelitis M86.9 Tachypnea R06.82 RASHAD (obstructive sleep apnea) G47.33 Dyslipidemia E78.5 Atrial fibrillation with RVR I48.91
[2023-02-16 15:39] VITALS: BP 139/63; PULSE 96; RESP 18; TEMP 36.8; O2SAT 96
[2023-02-16] MEDS: FUROsemide 10 mg/mL SDV 4mL 40 MG IVP (16:00)
--- NOTE | 2023-02-16 16:04 | ECG_ITS ---
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 Measurements Intervals [place] Rate: 104 P: 0 VT: 0 QRS: -47 QRSD: 96 T: 14 QT: 365 QTc: 480 Interpretive Statements ATRIAL FIBRILLATION WITH RAPID VENTRICULAR RESPONSE WITH ABERRANT CONDUCTION OR VENTRICULAR PREMATURE COMPLEXES LEFT ANTERIOR FASCICULAR BLOCK [QRS AXIS <= -45, QR IN I, RS IN II] VOLTAGE CRITERIA FOR LVH [MEETS CRITERIA IN ONE OF: R(aVL), S(V1), R(V5), R(V5/V6)+S(V1)] Compared to ECG 02/16/2023 14:08:00 No significant changes Electronically Signed On 02-16-2023 21:43:28 CDT by Misty Sousa M.D. [id number]
[2023-02-16 17:14] LABS: Troponin 5 2HR 61.21 ng/L (0-15)
[2023-02-16 17:14] LABS: Glucose Point of Care 164 mg/dL (70-110)
[2023-02-16 17:16] LABS: Troponin 5 2HR Delta -1.79 ABS# (0-10)
[2023-02-16 19:19] VITALS: BP 130/60; PULSE 78; RESP 18; TEMP 37; O2SAT 92
[2023-02-16 20:05] LABS: Glucose Point of Care 113 mg/dL (70-110)
[2023-02-16] MEDS: metoprolol tartrate 25 mg Tablet PO (20:09)
[2023-02-16] MEDS: gabapentin 300 mg Capsule PO (20:09)
[2023-02-16] MEDS: atorvastatin 40 mg Tablet PO (20:09)
--- NOTE | 2023-02-16 20:32 | ECG_ITS ---
[facility] Test Date: 2023-02-16 Pat Name: Yoav Kyle Department: Room: 255 Gender: Male [employer] Agent Group Insurance: : [id number] Requested By: Lyndon Lane Order Number: [id number] Alberto MD: Misty Sousa M.D. Measurements Intervals [place] Rate: 96 P: 0 PA: 0 QRS: -40 QRSD: 97 T: 49 QT: 383 QTc: 484 Interpretive Statements ATRIAL FIBRILLATION WITH ABERRANT CONDUCTION OR VENTRICULAR PREMATURE COMPLEXES LEFT AXIS DEVIATION [QRS AXIS < -30] LOW QRS VOLTAGE IN PRECORDIAL LEADS MINIMAL VOLTAGE CRITERIA FOR LVH, CONSIDER NORMAL VARIANT MINIMAL ST DEPRESSION [0.025+ mV ST DEPRESSION] Compared to ECG 02/16/2023 14:09:24 Left-axis deviation now present Low QRS voltage now present Right ventricular hypertrophy now present ST (T wave) deviation now present Left anterior fascicular block no longer present Electronically Signed On 02-16-2023 21:20:36 CDT by Misty Sousa M.D. [id number]
[2023-02-16 21:20] LABS: Troponin 5 6HR 65.39 ng/L (0-15)
[2023-02-16 21:21] LABS: Troponin 5 6HR Delta 2.39 ng/L (0-12)
[2023-02-17] VITALS (7 sets, daily range): BP systolic 108–135; BP diastolic 60–78; PULSE 69–97; RESP 16–28; TEMP 36.3–37.1; O2SAT 94–99
[2023-02-17] MEDS: meropenem 1,000 MG in sodium chloride 0.9% (plus) 50 ML 100 MG IV ×2 (02:37→16:41)
[2023-02-17 06:18] LABS: Glucose Point of Care 129 mg/dL (70-110)
[2023-02-17 06:24] LABS: Basophils % 0.8 %; Eosinophils # 0.2 10^3/uL (0.0-0.8); Eosinophils % 4.2 %; Hematocrit 28.1 % (37-53); Lymphocytes # 1.4 10^3/uL (0.8-4.8); Lymphocytes % 35.7 %; Mean Corpuscular HGB Conc 31.7 g/dL (30-55); Mean Corpuscular Hemoglobin 28.3 pg (27-33); Mean Corpuscular Volume 89.5 fl (82-101); Mean Platelet Volume 11.2 fL (7.4-10.4); Monocytes # 0.5 10^3/uL (0.2-0.9); Monocytes % 13.3 %; Neutrophils # 1.76 10^3/uL (1.8-7.7); Neutrophils % 45.7 %; Nucleated Red Blood Cells % 0 %; Platelet Count 75 10^3/cmm (157-399); Red Blood Count 3.14 10^6/uL (3.85-5.65); Red Cell Distribution Width 13.4 % (12.1-15.1); White Blood Count 3.84 10^3/uL (3.29-11.43)
[2023-02-17 06:40] LABS: Alanine Aminotransferase 27 U/L (0-41); Alkaline Phosphatase 56 U/L (40-130); Aspartate Amino Transferase 24 U/L (0-40); Blood Urea Nitrogen 44 mg/dL (8-23); C Reactive Protein 6.8 mg/L (0.0-4.9); Carbon Dioxide 22 mmol/L (22-29); Chloride 113 mmol/L (98-107); Globulin 3.3 g/dL (1.3-4.6); Glucose 125 mg/dL (65-115); Magnesium 2.2 mg/dL (1.7-2.3); Osmolality Calculated 311 mOsm/kg (285-295); Phosphorus 3.1 mg/dL (2.5-4.5); Sodium 144 mmol/L (136-145); Total Bilirubin 0.4 mg/dL (0.15-1.2); Total Protein 6.3 g/dL (6.6-8.7)
[2023-02-17 06:48] LABS: NT Pro B Type Natriuretic Pept 8083 pg/mL (0-450)
[2023-02-17 06:49] LABS: Anion Gap 12.7 (5-19); Potassium 3.7 mmol/L (3.5-5.1)
[2023-02-17] MEDS: pantoprazole DR 40 mg Tablet PO (08:33)
[2023-02-17] MEDS: metoprolol tartrate 25 mg Tablet PO ×2 (08:33→20:04)
[2023-02-17] MEDS: isosorbide mononitrate ER 30 mg Tablet PO (08:33)
[2023-02-17] MEDS: apixaban 5 mg Tablet 2.5 MG PO ×2 (08:33→17:43)
[2023-02-17] MEDS: finasteride 5 mg Tablet PO (08:33)
[2023-02-17] MEDS: FUROsemide 10 mg/mL SDV 4mL 40 MG IVP (09:47)
[2023-02-17] MEDS: potassium chloride ER 20 mEq Tablet PO (09:47)
[2023-02-17 11:19] LABS: Glucose Point of Care 200 mg/dL (70-110)
[2023-02-17] MEDS: insulin lispro 100 unit/1 mL SUBCUT ×3 (12:07→20:45)
--- NOTE | 2023-02-17 16:37 | P.PN_ITS ---
Subjective Subjective: Patient was seen this morning he is alert to person, not to place, not to time, he follows commands, no episodes of shortness of breath, denies any fevers, no pain, I reviewed the records from [facility]'s the few documents that I received so far, it shows that he was admitted for left foot osteomyelitis, was placed on IV antibiotic therapy, was on vancomycin, he had a vancomycin trough that was elevated at 17, there was concern for elevated vancomycin levels, so they adjusted the dose, but after that that is old information I have, documentation shows that that note was from February 05, does says there was concerns for left foot osteomyelitis, he was received on our facility on Zosyn and on Zyvox for reasons unknown, still awaiting the records, as there was concern for osteomyelitis and will start him on vancomycin and get, this is likely why he had the PICC line in place, however due to issues with his PICC line, and that it had become obstructed, we will have to replace PICC line, at some point, he is on meropenem for his ESBL UTI, for which she will be on for at least 7 days, as it is multidrug-resistant, will work on alf placement, obtain further records from [facility], continue IV antibiotics, meropenem, vancomycin, spoke to patient, spoke to nursing staff, reviewed records from [facility], have requested further records from [facility] as a record is incomplete Vitals/I&O/Wt Last Vital Signs Temp 97.4 F L 02/17/23 11:03 Pulse 92 02/17/23 11:03 Resp 28 H 02/17/23 11:03 BP 108/60 02/17/23 11:03 Pulse Ox 98 02/17/23 11:03 O2 Del Method Room Air 02/17/23 11:03 O2 Flow Rate 2 02/14/23 08:52 02/17/23 02/17/23 02/17/23 06:59 14:59 22:59 Intake Total 50 / 1784.166 Output Total 1100 / 1999 750 / 750 Balance -1050 / -215.834 -750 / -750 Physical Exam Const: COMMON NORMALS: no acute distress ORIENTATION/CONSCIOUSNESS: Yes awake, Yes oriented to person and Yes oriented to time; not oriented to place Resp: COMMON NORMALS: normal respiratory effort, No retractions, No use of accessory muscles and clear to auscultation bilaterally AUSCULTATION: clear to auscultation bilaterally Cardio: COMMON NORMALS: regular rate, regular rhythm, S1 normal heart sound present and S2 normal heart sound present RATE: regular rate RHYTHM: regular rhythm HEART SOUNDS: S1 normal heart sound present and S2 normal heart sound present GI: COMMON NORMALS: Normal to inspection, nondistended, normoactive bowel sounds present and non-tender Extremity: COMMON NORMALS: no pedal edema Neuro: SENSORIUM/ORIENTATION: Yes oriented to person, No oriented to place and Yes oriented to time Psych: COMMON NORMALS: mental status grossly normal Urinary Catheter Management: Ayala: Cath Placed During This Visit: yes Urinary Catheter Date of Insertion: 02/14/23 Urinary Catheter Time of Insertion: 02:41 Data 02/17/23 05:29 02/17/23 05:29 A&P Assessment and plan (1) UTI (urinary tract infection): Patient has a past medical history of recurrent urinary tract infections, On methenamine suppression as outpatient. Has a history of nephrolithiasis and obstructive pyelonephritis in the past. Currently presenting with a UTI. Past medical history of multiple ESBL organisms for which meropenem is currently being used as the empiric choice. Urine and blood culture shows Klebsiella pneumonia, ESBL UTI ? We will continue meropenem, likely will need a total of 7 days of a Carbapenem, likely Invanz depending on his disposition (2) Encephalopathy: Has dementia, likely back to baseline Possibly secondary to ESBL UTI Neurochecks, aspiration precautions Unknown recent baseline. Per review of outpatient records it appears patient had been attending his providers visits. He was last admitted here in December 2021 with encephalopathy related to UTI and was alert and awake at the time of discharge. He did however improve enough to the point to be able to go home with home health. In reviewing past documentation it appears his had been We had communicated with to relay all pertinent medical information and continued discharge planning. The patient's has since earlier this year. Attempted to reach patient's daughter and listed contact Yuli Kelly but unable to reach both of them at this time. (3) Generalized weakness: Reviewing past records from December 2021 it appears patient at that time had poor mobility, loss of tone in bilateral lower extremities. He was using wheelchair to ambulate. (4) Complete immobility due to severe physical disability or frailty: (5) Dementia: (6) Osteomyelitis: Osteomyelitis of the foot. Records requested from [facility]. Unfortunately we do not have any discharge summary yet. On discharge instructions it appears the discharge antibiotic was IV Zyvox and not Zosyn. Uncertain why IV was chosen over oral. picc line Removed, as nonfunctional Records so far show evidence left foot osteomyelitis was on vancomycin at some point with elevated vancomycin troughs, still waiting on further records to figure out how he ended up on Zyvox and Zosyn ? For now as there was concern for osteomyelitis and he was just discharged on the 02/13, will likely need to cover him with vancomycin for osteomyelitis Patient has a pressure injury over foot , currently getting wet to dry dressing, Hydrofera Blue will likely need wound care at discharge (7) Tachypnea: Likely secondary to pulm edema and atrial fibrillation with rapid ventricular response, Lasix, monitor respiratory status closely, serial EKGs, troponins, stop IV fluids (8) RASHAD (obstructive sleep apnea): (9) Dyslipidemia: (10) Atrial fibrillation with RVR: A-fib with RVR, serial EKGs, serial troponins, telemetry monitoring, Metroprolol 25 mg twice daily, continue Eliquis 2.5 mg twice daily monitor closely on telemetry (11) UTI due to extended-spectrum beta lactamase (ESBL) producing Escherichia coli: Plan Dispo: complicated. Per EMS report, patient was found in home in a very poor condition. Apparently patient lives with his daughter who has MRN unable to care for the patient effectively. Tried calling the daughter listed in the chart multiple times however did not get an answer. Additionally also called next of kin listed Yuli Kelly, no answer obtained to discuss patient's care. In his current state patient may not be safe to return home as he is disoriented, does not understand why he is in the hospital at this time. DVT prophylaxis: Currently on Eliquis 2.5 mg twice daily which we will continue. PUD ppx: protonix 40mg daily Attestations Medical Necessity Statement*: Patient requires hospitalization for ESBL E. coli UTI, osteomyelitis, and High MDM includes number and complexity of problems actively addressed during encounter, amount and/or complexity of data reviewed/ordered and described risk of complication, morbidity or mortality of management as documented Diagnoses UTI (urinary tract infection) N39.0 Encephalopathy G93.40 Generalized weakness R53.1 Complete immobility due to severe physical disability or frailty R53.2 Dementia F03.90 Osteomyelitis M86.9 Tachypnea R06.82 RASHAD (obstructive sleep apnea) G47.33 Dyslipidemia E78.5 Atrial fibrillation with RVR I48.91 UTI due to extended-spectrum beta lactamase (ESBL) producing Escherichia coli N39.0; B96.29; Z16.12
[2023-02-17 16:39] LABS: Glucose Point of Care 163 mg/dL (70-110)
[2023-02-17 17:03] LABS: Erythrocyte Sedimentation Rate 28 mm/hr (0-10)
[2023-02-17] MEDS: polyethylene glycol 3350 Pkt 17 gm PO (17:42)
[2023-02-17] MEDS: docusate sodium 100 mg Capsule PO (17:42)
[2023-02-17] MEDS: vancomycin 1,000 MG in sodium chloride 0.9% 250 ML 250 MG IV (17:43)
[2023-02-17] MEDS: gabapentin 300 mg Capsule PO (20:04)
[2023-02-17] MEDS: atorvastatin 40 mg Tablet PO (20:04)
[2023-02-17 20:54] LABS: Glucose Point of Care 199 mg/dL (70-110)
[2023-02-18] VITALS (7 sets, daily range): BP systolic 97–118; BP diastolic 40–65; PULSE 64–106; RESP 15–18; TEMP 36.5–37.3; O2SAT 94–98
[2023-02-18] MEDS: meropenem 1,000 MG in sodium chloride 0.9% (plus) 50 ML 100 MG IV ×2 (02:38→14:38)
[2023-02-18 05:10] LABS: Basophils % 0.5 %; Eosinophils # 0.2 10^3/uL (0.0-0.8); Eosinophils % 5.9 %; Hematocrit 28.4 % (37-53); Lymphocytes # 1.3 10^3/uL (0.8-4.8); Mean Corpuscular Hemoglobin 28.6 pg (27-33); Mean Corpuscular Volume 92.2 fl (82-101); Mean Platelet Volume 11.5 fL (7.4-10.4); Monocytes # 0.6 10^3/uL (0.2-0.9); Monocytes % 14.3 %; Nucleated Red Blood Cells % 0 %; Platelet Count 74 10^3/cmm (157-399); Red Blood Count 3.08 10^6/uL (3.85-5.65); Red Cell Distribution Width 13.5 % (12.1-15.1); White Blood Count 3.91 10^3/uL (3.29-11.43)
[2023-02-18 05:35] LABS: Alanine Aminotransferase 25 U/L (0-41); Alkaline Phosphatase 57 U/L (40-130); Anion Gap 13.3 (5-19); Aspartate Amino Transferase 24 U/L (0-40); Blood Urea Nitrogen 44 mg/dL (8-23); C Reactive Protein 5.2 mg/L (0.0-4.9); Calcium 8.8 mg/dL (8.5-10.5); Carbon Dioxide 24 mmol/L (22-29); Chloride 114 mmol/L (98-107); Globulin 3.3 g/dL (1.3-4.6); Glucose 102 mg/dL (65-115); Magnesium 2.3 mg/dL (1.7-2.3); Osmolality Calculated 315 mOsm/kg (285-295); Phosphorus 3.7 mg/dL (2.5-4.5); Potassium 4.3 mmol/L (3.5-5.1); Sodium 147 mmol/L (136-145); Total Bilirubin 0.4 mg/dL (0.15-1.2); Total Protein 6.3 g/dL (6.6-8.7)
[2023-02-18 05:39] LABS: NT Pro B Type Natriuretic Pept 9782 pg/mL (0-450)
[2023-02-18 06:29] LABS: Glucose Point of Care 114 mg/dL (70-110)
[2023-02-18] MEDS: metoprolol tartrate 25 mg Tablet PO ×2 (08:29→21:43)
[2023-02-18] MEDS: docusate sodium 100 mg Capsule PO ×2 (08:29→17:16)
[2023-02-18] MEDS: finasteride 5 mg Tablet PO (08:30)
[2023-02-18] MEDS: apixaban 5 mg Tablet 2.5 MG PO ×2 (08:30→17:16)
[2023-02-18] MEDS: isosorbide mononitrate ER 30 mg Tablet PO (08:30)
[2023-02-18] MEDS: pantoprazole DR 40 mg Tablet PO (08:30)
[2023-02-18] MEDS: polyethylene glycol 3350 Pkt 17 gm PO (08:38)
[2023-02-18 10:24] LABS: ABG PCO2 18.2 mmHg (35-45)
--- NOTE | 2023-02-18 11:34 | XR_ITS ---
WS: [id number] Exam: XR chest 1V portable [id number] Date/Time of Exam: 02/18/2023 1:49 PM Reason For Exam: Post PICC insertion Comparison 02/16/2023. A left-sided PICC line has been placed and ends in the lower one third of the SVC and satisfactory po sition. The lungs are clear and fully expanded as visualized. The RIGHT lung base is out of the field -of-view. Mild cardiac enlargement. Regional bony elements are intact. The mediastinum is normal in c ontour for technique. IMPRESSION: 1. Left-sided PICC line in satisfactory position. 2. No acute process identified. Mild cardiac enlargement.
[2023-02-18 12:11] LABS: Glucose Point of Care 187 mg/dL (70-110)
[2023-02-18] MEDS: insulin lispro 100 unit/1 mL SUBCUT ×3 (12:16→21:43)
--- NOTE | 2023-02-18 14:17 | PC.NURSE ---
Single lumen PICC placed to left basilic vein. Referred for PICC placement for IV antibiotics. Pt has history of dementia and is only oriented to person. Risks and benefits discussed and informed consent obtained from pt Faye mena. Pt recently had PICC in right arm that was dc'd due to occlusion and pain. Left arm assessed with left basilic vein measuring 4 mm, straight, and apparent best choice for placement. Using sterile technique and MST, left basilic vein accessed x 1 stick. Mid-arm circumference measured 10 cm from left AC 26 cm. Trimmed cath 42 cm with 0 cm external length noted. CXR shows tip in lower third of SVC, in good position for use per radiologist. Line secured with stat-lock. Insertion site covered with Biopatch and TSM. Report given to bedside nurse, Meme.
--- NOTE | 2023-02-18 15:14 | P.PN_ITS ---
Subjective Subjective: Patient was seen this morning, he is alert alert to person, not to place, not to time, he does follow commands, he is much more alert and awake, no evidence of shortness of breath, he has no abdominal pain complaints, no chest pain complaints, no shortness of breath Vitals/I&O/Wt Last Vital Signs Temp 98.0 F 02/18/23 11:38 Pulse 93 02/18/23 11:38 Resp 16 02/18/23 11:38 BP 100/57 02/18/23 11:38 Pulse Ox 96 02/18/23 11:38 O2 Del Method Room Air 02/18/23 11:38 O2 Flow Rate 2 02/14/23 08:52 02/18/23 02/18/23 02/18/23 06:59 14:59 22:59 Intake Total 170 / 830 480 / 480 Output Total 750 / 1800 200 / 200 Balance -580 / -970 280 / 280 Physical Exam Const: COMMON NORMALS: no acute distress Resp: COMMON NORMALS: normal respiratory effort, No retractions, No use of accessory muscles and clear to auscultation bilaterally AUSCULTATION: clear to auscultation bilaterally Cardio: COMMON NORMALS: regular rate, regular rhythm, S1 normal heart sound present and S2 normal heart sound present RATE: regular rate RHYTHM: regular rhythm HEART SOUNDS: S1 normal heart sound present and S2 normal heart sound present GI: COMMON NORMALS: Normal to inspection, nondistended, normoactive bowel sounds present and non-tender Extremity: COMMON NORMALS: no pedal edema Urinary Catheter Management: Ayala: Cath Placed During This Visit: yes Urinary Catheter Date of Insertion: 02/14/23 Urinary Catheter Time of Insertion: 02:41 Data 02/18/23 04:43 02/18/23 04:43 A&P Assessment and plan (1) UTI (urinary tract infection): Patient has a past medical history of recurrent urinary tract infections, On methenamine suppression as outpatient. Has a history of nephrolithiasis and obstructive pyelonephritis in the past. Currently presenting with a UTI. Past medical history of multiple ESBL organisms for which meropenem is currently being used as the empiric choice. Urine and blood culture shows Klebsiella pneumonia, ESBL UTI ? We will continue meropenem, likely will need a total of 7 days of a Carbapenem, likely Invanz depending on his disposition (2) Encephalopathy: Has dementia, likely back to baseline Possibly secondary to ESBL UTI Neurochecks, aspiration precautions Unknown recent baseline. Per review of outpatient records it appears patient had been attending his providers visits. He was last admitted here in December 2021 with encephalopathy related to UTI and was alert and awake at the time of discharge. He did however improve enough to the point to be able to go home with home health. In reviewing past documentation it appears his had been We had communicated with to relay all pertinent medical information and con tinued discharge planning. The patient's has since earlier this year. Attempted to reach patient's daughter and listed contact Yuli Robin but unable to reach both of them at this time. (3) Generalized weakness: Reviewing past records from December 2021 it appears patient at that time had poor mobility, loss of tone in bilateral lower extremities. He was using wheelchair to ambulate. (4) Complete immobility due to severe physical disability or frailty: (5) Dementia: (6) Osteomyelitis: Osteomyelitis of the foot. Records requested from [facility]. Unfortunately we do not have any discharge summary yet. On discharge instruc tions it appears the discharge antibiotic was IV Zyvox and not Zosyn. Uncertain why IV was chosen over oral. picc line Removed, as nonfunctional Records so far show evidence left foot osteomyelitis was on vancomycin at some point with elevated vancomycin troughs, still waiting on further records to figure out how he ended up on Zyvox and Zosyn ? For now as there was concern for osteomyelitis and he was just discharged on the 02/13, will likely need to cover him with vancomycin for osteomyelitis -We will place a PICC line, plan on vancomycin, for a minimum of 6 weeks, for osteomyelitis, start date will be 02/05/2023 Patient has a pressure injury over foot , currently getting wet to dry dressing, Hydrofera Blue will likely need wound care at discharge (7) Tachypnea: Likely secondary to pulm edema and atrial fibrillation with rapid ventricular response, Lasix, monitor respiratory status closely, serial EKGs, troponins, stop IV fluids (8) RASHAD (obstructive sleep apnea): (9) Dyslipidemia: (10) Atrial fibrillation with RVR: A-fib with RVR, serial EKGs, serial troponins, telemetry monitoring, Metroprolol 25 mg twice daily, continue Eliquis 2.5 mg twice daily monitor closely on telemetry (11) UTI due to extended-spectrum beta lactamase (ESBL) producing Escherichia coli: Plan Dispo: complicated. Per EMS report, patient was found in home in a very poor condition. Apparently patient lives with his daughter who has MRN unable to care for the patient effectively. Tried calling the daughter listed in the chart multiple times however did not get an answer. Additionally also called next of kin listed Yuli Kelly, no answer obtained to discuss patient's care. In his current state patient may not be safe to return home as he is disoriented, does not understand why he is in the hospital at this time. DVT prophylaxis: Currently on Eliquis 2.5 mg twice daily which we will continue. PUD ppx: protonix 40mg daily Attestations 2 Medical Necessity Statement*: Patient requires hospitalization for ESBL E. coli UTI, osteomyelitis requiring IV antibiotic Diagnoses UTI (urinary tract infection) N39.0 Encephalopathy G93.40 Generalized weakness R53.1 Complete immobility due to severe physical disability or frailty R53.2 Dementia F03.90 Osteomyelitis M86.9 Tachypnea R06.82 RASHAD (obstructive sleep apnea) G47.33 Dyslipidemia E78.5 Atrial fibrillation with RVR I48.91 UTI due to extended-spectrum beta lactamase (ESBL) producing Escherichia coli N39.0; B96.29; Z16.12
[2023-02-18 16:57] LABS: Glucose Point of Care 210 mg/dL (70-110)
[2023-02-18 21:24] LABS: Glucose Point of Care 242 mg/dL (70-110)
[2023-02-18] MEDS: gabapentin 300 mg Capsule PO (21:43)
[2023-02-18] MEDS: atorvastatin 40 mg Tablet PO (21:43)
[2023-02-19] MEDS: meropenem 1,000 MG in sodium chloride 0.9% (plus) 50 ML 100 MG IV ×2 (03:13→14:27)
[2023-02-19 04:25] VITALS: BP 146/65; PULSE 78; RESP 16; TEMP 36.7; O2SAT 95
[2023-02-19 05:19] LABS: Basophils % 0.2 %; Eosinophils # 0.2 10^3/uL (0.0-0.8); Eosinophils % 4.4 %; Lymphocytes # 1.4 10^3/uL (0.8-4.8); Lymphocytes % 29.2 %; Mean Corpuscular HGB Conc 31.1 g/dL (30-55); Mean Corpuscular Hemoglobin 28.4 pg (27-33); Mean Corpuscular Volume 91.5 fl (82-101); Mean Platelet Volume 11.3 fL (7.4-10.4); Monocytes # 0.5 10^3/uL (0.2-0.9); Monocytes % 11.3 %; Neutrophils # 2.61 10^3/uL (1.8-7.7); Neutrophils % 54.5 %; Nucleated Red Blood Cells % 0 %; Platelet Count 92 10^3/cmm (157-399); Red Blood Count 3.06 10^6/uL (3.85-5.65); Red Cell Distribution Width 13.5 % (12.1-15.1); White Blood Count 4.79 10^3/uL (3.29-11.43)
[2023-02-19] MEDS: vancomycin 1,000 MG in sodium chloride 0.9% 250 ML 250 MG IV (05:20)
[2023-02-19 05:40] LABS: Alanine Aminotransferase 28 U/L (0-41); Alkaline Phosphatase 58 U/L (40-130); Aspartate Amino Transferase 25 U/L (0-40); Blood Urea Nitrogen 49 mg/dL (8-23); C Reactive Protein 3.5 mg/L (0.0-4.9); Calcium 8.7 mg/dL (8.5-10.5); Carbon Dioxide 24 mmol/L (22-29); Chloride 111 mmol/L (98-107); Globulin 3.2 g/dL (1.3-4.6); Glucose 132 mg/dL (65-115); Magnesium 2.1 mg/dL (1.7-2.3); Osmolality Calculated 311 mOsm/kg (285-295); Phosphorus 2.8 mg/dL (2.5-4.5); Sodium 143 mmol/L (136-145); Total Bilirubin 0.3 mg/dL (0.15-1.2); Total Protein 6.2 g/dL (6.6-8.7)
[2023-02-19 05:46] LABS: NT Pro B Type Natriuretic Pept 9422 pg/mL (0-450)
[2023-02-19 06:55] LABS: Glucose Point of Care 125 mg/dL (70-110)
[2023-02-19 08:20] VITALS: BP 98/55; PULSE 91; RESP 14; TEMP 36.7; O2SAT 97
[2023-02-19] MEDS: docusate sodium 100 mg Capsule PO (09:15)
[2023-02-19] MEDS: finasteride 5 mg Tablet PO (09:15)
[2023-02-19] MEDS: pantoprazole DR 40 mg Tablet PO (09:15)
[2023-02-19] MEDS: apixaban 5 mg Tablet 2.5 MG PO ×2 (09:16→17:32)
[2023-02-19] MEDS: isosorbide mononitrate ER 30 mg Tablet PO (09:16)
--- NOTE | 2023-02-19 09:42 | ECG_ITS ---
[facility] Test Date: 2023-02-19 Pat Name: Yoav Kyle Department: Room: 253 Gender: Male Administrative Intern: : 1940 Requested By: Lyndon Lane Order Number: [id number] Alberto MD: Misty Sousa M.D. Measurements Intervals [place] Rate: 96 P: 0 [place]: 0 QRS: -36 QRSD: 93 T: -14 QT: 371 QTc: 469 Interpretive Statements ATRIAL FIBRILLATION WITH ABERRANT CONDUCTION OR VENTRICULAR PREMATURE COMPLEXES WARNING: DATA QUALITY MAY AFFECT INTERPRETATION Compared to ECG 02/16/2023 20:32:49 Left-axis deviation no longer present ST (T wave) deviation no longer present Electronically Signed On 02-19-2023 11:32:43 CDT by Misty Sousa M.D. [email or web address]
--- NOTE | 2023-02-19 11:17 | P.DS_ITS ---
Discharge Providers Date of Admission: 02/14/23 16:08 Date of Discharge: February 19, 2023 Attending Provider at Admission: Kirti Mendosa MD Attending Provider at Discharge: Lyndon Lane MD Primary Care Provider: Faye Zamora MD Diagnoses at Discharge Discharge Diagnosis (1) UTI (urinary tract infection): Status: Acute (2) Encephalopathy: Status: Acute (3) Generalized weakness: Status: Acute (4) Complete immobility due to severe physical disability or frailty: Status: Acute (5) Dementia: Status: Acute (6) Osteomyelitis: Status: Acute (7) Tachypnea: Status: Acute (8) RASHAD (obstructive sleep apnea): Status: Acute (9) Dyslipidemia: Status: Acute (10) Atrial fibrillation with RVR: Status: Acute (11) UTI due to extended-spectrum beta lactamase (ESBL) producing Escherichia coli: Status: Acute Reason for Visit Reason for Visit: FALL Hospital Course Hospital Course Yoav Kyle is a 83 year old male with history of dementia congestive heart failure hypertension dyslipidemia obstructive sleep apnea atherosclerotic heart disease CKD stage III GERD DVT on Eliquis PTSD recurrent nephrolithiasis recurrent UTI was brought in by EMS with confusion and unable to take care of himself.? He was discharged on 02/13 from [facility] after being treated for left foot osteomyelitis immobility and generalized weakness.? He was discharged home with a PICC line and was scheduled to get IV Zosyn/IV zyvox twice a day for 6 weeks. This is a 83-year-old male with dementia, who presents to [facility] for increased confusion, diagnosed with ESBL E. coli UTI, managed with meropenem during his hospitalization, PICC line had to be replaced as it was nonfunctioning, discharged on 2 remaining days of IV ertapenem For his left foot osteomyelitis, immobility, it was difficult to get records from [facility], the records that I received so far are missing quite a few records, for quite a few days, I do not have a start date on the antibiotics, but it seems as if from the records that they start antibiotics on 02/05/2023, nor am I exactly sure why they switched over to Zyvox and Zosyn, as he was originally on vancomycin, nor do I have any culture results. Patient was managed with vancomycin during his hospitalization, tolerated it well, no adverse effects, blood cultures have been unremarkable so far. We will manage him on vancomycin, 1 g every 36 hours with a recheck vancomycin trough at 4 AM on 02/23/2023, with the estimated start date on 02/05/2023 and a stop date of March 20, 2023. I will also discharge him on Augmentin after the ertapenem e has completed for anaerobic coverage for his left foot osteomyelitis. For patient's encephalopathy, after 48 hours of antibiotic treatments, he remains alert to person, not to place, not to time, at times she can recognize me as his physician, he knows his daughter's name, at times he tells me that his is alive but in fact she has but at other times he corrects himself. I suspect he has severe underlying dementia, and that this is now his baseline, at times he can follow commands, but at other times he remains pleasantly confused. We will discharge him to halfway facility. For atrial fibrillation, managed with metoprolol, Eliquis on discharge Patient's recently , patient's next of kin is her daughter, who helped with decision making, arrangements were made to place patient at halfway facility when I personally asked patient if he wanted to go to a halfway facility he was agreeable, but with his underlying dementia I do not believe he has capacity to make decisions. Patient's daughter has been reliable, with decision making, and has help place patient on care home. Physical Exam Const: COMMON NORMALS: no acute distress ORIENTATION/CONSCIOUSNESS: Yes awake and Yes oriented to person; not oriented to place and not oriented to time Resp: COMMON NORMALS: normal respiratory effort, No retractions, No use of accessory muscles and clear to auscultation bilaterally AUSCULTATION: clear to auscultation bilaterally Cardio: COMMON NORMALS: regular rate, regular rhythm, S1 normal heart sound present and S2 normal heart sound present RATE: regular rate RHYTHM: regular rhythm HEART SOUNDS: S1 normal heart sound present and S2 normal heart sound present GI: COMMON NORMALS: Normal to inspection, nondistended, normoactive bowel sounds present and non-tender Extremity: COMMON NORMALS: no pedal edema Neuro: SENSORIUM/ORIENTATION: Yes oriented to person, No oriented to place and No oriented to time Urinary Catheter Management: Ayala: Cath Placed During This Visit: yes Urinary Catheter Date of Insertion: 02/14/23 Urinary Catheter Time of Insertion: 02:41 Discharge Data Studies Completed and Pending Completed Studies During Hospitalization Category Date Time Status CT abdomen renal stone [CT kidney stone [id number]] Routine Cat Scan 02/15/23 17:[address] head wo con* [id number] Stat Cat Scan 02/14/23 03:03 Completed CXRP [XR chest 1V portable [id number]] Routine Exams 02/18/23 11:34 Completed XR chest 1V portable [id number] Routine Exams 02/16/23 14:04 Completed XR chest 1V portable [id number] Stat Exams 02/14/23 00:54 Completed XR foot LT min 3V* [id number] Stat Exams 02/14/23 02:29 [place] [id number] Stat Ultrasound 02/14/23 12:16 Completed Pending at discharge Category Date Time Status Coronavirus PCR Routine Lab 02/16/23 10:18 Ordered Radiology Impressions Foot X-Ray 02/14/23 02:29 IMPRESSION: No fracture or focal bone destruction noted. Based on history, MRI may be helpful Head CT 02/14/23 03:03 IMPRESSION: 1. No acute intracranial hemorrhage. 2. Moderate age-related changes. A few scattered old lacunes are likely. 3. If there is concern for acute CVA, MRI may be helpful. Venous Duplex 02/14/23 12:16 IMPRESSION: No evidence of deep vein thrombosis. Abdomen/Pelvis CT 02/15/23 17:36 IMPRESSION: 1. Ayala catheter in the urinary bladder with wall thickening and surrounding edema, please correlate for cystitis, nondistention is also consideration for the appearance. 2. 2.6 cm saccular infrarenal abdominal aortic aneurysm, similar to prior exam. 3. Cardiomegaly. 4. Coronary artery atherosclerotic calcifications. 5. Trace bilateral pleural effusions. 6. Moderate hiatal hernia. 7. Cholelithiasis. 8. Left adrenal 3.4 cm partially calcified nodule similar to prior exams, likely reflects a benign lesion given stability in appearance. 9. Right kidney nonobstructing calculus. 10. Left kidney cyst, negative for follow-up advised. 11. Moderate constipation. 12. Diverticulosis without diverticulitis. 13. Left hip arthroplasty changes. Laboratory Results WBC 4.79 10^3/uL (3.29-11.43) 02/19/23 04:47 RBC 3.06 10^6/uL (3.85-5.65) L 02/19/23 04:47 Hgb 8.70 g/dL (11.27-16.99) L 02/19/23 04:47 Hct 28.0 % (37-53) L 02/19/23 04:47 MCV 91.5 fl (82-101) 02/19/23 04:47 MCH 28.4 pg (27-33) 02/19/23 04:47 MCHC 31.1 g/dL (30-55) 02/19/23 04:47 RDW 13.5 % (12.1-15.1) 02/19/23 04:47 Plt Count 92 10^3/cmm (157-399) L 02/19/23 04:47 MPV 11.3 fL (7.4-10.4) H 02/19/23 04:47 Neut % (Auto) 54.5 % 02/19/23 04:47 Lymph % (Auto) 29.2 % 02/19/23 04:47 [place] % (Auto) 11.3 % 02/19/23 04:47 Eos % (Auto) 4.4 % 02/19/23 04:47 Baso % (Auto) 0.2 % 02/19/23 04:47 Neut # (Auto) 2.61 10^3/uL (1.8-7.7) 02/19/23 04:47 Lymph # (Auto) 1.4 10^3/uL (0.8-4.8) 02/19/23 04:47 [place] # (Auto) 0.5 10^3/uL (0.2-0.9) 02/19/23 04:47 Eos # (Auto) 0.2 10^3/uL (0.0-0.8) 02/19/23 04:47 Baso # (Auto) 0.0 10^3/uL (0.0-0.1) 02/19/23 04:47 Nucleated RBC % (auto) 0 % 02/19/23 04:47 Nucleated RBCs # 0.0 /100WBC 02/19/23 04:47 ESR 28 mm/hr (0-10) H 02/17/23 05:29 D-Dimer 1.31 ug/mLFEU (0-0.59) H 02/16/23 14:34 Specimen Type Arterial 02/16/23 14:19 Sample Site Radial, right 02/16/23 14:19 ABG pH 7.56 (7.35-7.45) H 02/16/23 14:19 ABG pCO2 18.2 mmHg (35-45) L* 02/16/23 14:19 ABG pO2 114.0 mmHg (80.0-100.0) H 02/16/23 14:19 ABG HCO3 16.3 mmol/L (22-26) L 02/16/23 14:19 ABG Base Excess -4.5 mmol/L (-2.0-2.0) L 02/16/23 14:19 Thierry Test Pos 02/16/23 14:19 Hematocrit 28.7 % (42-52) L 02/16/23 14:19 O2 Delivery Device Room air 02/16/23 14:19 O2 Liters/Min 4.0 % 02/14/23 03:23 Pony Ride Attendant ID Richard 02/16/23 14:19 Sodium 143 mmol/L (136-145) 02/19/23 04:47 Potassium 4.0 mmol/L (3.5-5.1) 02/19/23 04:47 Chloride 111 mmol/L (98-107) H 02/19/23 04:47 Carbon Dioxide 24 mmol/L (22-29) 02/19/23 04:47 Anion Gap 12.0 (5-19) 02/19/23 04:47 BUN 49 mg/dL (8-23) H 02/19/23 04:47 Creatinine 1.6 mg/dL (0.7-1.2) H 02/19/23 04:47 GFR Calculation Not Reportable 02/19/23 04:47 Glucose 132 mg/dL (65-115) H 02/19/23 04:47 POC Glucose 125 mg/dL (70-110) H 02/19/23 06:38 Calculated Osmolality 311 mOsm/kg (285-295) H 02/19/23 04:47 Lactic Acid 4.1 mmol/L (0.5-2.2) H* 02/14/23 01:15 Lactic Acid (Sepsis) 2.5 mmol/L (0.5-2.2) H 02/14/23 04:41 Lactate 1.5 mmol/L (0.5-2.2) 02/15/23 04:32 Calcium 8.7 mg/dL (8.5-10.5) 02/19/23 04:47 Phosphorus 2.8 mg/dL (2.5-4.5) 02/19/23 04:47 Magnesium 2.1 mg/dL (1.7-2.3) 02/19/23 04:47 Total Bilirubin 0.3 mg/dL (0.15-1.2) 02/19/23 04:47 AST 25 U/L (0-40) 02/19/23 04:47 ALT 28 U/L (0-41) 02/19/23 04:47 Alkaline Phosphatase 58 U/L (40-130) 02/19/23 04:47 Creatine Kinase 207 U/L (39-308) 02/14/23 01:15 Troponin T Baseline 63 ng/L (0-15) H 02/16/23 14:19 Troponin T 120 Minute 61.21 ng/L (0-15) H 02/16/23 16:38 Delta Troponin T -1.79 ABS# (0-10) L 02/16/23 16:38 Troponin T Hi Sens 6Hr 65.39 ng/L (0-15) H 02/16/23 20:50 Troponin T Hi Sens 6Hr Delta 2.39 ng/L (0-12) 02/16/23 20:50 C-Reactive Protein 3.5 mg/L (0.0-4.9) 02/19/23 04:47 NT-Pro-B Natriuret Pep 9422 pg/mL (0-450) H 02/19/23 04:47 Total Protein 6.2 g/dL (6.6-8.7) L 02/19/23 04:47 Albumin 3.0 g/dL (3.5-5.2) L 02/19/23 04:47 Globulin 3.2 g/dL (1.3-4.6) 02/19/23 04:47 Procalcitonin 0.21 ng/mL (0-0.5) 02/14/23 01:15 Urine Color Yellow (Yellow) 02/14/23 02:38 Urine Appearance Hazy (CLEAR) A 02/14/23 02:38 Urine pH 5 (5-7) 02/14/23 02:38 Ur Specific [place] 1.010 (1.005-1.030) 02/14/23 02:38 Urine Protein Trace (Negative) 02/14/23 02:38 Urine Glucose (UA) Norm (Normal) 02/14/23 02:38 Urine Ketones Negative (Negative) 02/14/23 02:38 Urine Blood 3+ (Negative) H 02/14/23 02:38 Urine Nitrate Negative (Negative) 02/14/23 02:38 Urine Bilirubin Neg (Negative) 02/14/23 02:38 Urine Urobilinogen Neg mg/dL (Negative) 02/14/23 02:38 Ur Leukocyte Esterase 2+ (Negative) H 02/14/23 02:38 Urine RBC 5-10 /hpf (0-2) H 02/14/23 02:38 Urine WBC >100 /hpf (0-5) H 02/14/23 02:38 Ur Squamous Epith Cells 0-4 /hpf (0-5) H 02/14/23 02:38 Amorphous Sediment Not Reportable 02/14/23 02:38 Urine Bacteria Trace /hpf (NONE) 02/14/23 02:38 Urine Opiates Screen Negative ng/mL (Negative) 02/14/23 02:38 Ur Barbiturates Screen Negative ng/mL (Negative) 02/14/23 02:38 Ur Phencyclidine Scrn Negative ng/mL (Negative) 02/14/23 02:38 Ur Amphetamines Screen Negative ng/mL (Negative) 02/14/23 02:38 U Benzodiazepines Scrn Negative ng/mL (Negative) 02/14/23 02:38 Urine Cocaine Screen Negative ng/mL (Negative) 02/14/23 02:38 U Marijuana (THC) Screen Negative ng/mL (Negative) 02/14/23 02:38 Ethyl Alcohol < 10 mg/dL (0-10) 02/14/23 01:15 Vitals Last Vital Signs Temp 98.1 F 02/19/23 08:20 Pulse 91 02/19/23 08:20 Resp 14 02/19/23 08:20 BP 98/55 02/19/23 08:20 Pulse Ox 97 02/19/23 08:20 O2 Del Method Room Air 02/19/23 08:20 O2 Flow Rate 2 02/14/23 08:52 Discharge Plan Discharge Patient Disposition: Xfer SNF Condition: Stable Prescriptions: New amoxicillin-pot clavulanate 875-125 mg tablet 1 tab PO BID 33 Days Qty: 66 0RF Rx Instructions: start 02/22/2023, stop date docusate sodium 100 mg Capsule 100 mg PO BID 30 Days Qty: 60 0RF ertapenem 1 gram recon soln 1 g IV Q24H 2 Days Qty: 2 0RF vancomycin in 0.9 % sodium chl 1 gram/200 mL piggyback 1 g IV Q36H Qty: 1200 0RF Rx Instructions: stop date March 20/2023, recheck vanc trough 0400 at Continued ascorbate calcium (vitamin C) 500 mg tablet 1,000 mg PO BID ferrous sulfate 142 mg (45 mg iron) tablet extended release 142 mg PO QAM metoprolol tartrate 25 mg tablet 25 mg PO BID sertraline 100 mg tablet 100 mg PO QAM apixaban 5 mg tablet 2.5 mg PO BID mupirocin 2 % ointment 1 applic TOPICAL BID Qty: 30 0RF fluticasone propionate [Flonase Allergy Relief] 50 mcg/actuation spray,suspension 2 spray INTRANASAL DAILY Qty: 16 3RF Rx Instructions: administer into each nostril furosemide [Lasix] 40 mg tablet 40 mg PO QAM potassium chloride 20 mEq tablet extended release 20 meq PO QAM (DME) lancets 30 gauge misc See Rx Instructions .Route Qty: 100 5RF Rx Instructions: use tid (DME) True Metrix Glucose Test Strip Strip See Rx Instructions .Route Qty: 100 6RF Rx Instructions: USE THREE TIMES DAILY TO CHECK BLOOD SUGAR pantoprazole 40 mg tablet,delayed release (DR/EC) 40 mg PO QAM gabapentin 300 mg capsule 300 mg PO BEDTIME atorvastatin 80 mg Tablet 40 mg PO BEDTIME PreserVision AREDS-2 250-90-40-1 mg Capsule 1 tab PO QAM diclofenac sodium 1 % Kit 2 g TOPICAL QID PRN (Reason: Pain) Rx Instructions: apply to single elbow, wrist or hand; for hand includes palm/fingers/back of hand finasteride [Proscar] 5 mg Tablet 5 mg PO QAM cholecalciferol (vitamin D3) [Vitamin D3] 125 mcg (5,000 unit) Tablet 125 mcg PO QAM A and D Ointment 1 applic TOPICAL TID PRN (Reason: Skin Irritation) Remedy Calazime Protect Paste 0.2-20 % Paste 1 applic TOPICAL DAILY insulin aspart U-100 [Novolog FlexPen U-100 Insulin] 100 unit/mL (3 mL) insulin pen See Rx Instructions SUBCUT TID Qty: 15 1RF Rx Instructions: DIRECTED PER SLIDING SCALE SUBCUT three times daily; Changed Lantus U-100 Insulin 100 unit/mL solution 5 unit SUBCUT BID Qty: 10 0RF isosorbide mononitrate 30 mg tablet extended release 24 hr 15 mg PO QAM Qty: 30 0RF Discontinued amlodipine 10 mg tablet 10 mg PO DAILY Qty: 90 0RF methenamine hippurate 1 gram tablet 1 g PO BID Qty: 60 12RF losartan 25 mg tablet 25 mg PO QAM Discharge Orders: Discharge Order (Routine); Ordered 02/19/23 Ordered By: Lyndon Lane Referrals: Ana Grajeda MD [Hospitalist] - 1 month (foot osteomytelitis We have notified your physician's clinic of the need for a follow-up appointment to be scheduled. If you have not heard from them within the next 2 business days, please call them directly. You may also reach out to our clinic manager at [phone] and she can assist you.) Discharge Diet: As Directed Discharge Activity: Resume usual activity Activity Restrictions/Additional Instructions: - For ESBL E. coli UTI, 2 more days of Invanz then stop -For foot osteomyelitis, IV vancomycin 1 g every 36 hours, recheck vancomycin trough at 4 AM 02/23/2023, stop date March 20, 2023 -For foot osteomyelitis, start Augmentin once Invanz as above stops, on 02/22/2023, stop date also March 20, 2023 -For atrial fibrillation please take metoprolol, Eliquis as prescribed -Please follow-up with cardiology -Follow-up with infectious disease -Dysphagia level level 5 diet -Please monitor your blood sugars closely -Monitor your blood sugars 3 times daily as after meals -Please record your blood sugars, and a blood sugar log -For your NovoLog -Please inject blood sugar after meals based on sliding scale provided -Do not inject insulin if you do not eat as hypoglycemia kills -This is a NovoLog sliding scale -Insulin sliding ?fingerstick? Insulin ?141-180?0 units/sq 181-220?2 units/sq ?221-260?4 units/sq ?261-300 6 units/sq ?301-350?8 units/sq ?351-400 10 units/sq ?401-450?12 units/sq >450? 14units/sq -If your blood sugar is greater than 500 go to the emergency room -If your blood sugar is less than 60 or at anytime you feel lightheaded or dizzy or diaphoretic or have chest palpitations check your blood sugar, and eat a hard candy or drink orange juice and go immediately to the emergency room -Remember hypoglycemia kills, so if his blood sugar is less than 60 we have to increase it by taking in a sugary meal such as a hard candy or orange juice and go to the emergency room -If you have any questions please call us where here to help Discharge Attestations Time Spent in Discharge Care*: greater than 30 min Quality Metrics Clinical Quality Measures [ No reported AMI, CVA or VTE this stay] Coding Level of Care Code 13578 Total time (in minutes) for Discharge: 45 Diagnoses UTI (urinary tract infection) N39.0 Encephalopathy G93.40 Generalized weakness R53.1 Complete immobility due to severe physical disability or frailty R53.2 Dementia F03.90 Osteomyelitis M86.9 Tachypnea R06.82 RASHAD (obstructive sleep apnea) G47.33 Dyslipidemia E78.5 Atrial fibrillation with RVR I48.91 UTI due to extended-spectrum beta lactamase (ESBL) producing Escherichia coli N39.0; B96.29; Z16.12
[2023-02-19 11:39] LABS: Glucose Point of Care 228 mg/dL (70-110)
[2023-02-19 12:15] LABS: SARS Covid-2 Antigen negative (Negative)
[2023-02-19] MEDS: insulin lispro 100 unit/1 mL SUBCUT ×2 (13:50→17:32)
[2023-02-19 15:59] VITALS: BP 138/78; PULSE 105; RESP 18; TEMP 36.4; O2SAT 95
[2023-02-19 17:10] LABS: Glucose Point of Care 234 mg/dL (70-110)
[2023-02-19 18:22] VITALS: BP 138/78; PULSE 105; RESP 18; TEMP 36.4; O2SAT 95
== END 2023-02-19 18:24 | disposition skilled nursing facility (03) | DRG 690 ==
LOC: ER 01:13 → MEDSURG 04:22
PROVIDERS: Student in an Organized Health Care Education/Training Program; Admitting Provider Internal Medicine; Emergency Provider Emergency Medicine; PCP Family Medicine; Visit Provider Family Medicine
DX: N39.0 Urinary tract infection, site not specified (principal); Z16.12 Extended spectrum beta lactamase (ESBL) resistance; I13.0 Hypertensive heart and chronic kidney disease with heart failure and stage 1 through stage 4 chronic kidney disease, or unspecified chronic kidney disease; G93.49 Other encephalopathy; T82.594A Other mechanical complication of infusion catheter, initial encounter; M86.8X7 Other osteomyelitis, ankle and foot; B96.1 Klebsiella pneumoniae [K. pneumoniae] as the cause of diseases classified elsewhere; B96.20 Unspecified Escherichia coli [E. coli] as the cause of diseases classified elsewhere; Z11.52 Encounter for screening for COVID-19; F03.90 Unspecified dementia, unspecified severity, without behavioral disturbance, psychotic disturbance, mood disturbance, and anxiety; E11.22 Type 2 diabetes mellitus with diabetic chronic kidney disease; N18.30 Chronic kidney disease, stage 3 unspecified; I50.9 Heart failure, unspecified; E11.42 Type 2 diabetes mellitus with diabetic polyneuropathy; E78.5 Hyperlipidemia, unspecified; G47.33 Obstructive sleep apnea (adult) (pediatric); I25.10 Atherosclerotic heart disease of native coronary artery without angina pectoris; K21.9 Gastro-esophageal reflux disease without esophagitis; Z86.718 Personal history of other venous thrombosis and embolism; F43.10 Post-traumatic stress disorder, unspecified; Z87.440 Personal history of urinary (tract) infections; Z87.442 Personal history of urinary calculi; Y82.9 Unspecified medical devices associated with adverse incidents; Z87.891 Personal history of nicotine dependence; Z90.79 Acquired absence of other genital organ(s); I25.2 Old myocardial infarction; Z98.61 Coronary angioplasty status; D63.1 Anemia in chronic kidney disease; Z96.642 Presence of left artificial hip joint; K59.00 Constipation, unspecified; N20.0 Calculus of kidney; K80.20 Calculus of gallbladder without cholecystitis without obstruction; K44.9 Diaphragmatic hernia without obstruction or gangrene; I71.43 Infrarenal abdominal aortic aneurysm, without rupture; I48.91 Unspecified atrial fibrillation; E11.69 Type 2 diabetes mellitus with other specified complication
CPT/HCPCS: 36415; 36416; 36573; 36600; 51702; 70450; 71045; 73630; 74176; 80053; 80306; 80307; 81001; 82550; 82803; 82962; 83605; 83735; 83880; 84100; 84145; 84484; 85025; 85378; 85651; 86140; 87040; 87077; 87086; 87186; 87426; 92523; 92610; 93005; 93971; 94664; 96365; 96367; 96372; 97110; 97161; 97530; 99285; G0378; J1815; J1940; J2185; J2543; J3370; J3490; J7030; J7050

== ENCOUNTER → 2023-03-31 13:38 | Outpatient (BNVA) | payer OTHER, SELFPAY | PROVIDERS: PCP Family Medicine; Visit Provider Nurse Practitioner Family | DX: I13.0 Hypertensive heart and chronic kidney disease with heart failure and stage 1 through stage 4 chronic kidney disease, or unspecified chronic kidney disease (principal); E11.22 Type 2 diabetes mellitus with diabetic chronic kidney disease; N18.30 Chronic kidney disease, stage 3 unspecified; I50.9 Heart failure, unspecified; Z87.891 Personal history of nicotine dependence; Z79.4 Long term (current) use of insulin; I48.0 Paroxysmal atrial fibrillation; Z79.01 Long term (current) use of anticoagulants | CPT/HCPCS: 99214 ==

== ENCOUNTER → 2023-04-02 09:13 | Outpatient (BNVA) | payer OTHER, SELFPAY | PROVIDERS: PCP Family Medicine; Visit Provider Student in an Organized Health Care Education/Training Program | DX: M86.9 Osteomyelitis, unspecified (principal); N30.20 Other chronic cystitis without hematuria | CPT/HCPCS: 99214 ==

== ENCOUNTER 2023-08-20 15:23 | Inpatient (IN) | payer OTHER, SELFPAY ==
[2023-08-20 15:32] VITALS: BP 135/84; PULSE 112; TEMP 37.4; O2SAT 95
--- NOTE | 2023-08-20 15:32 | XRR_ITS ---
PROCEDURE INFORMATION: Exam: XR Chest Exam date and time: 08/20/2023 3:35 PM Age: 83 years old Clinical indication: Cough; Additional info: Cough/weakness TECHNIQUE: Imaging protocol: Radiologic exam of the chest. Views: 1 view. COMPARISON: CR XR chest 1V portable [id number] 02/18/2023 1:52 PM FINDINGS: Lungs: Patchy infiltrate can be seen throughout the right lung as well as the left lung base. Pleural spaces: Unremarkable. No pleural effusion. No pneumothorax. Heart/Mediastinum: Moderate cardiomegaly is noted. Bones/joints: Unremarkable. XR/XR chest 1V portable [id number] IMPRESSION: Bilateral pneumonia with cardiomegaly
--- NOTE | 2023-08-20 15:41 | PC.PHAR ---
Addendum entered by Stacie Kamara 08/20/23 15:49: HIMA MCNALLY AND TAR 3:49PM Original Note: PT IS NOW RESIDENT AT [facility]. 08/20/23
[2023-08-20 15:50] LABS: Basophils % 0.3 %; Eosinophils % 0.3 %; Hematocrit 29.9 % (37-53); Lymphocytes # 0.8 10^3/uL (0.8-4.8); Lymphocytes % 24.8 %; Mean Corpuscular HGB Conc 29.8 g/dL (30-55); Mean Corpuscular Hemoglobin 26.4 pg (27-33); Mean Corpuscular Volume 88.7 fl (82-101); Mean Platelet Volume 10.6 fL (7.4-10.4); Monocytes # 0.3 10^3/uL (0.2-0.9); Monocytes % 9.3 %; Neutrophils # 2.02 10^3/uL (1.8-7.7); Nucleated Red Blood Cells % 0 %; Platelet Count 155 10^3/cmm (157-399); Red Blood Count 3.37 10^6/uL (3.85-5.65); Red Cell Distribution Width 15.6 % (12.1-15.1); White Blood Count 3.11 10^3/uL (3.29-11.43)
--- NOTE | 2023-08-20 15:57 | CTR_ITS ---
PROCEDURE INFORMATION: Exam: CT Head Without Contrast Exam date and time: 08/20/2023 4:12 PM Age: 83 years old Clinical indication: Altered mental status/memory loss; Additional info: AMS TECHNIQUE: Imaging protocol: Computed tomography of the head without contrast. Radiation optimization: All CT scans at this facility use at least one of these dose optimization techniques: automated exposure control; mA and/or kV adjustment per patient size (includes targeted exams where dose is matched to clinical indication); or iterative reconstruction. COMPARISON: CT head wo con* [id number] 02/14/2023 3:17 AM RADIATION DOSE METRICS: Total DLP (mGy-cm): 2322.44 FINDINGS: Brain: Prominent diffuse cerebral atrophy is noted. There is prominent chronic periventricular white matter ischemic change. There is no evidence of mass effect, hemorrhage or infarct. Cerebral ventricles: No ventriculomegaly. No midline shift. Paranasal sinuses: Visualized sinuses are unremarkable. No fluid levels. Mastoid air cells: Visualized mastoid air cells are well aerated. Bones/joints: Unremarkable. No acute fracture. Soft tissues: Unremarkable. CT/CT head wo con* [id number] IMPRESSION: 1. No acute findings. 2. Cerebral atrophy is noted along with chronic white matter ischemic changes.
[2023-08-20 16:19] LABS: Lactic Sepsis W/Reflex 1.6 mmol/L (0.5-2.2)
[2023-08-20 16:30] VITALS: BP 148/91; PULSE 109; RESP 16; O2SAT 98
[2023-08-20 16:43] LABS: Alanine Aminotransferase 16 U/L (0-41); Albumin Level 2.6 g/dL (3.5-5.2); Alkaline Phosphatase 56 U/L (40-130); Anion Gap 14.7 (5-19); Aspartate Amino Transferase 22 U/L (0-40); Blood Urea Nitrogen 37 mg/dL (8-23); Calcium 8.3 mg/dL (8.5-10.5); Carbon Dioxide 23 mmol/L (22-29); Chloride 112 mmol/L (98-107); Globulin 4.3 g/dL (1.3-4.6); Glucose 154 mg/dL (65-115); Osmolality Calculated 314 mOsm/kg (285-295); Potassium 3.7 mmol/L (3.5-5.1); Sodium 146 mmol/L (136-145); Total Bilirubin 0.5 mg/dL (0.15-1.2); Total Protein 6.9 g/dL (6.6-8.7)
[2023-08-20 16:50] LABS: NT Pro B Type Natriuretic Pept 31384 pg/mL (0-450)
--- NOTE | 2023-08-20 16:57 | W.ED.AMS ---
HPI - Altered Mental Status General: Chief Complaint: Altered Mental Status Stated Complaint: AMS; FLU+ Time Seen by Provider: 08/20/23 15:34 History of Present Illness: 83-year-old male presents to the emergency department via EMS personnel from the [facility]. EMS personnel state that the nursing staff at the [facility] states that the patient was recently diagnosed with influenza and the patient now has decreased mental status. The patient is nonverbal but does follow commands he is awake and does not appear to be in acute distress at present. EMS personnel state that it was reported that the patient has continued to have increased weakness and fatigue and has become more and more weak and has a nonproductive cough and a fever at the care home. Patient has a past medical history of osteomyelitis of the foot, dementia, severe immobility, recurrent urinary tract infections, atrial fibrillation, delayed wound healing, chronic kidney disease, history of DVTs, nephrolithiasis. Review of Systems General: Reports: ROS unobtainable due to medical condition and ROS unobtainable due to mental status PFSH ED PFSH: Medical History (Updated 08/20/23 @ 17:[address] MD) Atrial fibrillation Recurrent UTI Renal stones PTSD (post-traumatic stress disorder) Myocardial infarction Dysthymic disorder Left ureteral calculus Elevated troponin Neutropenia Obstructive uropathy Pyelonephritis Kidney stone Thrombocytopenia Sepsis Generalized muscle weakness Diabetes RASHAD (obstructive sleep apnea) Dyslipidemia Hypertension ASHD (arteriosclerotic heart disease) CKD (chronic kidney disease) stage 3, GFR 30-59 ml/min History of DVT (deep vein thrombosis) GERD (gastroesophageal reflux disease) Chronic osteoarthritis CHF (congestive heart failure) Dementia History of fracture of left hip Anemia Neuropathy Hearing loss Surgical History History of PTCA History of orchiectomy History of laminectomy (~1992) Family History Mother , at age 59 Cancer Diabetes Father , at age 87 Tuberculosis Other Hypertension Denies family history of CAD (coronary artery disease) Clotting disorder Dementia Chronic kidney disease (CKD) Suicide Anesthesia complication Bleeding disorder Lung disease Stroke Social History Smoking and tobacco/nicotine status: former use of tobacco/nicotine Quit status (tobacco/nicotine): has quit using Year quit tobacco: 1989 Former quit date comment: smoked cigars about 5 yrs Second hand smoke exposure: Yes Alcohol intake: never Substance/Drug Use: never Caregiver/support person: Yes (spouse and daughter) Lives independently: Yes Marital status: / service: Yes Current occupational status: retired Current gender identity: Male Special eitan needs: No Agree to transfusion: Yes Physical Exam Narrative: General: Alert, no acute distress. Frail, ill-appearing, Skin: Warm, dry, delayed wound healing noted Head: Normocephalic, atraumatic. Neck: Supple, trachea midline. Eye: Extraocular movements are intact. PERRLA Ears, nose, mouth and throat: mucosa moist. Cardiovascular: Atrial fibrillation with rapid ventricular response, decreased peripheral perfusion for wound healing noted, Respiratory: Coarse throughout with intermittent expiratory wheezes, mild increased work of breathing currently on 3 L nasal cannula.Symmetrical chest wall expansion. Gastrointestinal: Soft, Nontender, Non distended, Normal bowel sounds. Neurological: Alert to verbal requests follows commands appropriately patient is nonverbal.. Psychiatric: Cooperative, appropriate mood & affect. Course Vital Signs: Vital signs: Vital Signs Temperature 99.4 F 08/20/23 15:32 Pulse Rate 115 H 08/20/23 19:21 Respiratory Rate 28 H 08/20/23 19:21 Blood Pressure 152/92 08/20/23 19:21 Pulse Oximetry 94 08/20/23 19:21 Oxygen Delivery Me thod Nasal Cannula 08/20/23 19:21 Oxygen Flow Rate 3 08/20/23 19:21 MDM - Altered Mental Status Medical Decision Making Physical exam completed and documented I will obtain a CBC CMP BNP lactic acid procalcitonin chest x-ray and a CT scan of his head given his change in mental status. I did review the patient's previous twelve-lead EKG from 02/16/2023 in comparison to today's EKG and there does appear to be some slight [address] depression in leads V4, V5 and V6 which appear to be consistent with his previous EKGs. Patient did have an elevated troponin at 102, but I suspect most likely the slightly elevated troponin is secondary to his fluid volume status and his chest x-ray demonstrating vascular congestion and pneumonia. Medical Records I reviewed the patient's medical records. Lab Data I reviewed the patient's lab results. 08/20/23 15:05 08/20/23 15:05 Radiology Impressions Chest X-Ray 08/20/23 15:32 IMPRESSION: Bilateral pneumonia with cardiomegaly Head CT 08/20/23 15:57 IMPRESSION: 1. No acute findings. 2. Cerebral atrophy is noted along with chronic white matter ischemic changes. Laboratory Results WBC 3.11 10^3/uL (3.29-11.43) L 08/20/23 15:05 RBC 3.37 10^6/uL (3.85-5.65) L 08/20/23 15:05 Hgb 8.90 g/dL (11.27-16.99) L 08/20/23 15:05 Hct 29.9 % (37-53) L 08/20/23 15:05 MCV 88.7 fl (82-101) 08/20/23 15:05 MCH 26.4 pg (27-33) L 08/20/23 15:05 MCHC 29.8 g/dL (30-55) L 08/20/23 15:05 RDW 15.6 % (12.1-15.1) H 08/20/23 15:05 Plt Count 155 10^3/cmm (157-399) L 08/20/23 15:05 MPV 10.6 fL (7.4-10.4) H 08/20/23 15:05 Neut % (Auto) 65.0 % 08/20/23 15:05 Lymph % (Auto) 24.8 % 08/20/23 15:05 [place] % (Auto) 9.3 % 08/20/23 15:05 Eos % (Auto) 0.3 % 08/20/23 15:05 Baso % (Auto) 0.3 % 08/20/23 15:05 Neut # (Auto) 2.02 10^3/uL (1.8-7.7) 08/20/23 15:05 Lymph # (Auto) 0.8 10^3/uL (0.8-4.8) 08/20/23 15:05 [place] # (Auto) 0.3 10^3/uL (0.2-0.9) 08/20/23 15:05 Eos # (Auto) 0.0 10^3/uL (0.0-0.8) 08/20/23 15:05 Baso # (Auto) 0.0 10^3/uL (0.0-0.1) 08/20/23 15:05 Nucleated RBC % (auto) 0 % 08/20/23 15:05 Nucleated RBCs # 0.0 /100WBC 08/20/23 15:05 Specimen Type Arterial 08/20/23 17:01 Sample Site Radial, left 08/20/23 17:01 ABG pH 7.43 (7.35-7.45) 08/20/23 17:01 ABG pCO2 36.8 mmHg (35-45) 08/20/23 17:01 ABG pO2 92.6 mmHg (80.0-100.0) 08/20/23 17:01 ABG HCO3 24.3 mmol/L (22-26) 08/20/23 17:01 ABG O2 Saturation 98.2 08/20/23 17:01 ABG Base Excess 0.1 mmol/L (-2.0-2.0) 08/20/23 17:01 Thierry Test Pos 08/20/23 17:01 A-a O2 Gradient 1.4 mmHg (5-10) L 08/20/23 17:01 Hematocrit 28.1 % (42-52) L 08/20/23 17:01 Hgb O2 Saturation 95.7 % (95-100) 08/20/23 17:01 Carboxyhemoglobin 1.4 %THgb (0.4-20.1) 08/20/23 17:01 Methemoglobin 1.1 % (0.4-1.5) 08/20/23 17:01 Total Hemoglobin 9.2 g/dL (14-18) L 08/20/23 17:01 Sodium 149.0 mmol/L (131-143) H 08/20/23 17:01 Potassium 3.7 mmol/L (3.5-5.0) 08/20/23 17:01 Glucose 151.0 mg/dL (70-115) H 08/20/23 17:01 Ionized Calcium 1.2 mmol/L (1.1-1.4) 08/20/23 17:01 O2 Delivery Device Nc 08/20/23 17:01 O2 Liters/Min 3.0 % 08/20/23 17:01 Gauge And Weigh Machine Operator ID [place] 08/20/23 17:01 Sodium 146 mmol/L (136-145) H 08/20/23 15:05 Potassium 3.7 mmol/L (3.5-5.1) 08/20/23 15:05 Chloride 112 mmol/L (98-107) H 08/20/23 15:05 Carbon Dioxide 23 mmol/L (22-29) 08/20/23 15:05 Anion Gap 14.7 (5-19) 08/20/23 15:05 BUN 37 mg/dL (8-23) H 08/20/23 15:05 Creatinine 1.7 mg/dL (0.7-1.2) H 08/20/23 15:05 GFR Calculation Not Reportable 08/20/23 15:05 Glucose 154 mg/dL (65-115) H 08/20/23 15:05 Calculated Osmolality 314 mOsm/kg (285-295) H 08/20/23 15:05 Lactic Acid 1.6 mmol/L (0.5-2.2) 08/20/23 15:47 Calcium 8.3 mg/dL (8.5-10.5) L 08/20/23 15:05 Phosphorus 3.6 mg/dL (2.5-4.5) 08/20/23 15:05 Magnesium 2.0 mg/dL (1.7-2.3) 08/20/23 15:05 Total Bilirubin 0.5 mg/dL (0.15-1.2) 08/20/23 15:05 AST 22 U/L (0-40) 08/20/23 15:05 ALT 16 U/L (0-41) 08/20/23 15:05 Alkaline Phosphatase 56 U/L (40-130) 08/20/23 15:05 Troponin T Baseline 102 ng/L (0-15) H* 08/20/23 15:05 Troponin T 120 Minute 96.91 ng/L (0-15) H 08/20/23 18:45 Delta Troponin T -5.09 ABS# (0-10) L 08/20/23 18:45 C-Reactive Protein 69.8 mg/L (0.0-4.9) H 08/20/23 15:05 NT-Pro-B Natriuret Pep 97118 pg/mL (0-450) H 08/20/23 15:05 Total Protein 6.9 g/dL (6.6-8.7) 08/20/23 15:05 Albumin 2.6 g/dL (3.5-5.2) L 08/20/23 15:05 Globulin 4.3 g/dL (1.3-4.6) 08/20/23 15:05 Procalcitonin 0.50 ng/mL (0-0.5) 08/20/23 15:05 All radiology interpretation(s) finalized by discharge EKG Data EKG 1: Interpretation: Twelve-lead EKG obtained at 1728 and reviewed at 1729 demonstrates atrial fibrillation with a ventricular rate of 110 bpm, QRS duration 86 QT 354 QTc 419 there is no significant ST elevation or depression to indicate acute ischemia or acute infarction at present. Discharge Plan Discharge Patient Disposition: Admitted As Inpatient Admit Provider: Lyndon Lane Clinical Impression: Pneumonia, CHF (congestive heart failure), Altered mental status, Pancytopenia, Acute dyspnea, CKD (chronic kidney disease) Condition: Stable Coding Level of Care Code ED Attending Anesthesiologist for Chg Jess
[2023-08-20 17:12] LABS: ABG PCO2 36.8 mmHg (35-45); ABG PH Result 7.43 (7.35-7.45); Alveolar-Arterial Oxygen Gradi 1.4 mmHg (5-10); Arterial Blood Gas Hematocrit 28.1 % (42-52); Base Excess ABG 0.1 mmol/L (-2.0-2.0); Blood Gas Allen Test Pos; Blood Gas Operator Identificat WALCI; Blood Gas Sample Site Radial, left; Blood Gas Sample Type Arterial; Carboxyhemoglobin 1.4 %THgb (0.4-20.1); HCO3 ABG 24.3 mmol/L (22-26); HGB O2 Sat 95.7 % (95-100); Ionized Calcium Level - ABG 1.2 mmol/L (1.1-1.4); Methemoglobin 1.1 % (0.4-1.5); Oxygen Device NC; Oxygen Saturation ABG 98.2; PO2 ABG 92.6 mmHg (80.0-100.0); Potassium Level - ABG 3.7 mmol/L (3.5-5.0); Total Hemoglobin 9.2 g/dL (14-18)
[2023-08-20] MEDS: cefTRIAXone 2,000 MG in sodium chloride 0.9% (plus) 50 ML 100 MG IV (17:17)
--- NOTE | 2023-08-20 17:28 | ECG_ITS ---
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 Measurements Intervals [place] Rate: 110 P: 0 [place]: 0 QRS: -41 QRSD: 86 T: 31 QT: 354 QTc: 481 Interpretive Statements ATRIAL FIBRILLATION WITH RAPID VENTRICULAR RESPONSE WITH ABERRANT CONDUCTION OR VENTRICULAR PREMATURE COMPLEXES LEFT AXIS DEVIATION [QRS AXIS < -30] MODERATE ST DEPRESSION [0.05+ mV ST DEPRESSION] Compared to ECG 02/19/2023 09:42:24 Left-axis deviation now present ST (T wave) deviation now present Electronically Signed On 08-22-2023 19:14:25 CDT by Mine Douglas M.D. [id number]
[2023-08-20 17:38] LABS: Troponin(5th) Baseline 102 ng/L (0-15)
--- NOTE | 2023-08-20 17:46 | P.HP_ITS ---
Providers/Chief Complaint 2 Primary Care Provider: Faye Zamora MD Chief Complaint: AMS; FLU+ History of Present Illness Yoav Kyle is a 83 year old male with a past medical history of ESBL UTI, dementia, diastolic heart failure, hypertension, sleep apnea, CAD, CKD stage III, GERD, DVT on Eliquis, who presents [facility] due to altered mental status. Currently patient is alert oriented x 0, he does not withdraw from pain, he does not track, he does respond to sternal rub, but does not follow commands, is encephalopathic, in the emergency room his blood pressures are 160s over 80s, he is saturating mid 90s on 3 L, is tachypneic, tachycardic heart rates in the 120s A-fib with RVR, temperature 99.4 Review of Systems 2 General: Reports: ROS unobtainable due to mental status Medications/Allergies Home Medications Medication Instructions Recorded Confirmed Last Taken Type fluticasone propionate 50 2 spray intranasal DAILY #16 grams 10/02/20 08/20/23 08/20/23 Rx mcg/actuation nasal spray,suspension (Flonase Allergy Relief) gabapentin 300 mg capsule 300 mg PO BEDTIME 10/03/20 08/20/23 08/19/23 History pantoprazole 40 mg tablet,delayed 40 mg PO QAM 10/03/20 08/20/23 08/20/23 History release lancets 30 gauge #100 ea 10/10/20 08/20/23 Unknown Rx sertraline 100 mg tablet 100 mg PO QAM 11/06/20 08/20/23 08/20/23 History blood sugar diagnostic (True #100 ea 05/24/21 08/20/23 Unknown Rx Metrix Glucose Test Strip) diclofenac sodium 1 % gel topical 2 g topical QID PRN Pain 01/17/22 08/20/23 01/12/23 History kit vit C 250 mg-vit E 90 mg-zinc 40 1 tab PO QAM 01/17/22 08/20/23 08/20/23 History mg-copper 1 qn-koelhr-hqldwo capsule (PreserVision AREDS-2) furosemide 40 mg tablet (Lasix) 40 mg PO QAM edema 06/09/22 08/20/23 08/20/23 History potassium chloride 20 mEq 20 meq PO QAM LASIX 02/08/20/23 08/20/23 History tablet,extended release finasteride 5 mg tablet (Proscar) 5 mg PO QAM 02/14/23 08/20/23 08/20/23 History acetaminophen 325 mg tablet 650 mg PO Q6H PRN PAIN OR 08/20/23 08/20/23 04/27/23 History INCREASED TEMP apixaban 2.5 mg tablet (Eliquis) 2.5 mg PO BID 08/20/23 08/20/23 08/20/23 History bisacodyl 10 mg rectal suppository See Rx Instructions .Route 08/20/23 08/20/23 Unknown History (Dulcolax (bisacodyl)) .COMPLEX PRN Constipation bisacodyl 5 mg tablet,delayed See Rx Instructions .Route 08/20/23 08/20/23 Unknown History release (Dulcolax (bisacodyl)) .COMPLEX PRN Constipation collagenase clostridium histo. 250 See Rx Instructions .Route .COMPLEX 08/20/23 08/20/23 08/19/23 History unit/gram topical ointment (Santyl) insulin glargine 100 unit/mL 10 unit SUBCUT BID 08/20/23 08/20/23 08/20/23 History subcutaneous solution (Lantus U-100 Insulin) insulin lispro 100 unit/mL 5 unit SUBCUT TID WITH MEALS 08/20/23 08/20/23 08/20/23 History subcutaneous half-unit pen (Humalog Papo KwikPen (U-100)) insulin lispro 100 unit/mL See Rx Instructions .Route .COMPLEX 08/20/23 08/20/23 08/20/23 History subcutaneous solution (Humalog U-100 Insulin) magnesium hydroxide 400 mg/5 mL See Rx Instructions .Route 08/20/23 08/20/23 Unknown History oral suspension (Milk of Magnesia) .COMPLEX PRN Constipation menthol 0.44 %-zinc oxide 20.6 % See Rx Instructions .Route .COMPLEX 08/20/23 08/20/23 08/20/23 History topical ointment (Calmoseptine) nystatin 100,000 unit/gram topical See Rx Instructions .Route .COMPLEX 08/20/23 08/20/23 08/20/23 History powder (Nystop) sodium phosphates 19 gram-7 See Rx Instructions .Route 08/20/23 08/20/23 Unknown History gram/118 mL enema (Fleet Enema) .COMPLEX PRN Constipation Allergies Allergy/AdvReac Type Severity Reaction Status Date / Time Iodinated Contrast Media Allergy unknown Verified 08/20/23 15:38 tramadol Allergy ADR-Agitate Verified 08/20/23 15:38 d solifenacin [From Vesicare] AdvReac Severe weakness Verified 08/20/23 15:38 metoclopramide [From Reglan] AdvReac Intermediate anxiety Verified 08/20/23 15:38 PFSH Acute 2 PFSH: Medical History (Updated 08/20/23 @ 17:[address] MD) Atrial fibrillation Recurrent UTI Renal stones PTSD (post-traumatic stress disorder) Myocardial infarction Dysthymic disorder Left ureteral calculus Elevated troponin Neutropenia Obstructive uropathy Pyelonephritis Kidney stone Thrombocytopenia Sepsis Generalized muscle weakness Diabetes RASHAD (obstructive sleep apnea) Dyslipidemia Hypertension ASHD (arteriosclerotic heart disease) CKD (chronic kidney disease) stage 3, GFR 30-59 ml/min History of DVT (deep vein thrombosis) GERD (gastroesophageal reflux disease) Chronic osteoarthritis CHF (congestive heart failure) Dementia History of fracture of left hip Anemia Neuropathy Hearing loss Surgical History History of PTCA History of orchiectomy History of laminectomy (~1992) Family History Mother , at age 59 Cancer Diabetes Father , at age 87 Tuberculosis Other Hypertension Denies family history of CAD (coronary artery disease) Clotting disorder Dementia Chronic kidney disease (CKD) Suicide Anesthesia complication Bleeding disorder Lung disease Stroke Social History Smoking and tobacco/nicotine status: former use of tobacco/nicotine Quit status (tobacco/nicotine): has quit using Year quit tobacco: 1989 Former quit date comment: smoked cigars about 5 yrs Second hand smoke exposure: Yes Alcohol intake: never Substance/Drug Use: never Caregiver/support person: Yes (spouse and daughter) Lives independently: Yes Marital status: / service: Yes Current occupational status: retired Current gender identity: Male Special eitan needs: No Agree to transfusion: Yes Vitals/I&O/Wt Last Vital Signs Temp 99.4 F 08/20/23 15:32 Pulse 112 H 08/20/23 15:32 BP 135/84 08/20/23 15:32 Pulse Ox 95 08/20/23 15:32 O2 Del Method Nasal Cannula 08/20/23 15:32 O2 Flow Rate 3 08/20/23 15:32 Physical Exam 2 Const: COMMON NORMALS: no acute distress EXAM LIMITATIONS: altered mental status ORIENTATION/CONSCIOUSNESS: Yes awake and Yes confused; not oriented to person, not oriented to place and not oriented to time HENMT: COMMON NORMALS: normocephalic HEAD & SCALP: normocephalic Eye: COMMON NORMALS: Equal, round and reactive pupils present Neck/C-Spine: COMMON NORMALS: no lymphadenopathy Lymph: LYMPHATIC: no lymphadenopathy noted Chest: COMMONS NORMALS: normal inspection of the chest Resp: EFFORT & INSPECTION: Yes tachypneic and Yes retractions AUSCULTATION: crackles and wheezes OTHER: Mild respiratory distress with suprasternal retractions, intercostal retractions nasal flaring, tachypnea Cardio: COMMON NORMALS: S1 normal heart sound present and S2 normal heart sound present RATE: tachycardic RHYTHM: abnormal rhythm irregularly irregular HEART SOUNDS: S1 normal heart sound present and S2 normal heart sound present GI: COMMON NORMALS: Normal to inspection, nondistended, normoactive bowel sounds present, Soft to palpation and non-tender : COMMON NORMALS: Yes no CVA tenderness Extremity: NARRATIVE EXTREMITY EXAM: 1+ pitting edema Skin: NARRATIVE SKIN EXAM: Bilateral feet, 1+ pitting edema, superficial diabetic ulcers, right foot he has 3 superficial diabetic ulcers, wrapped, wound margins look clean and dry, has evidence of good healing, left foot, has 2 superficial diabetic ulcers, healing well Data 08/20/23 15:05 08/20/23 15:05 Micro: Microbiology 08/20/23 17:11 Blood Culture - Preliminary Blood SPECIMEN COLLECTED 08/20/23 15:47 Blood Culture - Preliminary Blood SPECIMEN COLLECTED A&P Assessment and plan (1) Acute encephalopathy: (2) Acute cystitis: (3) Sepsis: (4) NSTEMI (non-ST elevated myocardial infarction): (5) Bilateral pneumonia: (6) Acute hypoxemic respiratory failure: (7) CHF exacerbation: (8) Atrial fibrillation with RVR: (9) Lymphopenia: (10) Anemia: (11) Leukocytopenia, unspecified: Plan Acute encephalopathy ? Etiology multifactorial ? Bilateral pneumonia ? Sepsis ? Concern for UTI with history of ESBL UTIs, Proteus UTIs ? N.p.o. ? Neurochecks ? Aspiration precautions Acute hypoxic respiratory failure ? Multifactorial next?bilateral pneumonia ? Fluid overload, CHF exacerbation A-fib ? Plan ? Monitor respiratory status closely ? DuoNeb ? Budesonide ? Vancomycin ? Meropenem ? Sputum cultures ? Follow blood cultures ? Respiratory viral panel ? Will consider Lasix based on clinical progress Sepsis, secondary to UTI, concerns for bilateral pneumonia, history of ESBL UTI, Proteus UTIs ? Sepsis features met given encephalopathy, source infection pneumonia, hypoxia, tachycardia, troponin 102, lymphopenia, Concerns for UTI ? UA pending currently, Has a history of ESBL UTIs, has a history of Proteus UTIs, ? Continue meropenem NSTEMI ? Type I versus type II ? Serial EKGs consult telemetry monitoring ? Continue heparin drip CHF exacerbation ? Given sepsis as above will hold Lasix for now monitor respiratory status ? Consider Lasix A-fib with RVR ? Amiodarone drip ? Heparin drip Type 2 diabetes mellitus low-dose sliding scale Full code ? Heparin drip for DVT prophylaxis Attestations 2 Medical Necessity Statement*: Patient requires hospitalization, inpatient, greater than 2 midnights, for sepsis, secondary to bilateral pneumonia, concerns for ESBL infection, such as a UTI, encephalopathy, NSTEMI, CHF exacerbation acute hypoxic respiratory failure Diagnoses Acute encephalopathy G93.40 Acute cystitis N30.00 Sepsis A41.9 NSTEMI (non-ST elevated myocardial infarction) I21.4 Bilateral pneumonia J18.9 Acute hypoxemic respiratory failure J96.01 CHF exacerbation I50.9 Atrial fibrillation with RVR I48.91 Lymphopenia D72.810 Anemia D64.9 Leukocytopenia, unspecified D72.819
--- NOTE | 2023-08-20 17:50 | PC.NURSE ---
Unable to obtain cath urine, unable to visualize urethral opening. Pt is uncircumcised and I was unable to retract it to see urethral opening
[2023-08-20 18:08] VITALS: BP 164/91; PULSE 106; RESP 22; O2SAT 97
[2023-08-20 18:21] LABS: C Reactive Protein 69.8 mg/L (0.0-4.9); Phosphorus 3.6 mg/dL (2.5-4.5)
--- NOTE | 2023-08-20 19:00 | PC.NURSE ---
Report to SUSSY Valentine
--- NOTE | 2023-08-20 19:07 | ECG_ITS ---
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 Measurements Intervals [place] Rate: 108 P: 0 [place]: 0 QRS: -48 QRSD: 87 T: -63 QT: 356 QTc: 479 Interpretive Statements ATRIAL FIBRILLATION WITH RAPID VENTRICULAR RESPONSE WITH ABERRANT CONDUCTION OR VENTRICULAR PREMATURE COMPLEXES LEFT AXIS DEVIATION [QRS AXIS < -30] MINIMAL ST DEPRESSION [0.025+ mV ST DEPRESSION] Compared to ECG 08/20/2023 23:25:15 Aberrant conduction of supraventricular beat(s) now present Ventricular premature complex(es) now present ST (T wave) deviation now present T-wave abnormality no longer present Electronically Signed On 08-22-2023 19:48:53 CDT by Mine Douglas M.D. [id number]
[2023-08-20 19:09] LABS: Troponin 5 2HR 96.91 ng/L (0-15)
[2023-08-20 19:15] LABS: Troponin 5 2HR Delta -5.09 ABS# (0-10)
[2023-08-20 19:21] VITALS: BP 152/92; PULSE 115; RESP 28; O2SAT 94
--- NOTE | 2023-08-20 19:44 | PC.NURSE ---
called report at 1942. nurse fishman asked for pt to be moved to [facility] at 1999.
[2023-08-20 20:35] VITALS: BP 146/93; PULSE 95; RESP 24; TEMP 38.3; O2SAT 94
[2023-08-20 21:06] LABS: Add Urine Microscopic? YES; Bilirubin Urine Neg (Negative); Blood Urine 2+ (Negative); Glucose Urine UA Norm (Normal); Ketones Urine Negative (Negative); Leukocyte Esterase Urine 1+ (Negative); Nitrate Urine Positive (Negative); Protein Urine 1+ (Negative); Urine Appearance Hazy (CLEAR); Urine Color Yellow (Yellow); Urobilinogen Urine Neg (Negative); pH Urine 5 (5-7)
[2023-08-20 21:07] LABS: Add Urine Culture? No; Bacteria Urine 4+ /hpf; Mucus Urine 2+ /hpf; Squamous Epithelial Cell Urine 0-4 /hpf (0-5); WBC Urine 25-40 /hpf (0-5)
[2023-08-20 21:08] LABS: Thyroid Stimulating Hormone 1.43 uIU/mL (0.27-4.20)
[2023-08-20 21:59] LABS: Estmated Average Glucose 128; Hemoglobin A1C 6.1 % (4.0-6.0)
[2023-08-20 22:00] VITALS: PULSE 106
[2023-08-20 22:09] LABS: Glucose Point of Care 139 mg/dL (70-110)
[2023-08-20] MEDS: pantoprazole 40 mg SDV IVP (22:22)
[2023-08-20] MEDS: heparin 5,000 unit/mL INJ 1 mL IV (22:23)
[2023-08-20] MEDS: heparin drip 25,000 UNIT/500 ML PREMIX 25.6499999999999986 UNIT IV (22:24)
[2023-08-20] MEDS: meropenem 1,000 MG in sodium chloride 0.9% (plus) 50 ML 100 MG IV (23:04)
--- NOTE | 2023-08-20 23:25 | ECG_ITS ---
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 Measurements Intervals [place] Rate: 111 P: 0 [place]: 0 QRS: -45 QRSD: 90 T: 1 QT: 296 QTc: 403 Interpretive Statements ATRIAL FIBRILLATION WITH RAPID VENTRICULAR RESPONSE LEFT AXIS DEVIATION [QRS AXIS < -30] NONSPECIFIC ST & T-WAVE ABNORMALITY Compared to ECG 08/20/2023 17:28:06 T-wave abnormality now present Ventricular premature complex(es) no longer present Aberrant conduction of supraventricular beat(s) no longer present ST (T wave) deviation no longer present Electronically Signed On 08-22-2023 19:48:10 CDT by Mine Douglas M.D. [id number]
[2023-08-20] MEDS: acetaminophen 650 mg Supp PR (23:43)
[2023-08-20] MEDS: vancomycin 1,250 MG/250 ML PIGGYBACK 250 MG IV (23:54)
[2023-08-21] VITALS (10 sets, daily range): BP systolic 125–154; BP diastolic 75–98; PULSE 88–112; RESP 22–33; TEMP 37–38.1; O2SAT 91–95
[2023-08-21 00:18] LABS: Troponin 5 6HR Delta 7.1 ng/L (0-12)
[2023-08-21 00:24] LABS: Troponin 5 6HR 109.1 ng/L (0-15)
[2023-08-21 01:07] LABS: Adenovirus Not Detected (NOT DETECT); Chlamydia Pneumoniae Not Detected (NOT DETECT); Coronavirus 229E,HKU1,NL63,OC4 Not Detected (NOT DETECT); Human Metapneumovirus Not Detected (NOT DETECT); Human Rhinovirus/Enterovirus Not Detected (NOT DETECT); Influenza A Not Detected (NOT DETECT); Influenza A H1 Not Detected (NOT DETECT); Influenza A H1-2009 Not Detected (NOT DETECT); Influenza A H3 Not Detected (NOT DETECT); Influenza B Not Detected (NOT DETECT); Mycoplasma Pneumoniae Not Detected (NOT DETECT); Parainfluenza Virus Type 1 Not Detected (NOT DETECT); Parainfluenza Virus Type 2 Not Detected (NOT DETECT); Parainfluenza Virus Type 3 Not Detected (NOT DETECT); Parainfluenza Virus Type 4 Not Detected (NOT DETECT); Respiratory Syncytial Virus A Not Detected (NOT DETECT); Respiratory Syncytial Virus B Not Detected (NOT DETECT); SARS-COV-2 Not Detected (NOT DETECT)
[2023-08-21] MEDS: meropenem 1,000 MG in sodium chloride 0.9% (plus) 50 ML 100 MG IV ×3 (04:11→21:56)
[2023-08-21 04:20] LABS: Basophils % 0.3 %; Eosinophils % 0.5 %; Hematocrit 29.9 % (37-53); Lymphocytes # 0.6 10^3/uL (0.8-4.8); Lymphocytes % 16.3 %; Mean Corpuscular HGB Conc 29.8 g/dL (30-55); Mean Corpuscular Hemoglobin 26.8 pg (27-33); Mean Corpuscular Volume 90.1 fl (82-101); Mean Platelet Volume 10.1 fL (7.4-10.4); Monocytes # 0.2 10^3/uL (0.2-0.9); Monocytes % 5.6 %; Neutrophils # 2.88 10^3/uL (1.8-7.7); Neutrophils % 76.8 %; Nucleated Red Blood Cells % 0 %; Platelet Count 142 10^3/cmm (157-399); Red Blood Count 3.32 10^6/uL (3.85-5.65); Red Cell Distribution Width 15.6 % (12.1-15.1); White Blood Count 3.75 10^3/uL (3.29-11.43)
[2023-08-21 04:45] LABS: Partial Thromboplastin Time > 250.0 SECONDS (23.9-36.7)
[2023-08-21 04:50] LABS: Anion Gap 14.6 (5-19); Blood Urea Nitrogen 39 mg/dL (8-23); Calcium 8.2 mg/dL (8.5-10.5); Carbon Dioxide 23 mmol/L (22-29); Chloride 114 mmol/L (98-107); Glucose 150 mg/dL (65-115); Osmolality Calculated 318 mOsm/kg (285-295); Potassium 3.6 mmol/L (3.5-5.1); Sodium 148 mmol/L (136-145)
--- NOTE | 2023-08-21 04:50 | PC.NURSE ---
After multiple attempts Urinary catheter was unable to be placed. Could not retract the foreskin therefore I could not visualize the urethra.
[2023-08-21 05:10] LABS: NT Pro B Type Natriuretic Pept 29489 pg/mL (0-450)
[2023-08-21 06:37] LABS: Glucose Point of Care 157 mg/dL (70-110)
--- NOTE | 2023-08-21 09:03 | PC.CHAP ---
Pastoral Care Encounter/Spiritual Assessment Type of Contact [] Declined sample maker visit [] Patient/Family/Request visit [] Outpatient visit [] Follow-up visit [] Physician referral [] Code/Alert [] Routine visit [] Staff referral [] Actively dying [x] Patient sleeping [] Family support [] [] Out of room [] Palliative care [] [] Receiving care in room [] Pre-surgical visit [] Trauma [] Long length of stay [] ICU visit [] Other: Relational/Emotional Strength [] Patient feels connected with others/family/visitors/staff [] Distress [] Loneliness/isolation [] Abandonment Spirituality of Patient [] Person of Julia [] Attends Restoration of their Julia [] Believes in Prayer [] Reads Bible or Sikhism materials [] There are Spiritual issues to be addressed Rubber Tile Floor Layer Interventions [] Prayer [] Active listening [] Non-anxious presence [] Spiritual/emotional support [] Crisis/trauma care [] Spiritual counseling [] Bereavement support [] Provided bereavement packet [] Provided Bible/devotional materials [] Provided toy/stuffed animal, coloring book to patient or family member [] Provided Communion [] Anointing/[place] [] Salvation [] Completed spiritual assessment [] Other: Impact on Illness or Injury [] Angry [] Fearful [] Anxious [] Often cries [] Exhaustion [] Unable to work [] Unable to attend taoism [] Unable to walk/stand [] Unable to read [] Unable to drive [] Unable to eat/drink [] Unable to sleep [] Unable to be with family [] Patient intubated [] Other: Summary Time spent with patient
[2023-08-21 09:54] LABS: Partial Thromboplastin Time 125.3 SECONDS (23.9-36.7)
[2023-08-21 10:38] LABS: Glucose Point of Care 149 mg/dL (70-110)
--- NOTE | 2023-08-21 12:30 | PC.NURSE ---
physician order notified dr on pt's ptt result-58.7 in person.. Verbal order received to continue the prior rate w/c was 1300unit/26 ml/hr rate. will get another 6 hr ptt upon restarting.
[2023-08-21 12:45] LABS: Partial Thromboplastin Time 58.7 SECONDS (23.9-36.7)
--- NOTE | 2023-08-21 13:13 | PC.SOCIAL ---
Pg 2 IMM Explained to pt Pg 2 IMM. No questions voiced. Provided pt a copy. Initialed, dated, & timed a copy & placed in chart.
[2023-08-21] MEDS: FUROsemide 10 mg/mL SDV 4mL 40 MG IVP (13:41)
[2023-08-21] MEDS: collagenase oint 30 gm 1 APPLIC TOPICAL (13:41)
[2023-08-21] MEDS: lidocaine 1% 5 ML in potassium chloride premix 100 ML 52.5 ML IV (13:42)
--- NOTE | 2023-08-21 14:58 | P.PN_ITS ---
Subjective 2 Subjective: Patient was seen this morning, he is alert to person, not to place, not to time, does not follow commands, remains on amiodarone drip, heparin drip has been held due to elevated PTT, Vitals/I&O/Wt Last Vital Signs Temp 98.6 F 08/21/23 12:00 Pulse 88 08/21/23 12:00 Resp 27 H 08/21/23 12:00 BP 150/95 08/21/23 12:00 Pulse Ox 95 08/21/23 12:00 O2 Del Method Nasal Cannula 08/21/23 08:22 O2 Flow Rate 2.5 08/21/23 08:22 08/20/23 08/21/23 08/21/23 22:59 06:59 14:59 Intake Total 50 / 50 728.711 / 778.711 50 / 50 Balance 50 / 50 728.711 / 778.711 50 / 50 Weight last 48 hrs Weight 93.077 kg Weight 91.308 kg Physical Exam 2 Const: COMMON NORMALS: no acute distress EXAM LIMITATIONS: altered mental status ORIENTATION/CONSCIOUSNESS: Yes awake, Yes oriented to person and Yes confused; not oriented to place and not oriented to time Resp: COMMON NORMALS: normal respiratory effort, No retractions, No use of accessory muscles and clear to auscultation bilaterally AUSCULTATION: clear to auscultation bilaterally Cardio: COMMON NORMALS: regular rate, regular rhythm, S1 normal heart sound present and S2 normal heart sound present RATE: regular rate RHYTHM: r egular rhythm HEART SOUNDS: S1 normal heart sound present and S2 normal heart sound present GI: COMMON NORMALS: Normal to inspection, nondistended, normoactive bowel sounds present and non-tender Extremity: COMMON NORMALS: no pedal edema Neuro: SENSORIUM/ORIENTATION: Yes oriented to person, No oriented to place and No oriented to time Psych: COMMON NORMALS: mental status grossly normal Data 08/21/23 04:00 08/21/23 04:00 Micro: Microbiology 08/20/23 17:11 Blood Culture - Preliminary Blood SPECIMEN COLLECTED 08/20/23 15:47 Blood Culture - Preliminary Blood SPECIMEN COLLECTED A&P Assessment and plan (1) Acute encephalopathy: (2) Acute cystitis: (3) Sepsis: (4) NSTEMI (non-ST elevated myocardial infarction): (5) Bilateral pneumonia: (6) Acute hypoxemic respiratory failure: (7) CHF exacerbation: (8) Atrial fibrillation with RVR: (9) Lymphopenia: (10) Anemia: (11) Leukocytopenia, unspecified: Plan Acute encephalopathy ? Etiology multifactorial ? Bilateral pneumonia ? Sepsis ? Concern for UTI with history of ESBL UTIs, Proteus UTIs ? N.p.o. ? Neurochecks ? Aspiration precautions Acute hypoxic respiratory failure ? Multifactorial next?bilateral pneumonia ? Fluid overload, CHF exacerbation A-fib ? Plan ? Monitor respiratory status closely ? DuoNeb ? Budesonide ? Vancomycin ? Meropenem ? Sputum cultures ? Follow blood cultures ? 1 dose IV Lasix today Sepsis, secondary to UTI, concerns for bilateral pneumonia, history of ESBL UTI, Proteus UTIs ? Sepsis features met given encephalopathy, source infection pneumonia, hypoxia, tachycardia, troponin 102, lymphopenia, UTI ? UA with evidence of UTI Has a history of ESBL UTIs, has a history of Proteus UTIs, ? Continue meropenem NSTEMI ? Type I versus type II ? telemetry monitoring ? Continue heparin drip CHF exacerbation ? Given sepsis as above will hold Lasix for now monitor respiratory status ? 1 dose IV Lasix A-fib with RVR ? Amiodarone drip ? Heparin drip Type 2 diabetes mellitus low-dose sliding scale Full code ? Heparin drip for DVT prophylaxis Plan today continue IV antibiotics continue amiodarone drip continue heparin drip monitor mentation, follow cultures monitor urine output Attestations 2 Medical Necessity Statement*: Patient requires hospitalization for acute encephalopathy, respiratory failure sepsis UTI NSTEMI CHF Diagnoses Acute encephalopathy G93.40 Acute cystitis N30.00 Sepsis A41.9 NSTEMI (non-ST elevated myocardial infarction) I21.4 Bilateral pneumonia J18.9 Acute hypoxemic respiratory failure J96.01 CHF exacerbation I50.9 Atrial fibrillation with RVR I48.91 Lymphopenia D72.810 Anemia D64.9 Leukocytopenia, unspecified D72.819
[2023-08-21 16:59] LABS: Glucose Point of Care 158 mg/dL (70-110)
[2023-08-21 20:29] LABS: Glucose Point of Care 119 mg/dL (70-110)
[2023-08-21 20:40] LABS: Partial Thromboplastin Time > 250.0 SECONDS (23.9-36.7)
[2023-08-21] MEDS: pantoprazole 40 mg SDV IVP (21:50)
[2023-08-21] MEDS: vancomycin 1,250 MG/250 ML PIGGYBACK 250 MG IV (21:53)
[2023-08-22] VITALS (11 sets, daily range): BP systolic 136–167; BP diastolic 89–102; PULSE 90–107; RESP 21–29; TEMP 37.2–38.1; O2SAT 90–95
[2023-08-22] MEDS: meropenem 1,000 MG in sodium chloride 0.9% (plus) 50 ML 100 MG IV ×2 (03:48→15:29)
[2023-08-22 04:44] LABS: Basophils % 0.2 %; Eosinophils # 0.1 10^3/uL (0.0-0.8); Eosinophils % 1.5 %; Hematocrit 30.8 % (37-53); Lymphocytes # 0.9 10^3/uL (0.8-4.8); Lymphocytes % 22.3 %; Mean Corpuscular HGB Conc 29.2 g/dL (30-55); Mean Corpuscular Hemoglobin 26.7 pg (27-33); Mean Corpuscular Volume 91.4 fl (82-101); Mean Platelet Volume 10.4 fL (7.4-10.4); Monocytes # 0.2 10^3/uL (0.2-0.9); Monocytes % 5.1 %; Neutrophils # 2.92 10^3/uL (1.8-7.7); Neutrophils % 70.7 %; Nucleated Red Blood Cells % 0 %; Platelet Count 133 10^3/cmm (157-399); Red Blood Count 3.37 10^6/uL (3.85-5.65); Red Cell Distribution Width 15.8 % (12.1-15.1); White Blood Count 4.13 10^3/uL (3.29-11.43)
[2023-08-22 04:59] LABS: Anion Gap 17.5 (5-19); Blood Urea Nitrogen 37 mg/dL (8-23); Calcium 7.9 mg/dL (8.5-10.5); Carbon Dioxide 21 mmol/L (22-29); Chloride 113 mmol/L (98-107); Creatinine Clr Calc Pharmacy 37.3163; Glucose 123 mg/dL (65-115); Osmolality Calculated 316 mOsm/kg (285-295); Potassium 3.5 mmol/L (3.5-5.1); Sodium 148 mmol/L (136-145)
[2023-08-22 06:23] LABS: Glucose Point of Care 113 mg/dL (70-110)
[2023-08-22] MEDS: heparin drip 25,000 UNIT/500 ML PREMIX 22 UNIT IV (07:08)
[2023-08-22] MEDS: collagenase oint 30 gm 1 APPLIC TOPICAL (08:59)
--- NOTE | 2023-08-22 09:27 | PC.NURSE ---
Performed dressing changes to bilateral feet cleaning with NS, using santyl and hydraferal blue to right ankle. Eschar noted to lateral right foot.
[2023-08-22 09:56] LABS: Partial Thromboplastin Time > 250.0 SECONDS (23.9-36.7)
[2023-08-22 11:39] LABS: Glucose Point of Care 140 mg/dL (70-110)
[2023-08-22 14:37] LABS: Partial Thromboplastin Time 66.8 SECONDS (23.9-36.7)
--- NOTE | 2023-08-22 14:53 | P.PN_ITS ---
Subjective 2 Subjective: Patient was seen this morning, remains on heparin drip, amiodarone going a 0.5, he is alert to person, not to place, not to time, he has a weak cough, he can follow commands can move both his arms but easily gets distracted remains encephalopathic, at times I cannot get answers from him, still high aspiration risk Vitals/I&O/Wt Last Vital Signs Temp 99.1 F 08/22/23 11:31 Pulse 107 H 08/22/23 14:00 Resp 29 H 08/22/23 11:31 BP 156/102 08/22/23 11:31 Pulse Ox 94 08/22/23 11:31 O2 Del Method Nasal Cannula 08/22/23 11:31 O2 Flow Rate 3 08/22/23 09:50 08/21/23 08/22/23 08/22/23 22:59 06:59 14:59 Intake Total 464.814 / 514.814 548.929 / 1063.743 206.368 / 206.368 Output Total 1650 / 1650 1050 / 2700 Balance -1185.186 / -1135.186 -501.071 / -1636.257 206.368 / 206.368 Weight last 48 hrs Weight 93.242 kg Weight 93.077 kg Weight 91.308 kg Physical Exam 2 Const: COMMON NORMALS: no acute distress ORIENTATION/CONSCIOUSNESS: Yes awake, Yes oriented to person and Yes confused; not oriented to place and not oriented to time Resp: COMMON NORMALS: normal respiratory effort, No retractions and No use of accessory muscles AUSCULTATION: crackles Cardio: COMMON NORMALS: regular rate, regular rhythm, S1 normal heart sound present and S2 normal heart sound present RATE: regular rate RHYTHM: r egular rhythm HEART SOUNDS: S1 normal heart sound present and S2 normal heart sound present GI: COMMON NORMALS: Normal to inspection, nondistended, normoactive bowel sounds present and non-tender Extremity: COMMON NORMALS: no pedal edema Neuro: SENSORIUM/ORIENTATION: Yes oriented to person, No oriented to place and No oriented to time Psych: COMMON NORMALS: mental status grossly normal Skin: NARRATIVE SKIN EXAM: Has evidence of protein calorie malnutrition, physical deconditioning, sarcopenia bilateral temporal muscle wasting, bilateral shoulders bilateral arms, bilateral thighs, loss of fat pad under ribs, under clavicles, Urinary Catheter Management: Ayala: Cath Placed During This Visit: yes Reason for Continuing Indwelling Catheter: Other Urinary Catheter Date of Insertion: 08/21/23 Urinary Catheter Time of Insertion: 15:00 Data 08/22/23 04:28 08/22/23 04:28 Micro: Microbiology 08/20/23 19:23 Urine Culture - Preliminary Urine,Voided 08/20/23 17:11 Blood Culture - Preliminary Blood NEGATIVE TO DATE 08/20/23 15:47 Blood Culture - Preliminary Blood NEGATIVE TO DATE A&P Assessment and plan (1) Acute encephalopathy: (2) Acute cystitis: (3) Sepsis: (4) NSTEMI (non-ST elevated myocardial infarction): (5) Bilateral pneumonia: (6) Acute hypoxemic respiratory failure: (7) CHF exacerbation: (8) Atrial fibrillation with RVR: (9) Lymphopenia: (10) Anemia: (11) Leukocytopenia, unspecified: (12) Physical deconditioning: (13) Sarcopenia: (14) Protein calorie malnutrition: Plan Acute encephalopathy ? Etiology multifactorial ? Bilateral pneumonia ? Sepsis ? Concern for UTI with history of ESBL UTIs, Proteus UTIs ? N.p.o. ? Remains high aspiration risk, speech therapy eval ? Neurochecks ? Aspiration precautions Acute hypoxic respiratory failure ? Multifactorial next?bilateral pneumonia ? Fluid overload, CHF exacerbation A-fib ? Plan ? Monitor respiratory status closely ? DuoNeb ? Budesonide ? Vancomycin ? Meropenem ? Sputum cultures ? Follow blood cultures Sepsis, secondary to UTI, concerns for bilateral pneumonia, history of ESBL UTI, Proteus UTIs ? Sepsis features met given encephalopathy, source infection pneumonia, hypoxia, tachycardia, troponin 102, lymphopenia, UTI ? UA with evidence of UTI Has a history of ESBL UTIs, has a history of Proteus UTIs, ? Continue meropenem NSTEMI ? Type I versus type II ? telemetry monitoring ? Continue heparin drip CHF exacerbation ? Given sepsis as above will hold Lasix for now monitor respiratory status A-fib with RVR ? Amiodarone drip ? Heparin drip Type 2 diabetes mellitus low-dose sliding scale Physical deconditioning, protein calorie malnutrition, sarcopenia Full code ? Heparin drip for DVT prophylaxis Plan today continue IV antibiotics continue amiodarone drip continue heparin drip monitor mentation, follow cultures monitor urine output Attestations 2 Medical Necessity Statement*: Patient requires hospitalization for acute encephalopathy, respiratory failure, UTI, NSTEMI, CHF, A-fib Diagnoses Acute encephalopathy G93.40 Acute cystitis N30.00 Sepsis A41.9 NSTEMI (non-ST elevated myocardial infarction) I21.4 Bilateral pneumonia J18.9 Acute hypoxemic respiratory failure J96.01 CHF exacerbation I50.9 Atrial fibrillation with RVR I48.91 Lymphopenia D72.810 Anemia D64.9 Leukocytopenia, unspecified D72.819 Physical deconditioning R53.81 Sarcopenia M62.84 Protein calorie malnutrition E46
[2023-08-22 17:03] LABS: Glucose Point of Care 148 mg/dL (70-110)
[2023-08-22 21:04] LABS: Glucose Point of Care 129 mg/dL (70-110)
[2023-08-22 21:32] LABS: Partial Thromboplastin Time > 250.0 SECONDS (23.9-36.7)
[2023-08-22] MEDS: pantoprazole 40 mg SDV IVP (21:38)
[2023-08-22] MEDS: vancomycin 1,250 MG/250 ML PIGGYBACK 250 MG IV (21:40)
[2023-08-23] VITALS (27 sets, daily range): BP systolic 160–175; BP diastolic 91–105; PULSE 89–127; RESP 22–39; TEMP 36.7–37.7; O2SAT 84–95
[2023-08-23] MEDS: meropenem 1,000 MG in sodium chloride 0.9% (plus) 50 ML 100 MG IV ×2 (04:12→16:35)
--- NOTE | 2023-08-23 07:00 | XRR_ITS ---
PROCEDURE INFORMATION: Exam: XR Chest Exam date and time: 08/23/2023 7:54 AM Age: 83 years old Clinical indication: Shortness of breath; Additional info: SOB TECHNIQUE: Imaging protocol: Radiologic exam of the chest. Views: 1 view. COMPARISON: CR XR chest 1V portable [id number] 08/20/2023 3:35 PM FINDINGS: Lungs: Worsening patchy opacities in the bilateral lungs, most prominent in the perihilar regions. Pleural spaces: Probable right pleural effusion. No distinct pneumothorax. Heart/Mediastinum: Cardiomediastinal silhouette is midline and obscured. Vasculature: Calcific disease of the aorta. Bones/joints: Osseous structures are unchanged. XR/XR chest 1V portable [id number] IMPRESSION: 1. Worsening patchy opacities in the bilateral lungs, most prominent in the perihilar regions. 2. Probable right pleural effusion.
[2023-08-23 07:05] LABS: Glucose Point of Care 146 mg/dL (70-110)
[2023-08-23 08:51] LABS: Anion Gap 17.3 (5-19); Blood Urea Nitrogen 34 mg/dL (8-23); Calcium 8.3 mg/dL (8.5-10.5); Carbon Dioxide 21 mmol/L (22-29); Chloride 113 mmol/L (98-107); Glucose 140 mg/dL (65-115); Osmolality Calculated 316 mOsm/kg (285-295); Potassium 3.3 mmol/L (3.5-5.1); Sodium 148 mmol/L (136-145)
[2023-08-23 08:53] LABS: Creatinine Clr Calc Pharmacy 39.5358
[2023-08-23 08:57] LABS: C Reactive Protein 127.7 mg/L (0.0-4.9)
[2023-08-23 09:30] LABS: Partial Thromboplastin Time 168.9 SECONDS (23.9-36.7)
--- NOTE | 2023-08-23 09:48 | PC.SLP ---
Pt asleep. Will attempt later.
[2023-08-23 09:55] LABS: Basophils % 0.2 %; Eosinophils # 0.2 10^3/uL (0.0-0.8); Hematocrit 34.6 % (37-53); Lymphocytes % 17.4 %; Mean Corpuscular HGB Conc 29.2 g/dL (30-55); Mean Corpuscular Hemoglobin 26.4 pg (27-33); Mean Corpuscular Volume 90.6 fl (82-101); Mean Platelet Volume 10.6 fL (7.4-10.4); Monocytes # 0.3 10^3/uL (0.2-0.9); Monocytes % 4.9 %; Neutrophils # 4.26 10^3/uL (1.8-7.7); Nucleated Red Blood Cells % 0 %; Platelet Count 151 10^3/cmm (157-399); Red Blood Count 3.82 10^6/uL (3.85-5.65); Red Cell Distribution Width 15.9 % (12.1-15.1); White Blood Count 5.75 10^3/uL (3.29-11.43)
[2023-08-23 10:06] LABS: NT Pro B Type Natriuretic Pept 32964 pg/mL (0-450); Phosphorus 3.4 mg/dL (2.5-4.5)
[2023-08-23] MEDS: collagenase oint 30 gm 1 APPLIC TOPICAL (10:36)
[2023-08-23 11:38] LABS: Glucose Point of Care 154 mg/dL (70-110)
[2023-08-23 14:51] LABS: Partial Thromboplastin Time 44.4 SECONDS (23.9-36.7)
--- NOTE | 2023-08-23 16:47 | P.PN_ITS ---
Subjective 2 Subjective: -Patient was seen this morning, he was a febrile throughout the night, normotensive, currently on 4 L, he is alert to person, not to place, not to time, he can follow some commands such as moving both arms, moving both legs but does not really follow specific commands, ? Remains on amiodarone drip ? Remains on heparin drip, remains in atrial fibrillation -Chest x-ray shows bilateral pulmonary p atchy infiltrates, perihilar regions ? Speech therapy eval, patient continues to have poor oral hygiene, poor oral awareness of items placed in his mouth, remains a very high aspiration risk ? Given his underlying dementia, his sepsis, his pneumonia, continues to have a very high aspiration risk speech therapy to reassess him tomorrow will order modified barium swallow will see if he can be actually completed given his persistent mentation ? The question is is that is his mentation currently still under the effect of sepsis, or to see back to his baseline with dementia -The last time I saw him back in January , he is alert to person not to time, he would intermittently follow commands ? I had a detailed discussion with patient's only family member his daughter Faye Kyle, I had a discussion with him that given his deconditioned state his underlying dementia, now with a sepsis pneumonia UTI, it is poor cognition, poor oral awareness, he has a high aspiration risk, the neck step would be to do a modified barium swallow, continue speech therapy eval however my concern is is that he will likely continue to aspirate, and likely have recurrent hospitalizations for aspiration pneumonia, aspiration pneumonitis, with sepsis septic shock and morbidity and mortality associated ? Options I did discuss was continue medical interventions, and going down the hospice route easing his pain easing suffering allowing him to be comfortable allowing him to eat and allowing him to enjoy the quality of life versus placing a PEG tube, morbidity mortality associate with the surgical procedure was discussed, and that the PEG tube would allow him to get his adequate nutrition help with his protein calorie malnutrition his physical deconditioning but would not necessarily improve the quality of life as he would not be able to eat but we can certainly have speech therapy continue to work with him ? After discussing the risk and benefits, she voiced understanding, all questions answered the plan was to continue to have speech therapy evaluate patient modified barium swallow tomorrow, she tells me that if he does continue to aspirate, continue to have pneumonia as she would prefer PEG tube placement but she still wants to think about this Vitals/I&O/Wt Last Vital Signs Temp 99.2 F 08/23/23 11:29 Pulse 98 08/23/23 11:29 Resp 28 H 08/23/23 11:29 BP 175/105 08/23/23 11:29 Pulse Ox 90 08/23/23 11:29 O2 Del Method Nasal Cannula 08/23/23 11:29 O2 Flow Rate 4 08/23/23 08:00 08/23/23 08/23/23 08/23/23 06:59 14:59 22:59 Intake Total 500 / 1080.740 133.6 / 133.6 200 / 333.6 Output Total 450 / 1450 Balance 50 / -369.260 133.6 / 133.6 200 / 333.6 Weight last 48 hrs Weight 93.213 kg Weight 93.242 kg Physical Exam 2 Const: COMMON NORMALS: no acute distress EXAM LIMITATIONS: altered mental status ORIENTATION/CONSCIOUSNESS: Yes awake, Yes oriented to person and Yes confused; not oriented to place and not oriented to time Resp: COMMON NORMALS: normal respiratory effort, No retractions and No use of accessory muscles AUSCULTATION: crackles and wheezes Cardio: COMMON NORMALS: regular rate, regular rhythm, S1 normal heart sound present and S2 normal heart sound present RATE: regular rate RHYTHM: r egular rhythm HEART SOUNDS: S1 normal heart sound present and S2 normal heart sound present GI: COMMON NORMALS: Normal to inspection, nondistended, normoactive bowel sounds present and non-tender Extremity: COMMON NORMALS: capillary refill normal NARRATIVE EXTREMITY EXAM: 2+ pitting edema Neuro: SENSORIUM/ORIENTATION: Yes oriented to person, No oriented to place and No oriented to time Urinary Catheter Management: Ayala: Cath Placed During This Visit: yes Reason for Continuing Indwelling Catheter: Accurate Measurement of Urinary Output in Critically Ill Patients Urinary Catheter Date of Insertion: 08/21/23 Urinary Catheter Time of Insertion: 15:00 Data 08/23/23 09:34 08/23/23 08:16 Micro: Microbiology 08/20/23 19:23 Urine Culture - Final Urine,Voided A&P Assessment and plan (1) Acute encephalopathy: (2) Acute cystitis: (3) Sepsis: (4) NSTEMI (non-ST elevated myocardial infarction): (5) Bilateral pneumonia: (6) Acute hypoxemic respiratory failure: (7) CHF exacerbation: (8) Atrial fibrillation with RVR: (9) Lymphopenia: (10) Anemia: (11) Leukocytopenia, unspecified: (12) Physical deconditioning: (13) Sarcopenia: (14) Protein calorie malnutrition: (15) Aspiration pneumonia: (16) Aspiration pneumonitis: Plan Acute encephalopathy ? Etiology multifactorial ? Bilateral pneumonia, Concerning for aspiration pneumonia, aspiration pneumonitis ? Sepsis ? Concern for UTI with history of ESBL UTIs, Proteus UTIs ? N.p.o. ? Remains high aspiration risk, speech therapy eval, Modified barium swallow tomorrow, continue speech therapy eval, if he continues to have a high aspiration risk patient's daughter would prefer PEG tube placement, however will reassess with her based upon test results and clinical progress ? Neurochecks ? Aspiration precautions Acute hypoxic respiratory failure ? Multifactorial ?bilateral p, Concerning for aspiration pneumonia, aspiration pneumonitisneumonia ? Fluid overload, CHF exacerbation A-fib ? Plan ? Monitor respiratory status closely ? DuoNeb ? Budesonide ? Vancomycin ? Meropenem ? Sputum cultures ? Follow blood cultures -one dose IV lasixtoday Sepsis, secondary to UTI, concerns for bilateral pneumonia, history of ESBL UTI, Proteus UTIs ? Sepsis features met given encephalopathy, source infection pneumonia, hypoxia, tachycardia, troponin 102, lymphopenia, UTI ? UA with evidence of UTI Has a history of ESBL UTIs, has a history of Proteus UTIs, ? Continue meropenem NSTEMI ? Type I versus type II ? telemetry monitoring ? Continue heparin drip CHF exacerbation ?1 dose IV lasix today A-fib with RVR ? Amiodarone drip ? Heparin drip Type 2 diabetes mellitus low-dose sliding scale Physical deconditioning, protein calorie malnutrition, sarcopenia -secondary to dementia -with aspiration as above Full code ? Heparin drip for DVT prophylaxis Plan today continue IV antibiotics continue amiodarone drip continue heparin drip monitor mentation, follow cultures monitor urine output Patient was seen this morning, he was afebrile throughout the night, normotensive, currently on 4 L, he is alert to person, not to place, not to time, he can follow some commands such as moving both arms, moving both legs but does not really follow specific commands, ? Remains on amiodarone drip ? Remains on heparin drip, remains in atrial fibrillation -Chest x-ray shows bilateral pulmonary patchy infiltrates, perihilar regions ? Speech therapy eval, patient continues to have poor oral hygiene, poor oral awareness of items placed in his mouth, remains a very high aspiration risk ? Given his underlying dementia, his sepsis, his pneumonia, continues to have a very high aspiration risk speech therapy to reassess him tomorrow will order modified barium swallow will see if he can be actually completed given his persistent mentation ? The question is is that is his mentation currently still under the effect of sepsis, or to see back to his baseline with dementia -The last time I saw him back in January, he is alert to person not to time, he would intermittently follow commands ? I had a detailed discussion with patient's only family member his daughter Faye Kyle, I had a discussion with him that given his deconditioned state his underlying dementia, now with a sepsis pneumonia UTI, it is poor cognition, poor oral awareness, he has a high aspiration risk, the neck step would be to do a modified barium swallow, continue speech therapy eval however my concern is is that he will likely continue to aspirate, and likely have recurrent hospitalizations for aspiration pneumonia, aspiration pneumonitis, with sepsis septic shock and morbidity and mortality associated ? Options I did discuss was continue medical interventions, and going down the hospice route easing his pain easing suffering allowing him to be comfortable allowing him to eat and allowing him to enjoy the quality of life versus placing a PEG tube, morbidity mortality associate with the surgical procedure was discussed, and that the PEG tube would allow him to get his adequate nutrition help with his protein calorie malnutrition his physical deconditioning but would not necessarily improve the quality of life as he would not be able to eat but we can certainly have speech therapy continue to work with him ? After discussing the risk and benefits, she voiced understanding, all questions answered the plan was to continue to have speech therapy evaluate patient modified barium swallow tomorrow, she tells me that if he does continue to aspirate, continue to have pneumonia as she would prefer PEG tube placement but she still wants to think about this Attestations 2 Medical Necessity Statement*: Patient requires hospitalization for CHF exacerbation, fluid overload, aspiration pneumonia, aspiration pneumonitis, UTI, persistent encephalopathy, high aspiration risk Diagnoses Acute encephalopathy G93.40 Acute cystitis N30.00 Sepsis A41.9 NSTEMI (non-ST elevated myocardial infarction) I21.4 Bilateral pneumonia J18.9 Acute hypoxemic respiratory failure J96.01 CHF exacerbation I50.9 Atrial fibrillation with RVR I48.91 Lymphopenia D72.810 Anemia D64.9 Leukocytopenia, unspecified D72.819 Physical deconditioning R53.81 Sarcopenia M62.84 Protein calorie malnutrition E46 Aspiration pneumonia J69.0 Aspiration pneumonitis J69.0
[2023-08-23 17:09] LABS: Glucose Point of Care 156 mg/dL (70-110)
[2023-08-23] MEDS: lidocaine 1% 5 ML in potassium chloride premix 100 ML 52.5 ML IV ×2 (17:37→20:07)
[2023-08-23] MEDS: FUROsemide 10 mg/mL SDV 4mL 40 MG IVP (17:37)
[2023-08-23] MEDS: pantoprazole 40 mg SDV IVP (20:26)
[2023-08-23 20:27] LABS: Glucose Point of Care 161 mg/dL (70-110)
[2023-08-23 20:34] LABS: Vancomycin Trough 21.8 ug/mL (10-15)
[2023-08-23 22:35] LABS: Partial Thromboplastin Time 103.5 SECONDS (23.9-36.7)
[2023-08-24] VITALS (17 sets, daily range): BP systolic 161–175; BP diastolic 89–105; PULSE 96–111; RESP 24–41; TEMP 36.7–37.6; O2SAT 87–94
[2023-08-24] MEDS: vancomycin 1,000 MG in sodium chloride 0.9% 250 ML 250 MG IV (04:09)
[2023-08-24] MEDS: meropenem 1,000 MG in sodium chloride 0.9% (plus) 50 ML 100 MG IV (04:09)
[2023-08-24 05:18] LABS: Basophils % 0.2 %; Eosinophils # 0.2 10^3/uL (0.0-0.8); Eosinophils % 3.6 %; Lymphocytes # 0.9 10^3/uL (0.8-4.8); Lymphocytes % 15.7 %; Mean Corpuscular HGB Conc 29.4 g/dL (30-55); Mean Corpuscular Hemoglobin 26.4 pg (27-33); Mean Corpuscular Volume 89.9 fl (82-101); Mean Platelet Volume 10.7 fL (7.4-10.4); Monocytes # 0.3 10^3/uL (0.2-0.9); Monocytes % 4.6 %; Neutrophils # 4.24 10^3/uL (1.8-7.7); Neutrophils % 75.4 %; Nucleated Red Blood Cells % 0 %; Platelet Count 146 10^3/cmm (157-399); Red Blood Count 3.67 10^6/uL (3.85-5.65); Red Cell Distribution Width 15.9 % (12.1-15.1); White Blood Count 5.62 10^3/uL (3.29-11.43)
[2023-08-24 05:38] LABS: Partial Thromboplastin Time 70.6 SECONDS (23.9-36.7)
[2023-08-24 05:44] LABS: Anion Gap 16.5 (5-19); Blood Urea Nitrogen 33 mg/dL (8-23); Calcium 8.1 mg/dL (8.5-10.5); Carbon Dioxide 24 mmol/L (22-29); Chloride 117 mmol/L (98-107); Creatinine Clr Calc Pharmacy 39.5358; Glucose 163 mg/dL (65-115); Osmolality Calculated 329 mOsm/kg (285-295); Potassium 3.5 mmol/L (3.5-5.1); Sodium 154 mmol/L (136-145)
[2023-08-24 06:04] LABS: NT Pro B Type Natriuretic Pept 34695 pg/mL (0-450)
[2023-08-24 06:46] LABS: Glucose Point of Care 161 mg/dL (70-110)
[2023-08-24] MEDS: dextrose 5%-ns 0.45% + KCl 10 1,000 ML 30 MEQ IV (07:49)
[2023-08-24] MEDS: collagenase oint 30 gm 1 APPLIC TOPICAL (09:49)
[2023-08-24] MEDS: heparin drip 25,000 UNIT/500 ML PREMIX 10 UNIT IV (11:08)
[2023-08-24 11:41] LABS: Partial Thromboplastin Time 69.3 SECONDS (23.9-36.7)
[2023-08-24 12:30] LABS: Glucose Point of Care 165 mg/dL (70-110)
--- NOTE | 2023-08-24 12:32 | PM.PN ---
Subjective Subjective: Patient is only oriented to himself Not able to eat Switch heparin to Lovenox Spoke with the daughter, I discussed goals of care, prognostic signs, poor prognosis because he has not been able to eat he is getting confused and getting worse every day clinically, she has opted [facility] Discharge planners notified Nurse notified as well I have discontinued heparin drip as well changed to therapeutic Lovenox once daily regimen Sodium worsening, added D5 at lower rate Vitals/I&O/Wt Last Vital Signs Temp 99.7 F H 08/24/23 08:45 Pulse 111 H 08/24/23 08:45 Resp 25 H 08/24/23 08:45 BP 169/92 08/24/23 08:45 Pulse Ox 93 08/24/23 08:45 O2 Del Method Nasal Cannula 08/24/23 08:00 O2 Flow Rate 4 08/24/23 08:00 08/23/23 08/24/23 08/24/23 22:59 06:59 14:59 Intake Total 537.019 / 670.619 420.874 / 1091.493 96.248 / 96.248 Output Total 1500 / 1500 700 / 2200 Balance -962.981 / -829.381 -279.126 / -1108.507 96.248 / 96.248 Weight last 48 hrs Weight 89.358 kg Weight 93.213 kg Physical Exam Narrative: Patient is oriented to himself Only able to answer a few questions Third spacing is evident Anasarca Multiple pressure ulcers around ankles and sacral area Deep tissue injury present A-fib RVR Currently patient is on 4 L Urinary Catheter Management: Ayala: Cath Placed During This Visit: yes Reason for Continuing Indwelling Catheter: Accurate Measurement of Urinary Output in Critically Ill Patients Urinary Catheter Date of Insertion: 08/21/23 Urinary Catheter Time of Insertion: 15:00 Data 08/24/23 05:02 08/24/23 05:02 Micro: Microbiology 08/20/23 19:23 Urine Culture - Final Urine,Voided A&P Assessment and plan (1) Hospice care: (2) Atrial fibrillation: Qualifiers: Atrial fibrillation type: paroxysmal Qualified Code(s): I48.0 - Paroxysmal atrial fibrillation (3) DENNYS (acute kidney injury): (4) Aspiration pneumonia: (5) Pressure ulcer: Qualifiers: Pressure injury location: sacral region (6) Metabolic encephalopathy: Plan Extensive discussion took place with his daughter, we discussed labs, clinical progress, poor prognostic signs of not able to eat, confusion, sodium getting worse, patient is too confused to follow commands for modified barium swallow, he is not a good surgical candidate for PEG tube placement at this point considering oxygen requirement and tachypnea he is only oriented to himself, daughter has opted for hospice care Metabolic encephalopathy related to third spacing, dehydration Pneumonia No significant improvement High risk for aspiration/recurrent: Aspiration pneumonia Continue antibiotics Not a good surgical candidate for PEG tube placement, not able to follow commands well modified barium swallow study Sepsis: Resolved UTI: History of ESBL Continue meropenem until day of discharge Type II MD Amiodarone discontinued for A-fib RVR Discontinue heparin drip changed to therapeutic Lovenox once daily Considering hospice care I would not continue heparin drip at this time Severe protein calorie malnourishment Sarcopenia Poor prognosis high risk for mortality morbidity [facility] care at the [facility] Daughter at the bedside today Case management updated Likely go to back to [facility] care tomorrow Attestations Medical Necessity Statement*: Discharge likely tomorrow if gets accepted by hospice care Diagnoses Hospice care Z51.5 Paroxysmal atrial fibrillation I48.0 Atrial fibrillation type: paroxysmal DENNYS (acute kidney injury) N17.9 Aspiration pneumonia J69.0 Pressure ulcer L89.90 Pressure injury location: sacral region Metabolic encephalopathy G93.41
--- NOTE | 2023-08-24 13:16 | P.DS_ITS ---
Discharge Providers Date of Admission: 08/20/23 19:10 Date of Discharge: August 24, 2023 Attending Provider at Admission: Lyndon Lane MD Attending Provider at Discharge: Katharine Gerard MD Primary Care Provider: Faye Zamora MD Diagnoses at Discharge Discharge Diagnosis (1) Hospice care: Status: Acute (2) Atrial fibrillation: Status: Acute Qualifiers: Atrial fibrillation type: paroxysmal Qualified Code(s): I48.0 - Paroxysmal atrial fibrillation (3) DENNYS (acute kidney injury): Status: Acute (4) Aspiration pneumonia: Status: Acute (5) Pressure ulcer: Status: Acute Qualifiers: Pressure injury location: sacral region (6) Metabolic encephalopathy: Status: Acute Reason for Visit Reason for Visit: AMS; FLU+ Hospital Course Hospital Course 83-year-old male who was hospitalized for management and evaluation of metabolic encephalopathy related to aspiration pneumonia and UTI, he was extremely deconditioned, he was in septic shock, he had history of ESBL UTI, on this admission he was put on vancomycin and meropenem, he had very poor mentation, had multiple pressure ulcers, he was getting diuresed along amiodarone and heparin drip for A-fib RVR. His mentation did not improve his sodium started getting worse, he was considered not a good candidate for PEG tube placement and modified barium swallow because he was not able to coordinate for the study. Daughter decided to send him back to the care home on hospice care. He is going back to [facility]. I have discontinued anticoagulating agent and amiodarone drip along heparin drip. At this point our goal is to keep him comfortable with hospice care. Home medications discontinued, hospice care medication will be provided by the hospice company Physical Exam Narrative: Patient is oriented to himself Only able to answer a few questions Third spacing is evident Anasarca Multiple pressure ulcers around ankles and sacral area Deep tissue injury present A-fib RVR Currently patient is on 4 L Urinary Catheter Management: Ayala: Cath Placed During This Visit: yes Reason for Continuing Indwelling Catheter: Accurate Measurement of Urinary Output in Critically Ill Patients Urinary Catheter Date of Insertion: 08/21/23 Urinary Catheter Time of Insertion: 15:00 Discharge Data Studies Completed and Pending Completed Studies During Hospitalization Category Date Time Status CT head wo con* [id number] Stat Cat Scan 08/20/23 15:57 Completed XR chest 1V portable [id number] Routine Exams 08/23/23 07:00 Completed XR chest 1V portable [id number] Stat Exams 08/20/23 15:32 Completed Pending at discharge Category Date Time Status FL barium swallow modifd [id number] Routine Exams 08/25/23 09:30 Ordered Blood Culture Stat Lab 08/20/23 17:11 Results NT Pro B Type Natriuretic Pept QAM Lab 08/25/23 06:00 Ordered PTT [Partial Thromboplastin Time] Routine Lab 08/24/23 16:00 Ordered Sputum Culture and Gram Stain Stat Lab 08/20/23 17:42 Uncollected Radiology Impressions Head CT 08/20/23 15:57 IMPRESSION: 1. No acute findings. 2. Cerebral atrophy is noted along with chronic white matter ischemic changes. Chest X-Ray 08/23/23 07:00 IMPRESSION: 1. Worsening patchy opacities in the bilateral lungs, most prominent in the perihilar regions. 2. Probable right pleural effusion. Laboratory Results WBC 5.62 10^3/uL (3.29-11.43) 08/24/23 05:02 RBC 3.67 10^6/uL (3.85-5.65) L 08/24/23 05:02 Hgb 9.70 g/dL (11.27-16.99) L 08/24/23 05:02 Hct 33.0 % (37-53) L 08/24/23 05:02 MCV 89.9 fl (82-101) 08/24/23 05:02 MCH 26.4 pg (27-33) L 08/24/23 05:02 MCHC 29.4 g/dL (30-55) L 08/24/23 05:02 RDW 15.9 % (12.1-15.1) H 08/24/23 05:02 Plt Count 146 10^3/cmm (157-399) L 08/24/23 05:02 MPV 10.7 fL (7.4-10.4) H 08/24/23 05:02 Neut % (Auto) 75.4 % 08/24/23 05:02 Lymph % (Auto) 15.7 % 08/24/23 05:02 [place] % (Auto) 4.6 % 08/24/23 05:02 Eos % (Auto) 3.6 % 08/24/23 05:02 Baso % (Auto) 0.2 % 08/24/23 05:02 Neut # (Auto) 4.24 10^3/uL (1.8-7.7) 08/24/23 05:02 Lymph # (Auto) 0.9 10^3/uL (0.8-4.8) 08/24/23 05:02 [place] # (Auto) 0.3 10^3/uL (0.2-0.9) 08/24/23 05:02 Eos # (Auto) 0.2 10^3/uL (0.0-0.8) 08/24/23 05:02 Baso # (Auto) 0.0 10^3/uL (0.0-0.1) 08/24/23 05:02 Nucleated RBC % (auto) 0 % 08/24/23 05:02 Nucleated RBCs # 0.0 /100WBC 08/24/23 05:02 APTT 69.3 SECONDS (23.9-36.7) H 08/24/23 11:05 Specimen Type Arterial 08/20/23 17:01 Sample Site Radial, left 08/20/23 17:01 ABG pH 7.43 (7.35-7.45) 08/20/23 17:01 ABG pCO2 36.8 mmHg (35-45) 08/20/23 17:01 ABG pO2 92.6 mmHg (80.0-100.0) 08/20/23 17:01 ABG HCO3 24.3 mmol/L (22-26) 08/20/23 17:01 ABG O2 Saturation 98.2 08/20/23 17:01 ABG Base Excess 0.1 mmol/L (-2.0-2.0) 08/20/23 17:01 Thierry Test Pos 08/20/23 17:01 A-a O2 Gradient 1.4 mmHg (5-10) L 08/20/23 17:01 Hematocrit 28.1 % (42-52) L 08/20/23 17:01 Hgb O2 Saturation 95.7 % (95-100) 08/20/23 17:01 Carboxyhemoglobin 1.4 %THgb (0.4-20.1) 08/20/23 17:01 Methemoglobin 1.1 % (0.4-1.5) 08/20/23 17:01 Total Hemoglobin 9.2 g/dL (14-18) L 08/20/23 17:01 Sodium 149.0 mmol/L (131-143) H 08/20/23 17:01 Potassium 3.7 mmol/L (3.5-5.0) 08/20/23 17:01 Glucose 151.0 mg/dL (70-115) H 08/20/23 17:01 Ionized Calcium 1.2 mmol/L (1.1-1.4) 08/20/23 17:01 O2 Delivery Device Nc 08/20/23 17:01 O2 Liters/Min 3.0 % 08/20/23 17:01 Drum Barker Operator ID [place] 08/20/23 17:01 Sodium 154 mmol/L (136-145) H 08/24/23 05:02 Potassium 3.5 mmol/L (3.5-5.1) 08/24/23 05:02 Chloride 117 mmol/L (98-107) H 08/24/23 05:02 Carbon Dioxide 24 mmol/L (22-29) 08/24/23 05:02 Anion Gap 16.5 (5-19) 08/24/23 05:02 BUN 33 mg/dL (8-23) H 08/24/23 05:02 Creatinine 1.7 mg/dL (0.7-1.2) H 08/24/23 05:02 GFR Calculation Not Reportable 08/24/23 05:02 Glucose 163 mg/dL (65-115) H 08/24/23 05:02 POC Glucose 165 mg/dL (70-110) H 08/24/23 11:48 Estimat Average Glucose 128 08/20/23 15:05 Hemoglobin A1c 6.1 % (4.0-6.0) H 08/20/23 15:05 Calculated Osmolality 329 mOsm/kg (285-295) H 08/24/23 05:02 Lactic Acid 1.6 mmol/L (0.5-2.2) 08/20/23 15:47 Calcium 8.1 mg/dL (8.5-10.5) L 08/24/23 05:02 Phosphorus 3.4 mg/dL (2.5-4.5) 08/23/23 08:16 Magnesium 2.0 mg/dL (1.7-2.3) 08/23/23 08:16 Total Bilirubin 0.5 mg/dL (0.15-1.2) 08/20/23 15:05 AST 22 U/L (0-40) 08/20/23 15:05 ALT 16 U/L (0-41) 08/20/23 15:05 Alkaline Phosphatase 56 U/L (40-130) 08/20/23 15:05 Troponin T Baseline 102 ng/L (0-15) H* 08/20/23 15:05 Troponin T 120 Minute 96.91 ng/L (0-15) H 08/20/23 18:45 Delta Troponin T -5.09 ABS# (0-10) L 08/20/23 18:45 Troponin T Hi Sens 6Hr 109.1 ng/L (0-15) H 08/20/23 23:25 Troponin T Hi Sens 6Hr Delta 7.1 ng/L (0-12) 08/20/23 23:25 C-Reactive Protein 127.7 mg/L (0.0-4.9) H 08/23/23 08:16 NT-Pro-B Natriuret Pep 15607 pg/mL (0-450) H 08/24/23 05:02 Total Protein 6.9 g/dL (6.6-8.7) 08/20/23 15:05 Albumin 2.6 g/dL (3.5-5.2) L 08/20/23 15:05 Globulin 4.3 g/dL (1.3-4.6) 08/20/23 15:05 Procalcitonin 0.50 ng/mL (0-0.5) 08/20/23 15:05 TSH 1.43 uIU/mL (0.27-4.20) 08/20/23 15:05 Urine Color Yellow (Yellow) 08/20/23 19:23 Urine Appearance Hazy (CLEAR) A 08/20/23 19:23 Urine pH 5 (5-7) 08/20/23 19:23 Ur Specific [place] 1.020 (1.005-1.030) 08/20/23 19:23 Urine Protein 1+ (Negative) H 08/20/23 19:23 Urine Glucose (UA) Norm (Normal) 08/20/23 19:23 Urine Ketones Negative (Negative) 08/20/23 19:23 Urine Blood 2+ (Negative) H 08/20/23 19:23 Urine Nitrate Positive (Negative) H 08/20/23 19:23 Urine Bilirubin Neg (Negative) 08/20/23 19:23 Urine Urobilinogen Neg mg/dL (Negative) 08/20/23 19:23 Ur Leukocyte Esterase 1+ (Negative) H 08/20/23 19:23 Urine RBC 5-10 /hpf (0-2) H 08/20/23 19:23 Urine WBC 25-40 /hpf (0-5) H 08/20/23 19:23 Ur Squamous Epith Cells 0-4 /hpf (0-5) H 08/20/23 19:23 Amorphous Sediment Not Reportable 08/20/23 19:23 Urine Bacteria 4+ /hpf (NONE) H 08/20/23 19:23 Urine Mucus 2+ /hpf 08/20/23 19:23 Vancomycin Trough 21.8 ug/mL (10-15) H 08/23/23 19:58 Adenovirus (PCR) Not detected (NOT DETECT) 08/20/23 20:49 C. pneumoniae DNA (PCR) Not detected (NOT DETECT) 08/20/23 20:49 Coronavirus 229E (PCR) Not detected (NOT DETECT) 08/20/23 20:49 Human Metapneumovir PCR Not detected (NOT DETECT) 08/20/23 20:49 Influenza A (H1) PCR Not detected (NOT DETECT) 08/20/23 20:49 Influ A (H1/09) PCR Not detected (NOT DETECT) 08/20/23 20:49 Influenza A (H3) PCR Not detected (NOT DETECT) 08/20/23 20:49 Influenza Type A (PCR) Not detected (NOT DETECT) 08/20/23 20:49 Influenza Type B (PCR) Not detected (NOT DETECT) 08/20/23 20:49 M. pneumoniae (PCR) Not detected (NOT DETECT) 08/20/23 20:49 Parainfluenza 1 (PCR) Not detected (NOT DETECT) 08/20/23 20:49 Parainfluenza 2 (PCR) Not detected (NOT DETECT) 08/20/23 20:49 Parainfluenza 3 (PCR) Not detected (NOT DETECT) 08/20/23 20:49 Parainfluenza 4 (PCR) Not detected (NOT DETECT) 08/20/23 20:49 RSV Type A (PCR) Not detected (NOT DETECT) 08/20/23 20:49 RSV Type B (PCR) Not detected (NOT DETECT) 08/20/23 20:49 Entero/Rhino (PCR) Not detected (NOT DETECT) 08/20/23 20:49 SARS-CoV-2 (PCR) Not detected (NOT DETECT) 08/20/23 20:49 Vitals Last Vital Signs Temp 99.2 F 08/24/23 12:32 Pulse 100 08/24/23 12:32 Resp 29 H 08/24/23 12:32 BP 164/90 08/24/23 12:32 Pulse Ox 87 L 08/24/23 13:02 O2 Del Method Nasal Cannula 08/24/23 13:02 O2 Flow Rate 7 08/24/23 13:02 Discharge Plan Discharge Patient Disposition: Xfer SNF Condition: Stable Prescriptions: Discontinued sertraline 100 mg tablet 100 mg PO QAM fluticasone propionate [Flonase Allergy Relief] 50 mcg/actuation spray,suspension 2 spray INTRANASAL DAILY Qty: 16 3RF Rx Instructions: administer into each nostril furosemide [Lasix] 40 mg tablet 40 mg PO QAM potassium chloride 20 mEq tablet extended release 20 meq PO QAM pantoprazole 40 mg tablet,delayed release (DR/EC) 40 mg PO QAM gabapentin 300 mg capsule 300 mg PO BEDTIME PreserVision AREDS-2 250-90-40-1 mg Capsule 1 tab PO QAM diclofenac sodium 1 % Kit 2 g TOPICAL QID PRN (Reason: Pain) Rx Instructions: apply to single elbow, wrist or hand; for hand includes palm/fingers/back of hand finasteride [Proscar] 5 mg Tablet 5 mg PO QAM Dulcolax (bisacodyl) 10 mg Suppository See Rx Instructions .ROUTE .COMPLEX PRN (Reason: Constipation) Rx Instructions: INSERT 1 SUPPOSITORY RECTALLY ONCE DAILY NEEDED IF CANT TAKE BY MOUTH IF NO RESULTS FROM MILK OF MAGNESIA. Dulcolax (bisacodyl) 5 mg Tablet,Delayed Release (Dr/Ec) See Rx Instructions .ROUTE .COMPLEX PRN (Reason: Constipation) Rx Instructions: TAKE 2 TABLETS (10MG) BY MOUTH ONCE DAILY NEEDED IF NO RESULTS FROM MILK OF MAGNESIA. Humalog U-100 Insulin 100 unit/mL Solution See Rx Instructions .ROUTE .COMPLEX Rx Instructions: INJECT PER SLIDING SCALE BEFORE MEALS: BS LESS THAN 60-CALL MD. 141-180=0 UNITS, 181-220=2 UNITS, 221-260=4 UNITS, 261-300=6 UNITS, 301-350=8 UNITS, 351- 400=10 UNITS, 401-450=12 UNITS, GREATER THAN 450=14 UNITS.IF BS LESS THAN 60 OR GREATER THAN 400 FOR 3 CONSECUTIVE-CALL PROVIDER. Calmoseptine 0.44-20.6 % ointment See Rx Instructions .ROUTE .COMPLEX Rx Instructions: APPLY TOPICALLY TO BUTTUCK EVERY SHIFT FOR PREVENTION OF BREAKDOWN. Eliquis 2.5 mg tablet 2.5 mg PO BID Humalog Papo KwikPen U-100 100 unit/mL Insulin Pen, Half-Unit 5 unit SUBCUT TID acetaminophen 325 mg Tablet 650 mg PO Q6H PRN (Reason: PAIN OR INCREASED TEMP) Milk of Magnesia 400 mg/5 mL Suspension See Rx Instructions .ROUTE .COMPLEX PRN (Reason: Constipation) Rx Instructions: GIVE 30 ML BY MOUTH EVERY 72 HOURS NEEDED IF NO BM IN 3 DAYS. Nystop 100,000 unit/gram powder See Rx Instructions .ROUTE .COMPLEX Rx Instructions: APPLY TOPICALLY TO REDDENED AREAS OF GROIN EVERY SHIFT TILL HEALED, THEN DC. Santyl 250 unit/gram ointment See Rx Instructions .ROUTE .COMPLEX Rx Instructions: APPLY TOPICALLY EVERY SHIF TO OUTER TOE AND LEFT FOOT OPEN AREAS. CLEANSE WITH NS AND GAUZE, APPLY SANTYL TO WOUND BED ONLY ,COVER WITH NON BORDERED FOAM AND WRAP WITH KERLIX AND SECURE WITH TAPE. Lantus U-100 Insulin 100 unit/mL solution 10 unit SUBCUT BID Fleet Enema 19-7 gram/118 mL Enema See Rx Instructions .ROUTE .COMPLEX PRN (Reason: Constipation) Rx Instructions: GIVE FLEETS RECTALLY NEEDED IF NO RESULTS FROM MILK OF MAGNESIA AND DULCOLAX. No Action (DME) lancets 30 gauge misc See Rx Instructions .Route Qty: 100 5RF Rx Instructions: use tid (DME) True Metrix Glucose Test Strip Strip See Rx Instructions .Route Qty: 100 6RF Rx Instructions: USE THREE TIMES DAILY TO CHECK BLOOD SUGAR Discharge Orders: Discharge Order (Routine); Ordered 08/24/23 Ordered By: Katharine Gerard Referrals: [facility] [Outside] Faye Zamora MD [Primary Care Provider] - Patient Instructions: Heart Failure (DC), Altered Mental Status (ED), CHF Stoplight, Opioid Safety, Post Heart Attack Stoplight Discharge Attestations Time Spent in Discharge Care*: greater than 30 min Quality Metrics Clinical Quality Measures [ No reported AMI, CVA or VTE this stay] Coding Level of Care Code Acute Code for Chg Fwd Diagnoses Hospice care Z51.5 Paroxysmal atrial fibrillation I48.0 Atrial fibrillation type: paroxysmal DENNYS (acute kidney injury) N17.9 Aspiration pneumonia J69.0 Pressure ulcer L89.90 Pressure injury location: sacral region Metabolic encephalopathy G93.41
--- NOTE | 2023-08-24 15:36 | PC.NURSE ---
Report called to [facility] and given to Prisca Perales RN
[2023-08-24] MEDS: scopolamine 1.5 Patch 1 PATCH TRANSDERMA (15:43)
== END 2023-08-24 16:50 | disposition hospice, inpatient (51) | DRG 70 ==
LOC: ER 17:16 → CSU 19:11
PROVIDERS: Admitting Provider Family Medicine; Emergency Provider Internal Medicine; PCP Family Medicine; Visit Provider Internal Medicine
DX: G93.41 Metabolic encephalopathy (principal); E43 Unspecified severe protein-calorie malnutrition; J96.01 Acute respiratory failure with hypoxia; I21.4 Non-ST elevation (NSTEMI) myocardial infarction; I48.20 Chronic atrial fibrillation, unspecified; N17.9 Acute kidney failure, unspecified; N30.00 Acute cystitis without hematuria; I13.0 Hypertensive heart and chronic kidney disease with heart failure and stage 1 through stage 4 chronic kidney disease, or unspecified chronic kidney disease; I50.22 Chronic systolic (congestive) heart failure; Z66 Do not resuscitate; R53.81 Other malaise; N18.30 Chronic kidney disease, stage 3 unspecified; F03.90 Unspecified dementia, unspecified severity, without behavioral disturbance, psychotic disturbance, mood disturbance, and anxiety; Z87.891 Personal history of nicotine dependence; Z86.718 Personal history of other venous thrombosis and embolism; Z79.01 Long term (current) use of anticoagulants; Z79.4 Long term (current) use of insulin; M62.84 Sarcopenia; I25.10 Atherosclerotic heart disease of native coronary artery without angina pectoris; K21.9 Gastro-esophageal reflux disease without esophagitis; E11.621 Type 2 diabetes mellitus with foot ulcer; L97.529 Non-pressure chronic ulcer of other part of left foot with unspecified severity; L97.519 Non-pressure chronic ulcer of other part of right foot with unspecified severity
CPT/HCPCS: 36415; 36416; 36600; 51702; 70450; 71045; 80048; 80051; 80053; 80202; 81001; 81015; 82330; 82805; 82962; 83036; 83605; 83735; 83880; 84100; 84145; 84443; 84484; 85025; 85730; 86140; 87040; 87086; 87486; 87581; 87633; 92610; 93005; 94664; 96365; 96376; 97110; 97161; 97165; 99285; A4222; C9113; J0283; J0696; J1644; J1940; J2185; J3370; J3480; J7050